=== PATIENT | male | born 1980 | race Caucasian/White ===

== ENCOUNTER 2017-01-30 21:25 | Emergency (ER) | payer SELFPAY ==
[~2017-01-30] VITALS: Ht 177.8 cm; Wt 60.4 kg
[~2017-01-30 21:25] MED LIST: NOVORP2 SQ
[2017-01-30 22:00] VITALS: BP 142/93; PULSE 122; TEMP 98.3; O2SAT 99
[2017-01-31] MEDS ORDERED: SODIUM CHLOR 0.9% 1000 ML INJ 1,000 ML IV ONE (00:18)
[2017-01-31] MEDS ORDERED: SODIUM CHLORIDE 0.9% FLUSH 10 ML FLUSH IVF PRN (00:30)
--- NOTE | 2017-01-31 00:36 | PD ---
HPI Chief Complaint: Diabetic Time Seen by Provider: 00:18 Travel History International Travel<30 days: No Contact w/Intl Traveler<30days: No Traveled to known affect area: No History of Present Illness HPI The patient is a 36-year-old male, insulin-dependent diabetic who complains of frequency, urgency and high blood sugars at home. At home her sugars were over 400. He does not have insurance and does not have a primary care physician. He denies any fever. He cannot tell me where he might have an infection. He has an insulin pump and gave himself 10 units of regular insulin 9:30 PM tonight. He does have nausea and vomiting and without any cause. He denies any abdominal pain. The nausea and vomiting started a day and a half ago. He does feel dehydrated. He states that his insulin pump is working correctly. He denies any cough, chest pain or shortness of breath. He does smoke about a pack a day. PFSH Past Medical History ADD: Yes Anxiety: Yes Depression: Yes Heart Rhythm Problems: No Cancer: No Cardiovascular Problems: No High Cholesterol: No Chest Pain: No Congestive Heart Failure: No Diabetes: Yes (insulin pump) Patient Takes Glucophage: No Diminished Hearing: No Endocrine: Yes Glaucoma: No Genitourinary: No Hepatitis: No Hiatal Hernia: Yes Hypertension: No Medical other: Yes (hx of muscle spasms unkown cause febrile seizures as a child) Musculoskeletal: Yes (chronic knee problems) Neurologic: No Psychiatric: No Reproductive: No Respiratory: No Immunizations Current: Yes Seizures: Yes (febrile seizures as a baby) Thyroid Disease: No Influenza Vaccination: No Past Surgical History Abdominal Surgery: No Cardiac Surgery: No Ear Surgery: No Endocrine Surgery: No Eye Surgery: No Genitourinary Surgery: No Gynecologic Surgery: No Neurologic Surgery: No Oral Surgery: No Pacemaker: No Thoracic Surgery: No Other Surgery: Yes (HERNIA X 2, HYDROCELE X2.) Social History Alcohol Use: Yes (socially) Tobacco Use: Yes (1 ppd) Substance Use: No Allergies-Medications (Allergen,Severity, Reaction): Coded Allergies: Sulfa (Verified Allergy, Severe, Hives and seizures, 01/31/17) Reported Meds & Prescriptions Reported Meds & Active Scripts Active Review of Systems Except as stated in HPI: all other systems reviewed are Neg Physical Exam Narrative GENERAL: The patient is alert, oriented 3, smells slightly of acetone in no apparent distress. He does appear at least moderately dehydrated. The respiratory rate is 22 and the pulse is 122 but the rest the vital signs are normal. SKIN: Focused skin assessment warm/dry. HEAD: Atraumatic. Normocephalic. EYES: Pupils equal and round. No scleral icterus. No injection or drainage. ENT: No nasal bleeding or discharge. Mucous membranes pink and moist. NECK: Trachea midline. No JVD. CARDIOVASCULAR: Regular rate and rhythm. No murmur appreciated. RESPIRATORY: No accessory muscle use. Except for a few widely scattered wheezes and rhonchi the lungs are clear.. Breath sounds equal bilaterally. GASTROINTESTINAL: Abdomen soft, non-tender, nondistended. Hepatic and splenic margins not palpable. No guarding or rebound is present. MUSCULOSKELETAL: No obvious deformities. No clubbing. No cyanosis. No edema. NEUROLOGICAL: Awake and alert. No obvious cranial nerve deficits. Motor grossly within normal limits. Normal speech. PSYCHIATRIC: Appropriate mood and affect; insight and judgment normal. Data Data Last Documented VS Vital Signs Date Time Temp Pulse Resp B/P Pulse Ox O2 Delivery O2 Flow Rate FiO2 01/31/17 01:49 89 141/82 95 01/31/17 01:14 22 Room Air 01/30/17 22:00 98.3 Orders Complete Blood Count With Diff (01/31/17 00:18) Comprehensive Metabolic Panel (01/31/17 00:18) Beta Hydroxybutyrate (Acetone) (01/31/17 00:18) Urinalysis - C+S If Indicated (01/31/17 00:18) Blood Glucose (01/31/17 00:18) Blood Glucose (01/31/17 00:48) Ecg Monitoring (01/31/17 00:18) Iv Access Insert/Monitor (01/31/17 00:18) Oximetry (01/31/17 00:18) NPO (01/31/17 00:18) Sodium Chloride 0.9% Flush (Ns Flush) (01/31/17 00:30) Sodium Chlor 0.9% 1000 Ml Inj (Ns 1000 M (01/31/17 00:18) Insulin Human Regular Inj (Novolin R Inj (01/31/17 01:45) Labs Laboratory Tests Test 01/31/17 01/31/17 01/31/17 00:35 00:43 01:07 White Blood Count 11.9 TH/MM3 Red Blood Count 5.83 MIL/MM3 Hemoglobin 16.5 GM/DL Hematocrit 51.8 % Mean Corpuscular Volume 88.8 FL Mean Corpuscular Hemoglobin 28.4 PG Mean Corpuscular Hemoglobin 31.9 % Concent Red Cell Distribution Width 13.1 % Platelet Count 213 TH/MM3 Mean Platelet Volume 9.4 FL Neutrophils (%) (Auto) 80.6 % Lymphocytes (%) (Auto) 12.9 % Monocytes (%) (Auto) 4.7 % Eosinophils (%) (Auto) 0.6 % Basophils (%) (Auto) 1.2 % Neutrophils # (Auto) 9.6 TH/MM3 Lymphocytes # (Auto) 1.5 TH/MM3 Monocytes # (Auto) 0.6 TH/MM3 Eosinophils # (Auto) 0.1 TH/MM3 Basophils # (Auto) 0.1 TH/MM3 CBC Comment DIFF FINAL Differential Comment Urine Color YELLOW Urine Turbidity CLEAR Urine pH 5.5 Urine Specific Reeves 1.027 Urine Protein TRACE mg/dL Urine Glucose (UA) 500 mg/dL Urine Ketones 80 OR GREATER mg/dL Urine Occult Blood NEG Urine Nitrite NEG Urine Bilirubin NEG Urine Leukocyte Esterase NEG Urine WBC 0-2 /hpf Urine Squamous Epithelial 0-5 /hpf Cells Urine Mucus OCC /lpf Microscopic Urinalysis Comment CULT NOT INDICATED Sodium Level 135 MEQ/L Potassium Level 4.7 MEQ/L Chloride Level 100 MEQ/L Carbon Dioxide Level 13.8 MEQ/L Anion Gap 21 MEQ/L Blood Urea Nitrogen 18 MG/DL Creatinine 1.10 MG/DL Estimat Glomerular Filtration 77 ML/MIN Rate Random Glucose 308 MG/DL Calcium Level 9.0 MG/DL Total Bilirubin 0.8 MG/DL Aspartate Amino Transf 12 U/L (AST/SGOT) Alanine Aminotransferase 19 U/L (ALT/SGPT) Alkaline Phosphatase 82 U/L Total Protein 8.3 GM/DL Albumin 4.4 GM/DL B-Hydroxybutyrate 8.48 MMOL/L [facility] Medical Decision Making Medical Screen Exam Complete: Yes Emergency Medical Condition: Yes Medical Record Reviewed: Yes Interpretation(s) It is now 0130 and the Accu-Chek is 266. The patient will be given 4 more units of Regular Insulin and discharged. The CBC is 11,900 with a hemoglobin of 16.5 and hematocrit of 52. There are 81% neutrophils. The urine shows specific gravity 1.027 with 500 glucose and 80 or greater ketones and is otherwise normal and culture is not indicated. The complete metabolic profile shows a sodium of 135, bicarbonate of 13.8 with an anion gap of 21 and glucose of 308 and total protein of 8.3 but is otherwise normal. The beta hydroxybutyrate is 8.48. Differential Diagnosis Diabetic ketoacidosis, diabetes mellitus poor control, pharyngitis, ear infection, pneumonia, bronchitis, intestinal infection, electrolyte disorder, dehydration Narrative Course The patient does have a mild starvation ketosis, likely because of dehydration. His high urine specific gravity, ketones in his urine and hemoconcentration of his hemoglobin and hematocrit in the CBC all suggest dehydration. It is now 0138 and the patient feels fine and wants to go home. Diagnosis Primary Impression: Poor control type I diabetes mellitus Additional Impressions: Moderate dehydration Ketosis Additional Instructions: As we discussed, increase your liquid intake. Take the Phenergan for nausea every 6 hours to prevent getting nauseated. Follow-up with a primary care physician. He will need to see the case checker, she is back on the . Med/Other Pt SpecificInfo: Prescription(s) given Scripts Promethazine (Phenergan)25 Mg Tab25 Mg PO Q6H PRN (Nausea/Vomiting) #30 TAB Ref 0 Prov:Pankaj Lopez MD 01/31/17 Disposition: DISCHARGE HOME Condition: Stable Pankaj Lopez MD Jan 31, 2017 00:36
[2017-01-31 00:51] VITALS: BP 150/90; PULSE 80; O2SAT 99
[2017-01-31 00:53] LABS: AUTOMATED NEUTROPHIL # 9.6 TH/MM3 (1.8-7.7); BASOPHIL # 0.1 TH/MM3 (0-0.2); BASOPHIL % 1.2 % (0.0-2.0); EOSINOPHIL # 0.1 TH/MM3 (0-0.4); EOSINOPHIL % 0.6 % (0.0-4.0); HEMATOCRIT 51.8 % (39.0-51.0); HEMO FLAGS DIFF FINAL; LYMPH % 12.9 % (9.0-44.0); LYMPHOCYTE # 1.5 TH/MM3 (1.0-4.8); MEAN CELL VOLUME 88.8 FL (80.0-100.0); MEAN CORPUSCULAR HEMOGLOBIN 28.4 PG (27.0-34.0); MEAN CORPUSCULAR HGB CONC 31.9 % (32.0-36.0); MONO % 4.7 % (0.0-8.0); NEUT % 80.6 % (16.0-70.0); PLATELET COUNT 213 TH/MM3 (150-450); RED BLOOD COUNT 5.83 MIL/MM3 (4.50-5.90); RED CELL DISTRIBUTION WIDTH 13.1 % (11.6-17.2); WHITE BLOOD COUNT 11.9 TH/MM3 (4.0-11.0)
[2017-01-31 01:09] LABS: BLOOD, URINE NEG (NEG); GLUCOSE,URINE 500 mg/dL (NEG); NITRITE,URINE NEG (NEG); PH, URINE 5.5 (5.0-8.5)
[2017-01-31 01:14] VITALS: RESP 22; O2SAT 99
[2017-01-31 01:21] LABS: KETONE, URINE 80 OR GREATER mg/dL (NEG)
[2017-01-31 01:25] LABS: URINE COLOR YELLOW (YELLW/STRAW)
[2017-01-31 01:26] LABS: COMMENT (UR) CULT NOT INDICATED; CULTURE IF INDICATED CULT NOT INDICATED; MUCUS URINE OCC /lpf (OCC); SQUAMOUS EPITHELIAL CELL URINE 0-5 /hpf (0-5); WBC, URINE 0-2 /hpf (0-5)
[2017-01-31] MEDS ORDERED: INSULIN HUMAN REGULAR 1,000 UNITS/10 ML VIAL IV PUSH ONE ×2 (01:30→01:45)
[2017-01-31 01:33] LABS: CHLORIDE 100 MEQ/L (98-107); POTASSIUM 4.7 MEQ/L (3.5-5.1); SODIUM (NA) 135 MEQ/L (136-145)
[2017-01-31 01:36] LABS: ANION GAP 21 MEQ/L (5-15); BICARBONATE 13.8 MEQ/L (21.0-32.0)
[2017-01-31 01:37] LABS: BLOOD UREA NITROGEN 18 MG/DL (7-18)
[2017-01-31 01:40] LABS: ALT (GPT) 19 U/L (12-78); AST (GOT) 12 U/L (15-37); GLOMERULAR FILTRATION RATE 77 ML/MIN (>89)
[2017-01-31 01:41] LABS: TOTAL BILIRUBIN ADULT 0.8 MG/DL (0.2-1.0)
[2017-01-31 01:42] LABS: ALKALINE PHOSPHATASE 82 U/L (45-117)
[2017-01-31 01:49] VITALS: BP 141/82; PULSE 89; O2SAT 95
[2017-01-31 02:01] LABS: BETA-HYDROXYBUTYRATE 8.48 MMOL/L (0.00-0.39)
[2017-01-31] MEDS ORDERED: PROM25TA5 PO (02:14)
== END 2017-01-31 02:55 | disposition home or self-care (01) ==
LOC: PHED 21:25
DX: E11.65 Type 2 diabetes mellitus with hyperglycemia (principal); E86.0 Dehydration; E88.89 Other specified metabolic disorders; F17.210 Nicotine dependence, cigarettes, uncomplicated; Z79.4 Long term (current) use of insulin; Z96.41 Presence of insulin pump (external) (internal)
CPT/HCPCS: 80053; 81001; 82010; 85025; 96361; 96374; 99284; J1815; J7030

== ENCOUNTER 2017-05-01 21:57 | Inpatient (IN) | payer SELFPAY ==
[~2017-05-01] VITALS: Ht 175.3 cm; Wt 66.5 kg
[~2017-05-01 21:57] MED LIST changes: -NOVORP2 SQ; +PROM25TA5 PO
[2017-05-01 22:05] VITALS: BP 136/76; PULSE 133; RESP 24; TEMP 97.5; O2SAT 100
[2017-05-01] MEDS ORDERED: SODIUM CHLOR 0.9% 1000 ML INJ 1,000 ML IV ONE ×2 (22:16→22:46)
[2017-05-01] MEDS ORDERED: TRAM50TA PO (22:18)
[2017-05-01] MEDS ORDERED: NOVORP2 SQ (22:18)
[2017-05-01 22:19] VITALS: O2SAT 100
[2017-05-01 22:22] VITALS: BP 154/70; PULSE 93; RESP 34; TEMP 97.5; O2SAT 100
[2017-05-01] MEDS ORDERED: SODIUM CHLORIDE 0.9% FLUSH 10 ML FLUSH IVF PRN (22:30)
[2017-05-01 22:32] LABS: BLOOD GAS VENOUS BASE EXCESS -23.2 mmol/L (-2-2); BLOOD GAS VENOUS HCO3 5 mmol/L (22-26); BLOOD GAS VENOUS O2 CONTENT 15.1 Vol % (9.0-17.0); BLOOD GAS VENOUS O2 HGB SAT 67 % (70-76); BLOOD GAS VENOUS PCO2 17 mmHg (44-48); BLOOD GAS VENOUS PO2 56 mmHg (35-40); TEMP CORR TO 98.6
[2017-05-01 22:33] LABS: CRITICAL VALUE YES; DRAW SITE PERIPHERAL LINE; FIO2 21 %; OXYGEN DEVICE ROOM AIR; STAT YES
[2017-05-01 22:34] LABS: AUTOMATED NEUTROPHIL # 15.8 TH/MM3 (1.8-7.7); BASOPHIL % 0.2 % (0.0-2.0); EOSINOPHIL # 0.2 TH/MM3 (0-0.4); HEMATOCRIT 50.5 % (39.0-51.0); LYMPHOCYTE # 0.5 TH/MM3 (1.0-4.8); MEAN CELL VOLUME 95.6 FL (80.0-100.0); MEAN CORPUSCULAR HGB CONC 31.4 % (32.0-36.0); MONO % 6.2 % (0.0-8.0); NEUT % 89.6 % (16.0-70.0); PLATELET COUNT 174 TH/MM3 (150-450); RED BLOOD COUNT 5.29 MIL/MM3 (4.50-5.90); RED CELL DISTRIBUTION WIDTH 14.3 % (11.6-17.2); WHITE BLOOD COUNT 17.6 TH/MM3 (4.0-11.0)
[2017-05-01 22:35] LABS: HEMO FLAGS DIFF FINAL
[2017-05-01] MEDS: DEXT 5%-NACL 0.9% 1000 ML INJ 1,000 ML IV SCH (22:38)
[2017-05-01 22:44] LABS: CHLORIDE 80 MEQ/L (98-107); POTASSIUM 5.6 MEQ/L (3.5-5.1); SODIUM (NA) 125 MEQ/L (136-145)
[2017-05-01] MEDS ORDERED: SODIUM BICARBONATE 8.4% SOLN 50 MEQ/50 ML VIAL IV PRN ×2 (22:45)
[2017-05-01] MEDS ORDERED: POTASSIUM CHLOR 20 MEQ PREMIX 100 ML IV PRN ×4 (22:45)
[2017-05-01] MEDS ORDERED: INSULIN HUMAN REGULAR 1,000 UNITS/10 ML VIAL IV PUSH ONE (22:45)
[2017-05-01] MEDS ORDERED: INSULIN REGULAR (IV INFUSION) 100 UNITS in SODIUM CHLORIDE 0.9% INJ 99 ML IV SCH (22:45)
[2017-05-01] MEDS ORDERED: SODIUM PHOSPHATE INJ 15 MMOL in SODIUM CHLORIDE 0.9% INJ 100 ML IV PRN (22:45)
[2017-05-01] MEDS ORDERED: POTASSIUM CHLOR 40 MEQ PREMIX 100 ML IV PRN ×2 (22:45)
--- NOTE | 2017-05-01 22:45 | PD ---
HPI Chief Complaint: Diabetic Time Seen by Provider: 22:16 Travel History International Travel<30 days: No Contact w/Intl Traveler<30days: No Traveled to known affect area: No History of Present Illness HPI Is a 36 old man who presents to the emergency department complaining of feeling sick with nausea vomiting abdominal pain. His a history of diabetes. He's been taking regular insulin but no long-acting insulin because of insurance problems. He also does not strips to test his sugar. He states he started feeling bad today. His family member states she's really been filled out for the past week or so. Today started getting worsening nausea vomiting abdominal pain. He also some right flank pain. Is a history of recurrent DKA in the past as well. History Past Medical History Narrative Medical Diabetes Chronic knee pain Tetanus Vaccination: < 5 Years Influenza Vaccination: No Social History Narrative Social History Patient denies any illicit drug use. Alcohol Use: Yes (socially) Tobacco Use: Yes (1 ppd) Allergies-Medications (Allergen,Severity, Reaction): Coded Allergies: Sulfa (Verified Allergy, Severe, Hives and seizures, 05/01/17) Reported Meds & Prescriptions Reported Meds & Active Scripts Active Reported Tramadol (Tramadol HCl) 50 Mg Tab 50 Mg PO Q6H PRN Novolin R Inj (Insulin Human Regular) 1,000 Unit/10 Ml Vial 0 SQ DIRECTED Sliding Scale As Directed. Review of Systems Except as stated in HPI: all other systems reviewed are Neg Physical Exam Narrative GENERAL: Well-appearing 36 year-old man, tachypnea, Kussmaul breathing, looks uncomfortable. SKIN: Focused skin assessment warm/dry. HEAD: Atraumatic. Normocephalic. EYES: Pupils equal and round. No scleral icterus. No injection or drainage. ENT: No nasal bleeding or discharge. Mucous membranes are dry. NECK: Trachea midline. No JVD. CARDIOVASCULAR: Regular rate and rhythm. No murmur appreciated. RESPIRATORY: No accessory muscle use. Clear to auscultation. Breath sounds equal bilaterally. GASTROINTESTINAL: Abdomen is flat and soft. There is no tenderness or grimace with deep palpation. MUSCULOSKELETAL: No obvious deformities. No edema. NEUROLOGICAL: Awake and alert. No obvious cranial nerve deficits. Motor grossly within normal limits. Normal speech. Data Data Last Documented VS Vital Signs Date Time Temp Pulse Resp B/P Pulse Ox O2 Delivery O2 Flow Rate FiO2 05/01/17 23:18 97.9 127 30 136/71 100 Room Air Orders Complete Blood Count With Diff (05/01/17 22:16) Comprehensive Metabolic Panel (05/01/17 22:16) Magnesium (Mg) (05/01/17 22:16) Phosphorus (Po4) (05/01/17 22:16) Beta Hydroxybutyrate (Acetone) (05/01/17 22:16) Lactic Acid (05/01/17 22:16) Urinalysis - C+S If Indicated (05/01/17 22:16) Blood Gas Venous (Vbg) (05/01/17 22:16) Blood Glucose (05/01/17 22:16) Blood Glucose (05/01/17 23:16) Blood Glucose (05/01/17 22:16) Ecg Monitoring (05/01/17 22:16) Iv Access Insert/Monitor (05/01/17 22:16) Oximetry (05/01/17 22:16) NPO (05/01/17 22:16) Sodium Chlor 0.9% 1000 Ml Inj (Ns 1000 M (05/01/17 22:16) Sodium Chlor 0.9% 1000 Ml Inj (Ns 1000 M (05/01/17 22:46) Sodium Chloride 0.9% Flush (Ns Flush) (05/01/17 22:30) Lipase (05/01/17 22:16) Clinical Outcomes Manager / Telemetry [id number] (05/01/17 22:38) ^ Insert Iv (05/01/17 22:38) Diet Npo (05/02/17 Breakfast) Sodium Chlor 0.9% 1000 Ml Inj (Ns 1000 M (05/01/17 22:38) Sodium Chlor 0.9% 1000 Ml Inj (Ns 1000 M (05/01/17 22:38) Dext 5%-Nacl 0.9% 1000 Ml Inj (D5w-Ns 10 (05/01/17 22:38) Insulin Human Regular Inj (Novolin R Inj (05/01/17 22:45) Insulin Regular (Iv Infusion) (Novolin R (05/01/17 22:45) Potassium Chlor 40 Meq Premix (Kcl 40 Me (05/01/17 22:45) Potassium Chlor 40 Meq Premix (Kcl 40 Me (05/01/17 22:45) Potassium Chlor 20 Meq Premix (Kcl 20 Me (05/01/17 22:45) Potassium Chlor 20 Meq Premix (Kcl 20 Me (05/01/17 22:45) Potassium Chlor 20 Meq Premix (Kcl 20 Me (05/01/17 22:45) Potassium Chlor 20 Meq Premix (Kcl 20 Me (05/01/17 22:45) Potassium Chlor 20 Meq Premix (Kcl 20 Me (05/01/17 22:45) Potassium Chlor 20 Meq Premix (Kcl 20 Me (05/01/17 22:45) Sodium Bicarbonate 8.4% Inj (Sodium Bica (05/01/17 22:45) Sodium Bicarbonate 8.4% Inj (Sodium Bica (05/01/17 22:45) Sodium Phosphate Inj (Sodium Phosphate I (05/01/17 22:45) Hemoglobin (Hgb) A1c (05/01/17 22:38) Basic Metabolic Panel (Bmp) (05/02/17 03:38) Basic Metabolic Panel (Bmp) (05/02/17 09:38) Basic Metabolic Panel (Bmp) (05/02/17 15:38) Basic Metabolic Panel (Bmp) (05/02/17 21:38) Magnesium (Mg) (05/02/17 03:38) Magnesium (Mg) (05/02/17 09:38) Magnesium (Mg) (05/02/17 15:38) Magnesium (Mg) (05/02/17 21:38) Phosphorus (Po4) (05/02/17 03:38) Phosphorus (Po4) (05/02/17 09:38) Phosphorus (Po4) (05/02/17 15:38) Phosphorus (Po4) (05/02/17 21:38) Beta Hydroxybutyrate (Acetone) (05/02/17 09:38) Beta Hydroxybutyrate (Acetone) (05/02/17 21:38) Admit Order (Ed Use Only) (05/01/17 ) Labs Laboratory Tests Test 05/01/17 05/01/17 05/01/17 22:16 22:22 22:28 White Blood Count 17.6 TH/MM3 Red Blood Count 5.29 MIL/MM3 Hemoglobin 15.9 GM/DL Hematocrit 50.5 % Mean Corpuscular Volume 95.6 FL Mean Corpuscular Hemoglobin 30.0 PG Mean Corpuscular Hemoglobin 31.4 % Concent Red Cell Distribution Width 14.3 % Platelet Count 174 TH/MM3 Mean Platelet Volume 8.6 FL Neutrophils (%) (Auto) 89.6 % Lymphocytes (%) (Auto) 3.0 % Monocytes (%) (Auto) 6.2 % Eosinophils (%) (Auto) 1.0 % Basophils (%) (Auto) 0.2 % Neutrophils # (Auto) 15.8 TH/MM3 Lymphocytes # (Auto) 0.5 TH/MM3 Monocytes # (Auto) 1.1 TH/MM3 Eosinophils # (Auto) 0.2 TH/MM3 Basophils # (Auto) 0.0 TH/MM3 CBC Comment DIFF FINAL Differential Comment Sodium Level 125 MEQ/L Potassium Level 5.6 MEQ/L Chloride Level 80 MEQ/L Carbon Dioxide Level 6.2 MEQ/L Anion Gap 39 MEQ/L Blood Urea Nitrogen 26 MG/DL Creatinine 1.60 MG/DL Estimat Glomerular Filtration 50 ML/MIN Rate Random Glucose 597 MG/DL Calcium Level 8.7 MG/DL Phosphorus Level 7.4 MG/DL Magnesium Level 2.3 MG/DL Total Bilirubin 1.7 MG/DL Aspartate Amino Transf 114 U/L (AST/SGOT) Alanine Aminotransferase 94 U/L (ALT/SGPT) Alkaline Phosphatase 146 U/L Total Protein 9.2 GM/DL Albumin 5.0 GM/DL Lipase 219 U/L B-Hydroxybutyrate 14.56 MMOL/L Blood Gas Puncture Site PERIPHERAL LINE Blood Gas Patient Temperature 98.6 Venous Blood pH 7.10 Venous Blood Partial Pressure 17 mmHg CO2 Venous Blood Partial Pressure 56 mmHg O2 Venous Blood HCO3 5 mmol/L Venous Blood Oxygen Saturation 67 % Venous Blood Oxygen Content 15.1 Vol % Venous Blood Base Excess -23.2 mmol/L Oxygen Delivery Device ROOM AIR Blood Gas Inspired Oxygen 21 % Lactic Acid Level 6.5 mmol/L [facility] Medical Decision Making Medical Screen Exam Complete: Yes Emergency Medical Condition: Yes Interpretation(s) LABS: CBC remarkable for mild leukocytosis. CMP remarkable for acidosis with elevated anion gap, some acute kidney injury, glucose 597, mildly elevated total bili is see ALT and alkaline phosphatase Lipase normal Lactate 6.5 Beta hydroxy butyrate 14.56 VB.1/17/56/5, base excess -23.2 Differential Diagnosis DKA, occult infection, occult injury, acidosis, sepsis, other Narrative Course Medical decision making Is a 36 old man who presents to the emergency department and apparent DKA. Sounds like he's taking insulin on a schedule, but no long-acting insulin, is not checking his blood sugar, and probably has been getting gradually worse for the past week. Today became acutely worse. He appears to be in DKA. He has some right flank pain which is not typical for him with DKA. He does however have a benign abdominal exam at this time. We'll give IV fluids, check labs, aggressive hydration. Will start IV insulin this is BC his potassium level. He 'll be admitted to the ICU. Critical Care Narrative Aggregate critical care time was 30 minutes. Time to perform other separately billable procedures was not included in the critical care time. My time did not include minutes spent treating any other patients simultaneously or on activities that did not directly contribute to the patient's treatment. The services I provided to this patient were to treat and/or prevent clinically significant deterioration that could result in: , disability, shock, neurologic injury, other. I provided critical care services requiring my management, as noted below: Chart data review, documentation time, medication orders and management, vital sign assessments/reviewing monitor data, ordering and reviewing lab tests, ordering and interpreting/reviewing x-rays and diagnostic studies, care of the patient and discussion of the patient with the admitting physicians. Diagnosis Primary Impression: DKA (diabetic ketoacidoses) Owen Melendez MD May 01, 2017 22:45
[2017-05-01 22:48] LABS: ANION GAP 39 MEQ/L (5-15); BICARBONATE 6.2 MEQ/L (21.0-32.0); BLOOD UREA NITROGEN 26 MG/DL (7-18); MAGNESIUM 2.3 MG/DL (1.5-2.5)
[2017-05-01 22:50] LABS: ALT (GPT) 94 U/L (12-78); AST (GOT) 114 U/L (15-37); GLOMERULAR FILTRATION RATE 50 ML/MIN (>89)
[2017-05-01 22:52] LABS: TOTAL BILIRUBIN ADULT 1.7 MG/DL (0.2-1.0)
[2017-05-01] MEDS: SODIUM CHLOR 0.9% 1000 ML INJ 1,000 ML IV SCH ×3 (22:53→23:56)
[2017-05-01 23:10] LABS: ALKALINE PHOSPHATASE 146 U/L (45-117)
[2017-05-01 23:17] LABS: BETA-HYDROXYBUTYRATE 14.56 MMOL/L (0.00-0.39)
[2017-05-01 23:18] VITALS: BP 136/71; PULSE 127; RESP 30; TEMP 97.9; O2SAT 100
[2017-05-01] MEDS ORDERED: MAGNESIUM HYDROXIDE SUSP 30 ML CUP PO PRN (23:30)
[2017-05-01] MEDS ORDERED: LACTULOSE SYRUP 20 GM/30 ML CUP PO PRN (23:30)
[2017-05-01] MEDS ORDERED: CHLORHEXIDINE GLUCONATE 2 % 1 PACK (2 CLOTHS) TOP PRN (23:30)
[2017-05-01] MEDS ORDERED: SODIUM CHLORIDE 0.9% FLUSH 10 ML FLUSH IV FLUSH PRN (23:30)
[2017-05-01] MEDS ORDERED: SENNOSIDES 8.6 MG TAB PO PRN (23:30)
[2017-05-01] MEDS ORDERED: MISCELLANEOUS NURSING INFORMATION XX SCH (23:30)
[2017-05-01] MEDS ORDERED: BISACODYL 10 MG SUPP RECTAL PRN (23:30)
[2017-05-01] MEDS ORDERED: RESP: ALBUTEROL 2.5 MG/3 ML NEB (PRN) INH (23:30)
[2017-05-01] MEDS ORDERED: ACETAMINOPHEN 325 MG TAB PO PRN (23:30)
[2017-05-01] MEDS ORDERED: ONDANSETRON HCL 4 MG/2 ML VIAL IV PRN (23:30)
[2017-05-01] MEDS ORDERED: MORPHINE SULFATE 4 MG/ML INJ IV PRN (23:30)
--- NOTE | 2017-05-01 23:56 | RADRPT ---
EXAM DATE/TIME: 05/01/2017 23:27 [facility] COMPARISON: No previous studies available for comparison. INDICATIONS : Shortness of breath. MEDICAL HISTORY : Diabetes. SURGICAL HISTORY : None. ENCOUNTER: Initial ACUITY: 1 day PAIN SCORE: 4/10 LOCATION: Bilateral chest FINDINGS: A single view of the chest demonstrates the lungs to be symmetrically aerated without evidence of mas s, infiltrate or effusion. The cardiomediastinal contours are unremarkable. Osseous structures are intact. CONCLUSION: Normal examination for a patient of this age. Ramiro Mcpherson MD on May 01, 2017 at 23:54 Board Certified Radiologist. This report was verified electronically.
[2017-05-02] VITALS (25 sets, daily range): BP systolic 110–145; BP diastolic 57–80; PULSE 88–135; RESP 0–34; TEMP 97.1–99.2; O2SAT 99–100
[2017-05-02] MEDS ORDERED: PIPERACIL-TAZO 3.375 GM PREMIX 50 ML IV SCH
[2017-05-02] MEDS: ENOXAPARIN SODIUM 40 MG/0.4 ML SYRINGE SQ SCH (00:37)
--- NOTE | 2017-05-02 00:41 | RADRPT ---
EXAM DATE/TIME: 05/02/2017 00:05 [facility] COMPARISON: No previous studies available for comparison. INDICATIONS : Abdominal pain. MEDICAL HISTORY : Seizures. Hernia, hiatal. Diabetes. Depression. Anxiety. SURGICAL HISTORY : Left sesmoid bone removal. Right knee surgery. Hydrocele surgery. Hernia repair surgery. ENCOUNTER: Initial ACUITY: 1 day PAIN SCORE: 7/10 LOCATION: Bilateral upper quadrant MEASUREMENTS: LIVER: 16.2 cm length COMMON DUCT: 3 mm RIGHT KIDNEY: 11.9 x 5.9 x 5.8 cm LEFT KIDNEY: 12.8 x 6.5 x 5.6 cm SPLEEN: 10.6 cm length AORTA: 2.0cm maximal FINDINGS: LIVER: There is an increased echogenicity suggestive of some fatty infiltration. The portal system is patent . No evidence of ascites. COMMON DUCT: No intraluminal mass or stone visualized. GALLBLADDER: Contains no stones, demonstrates no wall thickening or pericholecystic fluid. PANCREAS: The visualized portions are within normal limits. RIGHT KIDNEY: No hydronephrosis, stone or mass. LEFT KIDNEY: No hydronephrosis, stone or mass. SPLEEN: No focal lesion. AORTA: Non aneurysmal. IVC: Within normal limits. CONCLUSION: 1. No evidence of gallstones or biliary tract obstruction. 2. Mild fatty infiltration of the liver. Ramiro Mcpherson MD on May 02, 2017 at 0:39 Board Certified Radiologist. This report was verified electronically.
[2017-05-02 00:58] LABS: BLOOD, URINE SMALL (NEG); GLUCOSE,URINE NEG (NEG); NITRITE,URINE NEG (NEG); PH, URINE 5.5 (5.0-8.5)
[2017-05-02 01:09] LABS: KETONE, URINE 80 OR GREATER mg/dL (NEG); URINE COLOR YELLOW (YELLW/STRAW)
[2017-05-02 01:10] LABS: MUCUS URINE OCC /lpf (OCC)
[2017-05-02 01:11] LABS: RBC, URINE 0-3 /hpf (0-3); SQUAMOUS EPITHELIAL CELL URINE 0-5 /hpf (0-5)
[2017-05-02 01:12] LABS: COMMENT (UR) CULT NOT INDICATED; CULTURE IF INDICATED CULT NOT INDICATED
[2017-05-02] MEDS: CHLORHEXIDINE GLUCONATE 2 % 1 PACK (2 CLOTHS) TOP SCH (01:46)
[2017-05-02] MEDS: ACETAMINOPHEN/HYDROcodone 325 MG/5 MG TAB PO PRN ×2 (01:59→20:23)
[2017-05-02] MEDS: SODIUM CHLOR 0.9% 1000 ML INJ 1,000 ML IV SCH ×3 (02:38→10:38)
[2017-05-02] MEDS: DEXT 5%-NACL 0.9% 1000 ML INJ 1,000 ML IV SCH ×5 (04:43→22:34)
[2017-05-02 05:12] LABS: AUTOMATED NEUTROPHIL # 12.6 TH/MM3 (1.8-7.7); BASOPHIL % 0.3 % (0.0-2.0); EOSINOPHIL % 0.1 % (0.0-4.0); LYMPH % 3.1 % (9.0-44.0); LYMPHOCYTE # 0.4 TH/MM3 (1.0-4.8); MEAN CELL VOLUME 91.4 FL (80.0-100.0); MEAN CORPUSCULAR HEMOGLOBIN 30.2 PG (27.0-34.0); MEAN CORPUSCULAR HGB CONC 33.1 % (32.0-36.0); MONO % 4.8 % (0.0-8.0); NEUT % 91.7 % (16.0-70.0); PLATELET COUNT 150 TH/MM3 (150-450); RED BLOOD COUNT 4.16 MIL/MM3 (4.50-5.90); RED CELL DISTRIBUTION WIDTH 13.5 % (11.6-17.2); WHITE BLOOD COUNT 13.7 TH/MM3 (4.0-11.0)
[2017-05-02 05:25] LABS: HEMO FLAGS DIFF FINAL
--- NOTE | 2017-05-02 05:53 | HHI.HP ---
[facility] Service Critical Care Medicine Primary Care Physician No Primary Care Physician Admission Diagnosis severe DKA Diagnosis: (1) DKA (diabetic ketoacidoses) Diagnosis: Principal (2) Poor control type I diabetes mellitus Diagnosis: Principal (3) Moderate dehydration Diagnosis: Principal (4) Hyponatremia Diagnosis: Principal (5) Hyperkalemia Diagnosis: Principal (6) Elevated transaminase level Diagnosis: Principal (7) Ketosis Diagnosis: Principal (8) Lactic acidosis Diagnosis: Principal (9) Acute kidney injury Diagnosis: Principal (10) Leukocytosis Diagnosis: Principal (11) Normocytic anemia Diagnosis: Principal (12) ETOHism Diagnosis: Principal (13) SIRS (systemic inflammatory response syndrome) Diagnosis: Principal Chief Complaint: Nausea and vomiting. :My insulin pump is broken I had not check my blood sugars". Travel History International Travel<30 Days: No Contact w/Intl Traveler <30 Da: No Traveled to Known Affected Are: No Sepsis Criteria SIRS Criteria (2 or more): WBC > 75957, < 4000 or > 10% bands History of Present Illness 36-year-old male. Date of admission 05/01/2017. Past medical history includes IDDM 15 years currently on insulin pump. Patient has a [place] insulin pump (currently not available as patient removed 20 minutes prior to arrival to [facility] ED) that was "malfunctioning". He recently was on Novulog R insulin however is lost insurance and switched on his own to Novulin N insulin recently. He presents to [place] ED with quantitative history of increasing nausea/vomiting and epigastric abdominal pain. He is attempting to drink propel fitness water without success. Denies any recent side contacts. Denies chest pain, denies shortness of breath. Last episode of DKA was in 2016. Initial laboratory revealed a leukocytosis of 13,000, sodium 125, potassium 5.6 , acute kidney injury with a creatinine 1.6, blood sugar 592, beta hydroxybutyrate 14.56 and lactic acidosis 6.5. Transaminase are elevated slightly and phosphorus elevated 7.3. Recent abdominal ultrasound which revealed essentially normal gallbladder with hepatic steatosis. Patient received crystalloid bolus the ED and 6 units are insulin 1 is currently on insulin drip at 8 units an hour. He has been switched to D5 normal saline at 200 cc an hour. On my examination, patient denies any abdominal pain. No nausea vomiting. Appears nonseptic and is in no acute distress. Review of Systems Constitutional: COMPLAINS OF: Weight loss, Dizziness, DENIES: Fever, Weight gain, Chills Endocrine: DENIES: Polydipsia, Polyuria Eyes: DENIES: Blurred vision, Double Vision Ears, nose, mouth, throat: DENIES: Throat pain, Epistaxis Respiratory: DENIES: Apneas Cardiovascular: DENIES: Chest pain Gastrointestinal: COMPLAINS OF: Nausea, Vomiting, DENIES: Abdominal pain Genitourinary: DENIES: Hematuria, Nocturia Musculoskeletal: DENIES: Joint pain Integumentary: DENIES: Pruritus, Rash Hematologic/lymphatic: DENIES: Bruising Immunologic/allergic: DENIES: Eczema Neurologic: DENIES: Abnormal gait Psychiatric: DENIES: Anxiety, Confusion Past Family Social History Allergies: Coded Allergies: Sulfa (Verified Allergy, Severe, Hives and seizures, 05/01/17) Past Medical History IDDM EtOH use Tobaccoism Depression Chronic bilateral knee pain Past Surgical History Right hydrocelectomy Left foot sesamoid bone surgery Right total knee arthroplasty Bilateral inguinal hernia repair Reported Medications Ultram 50 mg every 6 hours when necessary Insulin pump currently broken with Novulin R insulin Active Ordered Medications Reviewed in EMR Family History Patient is adopted. He does not know his parents history Social History +1/2 pack per day tobacco 15 years. Drinks 2 vodkas plus daily. Quit 2 days ago. Physical Exam Vital Signs Vital Signs Date Time Temp Pulse Resp B/P Pulse Ox O2 Delivery O2 Flow Rate FiO2 05/02/17 04:00 118 05/02/17 03:00 98.5 122 29 131/74 05/02/17 02:00 128 0 140/65 05/02/17 02:00 128 0 140/65 05/02/17 02:00 128 05/02/17 02:00 125 05/02/17 01:31 98.2 130 23 142/65 100 05/02/17 01:08 142/65 05/02/17 00:32 97.5 135 34 144/66 100 Room Air 05/01/17 23:18 97.9 127 30 136/71 100 Room Air 05/01/17 22:22 97.5 93 34 154/70 100 Room Air 05/01/17 22:19 100 Room Air 05/01/17 22:05 97.5 133 24 136/76 100 Physical Exam GENERAL: 36-year-old male, resting in bed in no acute distress SKIN: Warm and dry. Multiple tattoos upper extremities HEAD: Atraumatic. Normocephalic. EYES: Pupils equal and round about 3 mm bilaterally and reactive. No scleral icterus. No injection or drainage. ENT: No nasal bleeding or discharge. Mucous membranes pink and moderately moist. Oropharynx without erythema NECK: Trachea midline. No JVD. CARDIOVASCULAR: Tachycardia, RR. S1, S2. No S4. Without murmur RESPIRATORY: Clear to auscultation. Breath sounds equal bilaterally. GASTROINTESTINAL: Abdomen soft, non-tender, nondistended. Hyperactive bowel sounds are appreciated. MUSCULOSKELETAL: Extremities without significant peripheral edema. No obvious deformities. NEUROLOGICAL: Awake and alert. No obvious cranial nerve deficits. Motor grossly within normal limits. Five out of 5 muscle strength in the arms and legs. Normal speech. Laboratory Laboratory Tests Test 05/01/17 05/01/17 05/01/17 05/02/17 22:16 22:22 22:28 00:44 White Blood Count 17.6 Red Blood Count 5.29 Hemoglobin 15.9 Hematocrit 50.5 Mean Corpuscular Volume 95.6 Mean Corpuscular Hemoglobin 30.0 Mean Corpuscular Hemoglobin 31.4 Concent Red Cell Distribution Width 14.3 Platelet Count 174 Mean Platelet Volume 8.6 Neutrophils (%) (Auto) 89.6 Lymphocytes (%) (Auto) 3.0 Monocytes (%) (Auto) 6.2 Eosinophils (%) (Auto) 1.0 Basophils (%) (Auto) 0.2 Neutrophils # (Auto) 15.8 Lymphocytes # (Auto) 0.5 Monocytes # (Auto) 1.1 Eosinophils # (Auto) 0.2 Basophils # (Auto) 0.0 CBC Comment DIFF FINAL Differential Comment Sodium Level 125 Potassium Level 5.6 Chloride Level 80 Carbon Dioxide Level 6.2 Anion Gap 39 Blood Urea Nitrogen 26 Creatinine 1.60 Estimat Glomerular Filtration 50 Rate Random Glucose 597 Calcium Level 8.7 Phosphorus Level 7.4 Magnesium Level 2.3 Total Bilirubin 1.7 Aspartate Amino Transf 114 (AST/SGOT) Alanine Aminotransferase 94 (ALT/SGPT) Alkaline Phosphatase 146 Total Protein 9.2 Albumin 5.0 Lipase 219 B-Hydroxybutyrate 14.56 Blood Gas Puncture Site PERIPHERAL LINE Blood Gas Patient Temperature 98.6 Venous Blood pH 7.10 Venous Blood Partial Pressure 17 CO2 Venous Blood Partial Pressure 56 O2 Venous Blood HCO3 5 Venous Blood Oxygen Saturation 67 Venous Blood Oxygen Content 15.1 Venous Blood Base Excess -23.2 Oxygen Delivery Device ROOM AIR Blood Gas Inspired Oxygen 21 Lactic Acid Level 6.5 Urine Color YELLOW Urine Turbidity CLEAR Urine pH 5.5 Urine Specific [place] 1.020 Urine Protein TRACE Urine Glucose (UA) NEG Urine Ketones 80 OR GREATER Urine Occult Blood SMALL Urine Nitrite NEG Urine Bilirubin NEG Urine Leukocyte Esterase NEG Urine RBC 0-3 Urine Squamous Epithelial 0-5 Cells Urine Hyaline Casts 6-9 Urine Mucus OCC Microscopic Urinalysis Comment CULT NOT INDICATED Test 05/02/17 04:57 White Blood Count 13.7 Red Blood Count 4.16 Hemoglobin 12.6 Hematocrit 38.0 Mean Corpuscular Volume 91.4 Mean Corpuscular Hemoglobin 30.2 Mean Corpuscular Hemoglobin 33.1 Concent Red Cell Distribution Width 13.5 Platelet Count 150 Mean Platelet Volume 7.9 Neutrophils (%) (Auto) 91.7 Lymphocytes (%) (Auto) 3.1 Monocytes (%) (Auto) 4.8 Eosinophils (%) (Auto) 0.1 Basophils (%) (Auto) 0.3 Neutrophils # (Auto) 12.6 Lymphocytes # (Auto) 0.4 Monocytes # (Auto) 0.7 Eosinophils # (Auto) 0.0 Basophils # (Auto) 0.0 CBC Comment DIFF FINAL Differential Comment Date/Time Procedure Status Source Growth 05/01/17 23:30 Aerobic Blood Culture Received Blood Peripheral Pending 05/01/17 23:30 Anaerobic Blood Culture Received Blood Peripheral Pending Result Diagram: 05/02/17 0457 05/01/17 2216 Imaging Last Impressions Chest X-Ray 05/01/17 0000 Signed Impressions: Service Date/Time: Monday, May 01, 2017 23:27 - CONCLUSION: Normal examination for a patient of this age. Ramiro Mcpherson MD Abdomen Ultrasound 05/01/17 0000 Signed Impressions: Service Date/Time: Tuesday, May 02, 2017 00:05 - CONCLUSION: 1. No evidence of gallstones or biliary tract obstruction. 2. Mild fatty infiltration of the liver. Ramiro Mcpherson MD Assessment and Plan Problem List: (1) DKA (diabetic ketoacidoses) ICD Code: E13.10 Status: Acute (2) Hyperkalemia ICD Code: E87.5 Status: Acute (3) Lactic acidosis ICD Code: E87.2 Status: Acute (4) Hyponatremia ICD Code: E87.1 Status: Acute (5) Ketosis ICD Code: E88.89 Status: Acute (6) Leukocytosis ICD Code: D72.829 Status: Acute (7) Normocytic anemia ICD Code: D64.9 Status: Acute (8) ETOHism ICD Code: F10.20 Status: Acute (9) Moderate dehydration ICD Code: E86.0 Status: Acute (10) Poor control type I diabetes mellitus ICD Code: E10.65 Status: Acute (11) SIRS (systemic inflammatory response syndrome) ICD Code: R65.10 Status: Acute (12) Acute kidney injury ICD Code: N17.9 Status: Acute (13) Elevated transaminase level ICD Code: R74.0 Status: Acute (14) Tobacco smoker, less than 10 cigarettes per day ICD Code: F17.210 Status: Acute Assessment and Plan Neuro/Psych: Depression disorder NOS Acute toxic metabolic encephalopathy secondary to DKA resolved EtOH use Chronic bilateral knee pain management Acetaminophen 650 mg every 6 hours for fever greater than 100F Acetaminophen/codeine 5/325 one tablet every 4 hours when necessary pain 1-5. Morphine sulfate 2 mg IV every 2 hours when necessary pain 6-10 Holding tramadol 50 mill grams by mouth every 6 hours when necessary pain CV: Sinus tachycardia Lactic acidosis Likely secondary to intravascular dehydration secondary to DKA. Currently on D5 normal saline at 200 cc an hour. EKG revealed sinus tachycardia. Normal CO, QRS and QT intervals. Serial lactates until clear. Currently 6.5 Resp: Tobaccoism Patient is currently in room air Chest x-ray revealed no acute cardiopulmonary findings Nicotine patch 21 mg daily provided. Tobacco education cessation booklet provided GI: Elevated transaminases Nausea/vomiting secondary to DKA - resolved Abdominal ultrasound revealed normal gallbladder. Hepatic steatosis. Follow-up CMP in a.m. Lipase within normal limits. : Leblanc catheter not indicated. Voiding adequately Endo: DKA IDDM Patient will bring in his [place] insulin pump today. Will transition back today as clinically indicated on previous studies to make sure the insulin correlates Patient is currently on insulin drip at 8 units an hour. Switched to D5 normal saline at 200 cc an hour. Last anion gap 20. Beta hydroxybutyrate every 12 hours Serial BMP, magnesium phosphorus every 6 hours. Hemoglobin A1c pending. Renal: Acute kidney injury secondary to dehydration/prerenal resolved Crowding currently 1.1. Serial BMPs. Monitor urine output Accurate I's and O's Heme: Leukocytosis Normocytic anemia Monitor CBC daily. Follow trends. No indication for transfusion of blood proximal at this time. No active bleeding ID: Monitor for infection Discontinued antibiotics. No obvious source of infection. Clinically patient nonseptic appearing. Blood Cultures 2 ordered 05/01 MSK: Out of bed as tolerated FEN: Hyponatremia now-normal Hyperkalemia now normal Hyper now hypophosphatemia Replace electrolytes per DKA left leg protocol. 30 mmol sodium phosphate, 2 g mag sulfate 1 now. Recheck in 6 hours Access - Utilize peripheral IV. Central line if indicated Prophylaxis - GI - Protonix - DVT - SCD/Lovenox subcutaneous Level II admission Code Status Full code Discussed Condition With Patient. BED BUG EXTERMINATOR. Care plan discussed all questions answered. Problem Qualifiers (1) DKA (diabetic ketoacidoses): Qualified Code: E10.10 - Diabetic ketoacidosis without coma associated with type 1 diabetes mellitus (2) Leukocytosis: Qualified Code: D72.829 - Leukocytosis, unspecified type Preston Baez MD May 02, 2017 05:53
[2017-05-02 06:05] LABS: BICARBONATE 10.6 MEQ/L (21.0-32.0); MAGNESIUM 1.7 MG/DL (1.5-2.5); POTASSIUM 4.8 MEQ/L (3.5-5.1)
[2017-05-02 06:07] LABS: CALCIUM-PROTEIN CORRECTED 6.9 MG/DL (8.5-10.1)
[2017-05-02] MEDS ORDERED: CALCIUM GLUCONATE INJ 2 GM in SODIUM CHLORIDE 0.9% INJ 100 ML IV ONE (07:30)
[2017-05-02] MEDS ORDERED: SODIUM PHOSPHATE INJ 30 MMOL in SODIUM CHLOR 0.9% 250 ML INJ 250 ML IV ONE (08:30)
[2017-05-02] MEDS: MAGNESIUM SULFATE 1 GM PREMIX 100 ML IV SCH ×2 (08:36→09:44)
--- NOTE | 2017-05-02 08:52 | EKG ---
Date Performed: 05/01/2017 Time Performed: 23:50:26 PTAGE: 36 years EKG: SINUS TACHYCARDIA NONSPECIFIC T-WAVE ABNORMALITY ABNORMAL RHYTHM ECG PREVIOUS TRACING : 04/13/2016 09.22 DOCTOR: Owen Andino Interpretating Date/Time 05/02/2017 08:51:00
[2017-05-02] MEDS: DOCUSATE SODIUM 50 MG/SENNA 8.6 MG TAB PO SCH ×2 (09:00→20:18)
[2017-05-02] MEDS: REMOVE OLD PATCH T-DERMAL SCH (09:00)
[2017-05-02] MEDS: FOLIC ACID 1 MG TAB PO SCH (09:00)
[2017-05-02] MEDS: MULTIVITAMIN TAB PO SCH (09:00)
[2017-05-02] MEDS: THIAMINE INJ 100 MG in SODIUM CHLORIDE 0.9% INJ 100 ML IV SCH (09:43)
[2017-05-02] MEDS: PANTOPRAZOLE SODIUM 40 MG VIAL IV SCH (09:52)
[2017-05-02] MEDS: NICOTINE 14 MG/24 HR PATCH T-DERMAL SCH (09:52)
[2017-05-02] MEDS: SODIUM CHLORIDE 0.9% FLUSH 10 ML FLUSH IV FLUSH SCH ×2 (09:52→20:23)
[2017-05-02 09:54] LABS: BICARBONATE 16.9 MEQ/L (21.0-32.0)
[2017-05-02 10:28] LABS: ANION GAP 13 MEQ/L (5-15); BETA-HYDROXYBUTYRATE 2.92 MMOL/L (0.00-0.39); BLOOD UREA NITROGEN 18 MG/DL (7-18); CHLORIDE 109 MEQ/L (98-107); GLOMERULAR FILTRATION RATE 86 ML/MIN (>89); POTASSIUM 4.3 MEQ/L (3.5-5.1); SODIUM (NA) 139 MEQ/L (136-145)
[2017-05-02 10:41] LABS: CALCIUM-PROTEIN CORRECTED 7.6 MG/DL (8.5-10.1)
[2017-05-02 15:48] LABS: POTASSIUM 3.8 MEQ/L (3.5-5.1)
[2017-05-02 15:57] LABS: BICARBONATE 14.7 MEQ/L (21.0-32.0); MAGNESIUM 2.1 MG/DL (1.5-2.5)
[2017-05-02 16:15] LABS: HEMOGLOBIN A1a 1.4 %; HEMOGLOBIN A1b 2.1 %; HEMOGLOBIN LA1C 2.3 %; HEMOGLOBIN P3 4.8 %
[2017-05-02] MEDS: POTASSIUM CHLOR 20 MEQ PREMIX 100 ML IV PRN ×3 (16:17→22:33)
[2017-05-02 16:33] LABS: CALCIUM-PROTEIN CORRECTED 7.8 MG/DL (8.5-10.1)
[2017-05-02] MEDS ORDERED: CALCIUM GLUCONATE INJ 1 GM in SODIUM CHLORIDE 0.9% INJ 100 ML IV ONE (18:00)
[2017-05-02 19:43] LABS: HDL CHOLESTEROL 70.1 MG/DL (40.0-60.0)
[2017-05-02 21:33] LABS: POTASSIUM 3.8 MEQ/L (3.5-5.1)
[2017-05-02 21:46] LABS: BICARBONATE 18.6 MEQ/L (21.0-32.0); MAGNESIUM 2.1 MG/DL (1.5-2.5)
[2017-05-03] VITALS (14 sets, daily range): BP systolic 134–211; BP diastolic 70–112; PULSE 76–92; RESP 14–22; TEMP 95.3–99; O2SAT 98–100
[2017-05-03] MEDS: POTASSIUM CHLOR 20 MEQ PREMIX 100 ML IV PRN (00:48)
[2017-05-03] MEDS: CHLORHEXIDINE GLUCONATE 2 % 1 PACK (2 CLOTHS) TOP SCH (04:00)
[2017-05-03 05:28] LABS: POTASSIUM 3.7 MEQ/L (3.5-5.1)
[2017-05-03 05:36] LABS: MAGNESIUM 1.9 MG/DL (1.5-2.5)
[2017-05-03 05:37] LABS: BICARBONATE 23.2 MEQ/L (21.0-32.0)
[2017-05-03 05:44] LABS: CALCIUM-PROTEIN CORRECTED 8.3 MG/DL (8.5-10.1); TOTAL BILIRUBIN ADULT 0.7 MG/DL (0.2-1.0)
[2017-05-03] MEDS ORDERED: DC previous DKA orders (HMC 1917) ONE (07:15)
[2017-05-03] MEDS ORDERED: DC Insulin drip 2 hrs post basal insulin dose ONE (07:15)
[2017-05-03] MEDS ORDERED: GLUCAGON 1 MG/ML VIAL OTHER PRN (07:15)
[2017-05-03] MEDS ORDERED: DEXTROSE 50% IN WATER 50 ML VIAL(D50) IV PRN (07:15)
[2017-05-03] MEDS: DEXT 5%-NACL 0.9% 1000 ML INJ 1,000 ML IV SCH (07:16)
--- NOTE | 2017-05-03 07:17 | PD.TRANSFR ---
Transfer Summary Admission Date May 01, 2017 at 23:20 Admitting Diagnosis severe DKA Diagnoses: (1) DKA (diabetic ketoacidoses) Diagnosis: Principal (2) Poor control type I diabetes mellitus Diagnosis: Principal (3) Moderate dehydration Diagnosis: Principal (4) Hyponatremia Diagnosis: Principal (5) Hyperkalemia Diagnosis: Principal (6) Elevated transaminase level Diagnosis: Principal (7) Ketosis Diagnosis: Principal (8) Lactic acidosis Diagnosis: Principal (9) Acute kidney injury Diagnosis: Principal (10) Leukocytosis Diagnosis: Principal (11) SIRS (systemic inflammatory response syndrome) Diagnosis: Principal (12) Normocytic anemia Diagnosis: Secondary (13) ETOHism Diagnosis: Secondary Transfer Summary/Subjective 36-year-old male. Date of admission 05/01/2017. Past medical history includes IDDM 15 years currently on insulin pump. Patient has a [employer] insulin pump (currently not available as patient removed 20 minutes prior to arrival to [facility] ED) that was "malfunctioning". He recently was on Novulog R insulin however is lost insurance and switched on his own to Novulin N insulin recently. He presents to [place] ED with quantitative history of increasing nausea/vomiting and epigastric abdominal pain. He is attempting to drink propel fitness water without success. Denies any recent side contacts. Denies chest pain, denies shortness of breath. Last episode of DKA was in 2016. Initial laboratory revealed a leukocytosis of 13,000, sodium 125, potassium 5.6 , acute kidney injury with a creatinine 1.6, blood sugar 592, beta hydroxybutyrate 14.56 and lactic acidosis 6.5. Transaminase are elevated slightly and phosphorus elevated 7.3. Recent abdominal ultrasound which revealed essentially normal gallbladder with hepatic steatosis. Patient received crystalloid bolus the ED and 6 units are insulin 1 is currently on insulin drip at 8 units an hour. He has been switched to D5 normal saline at 200 cc an hour. On my examination, patient denies any abdominal pain. No nausea vomiting. Appears nonseptic and is in no acute distress. SUBJ 05/03 Blood sugar 136, AG closed. Patient is able to eat food. Transition to subcutaneous insulin orders written Objective Vital Signs Date Time Temp Pulse Resp B/P Pulse Ox O2 Delivery O2 Flow Rate FiO2 05/03/17 06:00 76 19 200/71 05/03/17 05:04 99 05/03/17 04:00 99.0 05/02/17 00:32 Room Air Intake and Output 05/02/17 05/02/17 05/03/17 08:00 16:00 00:00 Intake Total 1379 ml 2161 ml 1845 ml Output Total 1875 ml 1200 ml Balance -496 ml 2161 ml 645 ml Result Diagram: 05/02/17 0457 05/03/17 0500 Imaging Last Impressions Chest X-Ray 05/01/17 0000 Signed Impressions: Service Date/Time: Monday, May 01, 2017 23:27 - CONCLUSION: Normal examination for a patient of this age. Ramiro Mcpherson MD Abdomen Ultrasound 05/01/17 0000 Signed Impressions: Service Date/Time: Tuesday, May 02, 2017 00:05 - CONCLUSION: 1. No evidence of gallstones or biliary tract obstruction. 2. Mild fatty infiltration of the liver. Ramiro Mcpherson MD Objective Remarks GENERAL: 36-year-old male, resting in bed in no acute distress SKIN: Warm and dry. Multiple tattoos upper extremities HEAD: Atraumatic. Normocephalic. EYES: Pupils equal and round about 3 mm bilaterally and reactive. No scleral icterus. No injection or drainage. ENT: No nasal bleeding or discharge. Mucous membranes pink and moderately moist. Oropharynx without erythema NECK: Trachea midline. No JVD. CARDIOVASCULAR: Tachycardia, RR. S1, S2. No S4. Without murmur RESPIRATORY: Clear to auscultation. Breath sounds equal bilaterally. GASTROINTESTINAL: Abdomen soft, non-tender, nondistended. Hyperactive bowel sounds are appreciated. MUSCULOSKELETAL: Extremities without significant peripheral edema. No obvious deformities. NEUROLOGICAL: Awake and alert. No obvious cranial nerve deficits. Motor grossly within normal limits. Five out of 5 muscle strength in the arms and legs. Normal speech. A/P Problem List: (1) DKA (diabetic ketoacidoses) ICD Code: E13.10 Status: Acute (2) Hyperkalemia ICD Code: E87.5 Status: Acute (3) Lactic acidosis ICD Code: E87.2 Status: Acute (4) Hyponatremia ICD Code: E87.1 Status: Acute (5) Ketosis ICD Code: E88.89 Status: Acute (6) Leukocytosis ICD Code: D72.829 Status: Acute (7) Normocytic anemia ICD Code: D64.9 Status: Acute (8) ETOHism ICD Code: F10.20 Status: Acute (9) Moderate dehydration ICD Code: E86.0 Status: Acute (10) Poor control type I diabetes mellitus ICD Code: E10.65 Status: Acute (11) SIRS (systemic inflammatory response syndrome) ICD Code: R65.10 Status: Acute (12) Acute kidney injury ICD Code: N17.9 Status: Acute (13) Elevated transaminase level ICD Code: R74.0 Status: Acute (14) Tobacco smoker, less than 10 cigarettes per day ICD Code: F17.210 Status: Acute Assessment and Plan Neuro/Psych: Depression disorder NOS Acute toxic metabolic encephalopathy secondary to DKA -resolved EtOH use Chronic bilateral knee pain management Acetaminophen 650 mg every 6 hours for fever greater than 100F Acetaminophen/codeine 5/325 one tablet every 4 hours when necessary pain 1-5. Morphine sulfate 2 mg IV every 2 hours when necessary pain 6-10 Holding tramadol 50 mill grams by mouth every 6 hours when necessary pain Supplement thiamine for 5 days CV: Sinus tachycardia Lactic acidosis Likely secondary to intravascular dehydration secondary to DKA. Currently on D5 normal saline per protocol EKG revealed sinus tachycardia. Normal NE, QRS and QT intervals. Serial lactates until clear. Currently 1.5 from 6.5 Resp: Tobaccoism Patient is currently on room air Chest x-ray revealed no acute cardiopulmonary findings Nicotine patch 21 mg daily provided. Tobacco education cessation booklet provided GI: Elevated transaminases Nausea/vomiting secondary to DKA - resolved Abdominal ultrasound revealed normal gallbladder. Hepatic steatosis. Follow-up CMP in a.m. Lipase within normal limits. Start 1999 ADA diet : Leblanc catheter not indicated. Endo: DKA IDDM Transition orders written. Levemir 15 q12, with 5U Novolog pre meal with SSI Beta hydroxybutyrate near normal Serial BMP, magnesium phosphorus every 6 hours. Hemoglobin A1c 9 Renal: Acute kidney injury secondary to dehydration/prerenal resolved Crowding currently 1.1. Serial BMPs. Monitor urine output Accurate I's and O's Heme: Leukocytosis Normocytic anemia Monitor CBC daily. Follow trends. No indication for transfusion of blood proximal at this time. No active bleeding ID: Monitor for infection Discontinued antibiotics. No obvious source of infection. Clinically patient nonseptic appearing. Blood Cultures 2 ordered 05/01 MSK: Out of bed as tolerated FEN: Hyponatremia now-normal Hyperkalemia now normal Hyper now hypophosphatemia Replace electrolytes per DKA protocol. Access - Utilize peripheral IV. Central line if indicated Prophylaxis - GI - Protonix - DVT - SCD/Lovenox subcutaneous Level II Consult [facility] to assume care in am Problem Qualifiers (1) DKA (diabetic ketoacidoses): Qualified Code: E10.10 - Diabetic ketoacidosis without coma associated with type 1 diabetes mellitus (2) Leukocytosis: Qualified Code: D72.829 - Leukocytosis, unspecified type Jj Galicia MD May 03, 2017 07:16 Jj Galicia MD May 03, 2017 07:16
[2017-05-03 07:40] LABS: BETA-HYDROXYBUTYRATE 2.84 MMOL/L (0.00-0.39)
[2017-05-03] MEDS ORDERED: INSULIN DETEMIR 100 UNITS/ML VIAL SQ SCH (08:00)
[2017-05-03] MEDS: DOCUSATE SODIUM 50 MG/SENNA 8.6 MG TAB PO SCH ×2 (08:22→21:00)
[2017-05-03] MEDS: MULTIVITAMIN TAB PO SCH (08:22)
[2017-05-03] MEDS: PANTOPRAZOLE SODIUM 40 MG VIAL IV SCH (08:22)
[2017-05-03] MEDS: THIAMINE HCL 100 MG TAB PO SCH (08:22)
[2017-05-03] MEDS: FOLIC ACID 1 MG TAB PO SCH (08:22)
[2017-05-03] MEDS: THIAMINE INJ 100 MG in SODIUM CHLORIDE 0.9% INJ 100 ML IV SCH (08:25)
[2017-05-03] MEDS: SODIUM CHLORIDE 0.9% FLUSH 10 ML FLUSH IV FLUSH SCH ×2 (08:31→22:42)
[2017-05-03] MEDS: NICOTINE 14 MG/24 HR PATCH T-DERMAL SCH (08:33)
[2017-05-03] MEDS: REMOVE OLD PATCH T-DERMAL SCH (08:33)
[2017-05-03 11:27] LABS: BANDS 8 % (0-6); EOSINOPHILS 2 % (0-4); PLATELET ESTIMATE SMEAR LOW (NORMAL); PLATELET MORPHOLOGY NORMAL (NORMAL); POLYS (SEG NEUTROPHILS) 75 % (16-70); SCAN/DIFF FINAL DIFF MANUAL; WBC DIFF SAMPLE 100
[2017-05-03 11:32] LABS: HEMATOCRIT 39.5 % (39.0-51.0); MEAN CELL VOLUME 91.7 FL (80.0-100.0); MEAN CORPUSCULAR HEMOGLOBIN 30.9 PG (27.0-34.0); MEAN CORPUSCULAR HGB CONC 33.7 % (32.0-36.0); NEUTROPHIL # MANUAL DIFF 7.6 TH/MM3 (1.8-7.7); RED BLOOD COUNT 4.31 MIL/MM3 (4.50-5.90); WHITE BLOOD COUNT 9.1 TH/MM3 (4.0-11.0)
[2017-05-03 11:33] LABS: HEMO FLAGS AUTO DIFF; LYMPH % 12.2 % (9.0-44.0); MONO % 5.7 % (0.0-8.0); NEUT % 81.4 % (16.0-70.0); PLATELET COUNT 62 TH/MM3 (150-450); RED CELL DISTRIBUTION WIDTH 13.7 % (11.6-17.2)
[2017-05-03 11:34] LABS: BASOPHIL % 0.2 % (0.0-2.0); EOSINOPHIL % 0.5 % (0.0-4.0)
[2017-05-03] MEDS: INSULIN ASPART 1,000 UNITS/10 ML VIAL SQ SCH ×3 (12:48→21:00)
[2017-05-03] MEDS: INSULIN ASPART SUPPLEMENTAL SCALE SQ SCH ×3 (12:49→21:00)
[2017-05-03] MEDS: ACETAMINOPHEN/HYDROcodone 325 MG/5 MG TAB PO PRN ×2 (18:56→22:43)
[2017-05-03] MEDS: ENOXAPARIN SODIUM 40 MG/0.4 ML SYRINGE SQ SCH ×2 (22:44)
[2017-05-04] VITALS: BP 157/99; PULSE 84; RESP 18; TEMP 97.4; O2SAT 100
[2017-05-04 04:00] VITALS: BP 138/97; PULSE 67; RESP 18; TEMP 96.2; O2SAT 100
[2017-05-04] MEDS: CHLORHEXIDINE GLUCONATE 2 % 1 PACK (2 CLOTHS) TOP SCH (04:00)
[2017-05-04] MEDS: INSULIN ASPART 1,000 UNITS/10 ML VIAL SQ SCH ×2 (06:53→11:00)
[2017-05-04] MEDS: INSULIN ASPART SUPPLEMENTAL SCALE SQ SCH ×2 (06:53→11:50)
[2017-05-04] MEDS: ACETAMINOPHEN/HYDROcodone 325 MG/5 MG TAB PO PRN ×2 (06:54→11:42)
[2017-05-04 08:00] VITALS: BP 155/100; PULSE 78; PULSE 80; RESP 18; TEMP 97.5; O2SAT 96
[2017-05-04] MEDS: THIAMINE HCL 100 MG TAB PO SCH (08:22)
[2017-05-04] MEDS: PANTOPRAZOLE SODIUM 40 MG VIAL IV SCH (08:22)
[2017-05-04] MEDS: MULTIVITAMIN TAB PO SCH (08:22)
[2017-05-04] MEDS: DOCUSATE SODIUM 50 MG/SENNA 8.6 MG TAB PO SCH (08:22)
[2017-05-04] MEDS: FOLIC ACID 1 MG TAB PO SCH (08:22)
[2017-05-04] MEDS: SODIUM CHLORIDE 0.9% FLUSH 10 ML FLUSH IV FLUSH SCH (08:23)
[2017-05-04] MEDS: NICOTINE 14 MG/24 HR PATCH T-DERMAL SCH (08:25)
[2017-05-04] MEDS ORDERED: INSULIN DETEMIR 100 UNITS/ML VIAL SQ SCH (09:00)
[2017-05-04] MEDS: REMOVE OLD PATCH T-DERMAL SCH (09:00)
[2017-05-04 09:57] LABS: BICARBONATE 29.6 MEQ/L (21.0-32.0); POTASSIUM 3.4 MEQ/L (3.5-5.1)
[2017-05-04] MEDS ORDERED: POTASSIUM CHLORIDE 10 MEQ CONTROLLED RELEASE TAB PO ONE (10:30)
[2017-05-04] MEDS ORDERED: INSU1MIS (10:33)
[2017-05-04] MEDS ORDERED: LEVEMIR SQ (10:33)
[2017-05-04] MEDS ORDERED: ALCO1PAD (10:33)
[2017-05-04] MEDS ORDERED: BLOOD GLUCOSE T1 TES (10:33)
[2017-05-04] MEDS ORDERED: LANCETS1 MI1 (10:33)
[2017-05-04] MEDS ORDERED: NOVORP2 SQ (10:33)
[2017-05-04] MEDS ORDERED: BLOOD GLUCOSE M1 KIT (10:33)
[2017-05-04] MEDS ORDERED: POTASSIUM PHOSPHATE/SODIUM PHOSPHATE 250 MG TAB PO ONE (11:15)
[2017-05-04] MEDS ORDERED: SODIUM PHOSPHATE INJ 15 MMOL in SODIUM CHLORIDE 0.9% INJ 150 ML IV ONE (12:00)
--- NOTE | 2017-05-04 15:22 | HHI.DS ---
Discharge Summary Admission Date May 01, 2017 at 23:20 Discharge Date: May 04, 2017 Admitting Diagnosis severe DKA (1) DKA (diabetic ketoacidoses) ICD Code: E13.10 Diagnosis: Principal (2) Poor control type I diabetes mellitus ICD Code: E10.65 Diagnosis: Principal (3) Moderate dehydration ICD Code: E86.0 Diagnosis: Principal (4) Hyponatremia ICD Code: E87.1 Diagnosis: Principal (5) Hyperkalemia ICD Code: E87.5 Diagnosis: Principal (6) Elevated transaminase level ICD Code: R74.0 Diagnosis: Principal (7) Ketosis ICD Code: E88.89 Diagnosis: Principal (8) Lactic acidosis ICD Code: E87.2 Diagnosis: Principal (9) Acute kidney injury ICD Code: N17.9 Diagnosis: Principal (10) Leukocytosis ICD Code: D72.829 Diagnosis: Principal (11) SIRS (systemic inflammatory response syndrome) ICD Code: R65.10 Diagnosis: Principal (12) Normocytic anemia ICD Code: D64.9 Diagnosis: Secondary (13) ETOHism ICD Code: F10.20 Diagnosis: Secondary Procedures No invasive procedures. Brief History - From Admission 36-year-old male. Date of admission 05/01/2017. Past medical history includes IDDM 15 years currently on insulin pump. Patient has a [employer] insulin pump (currently not available as patient removed 20 minutes prior to arrival to [facility] ED) that was "malfunctioning". He recently was on Novulog R insulin however is lost insurance and switched on his own to Novulin N insulin recently. He presents to [place] ED with quantitative history of increasing nausea/vomiting and epigastric abdominal pain. He is attempting to drink propel fitness water without success. Denies any recent side contacts. Denies chest pain, denies shortness of breath. Last episode of DKA was in 2016. Initial laboratory revealed a leukocytosis of 13,000, sodium 125, potassium 5.6 , acute kidney injury with a creatinine 1.6, blood sugar 592, beta hydroxybutyrate 14.56 and lactic acidosis 6.5. Transaminase are elevated slightly and phosphorus elevated 7.3. Recent abdominal ultrasound which revealed essentially normal gallbladder with hepatic steatosis. Patient received crystalloid bolus the ED and 6 units are insulin 1 is currently on insulin drip at 8 units an hour. He has been switched to D5 normal saline at 200 cc an hour. On my examination, patient denies any abdominal pain. No nausea vomiting. Appears nonseptic and is in no acute distress. CBC/BMP: 05/03/17 0915 05/04/17 0900 Significant Findings Laboratory Tests Test 05/01/17 05/01/17 05/01/17 05/02/17 22:16 22:22 22:28 00:44 White Blood Count 17.6 TH/MM3 (4.0-11.0) Mean Corpuscular Hemoglobin 31.4 % Concent (32.0-36.0) Neutrophils (%) (Auto) 89.6 % (16.0-70.0) Lymphocytes (%) (Auto) 3.0 % (9.0-44.0) Neutrophils # (Auto) 15.8 TH/MM3 (1.8-7.7) Lymphocytes # (Auto) 0.5 TH/MM3 (1.0-4.8) Monocytes # (Auto) 1.1 TH/MM3 (0-0.9) Sodium Level 125 MEQ/L (136-145) Potassium Level 5.6 MEQ/L (3.5-5.1) Chloride Level 80 MEQ/L (98-107) Carbon Dioxide Level 6.2 MEQ/L (21.0-32.0) Anion Gap 39 MEQ/L (5-15) Blood Urea Nitrogen 26 MG/DL (7-18) Creatinine 1.60 MG/DL (0.60-1.30) Estimat Glomerular Filtration 50 ML/MIN (>89) Rate Random Glucose 597 MG/DL (74-106) Phosphorus Level 7.4 MG/DL (2.5-4.9) Total Bilirubin 1.7 MG/DL (0.2-1.0) Aspartate Amino Transf 114 U/L (15-37) (AST/SGOT) Alanine Aminotransferase 94 U/L (12-78) (ALT/SGPT) Alkaline Phosphatase 146 U/L (45-117) Total Protein 9.2 GM/DL (6.4-8.2) B-Hydroxybutyrate 14.56 MMOL/L (0.00-0.39) Venous Blood pH 7.10 (7.360-7.400) Venous Blood Partial Pressure 17 mmHg (44-48) CO2 Venous Blood Partial Pressure 56 mmHg (35-40) O2 Venous Blood HCO3 5 mmol/L (22-26) Venous Blood Oxygen Saturation 67 % (70-76) Venous Blood Base Excess -23.2 mmol/L (-2-2) Lactic Acid Level 6.5 mmol/L (0.4-2.0) Urine Ketones 80 OR GREATER mg/dL (NEG) Urine Occult Blood SMALL (NEG) Urine Hyaline Casts 6-9 /lpf (RARE) Test 05/02/17 05/02/17 05/02/17 05/02/17 04:57 09:30 15:30 21:13 White Blood Count 13.7 TH/MM3 (4.0-11.0) Red Blood Count 4.16 MIL/MM3 (4.50-5.90) Hemoglobin 12.6 GM/DL (13.0-17.0) Hematocrit 38.0 % (39.0-51.0) Neutrophils (%) (Auto) 91.7 % (16.0-70.0) Lymphocytes (%) (Auto) 3.1 % (9.0-44.0) Neutrophils # (Auto) 12.6 TH/MM3 (1.8-7.7) Lymphocytes # (Auto) 0.4 TH/MM3 (1.0-4.8) Carbon Dioxide Level 10.6 MEQ/L 16.9 MEQ/L 14.7 MEQ/L 18.6 MEQ/L (21.0-32.0) (21.0-32.0) (21.0-32.0) (21.0-32.0) Anion Gap 20 MEQ/L (5-15) 16 MEQ/L (5-15) Blood Urea Nitrogen 20 MG/DL (7-18) Estimat Glomerular Filtration 77 ML/MIN (>89) 86 ML/MIN (>89) Rate Random Glucose 222 MG/DL 137 MG/DL 193 MG/DL 173 MG/DL (74-106) (74-106) (74-106) (74-106) Calcium Level 6.7 MG/DL 7.2 MG/DL 7.3 MG/DL 7.3 MG/DL (8.5-10.1) (8.5-10.1) (8.5-10.1) (8.5-10.1) Protein Corrected Calcium 6.9 MG/DL 7.6 MG/DL 7.8 MG/DL 8.0 MG/DL (8.5-10.1) (8.5-10.1) (8.5-10.1) (8.5-10.1) Phosphorus Level 0.8 MG/DL 1.0 MG/DL 2.0 MG/DL 0.7 MG/DL (2.5-4.9) (2.5-4.9) (2.5-4.9) (2.5-4.9) Aspartate Amino Transf 80 U/L (15-37) (AST/SGOT) Chloride Level 109 MEQ/L 110 MEQ/L (98-107) (98-107) Hemoglobin A1c 9.0 % (4.3-6.0) B-Hydroxybutyrate 2.92 MMOL/L 2.84 MMOL/L (0.00-0.39) (0.00-0.39) Total Protein 6.2 GM/DL 5.8 GM/DL (6.4-8.2) (6.4-8.2) HDL Cholesterol 70.1 MG/DL (40.0-60.0) Test 05/03/17 05/03/17 05/04/17 05:00 09:15 09:00 Chloride Level 110 MEQ/L 96 MEQ/L (98-107) (98-107) Random Glucose 136 MG/DL 185 MG/DL (74-106) (74-106) Calcium Level 7.4 MG/DL 8.3 MG/DL (8.5-10.1) (8.5-10.1) Protein Corrected Calcium 8.3 MG/DL (8.5-10.1) Phosphorus Level 0.6 MG/DL 1.4 MG/DL (2.5-4.9) (2.5-4.9) Aspartate Amino Transf 80 U/L (15-37) (AST/SGOT) Total Protein 5.5 GM/DL (6.4-8.2) Albumin 2.8 GM/DL (3.4-5.0) B-Hydroxybutyrate 1.78 MMOL/L (0.00-0.39) Red Blood Count 4.31 MIL/MM3 (4.50-5.90) Platelet Count 62 TH/MM3 (150-450) Neutrophils (%) (Auto) 81.4 % (16.0-70.0) Neutrophils % (Manual) 75 % (16-70) Band Neutrophils % 8 % (0-6) Platelet Estimate LOW (NORMAL) Sodium Level 133 MEQ/L (136-145) Potassium Level 3.4 MEQ/L (3.5-5.1) Creatinine 0.58 MG/DL (0.60-1.30) PE at Discharge GENERAL: Sitting up in bed. NAD. Alert and oriented 3. SKIN: Warm and dry. HEAD: Normocephalic. EYES: No scleral icterus. No injection or drainage. NECK: Supple, trachea midline. No JVD. CARDIOVASCULAR: Regular rate and rhythm without murmurs, gallops, or rubs. RESPIRATORY: Breath sounds equal bilaterally. No accessory muscle use. GASTROINTESTINAL: Abdomen soft, non-tender, nondistended. MUSCULOSKELETAL: No cyanosis, or edema. BACK: Nontender without obvious deformity. No CVA tenderness. Transfer Summary 36-year-old male. Date of admission 05/01/2017. Past medical history includes IDDM 15 years currently on insulin pump. Patient has a [employer] insulin pump (currently not available as patient removed 20 minutes prior to arrival to [facility] ED) that was "malfunctioning". He recently was on Novulog R insulin however is lost insurance and switched on his own to Novulin N insulin recently. He presents to [place] ED with quantitative history of increasing nausea/vomiting and epigastric abdominal pain. He is attempting to drink propel fitness water without success. Denies any recent side contacts. Denies chest pain, denies shortness of breath. Last episode of DKA was in 2016. Initial laboratory revealed a leukocytosis of 13,000, sodium 125, potassium 5.6 , acute kidney injury with a creatinine 1.6, blood sugar 592, beta hydroxybutyrate 14.56 and lactic acidosis 6.5. Transaminase are elevated slightly and phosphorus elevated 7.3. Recent abdominal ultrasound which revealed essentially normal gallbladder with hepatic steatosis. Patient received crystalloid bolus the ED and 6 units are insulin 1 is currently on insulin drip at 8 units an hour. He has been switched to D5 normal saline at 200 cc an hour. On my examination, patient denies any abdominal pain. No nausea vomiting. Appears nonseptic and is in no acute distress. SUBJ 05/03 Blood sugar 136, AG closed. Patient is able to eat food. Transition to subcutaneous insulin orders written Pt update on day of discharge Patient says he is feeling well. Patient had nausea and vomiting prior to admission, which precipitated DKA. This has resolved. Patient says that he uses insulin pump with regular insulin at rate of 0.9 units per hour, with bolus as per insulin sliding scale. Since he has received Levemir 15 units today., He will inject sliding scale today, and then tomorrow morning start with subcutaneous insulin pump prior to breakfast. She denies any fevers, chills, chest pain, shortness of breath. Says he feels well. Would like to go home. Hospital Course For problem-based summary from most recent progress note, please see below. Depression disorder NOS Acute toxic metabolic encephalopathy secondary to DKA -resolved EtOH use Chronic bilateral knee pain management Acetaminophen 650 mg every 6 hours for fever greater than 100F Acetaminophen/codeine 5/325 one tablet every 4 hours when necessary pain 1-5. Morphine sulfate 2 mg IV every 2 hours when necessary pain 6-10 Holding tramadol 50 mill grams by mouth every 6 hours when necessary pain Supplemented thiamine CV: Sinus tachycardia Lactic acidosis Likely secondary to intravascular dehydration secondary to DKA. Currently on D5 normal saline per protocol EKG revealed sinus tachycardia. Normal HI, QRS and QT intervals. Serial lactates until clear. Currently 1.5 from 6.5 Resp: Tobaccoism Patient is currently on room air Chest x-ray revealed no acute cardiopulmonary findings Nicotine patch 21 mg daily provided. Tobacco education cessation booklet provided GI: Elevated transaminases Nausea/vomiting secondary to DKA - resolved Abdominal ultrasound revealed normal gallbladder. Hepatic steatosis. Follow-up CMP in a.m. Lipase within normal limits. Start 1999 ADA diet : Leblanc catheter not indicated. Endo: DKA IDDM Transition orders written. Levemir 15 q12, with 5U Novolog pre meal with SSI Beta hydroxybutyrate near normal Serial BMP, magnesium phosphorus every 6 hours. Hemoglobin A1c 9 Renal: Acute kidney injury secondary to dehydration/prerenal resolved Crowding currently 1.1. Serial BMPs. Monitor urine output Accurate I's and O's Heme: Leukocytosis Normocytic anemia Monitor CBC daily. Follow trends. No indication for transfusion of blood proximal at this time. No active bleeding ID: Monitor for infection Discontinued antibiotics. No obvious source of infection. Clinically patient nonseptic appearing. Blood Cultures 2 ordered 05/01 MSK: Out of bed as tolerated FEN: Hyponatremia now-normal Hyperkalemia now normal Hyper now hypophosphatemia Replace electrolytes per DKA protocol. Access - Utilize peripheral IV. Central line if indicated Prophylaxis - GI - Protonix - DVT - SCD/Lovenox subcutaneous Pt Condition on Discharge: Good Discharge Disposition: Discharge Home Discharge Time: <= 30 minutes Discharge Instructions DIET: Follow Instructions for: Diabetic Diet Activities you can perform: Regular-No Restrictions New Medications: Alcohol Swabs (Alcohol Prep Pads) 70 % Pad 1 PAD .ROUTE DIRECTED Aseptic process #1 Ref 0 BOX Blood Glucose Monitoring W/Device (Blood Glucose Monitoring W/Device) 1 Kit Kit 1 KIT .ROUTE DIRECTED Blood Sugar Management #1 Ref 0 KIT Blood Glucose Test Strips (Blood Glucose Test Strips) Strips Strip 1 EA .ROUTE DIRECTED Blood Sugar Management #1 Ref 0 BOX Insulin Syringe/Needle U-100 (Insulin Syringe/U-100/1Ml 28G X 1/2" 1 ml) 1 Mis Mis 1 EA .ROUTE DIRECTED Blood Sugar Management #1 BOX Lancets (Lancets) 1 Mis Mis 1 BOX .ROUTE DIRECTED Blood Sugar Management #1 Ref 0 BOX Continued Medications: Insulin Human Regular Inj (Novolin R Inj) 1,000 Unit/10 Ml Vial 0 SQ DIRECTED Sliding Scale As Directed. Blood Sugar Management #10 Ref 0 ML (This prescription has been renewed) Discontinued Medications: Tramadol (Tramadol) 50 Mg Tab 50 MG PO Q6H PRN PAIN Ref 0 TAB Fede Ann MD May 04, 2017 15:22
[2017-05-05] MEDS ORDERED: PANTOPRAZOLE SOD 40 MG DELAYED RELEASE TAB PO SCH (09:00)
== END 2017-05-04 11:57 | disposition home or self-care (01) | DRG 637 ==
LOC: PHED 21:57 → PHEDA 23:20 → PHICU 05-02 01:05 → PH3A 05-03 11:45
PROVIDERS: ADMIT Internal Medicine; ATTEND Internal Medicine
DX: E10.10 Type 1 diabetes mellitus with ketoacidosis without coma (principal); G93.41 Metabolic encephalopathy; N17.9 Acute kidney failure, unspecified; R65.10 Systemic inflammatory response syndrome (SIRS) of non-infectious origin without acute organ dysfunction; E87.5 Hyperkalemia; E83.39 Other disorders of phosphorus metabolism; E86.0 Dehydration; E87.1 Hypo-osmolality and hyponatremia; F17.210 Nicotine dependence, cigarettes, uncomplicated; G89.29 Other chronic pain; D64.9 Anemia, unspecified; F10.20 Alcohol dependence, uncomplicated; Z96.41 Presence of insulin pump (external) (internal); F32.9 Major depressive disorder, single episode, unspecified; M25.562 Pain in left knee; M25.561 Pain in right knee; Z96.651 Presence of right artificial knee joint; R00.0 Tachycardia, unspecified; Z79.4 Long term (current) use of insulin
CPT/HCPCS: 71010; 76700; 80048; 80053; 80061; 80069; 80074; 81001; 82010; 82150; 82550; 82805; 82948; 83036; 83605; 83690; 83735; 84100; 84155; 85007; 85025; 85027; 87040; 87641; 93005; 96374; C9113; J0610; J1650; J1815; J1817; J2543; J3411; J3475; J3480; J7030; J7042; J7050

== ENCOUNTER 2017-07-10 11:26 | Emergency (ER) | payer SELFPAY ==
[~2017-07-10] VITALS: Ht 175.3 cm; Wt 66.6 kg
[~2017-07-10 11:26] MED LIST changes: +ALCO1PAD; +BLOOD GLUCOSE M1 KIT; +BLOOD GLUCOSE T1 TES; +INSU1MIS; +LANCETS1 MI1; +NOVORP2 SQ; -PROM25TA5 PO
[2017-07-10 11:29] VITALS: BP 150/69; PULSE 131; RESP 18; TEMP 98.2; O2SAT 95
[2017-07-10] MEDS ORDERED: NOVOLOGP2 SQ (11:47)
[2017-07-10] MEDS ORDERED: IBUPROFEN 600 MG TAB PO ONE (12:00)
--- NOTE | 2017-07-10 12:09 | PD ---
HPI Chief Complaint: Injury Time Seen by Provider: 11:48 Travel History International Travel<30 days: No Contact w/Intl Traveler<30days: No Traveled to known affect area: No History of Present Illness HPI 36-year-old male presents to the emergency room for evaluation of 2 separate complaints. Patient reports left fourth finger pain that started 3 days ago and right foot pain that started yesterday. Patient injured his left fourth finger 3 days ago while playing with his children. He was wrestling and bent his finger backwards. Since then he has had pain and swelling localized to the proximal phalanx. He has not taken anything for symptoms. Denies paresthesias. Reports pain with range of motion. Patient also reports injury to his right foot. He was "leapfrogging" over handle bars barefoot and landed on a large bolt. He has not been able to completely bear weight since then because of the pain. States the swelling and bruising worsened today. He has not taken anything for his foot pain. Patient has history of diabetes but has a functioning insulin pump in place. PFSH Past Medical History ADD: Yes Anxiety: Yes Depression: Yes Heart Rhythm Problems: No Cancer: No Cardiovascular Problems: No High Cholesterol: No Chest Pain: No Congestive Heart Failure: No Diabetes: Yes (insulin pump) Patient Takes Glucophage: No Diminished Hearing: No Endocrine: Yes Gastrointestinal Disorders: Yes (HERNIAS) Glaucoma: No Genitourinary: No Hepatitis: No Hiatal Hernia: Yes Hypertension: Yes (TREATED IN THE PAST) Implanted Vascular Access Dvce: No Medical other: Yes (hx of muscle spasms unkown cause febrile seizures as a child) Musculoskeletal: Yes (LEFT KNEE) Neurologic: No Psychiatric: No Reproductive: No Respiratory: No Immunizations Current: Yes Seizures: Yes (febrile seizures as a baby) Thyroid Disease: No ?: Not Past Surgical History Abdominal Surgery: Yes (HERNIA X2) Cardiac Surgery: No Ear Surgery: No Endocrine Surgery: No Eye Surgery: No Genitourinary Surgery: No Gynecologic Surgery: No Neurologic Surgery: No Oral Surgery: No Pacemaker: No Thoracic Surgery: No Other Surgery: Yes (HERNIA X 2, HYDROCELE X2.) Social History Alcohol Use: Yes (socially) Tobacco Use: Yes (1 ppd) Substance Use: No Allergies-Medications (Allergen,Severity, Reaction): Coded Allergies: Sulfa (Sulfonamide Antibiotics) (Unverified Allergy, Severe, Hives and seizures, 07/10/17) Reported Meds & Prescriptions Reported Meds & Active Scripts Active Tylenol (Acetaminophen) 325 Mg Tab 650 Mg PO Q6H PRN 5 Days Insulin Syringe/U-100/1Ml 28G X 1/2" 1 ml (Insulin Syringe/Needle U-100) 1 Mis Mis 1 Ea .ROUTE DIRECTED Lancets 1 Mis Mis 1 Box .ROUTE DIRECTED Blood Glucose Test Strips Strips Strip 1 Ea .ROUTE DIRECTED Blood Glucose Monitoring W/Device (Device) 1 Kit Kit 1 Kit .ROUTE DIRECTED Reported Novolog Inj (Insulin Aspart) 1,000 Unit/10 Ml Vial 0 SQ DIRECTED Sliding Scale as directed. Novolog Inj (Insulin Aspart) 1,000 Unit/10 Ml Vial 0 SQ DIRECTED Sliding Scale as directed. Review of Systems Except as stated in HPI: all other systems reviewed are Neg Physical Exam Narrative GENERAL: Well-nourished, well-developed male in no acute distress. Afebrile. Ambulatory with a limp. SKIN: Focused skin assessment warm/dry. 3 x 4 cm area of ecchymosis on the right plantar foot in the arch. No open wounds on the plantar foot. HEAD: Normocephalic. EYES: No scleral icterus. No injection or drainage. NECK: Supple, trachea midline. No JVD or lymphadenopathy. CARDIOVASCULAR: Tachycardic. Regular rhythm without murmurs, gallops, or rubs. RESPIRATORY: Breath sounds equal bilaterally. No accessory muscle use. MUSCULOSKELETAL: No cyanosis. Mild edema of the right plantar foot. Extreme tenderness to palpation around the ecchymosis. Full range of motion of the foot but with pain. 2+ dorsalis pedis pulse. There is mild edema of the left fourth proximal phalanx of the finger. Patient has full range of motion of the PIP and DIP. Mild limited range of motion of the MCP. Less than 2 second capillary refill distally. Data Data Last Documented VS Vital Signs Date Time Temp Pulse Resp B/P (MAP) Pulse Ox O2 Delivery O2 Flow Rate FiO2 07/10/17 11:29 98.2 131 18 150/69 (96) 95 Orders Orders Finger ([id number]) (07/10/17 ) Foot, Complete ([id number]) (07/10/17 ) Ibuprofen (Motrin) (07/10/17 12:00) Electrocardiogram (07/10/17 ) [facility] Medical Decision Making Medical Screen Exam Complete: Yes Emergency Medical Condition: Yes Medical Record Reviewed: Yes Differential Diagnosis Sprain, fracture, strain, spasm, contusion Narrative Course 36-year-old male presents to the emergency room for evaluation of 2 separate complaints. First complaint is left fourth finger pain that started 3 days ago after hyperextension injury. Second complaint is right plantar foot pain that started yesterday after jumping and landing on a bolt while barefoot. Physical exam reveals a large area of ecchymosis to the right plantar foot in the arch. Mild edema of the right plantar foot. Extreme tenderness to palpation around the ecchymosis. Full range of motion of the foot but with pain. 2+ dorsalis pedis pulse. There is mild edema of the left fourth proximal phalanx of the finger. Patient has full range of motion of the PIP and DIP. Mild limited range of motion of the MCP. Less than 2 second capillary refill distally. Patient is mildly tachycardic. On monitor, his HR came down to 107 beats per minute. An EKG was ordered but patient left prior to it being recorded stating "I am here to get my foot and finger fixed. This is ridiculous. I know what my heart rate is." He states he smoked cigarettes while on his way to the emergency room and has the smell of alcohol on his breath. X-rays of the finger and foot are negative for acute bony abnormality. Patient on the importance of keeping the feet protected because of his history of diabetes. He left AGAINST MEDICAL ADVICE. Diagnosis Primary Impression: Left against medical advice Referrals: Primary Care Physician Scripts Acetaminophen (Tylenol) 325 Mg Tab 650 MG PO Q6H Y for PAIN SCALE 1 TO 10 for 5 Days, #40 TAB 0 Refills Prov: José Suh MD 07/10/17 Disposition: 07 AGAINST MEDICAL ADVICE Condition: Stable Radha Carver Jul 10, 2017 12:09
--- NOTE | 2017-07-10 12:41 | RADRPT ---
EXAM DATE/TIME: 07/10/2017 12:21 [facility] COMPARISON: No previous studies available for comparison. INDICATIONS : Left ring finger pain and swelling for 3 days. No known injury. MEDICAL HISTORY : None. SURGICAL HISTORY : None. ENCOUNTER: Initial ACUITY: 3 days PAIN SCORE: 7/10 LOCATION: Left 4th digit. FINDINGS: Examination of the fourth digit of the left hand demonstrates no evidence of fracture or dislocation. No radiopaque foreign bodies are seen. The soft tissues are intact. CONCLUSION: Unremarkable examination of the left fourth finger. Negro Barillas MD on July 10, 2017 at 12:40 Board Certified Radiologist. This report was verified electronically.
--- NOTE | 2017-07-10 12:41 | RADRPT ---
EXAM DATE/TIME: 07/10/2017 12:26 [facility] COMPARISON: No previous studies available for comparison. INDICATIONS : Right foot pain swelling for 2 days. No known injury. MEDICAL HISTORY : None. SURGICAL HISTORY : None. ENCOUNTER: Initial ACUITY: 2 days PAIN SCORE: 7/10 LOCATION: Left medial foot. FINDINGS: Three view examination of the right foot demonstrates no soft tissue swelling, dislocation, or fractu re. The tarsal bones appear intact. The interphalangeal and metatarsophalangeal joints are intact. The calcaneus is intact. Bony mineralization is normal. CONCLUSION: Unremarkable examination of the right foot. Negro Barillas MD on July 10, 2017 at 12:40 Board Certified Radiologist. This report was verified electronically.
[2017-07-10] MEDS ORDERED: TYLE325T PO (12:47)
== END 2017-07-10 13:56 | disposition left against medical advice (07) ==
LOC: PHEFT 11:26
DX: M79.645 Pain in left finger(s) (principal); R60.0 Localized edema; S90.31XA Contusion of right foot, initial encounter; R00.0 Tachycardia, unspecified; E11.9 Type 2 diabetes mellitus without complications; I10 Essential (primary) hypertension; F17.200 Nicotine dependence, unspecified, uncomplicated; W22.09XA Striking against other stationary object, initial encounter; X58.XXXA Exposure to other specified factors, initial encounter; Z53.29 Procedure and treatment not carried out because of patient's decision for other reasons; Z79.4 Long term (current) use of insulin; Z86.59 Personal history of other mental and behavioral disorders; Z87.19 Personal history of other diseases of the digestive system; Z87.39 Personal history of other diseases of the musculoskeletal system and connective tissue
CPT/HCPCS: 73140; 73630; 99284

== ENCOUNTER 2017-07-11 08:52 | Emergency (ER) | payer SELFPAY ==
[~2017-07-11] VITALS: Ht 175.3 cm; Wt 67.8 kg
[~2017-07-11 08:52] MED LIST changes: -ALCO1PAD; +NOVOLOGP2 SQ; -NOVORP2 SQ; +TYLE325T PO
[2017-07-11 08:59] VITALS: BP 155/86; PULSE 120; RESP 15; TEMP 99.6; O2SAT 98
--- NOTE | 2017-07-11 10:35 | PD ---
HPI Chief Complaint: Injury Time Seen by Provider: 10:29 Travel History International Travel<30 days: No Contact w/Intl Traveler<30days: No Traveled to known affect area: No History of Present Illness HPI Patient is a 36-year-old male who returns to the ER for xray results. Patient reports that he injured his left ring finger 2 weeks ago, reports that he injured his right foot 2 days ago, patient reports that he thinks he injured his hand as well as foot when he was "rough housing" with his children. Reports only history of DM1. Patient reports that he had to leave AGAINST MEDICAL ADVICE yesterday to care for his children, he is back for his x-ray results. PFSH Past Medical History ADD: Yes Anxiety: Yes Depression: Yes Heart Rhythm Problems: No Cancer: No Cardiovascular Problems: No High Cholesterol: No Chest Pain: No Congestive Heart Failure: No Diabetes: Yes (insulin pump) Diminished Hearing: No Endocrine: Yes Gastrointestinal Disorders: Yes (HERNIAS) Glaucoma: No Genitourinary: No Hepatitis: No Hiatal Hernia: Yes Hypertension: Yes (TREATED IN THE PAST) Implanted Vascular Access Dvce: No Musculoskeletal: Yes (LEFT KNEE) Neurologic: No Psychiatric: No Reproductive: No Respiratory: No Immunizations Current: Yes Seizures: Yes (febrile seizures as a baby) Thyroid Disease: No Past Surgical History Abdominal Surgery: Yes (HERNIA X2) Cardiac Surgery: No Ear Surgery: No Endocrine Surgery: No Eye Surgery: No Genitourinary Surgery: No Gynecologic Surgery: No Neurologic Surgery: No Oral Surgery: No Pacemaker: No Thoracic Surgery: No Other Surgery: Yes (HERNIA X 2, HYDROCELE X2.) Social History Alcohol Use: Yes (socially) Tobacco Use: Yes (1 ppd) Substance Use: No Allergies-Medications (Allergen,Severity, Reaction): Coded Allergies: Sulfa (Sulfonamide Antibiotics) (Unverified Allergy, Severe, Hives and seizures, 07/11/17) Reported Meds & Prescriptions Reported Meds & Active Scripts Active Tylenol (Acetaminophen) 325 Mg Tab 650 Mg PO Q6H PRN 5 Days Insulin Syringe/U-100/1Ml 28G X 1/2" 1 ml (Insulin Syringe/Needle U-100) 1 Mis Mis 1 Ea .ROUTE DIRECTED Lancets 1 Mis Mis 1 Box .ROUTE DIRECTED Blood Glucose Test Strips Strips Strip 1 Ea .ROUTE DIRECTED Blood Glucose Monitoring W/Device (Device) 1 Kit Kit 1 Kit .ROUTE DIRECTED Reported Novolog Inj (Insulin Aspart) 1,000 Unit/10 Ml Vial 0 SQ DIRECTED Sliding Scale as directed. Novolog Inj (Insulin Aspart) 1,000 Unit/10 Ml Vial 0 SQ DIRECTED Sliding Scale as directed. Review of Systems General / Constitutional: No: Fever Eyes: No: Visual changes HENT: No: Headaches Cardiovascular: No: Chest Pain or Discomfort Respiratory: No: Shortness of Breath Gastrointestinal: No: Abdominal Pain Genitourinary: No: Dysuria Musculoskeletal: Positive: Pain (right foot and left ring finger pain) Skin: No Rash Neurologic: No: Weakness Psychiatric: No: Depression Endocrine: No: Polydipsia Hematologic/Lymphatic: No: Easy Bruising Physical Exam Narrative GENERAL: No acute distress, nontoxic SKIN: Focused skin assessment warm/dry. HEAD: Atraumatic. Normocephalic. NECK: Trachea midline. No JVD. CARDIOVASCULAR: Tachycardic. No murmur appreciated. RESPIRATORY: No accessory muscle use. Clear to auscultation. Breath sounds equal bilaterally. GASTROINTESTINAL: Abdomen soft, non-tender, nondistended. Hepatic and splenic margins not palpable. MUSCULOSKELETAL: No obvious deformities. No clubbing. No cyanosis. No edema. Patient with bruising to right lateral foot, pulses intact, neurovascular intact , patient with normal range of motion to all digits of fingers and toes with no obvious deformities NEUROLOGICAL: Awake and alert. No obvious cranial nerve deficits. Motor grossly within normal limits. Normal speech. PSYCHIATRIC: Appropriate mood and affect; insight and judgment normal. Data Data Last Documented VS Vital Signs Date Time Temp Pulse Resp B/P (MAP) Pulse Ox O2 Delivery O2 Flow Rate FiO2 07/11/17 10:39 116 18 98 Room Air 07/11/17 08:59 99.6 155/86 (109) [facility] Medical Decision Making Medical Screen Exam Complete: Yes Emergency Medical Condition: Yes Medical Record Reviewed: Yes Interpretation(s) Vital Signs Date Time Temp Pulse Resp B/P (MAP) Pulse Ox O2 Delivery O2 Flow Rate FiO2 07/11/17 08:59 99.6 120 15 155/86 (109) 98 Differential Diagnosis Differential includes left digit number for fracture versus sprain, right foot fracture versus strain Narrative Course X-rays of his left digit #4 as well as right foot negative for fractures. Patient is tachycardic with a heart rate in the 120s, discussed need for workup for his tachycardia. Patient refuses workup including EKG, patient reports that he would like to leave against rn medical surgical. Patient understands that he may return to the emergency many times for further workup of symptoms. AMA: The risks of leaving against medical advice without further evaluation treatment were discussed with the patient. These risks include cardiac dysfunction, cardiac dysrhythmia, possible heart attack, possible stroke or . The patient indicated understanding of these risks and appeared to have the capacity to make this decision. Patient instructed to follow up with his primary care doctor as soon as possible Diagnosis Primary Impression: Sprain of foot, right Qualified Codes: S93.601A - Unspecified sprain of right foot, initial encounter Additional Impressions: Finger injury Qualified Codes: S69.92XA - Unspecified injury of left wrist, hand and finger( s), initial encounter Tachycardia Left against medical advice Patient Instructions: General Instructions Additional Instructions: Return to ER as needed Please follow up with your primary care doctor Rest, ice, elevate area of swelling and pain Disposition: 07 AGAINST MEDICAL ADVICE Condition: Serious Dorene Kelley DO Jul 11, 2017 10:35
[2017-07-11 10:39] VITALS: PULSE 116; RESP 18; O2SAT 98
== END 2017-07-11 10:48 | disposition left against medical advice (07) ==
LOC: PHED 08:52
DX: S93.601A Unspecified sprain of right foot, initial encounter (principal); X58.XXXA Exposure to other specified factors, initial encounter; Y93.83 Activity, rough housing and horseplay; E10.9 Type 1 diabetes mellitus without complications; I10 Essential (primary) hypertension; Z79.4 Long term (current) use of insulin
CPT/HCPCS: 99281

== ENCOUNTER 2017-09-08 08:38 | Emergency (ER) | payer SELFPAY ==
[~2017-09-08] VITALS: Ht 175.3 cm; Wt 65.4 kg
[2017-09-08 08:41] VITALS: BP 181/82; PULSE 123; RESP 16; TEMP 98.6; O2SAT 100
[2017-09-08] MEDS ORDERED: AMOX875T PO (08:49)
[2017-09-08] MEDS ORDERED: NORC5TAB PO (08:49)
[2017-09-08 08:52] VITALS: BP 174/94; PULSE 121
--- NOTE | 2017-09-08 08:56 | PD ---
HPI . Ear pain Chief Complaint: ENT Complaint Time Seen by Provider: 08:47 Travel History International Travel<30 days: No Contact w/Intl Traveler<30days: No Traveled to known affect area: No History of Present Illness HPI This patient presents with chief complaint of ear pain. It is his right ear and it started about 3 days ago. It became acutely worse during the night. Tylenol has not relieved his pain. He has noticed that his pain is exacerbated by bending over. He has a sore throat associated with the pain along with some nasal congestion. He states that he is not prone to ear infections and that is probably been 20 years since his last ear infection. This patient is a diabetic who uses an insulin pump. PFSH Past Medical History ADD: Yes Anxiety: Yes Depression: Yes Heart Rhythm Problems: No Cancer: No Cardiovascular Problems: Yes (hx of htn not taking meds) High Cholesterol: No Chest Pain: No Congestive Heart Failure: No Diabetes: Yes (type 1) Diminished Hearing: No Endocrine: Yes Gastrointestinal Disorders: Yes (HERNIAS) Glaucoma: No Genitourinary: No Hepatitis: No Hiatal Hernia: Yes Hypertension: Yes (TREATED IN THE PAST) Implanted Vascular Access Dvce: No Musculoskeletal: Yes (LEFT KNEE) Neurologic: No Psychiatric: No Reproductive: No Respiratory: No Immunizations Current: Yes Seizures: Yes (febrile seizures as a baby) Thyroid Disease: No Past Surgical History Abdominal Surgery: Yes (HERNIA X2) Cardiac Surgery: No Ear Surgery: No Endocrine Surgery: No Eye Surgery: No Genitourinary Surgery: No Gynecologic Surgery: No Neurologic Surgery: No Oral Surgery: No Pacemaker: No Thoracic Surgery: No Other Surgery: Yes (HERNIA X 2, HYDROCELE X2.) Social History Alcohol Use: Yes (socially) Tobacco Use: Yes (1 ppd) Substance Use: No Allergies-Medications (Allergen,Severity, Reaction): Coded Allergies: Sulfa (Sulfonamide Antibiotics) (Unverified Allergy, Severe, Hives and seizures, 09/08/17) Reported Meds & Prescriptions Reported Meds & Active Scripts Active [place] (Hydrocodone-Acetaminophen) 5 Mg-325 Mg Tab 1 Tab PO Q4H PRN Amoxicillin 875 Mg Tab 875 Mg PO BID 7 Days Tylenol (Acetaminophen) 325 Mg Tab 650 Mg PO Q6H PRN 5 Days Insulin Syringe/U-100/1Ml 28G X 1/2" 1 ml (Insulin Syringe/Needle U-100) 1 Mis Mis 1 Ea .ROUTE DIRECTED Lancets 1 Mis Mis 1 Box .ROUTE DIRECTED Blood Glucose Test Strips Strips Strip 1 Ea .ROUTE DIRECTED Blood Glucose Monitoring W/Device (Device) 1 Kit Kit 1 Kit .ROUTE DIRECTED Reported Novolog Inj (Insulin Aspart) 1,000 Unit/10 Ml Vial 0 SQ DIRECTED Sliding Scale as directed. Novolog Inj (Insulin Aspart) 1,000 Unit/10 Ml Vial 0 SQ DIRECTED Sliding Scale as directed. Review of Systems Except as stated in HPI: all other systems reviewed are Neg General / Constitutional: No: Fever, Chills Eyes: No: Drainage, Redness HENT: Positive: Sore Throat, Congestion, Earache Physical Exam Narrative GENERAL: Awake and alert and in no acute distress. SKIN: Warm and dry. Good color and turgor. HEAD: Normocephalic/atraumatic. EYES: Pupils are equal. Extraocular movements are intact. No conjunctival injection or drainage. ENT: Right TM is red. No perforation. Left TM is clear. Oropharynx has no erythema, exudate, tonsillar enlargement. NECK: Normal range of motion. No cervical lymphadenopathy. CARDIOVASCULAR: Tachycardia. RESPIRATORY: Nonlabored respirations. MUSCULOSKELETAL: Atraumatic. NEUROLOGICAL: Nonfocal. PSYCHIATRIC: Appropriate mood and affect. Data Data Last Documented VS Vital Signs Date Time Temp Pulse Resp B/P (MAP) Pulse Ox O2 Delivery O2 Flow Rate FiO2 09/08/17 08:41 98.6 123 16 181/82 (115) 100 Orders Orders Ed Discharge Order (09/08/17 08:50) MDM Medical Decision Making Medical Screen Exam Complete: Yes Emergency Medical Condition: Yes Differential Diagnosis Differential diagnosis of ear pain includes eustachian tube dysfunction, otitis externa, otitis media, TMJ syndrome Narrative Course This patient presents complaining of nasal congestion, sore throat and right ear pain. His exam is compatible with otitis media. The patient is hypertensive and tachycardic. This is probably pain related. He is afebrile. He will be discharged with prescriptions for amoxicillin and [place]. I have suggested the use of sweet oil. Diagnosis Primary Impression: Right otitis media Qualified Codes: H66.001 - Acute suppurative otitis media without spontaneous rupture of ear drum, right ear Patient Instructions: General Instructions, Ear Infection (ED) Departure Forms: Tests/Procedures Additional Instructions: I recommend using warm "sweet oil" in your ear to soothe it. You can get it at the drug store. Scripts Hydrocodone-Acetaminophen ([place]) 5 Mg-325 Mg Tab 1 TAB PO Q4H Y for PAIN, #12 TAB 0 Refills Prov: Miriam Geller MD 09/08/17 Amoxicillin (Amoxicillin) 875 Mg Tab 875 MG PO BID for Infection for 7 Days, #14 TAB 0 Refills Prov: Miriam Geller MD 09/08/17 Disposition: 01 DISCHARGE HOME Condition: Stable Miriam Geller MD Sep 08, 2017 08:56
== END 2017-09-08 08:57 | disposition home or self-care (01) ==
LOC: PHEFT 08:38
DX: H66.91 Otitis media, unspecified, right ear (principal)
CPT/HCPCS: 99284

== ENCOUNTER 2017-09-14 11:11 | Emergency (ER) | payer SELFPAY ==
[~2017-09-14] VITALS: Ht 175.3 cm; Wt 66.8 kg
[~2017-09-14 11:11] MED LIST changes: +AMOX875T PO; +NORC5TAB PO
[2017-09-14 11:56] VITALS: BP 144/76; PULSE 99; RESP 16; TEMP 98.4; O2SAT 99
[2017-09-14] MEDS ORDERED: AZIT250T3 PO (12:55)
--- NOTE | 2017-09-14 12:55 | PD ---
HPI Chief Complaint: ENT Complaint Time Seen by Provider: 12:56 Travel History International Travel<30 days: No Contact w/Intl Traveler<30days: No Traveled to known affect area: No History of Present Illness HPI 37-year-old male with right ear pain 2 weeks. Patient was seen previously been on amoxicillin. He reports compliance with medication but the symptoms fail to improve. He denies fever or chills, headache, ear discharge, neck pain. Patient is type I diabetic. He reports no change in his blood sugars. Symptom severity is moderate. No alleviating factors. PFSH Past Medical History ADD: Yes Anxiety: Yes Depression: Yes Heart Rhythm Problems: No Cancer: No Cardiovascular Problems: Yes (hx of htn not taking meds) High Cholesterol: No Chest Pain: No Congestive Heart Failure: No Developmental Delay: No (INSULIN PUMP) Diabetes: Yes (type 1) Patient Takes Glucophage: No (INSULIN PUMP) Diminished Hearing: No Endocrine: Yes Gastrointestinal Disorders: Yes (HERNIAS) Glaucoma: No Genitourinary: No Hepatitis: No Hiatal Hernia: Yes Hypertension: Yes (TREATED IN THE PAST) Implanted Vascular Access Dvce: No Medical other: Yes (hx of muscle spasms unkown cause febrile seizures as a child) Musculoskeletal: Yes (LEFT KNEE) Neurologic: No Psychiatric: No Reproductive: No Respiratory: No Immunizations Current: Yes Seizures: Yes (febrile seizures as a baby) Thyroid Disease: No Tetanus Vaccination: < 5 Years Influenza Vaccination: Yes Past Surgical History Abdominal Surgery: Yes (HERNIA X2) Cardiac Surgery: No Ear Surgery: No Endocrine Surgery: No Eye Surgery: No Genitourinary Surgery: No Gynecologic Surgery: No Neurologic Surgery: No Oral Surgery: No Pacemaker: No Thoracic Surgery: No Other Surgery: Yes (HERNIA X 2, HYDROCELE X2.) Social History Alcohol Use: Yes (socially) Tobacco Use: Yes (1 ppd) Substance Use: No Allergies-Medications (Allergen,Severity, Reaction): Coded Allergies: Sulfa (Sulfonamide Antibiotics) (Unverified Allergy, Severe, Hives and seizures, 09/14/17) Reported Meds & Prescriptions Reported Meds & Active Scripts Active Azithromycin 250 Mg Tab 250 Mg PO DIRECTED Take 2 tabs (500 mg) on day 1 then 1 tab daily x 4 days. Insulin Syringe/U-100/1Ml 28G X 1/2" 1 ml (Insulin Syringe/Needle U-100) 1 Mis Mis 1 Ea .ROUTE DIRECTED Lancets 1 Mis Mis 1 Box .ROUTE DIRECTED Blood Glucose Test Strips Strips Strip 1 Ea .ROUTE DIRECTED Blood Glucose Monitoring W/Device (Device) 1 Kit Kit 1 Kit .ROUTE DIRECTED Reported Novolog Inj (Insulin Aspart) 1,000 Unit/10 Ml Vial 0 SQ DIRECTED Sliding Scale as directed. Novolog Inj (Insulin Aspart) 1,000 Unit/10 Ml Vial 0 SQ DIRECTED Sliding Scale as directed. Review of Systems Except as stated in HPI: all other systems reviewed are Neg General / Constitutional: No: Fever HENT: Positive: Earache Physical Exam Narrative GENERAL: Alert well-appearing male in no distress SKIN: Warm and dry. HEAD: Normocephalic. EYES: No scleral icterus. No injection or drainage. EARS: Right TM erythema, bulging, loss of landmarks. No perforation. No mastoid tenderness. Canal swelling or drainage. NECK: Supple, trachea midline. No meningismus CARDIOVASCULAR: Regular rate and rhythm without murmurs, gallops, or rubs. RESPIRATORY: Breath sounds equal bilaterally. No accessory muscle use. GASTROINTESTINAL: Abdomen soft, non-tender, nondistended. Data Data Last Documented VS Vital Signs Date Time Temp Pulse Resp B/P (MAP) Pulse Ox O2 Delivery O2 Flow Rate FiO2 09/14/17 11:56 98.4 99 16 144/76 (98) 99 Orders Orders Ketorolac Inj (Toradol Inj) (09/14/17 13:00) Ed Discharge Order (09/14/17 13:13) [facility] Medical Decision Making Medical Screen Exam Complete: Yes Emergency Medical Condition: Yes Differential Diagnosis Otitis media, otitis externa, URI Narrative Course 37-year-old male with right ear pain that fail to improve after a round of amoxicillin. On exam is heme erythema, bulging, loss of landmarks. No TM perforation. No mastoid tenderness. Patient be treated with azithromycin. Diagnosis Primary Impression: Otitis media Qualified Codes: H66.91 - Otitis media, unspecified, right ear Referrals: Primary Care Physician Additional Instructions: Take the antibiotics as prescribed. Follow-up with her primary doctor. Return if he developed new or worsening symptoms Scripts Azithromycin (Azithromycin) 250 Mg Tab 250 MG PO DIRECTED for Infection, #6 TAB 0 Refills Take 2 tabs (500 mg) on day 1 then 1 tab daily x 4 days. Prov: Leedy,Chary N NURSE DISCHARGE 09/14/17 Disposition: 01 DISCHARGE HOME Condition: Stable Chary Hoffman Sep 14, 2017 12:55
[2017-09-14] MEDS ORDERED: KETOROLAC TROMETHAMINE 60 MG/2 ML (IM) VIAL IM ONE (13:00)
== END 2017-09-14 13:30 | disposition home or self-care (01) ==
LOC: PHEFT 11:11
DX: H66.91 Otitis media, unspecified, right ear (principal); E10.9 Type 1 diabetes mellitus without complications; I10 Essential (primary) hypertension; F17.200 Nicotine dependence, unspecified, uncomplicated; Z79.4 Long term (current) use of insulin; Z86.59 Personal history of other mental and behavioral disorders; Z86.79 Personal history of other diseases of the circulatory system; Z87.19 Personal history of other diseases of the digestive system; Z87.39 Personal history of other diseases of the musculoskeletal system and connective tissue
CPT/HCPCS: 96372; 99284; J1885

== ENCOUNTER 2017-09-18 10:44 | Emergency (ER) | payer SELFPAY ==
[~2017-09-18] VITALS: Ht 175.3 cm; Wt 68.6 kg
[~2017-09-18 10:44] MED LIST changes: -AMOX875T PO; +AZIT250T3 PO; -NORC5TAB PO; -TYLE325T PO
[2017-09-18 10:54] VITALS: BP 136/81; PULSE 98; RESP 16; TEMP 98.2; O2SAT 99
[2017-09-18] MEDS ORDERED: AUGM875T3 PO (11:30)
[2017-09-18] MEDS ORDERED: IBUP1TAB7 PO (11:31)
--- NOTE | 2017-09-18 11:31 | PD ---
HPI Chief Complaint: ENT Complaint Time Seen by Provider: 11:50 Travel History International Travel<30 days: No Contact w/Intl Traveler<30days: No Traveled to known affect area: No History of Present Illness HPI 37-year-old male here with continued right ear pain for the last 2-3 weeks. He is been seen twice prior put on amoxicillin and then azithromycin. He reports the pain persists. He denies fever or chills. He denies change in his blood sugars. The pain is constant, throbbing. Symptoms severity mild. PFSH Past Medical History ADD: Yes Anxiety: Yes Depression: Yes Heart Rhythm Problems: No Cancer: No Cardiovascular Problems: Yes (hx of htn not taking meds) High Cholesterol: No Chest Pain: No Congestive Heart Failure: No Developmental Delay: No (INSULIN PUMP) Diabetes: Yes (type 1) Patient Takes Glucophage: No Diminished Hearing: No Endocrine: Yes Gastrointestinal Disorders: Yes (HERNIAS) Glaucoma: No Genitourinary: No Hepatitis: No Hiatal Hernia: Yes Hypertension: Yes (TREATED IN THE PAST) Implanted Vascular Access Dvce: No Medical other: Yes (hx of muscle spasms ) Musculoskeletal: Yes (LEFT KNEE) Neurologic: No Psychiatric: No Reproductive: No Respiratory: No Immunizations Current: Yes Seizures: Yes (febrile seizures as a baby) Thyroid Disease: No Tetanus Vaccination: < 5 Years Influenza Vaccination: No Past Surgical History Abdominal Surgery: Yes (HERNIA X2) Cardiac Surgery: No Ear Surgery: No Endocrine Surgery: No Eye Surgery: No Genitourinary Surgery: No Gynecologic Surgery: No Neurologic Surgery: No Oral Surgery: No Pacemaker: No Thoracic Surgery: No Other Surgery: Yes (HERNIA X 2, HYDROCELE X2.) Social History Alcohol Use: Yes (occassionally) Tobacco Use: Yes (1 ppd) Substance Use: No Allergies-Medications (Allergen,Severity, Reaction): Coded Allergies: Sulfa (Sulfonamide Antibiotics) (Unverified Allergy, Severe, Hives and seizures, 09/14/17) Reported Meds & Prescriptions Reported Meds & Active Scripts Active Ibuprofen 800 Mg Tab 800 Mg PO Q6HR PRN Augmentin (Amoxicillin-Clavulanate) 875-125 Mg Tab 1 Tab PO BID Insulin Syringe/U-100/1Ml 28G X 1/2" 1 ml (Insulin Syringe/Needle U-100) 1 Mis Mis 1 Ea .ROUTE DIRECTED Lancets 1 Mis Mis 1 Box .ROUTE DIRECTED Blood Glucose Test Strips Strips Strip 1 Ea .ROUTE DIRECTED Blood Glucose Monitoring W/Device (Device) 1 Kit Kit 1 Kit .ROUTE DIRECTED Reported Novolog Inj (Insulin Aspart) 1,000 Unit/10 Ml Vial 0 SQ DIRECTED Sliding Scale as directed. Novolog Inj (Insulin Aspart) 1,000 Unit/10 Ml Vial 0 SQ DIRECTED Sliding Scale as directed. Review of Systems Except as stated in HPI: all other systems reviewed are Neg General / Constitutional: No: Fever HENT: Positive: Earache Physical Exam Narrative GENERAL: Alert male nontoxic appearing. SKIN: Warm and dry. HEAD: Normocephalic. EYES: No injection or drainage. EAR: Right TM erythema, bulging, loss of landmarks. No canal swelling or drainage. No mastoid tenderness. NECK: Supple, trachea midline. No JVD or lymphadenopathy. CARDIOVASCULAR: Regular rate and rhythm without murmurs, gallops, or rubs. RESPIRATORY: Breath sounds equal bilaterally. No accessory muscle use. Data Data Last Documented VS Vital Signs Date Time Temp Pulse Resp B/P (MAP) Pulse Ox O2 Delivery O2 Flow Rate FiO2 09/18/17 10:54 98.2 98 16 136/81 (99) 99 Orders Orders Dexamethasone Inj (Decadron Inj) (09/18/17 11:45) [facility] Medical Decision Making Medical Screen Exam Complete: Yes Emergency Medical Condition: Yes Differential Diagnosis Otitis media, otitis externa, serous otitis Narrative Course 37-year-old male here with continued right ear pain for the last 2-3 weeks. He is been seen twice prior put on amoxicillin and then azithromycin. He reports the pain persists. He denies fever or chills. He denies change in his blood sugars. He is nontoxic appearing. On exam he has right TM erythema, bulging, loss of landmarks. No perforation. No canal swelling no mastoid tenderness. His vital signs are stable. He will be treated with Augmentin. sustainability project manager spoke with patient regarding treatment clinics in the area. Diagnosis Primary Impression: Otitis media Qualified Codes: H66.90 - Otitis media, unspecified, unspecified ear Referrals: Primary Care Physician Scripts Ibuprofen (Ibuprofen) 800 Mg Tab 800 MG PO Q6HR Y for PAIN, #40 TAB 0 Refills Prov: Chary Hoffman TESTER OPERATOR 09/18/17 Amoxicillin-Clavulanate (Augmentin) 875-125 Mg Tab 1 TAB PO BID for Infection, #20 TAB 0 Refills Prov: Chary Hoffman 09/18/17 Disposition: 01 DISCHARGE HOME Condition: Stable Chary Hoffman Sep 18, 2017 11:31
[2017-09-18] MEDS ORDERED: DEXAMETHASONE SOD PHOS 4 MG/ML VIAL IM ONE (11:45)
== END 2017-09-18 11:38 | disposition home or self-care (01) ==
LOC: PHEFT 10:44
DX: H66.91 Otitis media, unspecified, right ear (principal); F17.200 Nicotine dependence, unspecified, uncomplicated; E10.8 Type 1 diabetes mellitus with unspecified complications; Z79.4 Long term (current) use of insulin
CPT/HCPCS: 99283

== ENCOUNTER 2017-10-23 08:41 | Inpatient (IN) | payer SELFPAY ==
[2017-10-23] VITALS (18 sets, daily range): BP systolic 114–161; BP diastolic 74–101; PULSE 96–152; RESP 20–42; TEMP 97.5–98.1; O2SAT 94–100
[~2017-10-23] VITALS: Ht 175.3 cm; Wt 63.1 kg
[~2017-10-23 08:41] MED LIST changes: +AUGM875T3 PO; -AZIT250T3 PO; +IBUP1TAB7 PO
[2017-10-23] MEDS ORDERED: SODIUM CHLOR 0.9% 1000 ML INJ 1,000 ML IV ONE ×2 (08:53→10:00)
[2017-10-23] MEDS ORDERED: insulin pump (08:54)
[2017-10-23] MEDS ORDERED: SODIUM CHLORIDE 0.9% FLUSH 10 ML FLUSH IVF PRN (09:00)
[2017-10-23] MEDS ORDERED: ONDANSETRON HCL 4 MG/2 ML VIAL IV PUSH ONE (09:00)
[2017-10-23 09:10] LABS: AUTOMATED NEUTROPHIL # 9.8 TH/MM3 (1.8-7.7); BASOPHIL # 0.3 TH/MM3 (0-0.2); BASOPHIL % 2.6 % (0.0-2.0); EOSINOPHIL # 0.1 TH/MM3 (0-0.4); HEMATOCRIT 52.1 % (39.0-51.0); HEMOGLOBIN 17.4 GM/DL (13.0-17.0); LYMPH % 8.6 % (9.0-44.0); MEAN CELL VOLUME 92.4 FL (80.0-100.0); MEAN CORPUSCULAR HEMOGLOBIN 30.9 PG (27.0-34.0); MEAN CORPUSCULAR HGB CONC 33.4 % (32.0-36.0); MEAN PLATELET VOLUME 8.2 FL (7.0-11.0); MONO % 6.1 % (0.0-8.0); MONOCYTE # 0.7 TH/MM3 (0-0.9); NEUT % 81.7 % (16.0-70.0); PLATELET COUNT 206 TH/MM3 (150-450); RED BLOOD COUNT 5.64 MIL/MM3 (4.50-5.90); RED CELL DISTRIBUTION WIDTH 14.4 % (11.6-17.2); WHITE BLOOD COUNT 11.9 TH/MM3 (4.0-11.0)
--- NOTE | 2017-10-23 09:28 | PD ---
HPI Chief Complaint: Diabetic Time Seen by Provider: 09:19 Travel History International Travel<30 days: No Contact w/Intl Traveler<30days: No Traveled to known affect area: No History of Present Illness HPI 37yo M presented to the ED with a hx of vomiting x1day with two episodes. Pt states that he has not eaten anything for the last four days due to nausea, and started having trouble keeping down fluids this morning. Pt has a significant PMH of type 1 diabetes with an insulin pump, alcohol and tobacco use. Pt denies any diarrhea, fevers, myalgias, or sick contacts. Pt admits to abdominal pain only when vomiting and nausea. According to patient's dad, he has been drinking a lot of alcohol as well. Patient himself states he has not had any alcohol in 8 days. Modifying Factors: None Associated Signs & Symptoms: Abdominal pain, nausea, vomiting Risk Factors: Diabetic, alcohol use PFSH Past Medical History ADD: Yes Anxiety: Yes Depression: Yes Heart Rhythm Problems: No Cancer: No Cardiovascular Problems: Yes (hx of htn not taking meds) High Cholesterol: No Chest Pain: No Congestive Heart Failure: No Diabetes: Yes Patient Takes Glucophage: No Diminished Hearing: No Endocrine: Yes Gastrointestinal Disorders: Yes (HERNIAS) Glaucoma: No Genitourinary: No Hepatitis: No Hiatal Hernia: Yes Hypertension: Yes (TREATED IN THE PAST) Implanted Vascular Access Dvce: No Medical other: Yes (hx of muscle spasms unkown cause febrile seizures as a child) Musculoskeletal: Yes (LEFT KNEE) Neurologic: No Psychiatric: No Reproductive: No Respiratory: No Immunizations Current: Yes Seizures: Yes (febrile seizures as a baby) Thyroid Disease: No Past Surgical History Abdominal Surgery: Yes (HERNIA X2) Cardiac Surgery: No Ear Surgery: No Endocrine Surgery: No Eye Surgery: No Genitourinary Surgery: No Gynecologic Surgery: No Neurologic Surgery: No Oral Surgery: No Pacemaker: No Thoracic Surgery: No Other Surgery: Yes (HERNIA X 2, HYDROCELE X2.) Social History Alcohol Use: Yes (occassionally) Tobacco Use: Yes (1 ppd) Substance Use: No Allergies-Medications (Allergen,Severity, Reaction): Coded Allergies: Sulfa (Sulfonamide Antibiotics) (Unverified Allergy, Severe, Hives and seizures, 10/23/17) Reported Meds & Prescriptions Reported Meds & Active Scripts Active Reported [insulin pump] Review of Systems Except as stated in HPI: all other systems reviewed are Neg Gastrointestinal: Positive: Nausea, Vomiting Physical Exam Narrative GENERAL: 37 yo WD male patient currently and moderate distress, alert and oriented x3. SKIN: Warm and dry. Decreased skin turgor. HEAD: Atraumatic. Normocephalic. EYES: Pupils equal and round. No scleral icterus. No injection or drainage. ENT: No nasal bleeding or discharge. NECK: Trachea midline. No JVD. Supple. CARDIOVASCULAR: Tachycardic with regular rate. S1 and S2 with no murmurs or gallops. RESPIRATORY: No accessory muscle use. Clear to auscultation. Breath sounds equal bilaterally. GASTROINTESTINAL: Abdomen soft and nondistended. Mildly tender in the epigastric area without guarding or rebound. Hepatic and splenic margins not palpable. MUSCULOSKELETAL: Extremities without clubbing, cyanosis, or edema. No obvious deformities. NEUROLOGICAL: Awake and alert. No obvious cranial nerve deficits. Motor grossly within normal limits. Five out of 5 muscle strength in the arms and legs. Normal speech. PSYCHIATRIC: Appropriate mood and affect; poor insight and judgement. Data Data Last Documented VS Vital Signs Date Time Temp Pulse Resp B/P (MAP) Pulse Ox O2 Delivery O2 Flow Rate FiO2 10/23/17 10:39 113 20 161/101 (121) 98 10/23/17 08:43 97.5 Orders Orders Complete Blood Count With Diff (10/23/17 08:53) Comprehensive Metabolic Panel (10/23/17 08:53) Magnesium (Mg) (10/23/17 08:53) Phosphorus (Po4) (10/23/17 08:53) Beta Hydroxybutyrate (Acetone) (10/23/17 08:53) Urinalysis - C+S If Indicated (10/23/17 08:53) Arterial Blood Gas (Abg) (10/23/17 08:53) Ecg Monitoring (10/23/17 08:53) Iv Access Insert/Monitor (10/23/17 08:53) Oximetry (10/23/17 08:53) NPO (10/23/17 08:53) Sodium Chloride 0.9% Flush (Ns Flush) (10/23/17 09:00) Sodium Chlor 0.9% 1000 Ml Inj (Ns 1000 M (10/23/17 08:53) Lipase (10/23/17 08:53) Ondansetron Inj (Zofran Inj) (10/23/17 09:00) Sodium Chlor 0.9% 1000 Ml Inj (Ns 1000 M (10/23/17 10:00) Alcohol (Ethanol) (10/23/17 10:41) Admit To Inpatient (10/23/17 ) Mechanical Maintenance Engineer / Telemetry MIGUEL.Q8H (10/23/17 10:42) ^ Insert Iv (10/23/17 10:42) ^ Teach Patient (10/23/17 10:42) Diet Npo (10/23/17 Lunch) Bedside Glucose MIGUEL.Q1H (10/23/17 10:42) Sodium Chlor 0.9% 1000 Ml Inj (Ns 1000 M (10/23/17 10:42) Dext 5%-Nacl 0.9% 1000 Ml Inj (D5w-Ns 10 (10/23/17 10:42) Insulin Regular (Iv Infusion) (Novolin R (10/23/17 11:00) Potassium Chlor 40 Meq Premix (Kcl 40 Me (10/23/17 10:45) Potassium Chlor 40 Meq Premix (Kcl 40 Me (10/23/17 10:45) Potassium Chlor 20 Meq Premix (Kcl 20 Me (10/23/17 10:45) Potassium Chlor 20 Meq Premix (Kcl 20 Me (10/23/17 10:45) Potassium Chlor 20 Meq Premix (Kcl 20 Me (10/23/17 10:45) Potassium Chlor 20 Meq Premix (Kcl 20 Me (10/23/17 10:45) Potassium Chlor 20 Meq Premix (Kcl 20 Me (10/23/17 10:45) Potassium Chlor 20 Meq Premix (Kcl 20 Me (10/23/17 10:45) Sodium Bicarbonate 8.4% Inj (Sodium Bica (10/23/17 10:45) Sodium Bicarbonate 8.4% Inj (Sodium Bica (10/23/17 10:45) Sodium Phosphate Inj (Sodium Phosphate I (10/23/17 10:45) Basic Metabolic Panel (Bmp) (10/23/17 15:42) Basic Metabolic Panel (Bmp) (10/23/17 21:42) Basic Metabolic Panel (Bmp) (10/24/17 03:42) Basic Metabolic Panel (Bmp) (10/24/17 09:42) Magnesium (Mg) (10/23/17 15:42) Magnesium (Mg) (10/23/17 21:42) Magnesium (Mg) (10/24/17 03:42) Magnesium (Mg) (10/24/17 09:42) Phosphorus (Po4) (10/23/17 15:42) Phosphorus (Po4) (10/23/17 21:42) Phosphorus (Po4) (10/24/17 03:42) Phosphorus (Po4) (10/24/17 09:42) Beta Hydroxybutyrate (Acetone) (10/23/17 21:42) Beta Hydroxybutyrate (Acetone) (10/24/17 09:42) ^ Initiate Protocol (10/23/17 10:42) Instruction (10/23/17 10:42) [facility] Nursing Information (10/23/17 10:45) Chlorhexidine 2% Cloth (Chlorhexidine 2% (10/24/17 04:00) Chlorhexidine 2% Cloth (Chlorhexidine 2% (10/23/17 10:45) Mrsa Pcr Surveillance (10/23/17 10:42) Inpatient Certification (10/23/17 ) Admit Order (Ed Use Only) (10/23/17 10:43) Labs Laboratory Tests Test 10/23/17 08:57 10/23/17 09:00 10/23/17 09:30 Blood Gas Puncture Site RT BRACHIAL Blood Gas Patient Temperature 98.6 Blood Gas HCO3 8 mmol/L Blood Gas Base Excess -17.3 mmol/L Blood Gas Oxygen Saturation 95 % Arterial Blood pH 7.31 Arterial Blood Partial Pressure CO2 17 mmHG Arterial Blood Partial Pressure O2 121 mmHG Arterial Blood Oxygen Content 23.7 Vol % Arterial Blood Carboxyhemoglobin 2.1 % Arterial Blood Methemoglobin 1.2 % Blood Gas Hemoglobin 17.6 G/DL Oxygen Delivery Device NONE Blood Gas Inspired Oxygen 21 % White Blood Count 11.9 TH/MM3 Red Blood Count 5.64 MIL/MM3 Hemoglobin 17.4 GM/DL Hematocrit 52.1 % Mean Corpuscular Volume 92.4 FL Mean Corpuscular Hemoglobin 30.9 PG Mean Corpuscular Hemoglobin Concent 33.4 % Red Cell Distribution Width 14.4 % Platelet Count 206 TH/MM3 Mean Platelet Volume 8.2 FL Neutrophils (%) (Auto) 81.7 % Lymphocytes (%) (Auto) 8.6 % Monocytes (%) (Auto) 6.1 % Eosinophils (%) (Auto) 1.0 % Basophils (%) (Auto) 2.6 % Neutrophils # (Auto) 9.8 TH/MM3 Lymphocytes # (Auto) 1.0 TH/MM3 Monocytes # (Auto) 0.7 TH/MM3 Eosinophils # (Auto) 0.1 TH/MM3 Basophils # (Auto) 0.3 TH/MM3 CBC Comment DIFF FINAL Differential Comment Blood Urea Nitrogen 37 MG/DL Creatinine 1.40 MG/DL Random Glucose 151 MG/DL Total Protein 9.0 GM/DL Albumin 4.6 GM/DL Calcium Level 8.9 MG/DL Phosphorus Level 3.2 MG/DL Magnesium Level 2.4 MG/DL Alkaline Phosphatase 127 U/L Aspartate Amino Transf (AST/SGOT) 45 U/L Alanine Aminotransferase (ALT/SGPT) 58 U/L Total Bilirubin 1.1 MG/DL Sodium Level 132 MEQ/L Potassium Level 3.8 MEQ/L Chloride Level 93 MEQ/L Carbon Dioxide Level 12.4 MEQ/L Anion Gap 27 MEQ/L Estimat Glomerular Filtration Rate 58 ML/MIN Lipase 169 U/L B-Hydroxybutyrate 12.39 MMOL/L MDM Medical Decision Making Medical Screen Exam Complete: Yes Emergency Medical Condition: Yes Medical Record Reviewed: Yes Interpretation(s) Laboratory Tests Test 10/23/17 08:57 10/23/17 09:00 10/23/17 09:30 Blood Gas HCO3 8 mmol/L (22-26) Blood Gas Base Excess -17.3 mmol/L (-2-2) Arterial Blood pH 7.31 (7.380-7.420) Arterial Blood Partial Pressure CO2 17 mmHG (38-42) Arterial Blood Partial Pressure O2 121 mmHG (61-120) Arterial Blood Oxygen Content 23.7 Vol % (12.0-20.0) Blood Gas Hemoglobin 17.6 G/DL (12.0-16.0) White Blood Count 11.9 TH/MM3 (4.0-11.0) Hemoglobin 17.4 GM/DL (13.0-17.0) Hematocrit 52.1 % (39.0-51.0) Neutrophils (%) (Auto) 81.7 % (16.0-70.0) Lymphocytes (%) (Auto) 8.6 % (9.0-44.0) Basophils (%) (Auto) 2.6 % (0.0-2.0) Neutrophils # (Auto) 9.8 TH/MM3 (1.8-7.7) Basophils # (Auto) 0.3 TH/MM3 (0-0.2) Blood Urea Nitrogen 37 MG/DL (7-18) Creatinine 1.40 MG/DL (0.60-1.30) Random Glucose 151 MG/DL (74-106) Total Protein 9.0 GM/DL (6.4-8.2) Alkaline Phosphatase 127 U/L (45-117) Aspartate Amino Transf (AST/SGOT) 45 U/L (15-37) Total Bilirubin 1.1 MG/DL (0.2-1.0) Sodium Level 132 MEQ/L (136-145) Chloride Level 93 MEQ/L (98-107) Carbon Dioxide Level 12.4 MEQ/L (21.0-32.0) Anion Gap 27 MEQ/L (5-15) Estimat Glomerular Filtration Rate 58 ML/MIN (>89) B-Hydroxybutyrate 12.39 MMOL/L (0.00-0.39) Differential Diagnosis DKA versus dehydration versus gastritis versus metabolic issues versus pancreatitis versus gastroenteritis Narrative Course Lab work shows significant ketosis with high anion gap, there is concern for AKA or DKA and IV fluids have been initiated in the ER. Zofran was given for nausea and vomiting. Lab work did not indicate any signs of pancreatitis, normal lipase. My plan at this point would be to admit the patient for further treatment of the ketosis. Case was discussed with Dr. Jacome for admission. Planning to admit for DKA, ICU per protocol. Aggregate critical care time was 25 minutes. Time to perform other separately billable procedures was not included in the critical care time. My time did not include minutes spent treating any other patients simultaneously or on activities that did not directly contribute to the patient's treatment. The services I provided to this patient were to treat and/or prevent clinically significant deterioration that could result in: Worsening ketosis, metabolic acidosis, dysrhythmias, I provided critical care services requiring my management, as noted below: Chart data review, documentation time, medication orders and management, vital sign assessments/reviewing monitor data, ordering and reviewing lab tests, ordering and interpreting/reviewing x-rays and diagnostic studies, care of the patient and discussion of the patient with the admitting physicians. Diagnosis Primary Impression: DKA (diabetic ketoacidoses) Additional Impressions: Ketosis Moderate dehydration Admitting Information Admitting Physician Requests: it Thomas Honeycutt MD Oct 23, 2017 09:28
[2017-10-23 09:47] LABS: ALBUMIN 4.6 GM/DL (3.4-5.0); CALCIUM 8.9 MG/DL (8.5-10.1)
[2017-10-23 09:48] LABS: BICARBONATE 12.4 MEQ/L (21.0-32.0); GLUCOSE,RANDOM 151 MG/DL (74-106); LIPASE 169 U/L (73-393); MAGNESIUM 2.4 MG/DL (1.5-2.5)
[2017-10-23 09:51] LABS: ALT (GPT) 58 U/L (12-78); AST (GOT) 45 U/L (15-37); GLOMERULAR FILTRATION RATE 58 ML/MIN (>89)
[2017-10-23 09:52] LABS: PHOSPHORUS 3.2 MG/DL (2.5-4.9)
[2017-10-23 09:54] LABS: ALKALINE PHOSPHATASE 127 U/L (45-117); CHLORIDE 93 MEQ/L (98-107); SODIUM (NA) 132 MEQ/L (136-145)
[2017-10-23 10:02] LABS: BLOOD UREA NITROGEN 37 MG/DL (7-18)
[2017-10-23 10:08] LABS: TOTAL BILIRUBIN ADULT 1.1 MG/DL (0.2-1.0)
[2017-10-23] MEDS ORDERED: SODIUM CHLOR 0.9% 1000 ML INJ 1,000 ML IV SCH (10:42)
[2017-10-23] MEDS ORDERED: SODIUM PHOSPHATE INJ 15 MMOL in SODIUM CHLORIDE 0.9% INJ 100 ML IV PRN (10:45)
[2017-10-23] MEDS ORDERED: MISCELLANEOUS NURSING INFORMATION XX SCH (10:45)
[2017-10-23] MEDS ORDERED: POTASSIUM CHLOR 20 MEQ PREMIX 100 ML IV PRN ×6 (10:45)
[2017-10-23] MEDS ORDERED: CHLORHEXIDINE GLUCONATE 2 % 1 PACK (2 CLOTHS) TOP PRN (10:45)
[2017-10-23] MEDS ORDERED: SODIUM BICARBONATE 8.4% SOLN 50 MEQ/50 ML VIAL IV PUSH PRN ×2 (10:45)
[2017-10-23] MEDS ORDERED: POTASSIUM CHLOR 40 MEQ PREMIX 100 ML IV PRN ×2 (10:45)
[2017-10-23] MEDS ORDERED: INSULIN REGULAR (IV INFUSION) 100 UNITS in SODIUM CHLORIDE 0.9% INJ 99 ML IV PRN (11:00)
[2017-10-23 11:22] LABS: BLOOD, URINE MOD (NEG); GLUCOSE,URINE NEG (NEG); KETONE, URINE 80 OR GREATER mg/dL (NEG); NITRITE,URINE NEG (NEG); URINE LEUKOCYTE ESTERASE NEG (NEG)
[2017-10-23 11:28] LABS: BILIRUBIN, URINE NEG (NEG)
[2017-10-23 11:29] LABS: HYALINE CAST, URINE 15-19 /lpf (RARE); URINE COLOR YELLOW (YELLW/STRAW)
[2017-10-23 11:30] LABS: SQUAMOUS EPITHELIAL CELL URINE 0-5 /hpf (0-5); WBC, URINE 0-2 /hpf (0-5)
--- NOTE | 2017-10-23 11:35 | HHI.HP ---
[facility] No Primary Care Physician Admission Diagnosis DKA Diagnoses: Chief Complaint: Persistent vomiting Travel History International Travel<30 Days: No Contact w/Intl Traveler <30 Da: No Traveled to Known Affected Are: No History of Present Illness 37-year-old white male being admitted for ketoacidosis. Patient was in his usual state of health until about a 1 week ago when he began experiencing some nausea vomiting. Initially his vomiting was clear and he tried to supplement himself with oral aggressive rehydration fluid intake. However he then began throwing up his fluids and his emesis eventually turned into dark brown and black substance. At that point he decided to come to the emergency department. He reports having abdominal pain only days into the onset of his symptoms along with a sore throat; not prior to his vomiting onset. She states at one point during one of his vomiting episodes he had asked him dislodged his insulin pump and therefore start supplementing himself with insulin syringes. He states that his sugars run anywhere from the 150s to the 190s in the morning but adamantly denies that it runs any higher into the 200s. Patient states this had happened to him sometime in the past but was treated in the emergency department and sent home. He says he has had endoscopies before 10 years ago by the discretion of his endocrinologists for epigastric pain which resulted in negative findings. Patient denies any marijuana use. In the emergency department he was given IV fluids and noticed to have an increased anion gap. Review of Systems Except as stated in HPI: all other systems reviewed are Neg Past Family Social History Past Medical History Type 1 diabetes Past Surgical History Bilateral groin hernia repairs Allergies: Coded Allergies: Sulfa (Sulfonamide Antibiotics) (Unverified Allergy, Severe, Hives and seizures, 10/23/17) Family History Endorses family history of diabetes Social History Is adopted. States he smokes 1 pack of cigarettes a day. Adamantly denies any and all illicit drug use. Says he drinks about 3 beers at a time about 6 days out of the month. Says he last drank about a week ago. Physical Exam Vital Signs Vital Signs Date Time Temp Pulse Resp B/P (MAP) Pulse Ox O2 Delivery O2 Flow Rate FiO2 10/23/17 10:39 113 20 161/101 (121) 98 10/23/17 09:45 121 20 153/92 (112) 94 10/23/17 09:03 97 10/23/17 08:43 97.5 152 20 114/84 (94) 100 Physical Exam VS: afebrile GENERAL: Young white male, well-nourished, no acute distress SKIN: Warm and dry. EYES: No scleral icterus. No injection or drainage. ENT: No nasal bleeding or discharge. Mucous membranes pink and moist. CARDIOVASCULAR: Regular rate and rhythm. no murmurs RESPIRATORY: No accessory muscle use. Clear to auscultation. Breath sounds equal bilaterally. GASTROINTESTINAL: Abdomen soft, trace diffuse tenderness to palpation, nondistended Extremities: No clubbing, cyanosis, or edema. No obvious deformities. MUSCULOSKELETAL: grossly intact ROM with 5/5 strength in upper and lower extremities proximally; adequate muscle bulk and tone for age and habitus NEUROLOGICAL: Awake and alert. No obvious cranial nerve deficits. No facial droop nor slurred speech noted. PSYCHIATRIC: Appropriate mood and affect; insight and judgment normal. Laboratory Laboratory Tests Test 10/23/17 08:57 10/23/17 09:00 10/23/17 09:30 10/23/17 11:10 Blood Gas Puncture Site RT BRACHIAL Blood Gas Patient Temperature 98.6 Blood Gas HCO3 8 Blood Gas Base Excess -17.3 Blood Gas Oxygen Saturation 95 Arterial Blood pH 7.31 Arterial Blood Partial Pressure CO2 17 Arterial Blood Partial Pressure O2 121 Arterial Blood Oxygen Content 23.7 Arterial Blood Carboxyhemoglobin 2.1 Arterial Blood Methemoglobin 1.2 Blood Gas Hemoglobin 17.6 Oxygen Delivery Device NONE Blood Gas Inspired Oxygen 21 White Blood Count 11.9 Red Blood Count 5.64 Hemoglobin 17.4 Hematocrit 52.1 Mean Corpuscular Volume 92.4 Mean Corpuscular Hemoglobin 30.9 Mean Corpuscular Hemoglobin Concent 33.4 Red Cell Distribution Width 14.4 Platelet Count 206 Mean Platelet Volume 8.2 Neutrophils (%) (Auto) 81.7 Lymphocytes (%) (Auto) 8.6 Monocytes (%) (Auto) 6.1 Eosinophils (%) (Auto) 1.0 Basophils (%) (Auto) 2.6 Neutrophils # (Auto) 9.8 Lymphocytes # (Auto) 1.0 Monocytes # (Auto) 0.7 Eosinophils # (Auto) 0.1 Basophils # (Auto) 0.3 CBC Comment DIFF FINAL Differential Comment Blood Urea Nitrogen 37 Creatinine 1.40 Random Glucose 151 Total Protein 9.0 Albumin 4.6 Calcium Level 8.9 Phosphorus Level 3.2 Magnesium Level 2.4 Alkaline Phosphatase 127 Aspartate Amino Transf (AST/SGOT) 45 Alanine Aminotransferase (ALT/SGPT) 58 Total Bilirubin 1.1 Sodium Level 132 Potassium Level 3.8 Chloride Level 93 Carbon Dioxide Level 12.4 Anion Gap 27 Estimat Glomerular Filtration Rate 58 Lipase 169 Ethyl Alcohol Level LESS THAN 3 B-Hydroxybutyrate 12.39 Urine Collection Type CLEAN CATCH Urine Color YELLOW Urine Turbidity CLEAR Urine pH 6.0 Urine Specific [place]alls 1.020 Urine Protein 100 Urine Glucose (UA) NEG Urine Ketones 80 OR GREATER Urine Occult Blood MOD Urine Nitrite NEG Urine Bilirubin NEG Urine Leukocyte Esterase NEG Urine RBC 10-14 Urine WBC 0-2 Urine Squamous Epithelial Cells 0-5 Urine Hyaline Casts 15-19 Microscopic Urinalysis Comment CULT NOT INDICATED Urine Collection Time 11:10 Result Diagram: 10/23/17 0900 10/23/17 0930 Caprini VTE Risk Assessment Caprini VTE Risk Assessment: No/Low Risk (score <= 1) Caprini Risk Assessment Model Point Value = 1 Point Value = 2 Point Value = 3 Point Value = 5 Age 41-60 Minor surgery BMI > 25 kg/m2 Swollen legs Varicose veins or History of unexplained or recurrent spontaneous Oral contraceptives or hormone replacement Sepsis (< 1 month) Serious lung disease, including pneumonia (< 1 month) Abnormal pulmonary function Acute myocardial infarction Congestive heart failure (< 1 month) History of inflammatory bowel disease Medical patient at bed rest Age 61-74 Arthroscopic surgery Major open surgery (> 45 min) Laparoscopic surgery (> 45 min) Malignancy Confined to bed (> 72 hours) Immobilizing plaster cast Central venous access Age >= 75 History of VTE Family history of VTE Factor V Leiden Prothrombin [id number] Lupus anticoagulant Anticardiolipin antibodies Elevated serum homocysteine Heparin-induced thrombocytopenia Other congenital or acquired thrombophilia Stroke (< 1 month) Elective arthroplasty Hip, pelvis, or leg fracture Acute spinal cord injury (< 1 month) Prophylaxis Regimen Total Risk Factor Score Risk Level Prophylaxis Regimen 0-1 Low Early ambulation 2 Moderate Order ONE of the following: *Sequential Compression Device (SCD) *Heparin 5000 units SQ BID 3-4 Higher Order ONE of the following medications: *Heparin 5000 units SQ TID *Enoxaparin/Lovenox 40 mg SQ daily (WT < 150 kg, CrCl > 30 mL/min) *Enoxaparin/Lovenox 30 mg SQ daily (WT < 150 kg, CrCl > 10-29 mL/min) *Enoxaparin/Lovenox 30 mg SQ BID (WT < 150 kg, CrCl > 30 mL/min) AND/OR *Sequential Compression Device (SCD) 5 or more Highest Order ONE of the following medications: *Heparin 5000 units SQ TID (Preferred with Epidurals) *Enoxaparin/Lovenox 40 mg SQ daily (WT < 150 kg, CrCl > 30 mL/min) *Enoxaparin/Lovenox 30 mg SQ daily (WT < 150 kg, CrCl > 10-29 mL/min) *Enoxaparin/Lovenox 30 mg SQ BID (WT < 150 kg, CrCl > 30 mL/min) AND *Sequential Compression Device (SCD) Assessment and Plan Assessment and Plan 37 year white male being admitted for ketoacidosis -Increased anion gap possibly from alcoholic ketoacidosis versus a DKA vs persistent fluid losses -fluids w/ sub q insulin, anticipate closing anion gap N/V - Unclear etiology at this time suspect an upper GI bleed with coffee ground emesis - We'll consult gastroenterology; obtain a drug screen to rule out any marijuana induced cyclical vomiting syndrome - Obtaining gallbladder ultrasound given minimally elevated LFTs - IVFs - diet as tolerated - phenergan and zofran prn vomiting - a1c to how elevated sugars have been to help evaluate for gastroparesis BJ - IVFs DM - LDSS w/ acucchecks early ambulation. Physician Certification 2 Midnight Certification Type: Admission for Inpatient Services Order for Inpatient Services The services are ordered in accordance with Medicare regulations or non- Medicare payer requirements, as applicable. In the case of services not specified as inpatient-only, they are appropriately provided as inpatient services in accordance with the 2-midnight benchmark. Estimated LOS (days): 2 2 days is the estimated time the patient will need to remain in the hospital, assuming treatment plan goals are met and no additional complications. Post-Hospital Plan: Home Chad Jacome MD Oct 23, 2017 11:35
[2017-10-23] MEDS: DEXT 5%-NACL 0.9% 1000 ML INJ 1,000 ML IV SCH ×2 (11:43→15:42)
[2017-10-23] MEDS ORDERED: GLUCAGON 1 MG/ML VIAL OTHER PRN (11:45)
[2017-10-23] MEDS ORDERED: DEXTROSE 50% IN WATER 50 ML VIAL(D50) IV PUSH PRN (11:45)
[2017-10-23] MEDS ORDERED: PROMETHAZINE INJ 25 MG/ML VIAL IM PRN (12:00)
[2017-10-23] MEDS ORDERED: ONDANSETRON HCL 4 MG/2 ML VIAL IV PUSH PRN (12:00)
[2017-10-23] MEDS: INSULIN ASPART SUPPLEMENTAL SCALE SQ SCH ×3 (13:33→20:24)
--- NOTE | 2017-10-23 14:30 | RADRPT ---
EXAM DATE/TIME: 10/23/2017 14:00 [facility] COMPARISON: No previous studies available for comparison. INDICATIONS : Nausea/vomiting. MEDICAL HISTORY : Hernia, hiatal. Seizures. HTN. Diabetes. ADD. Depression. Anxiety. SURGICAL HISTORY : Hydrocele surgeries. Left foot sesmoid bone removal. Right knee surgery. ENCOUNTER: Subsequent ACUITY: 1 day PAIN SCORE: 0/10 LOCATION: Right upper quadrant MEASUREMENTS: LIVER: 16.7 cm length COMMON DUCT: 3 mm RIGHT KIDNEY: 13.1 x 5.3 x 5.7 cm FINDINGS: LIVER: Upper limits of normal in size. There is increased echogenicity with no focal mass or ductal dilatati on. COMMON DUCT: No intraluminal mass or stone visualized. GALLBLADDER: Contains no stones, demonstrates no wall thickening or pericholecystic fluid. There is a small amoun t of debris or sludge. PANCREAS: The visualized portions are within normal limits. RIGHT KIDNEY: No evidence of hydronephrosis, stone, or mass. CONCLUSION: Small amount of debris or sludge with no evidence of cholelithiasis. Hepatic steatosis. Peter Hunter MD on October 23, 2017 at 14:24 Board Certified Radiologist. This report was verified electronically.
[2017-10-23 16:21] LABS: HEMOGLOBIN A1C 8.4 % (4.3-6.0)
[2017-10-23 18:31] LABS: BICARBONATE 10.8 MEQ/L (21.0-32.0); CREATININE 0.75 MG/DL (0.60-1.30); MAGNESIUM 1.7 MG/DL (1.5-2.5); PHOSPHORUS 0.9 MG/DL (2.5-4.9)
[2017-10-23 18:35] LABS: CALCIUM 6.3 MG/DL (8.5-10.1)
[2017-10-23] MEDS ORDERED: POTASSIUM CHLORIDE 10 MEQ CONTROLLED RELEASE TAB PO ONE (19:00)
[2017-10-23 19:12] LABS: TOTAL PROTEIN 5.6 GM/DL (6.4-8.2)
[2017-10-23] MEDS ORDERED: CALCIUM GLUCONATE 10% 1 GM/10 ML VIAL IV PUSH ONE (21:00)
[2017-10-23] MEDS ORDERED: POTASSIUM PHOSPHATE MONOBASIC 500 MG TAB PO ONE (21:00)
[2017-10-23] MEDS: SODIUM CHLOR 0.9% 1000 ML INJ 1,000 ML IV SCH (21:16)
[2017-10-23] MEDS ORDERED: POTASSIUM PHOSPHATE INJ 30 MMOL in SODIUM CHLOR 0.9% 250 ML INJ 250 ML IV ONE (22:00)
[2017-10-23] MEDS: POTASSIUM CHLOR 20 MEQ PREMIX 100 ML IV SCH (22:37)
[2017-10-24] VITALS (13 sets, daily range): BP systolic 140–163; BP diastolic 74–99; PULSE 90–110; RESP 9–35; TEMP 98.1–98.9; O2SAT 99–100
[2017-10-24] MEDS: POTASSIUM CHLOR 20 MEQ PREMIX 100 ML IV SCH (00:35)
[2017-10-24 02:01] LABS: BICARBONATE 14.4 MEQ/L (21.0-32.0); CALCIUM 8.1 MG/DL (8.5-10.1); CREATININE 0.74 MG/DL (0.60-1.30); PHOSPHORUS 1.9 MG/DL (2.5-4.9)
[2017-10-24] MEDS ORDERED: INSULIN ASPART 1,000 UNITS/10 ML VIAL SQ ONE (04:00)
[2017-10-24] MEDS ORDERED: CHLORHEXIDINE GLUCONATE 2 % 1 PACK (2 CLOTHS) TOP SCH (04:00)
[2017-10-24] MEDS: SODIUM CHLOR 0.9% 1000 ML INJ 1,000 ML IV SCH (05:52)
[2017-10-24 06:23] LABS: CALCIUM 8.2 MG/DL (8.5-10.1); MAGNESIUM 2.2 MG/DL (1.5-2.5)
[2017-10-24 06:26] LABS: CREATININE 0.8 MG/DL (0.60-1.30)
[2017-10-24 06:34] LABS: PHOSPHORUS 0.7 MG/DL (2.5-4.9)
--- NOTE | 2017-10-24 08:10 | PD.PROCEDR ---
GI Procedure PROCEDURE PERFORMED Upper endoscopy with biopsy INDICATION FOR PROCEDURE Nausea vomiting GI bleed PROCEDURE: The procedure, risks and benefits were discussed with Mr. Marquez and informed consent was obtained. Anesthesia sedated him with Diprivan. He was placed in the left lateral decubitus position. EGD: The Pentax videoscope was introduced through the oropharynx and advanced to the second portion of the duodenum under direct visualization. Retroflexion was performed in the stomach. Biopsy from the antrum to rule out H. pylori, biopsy from the distal esophagus for esophagitis FINDINGS: Severe grade D esophagitis in the lower half of the esophagus biopsy was done Superficial ulcerations in the duodenal bulb biopsy was done Stomach was normal ESTIMATED BLOOD LOSS: None SPECIMENS REMOVED: Antrum Distal esophagus COMPLICATIONS: None IMPRESSION: Severe grade D esophagitis Superficial ulcerations in the duodenal polyp PLAN: Protonix 40 mg daily Follow-up Biopsy Better control of diabetes Start feeding If tolerates food patient can be discharged home from GI perspective Matthieu Vitale MD Oct 24, 2017 08:10
[2017-10-24] MEDS ORDERED: PANTOPRAZOLE SOD 40 MG DELAYED RELEASE TAB PO ONE (08:15)
--- NOTE | 2017-10-24 08:52 | MB ---
cc: STEPHON MENESES M.D. DATE OF CONSULTATION 10/24/2017 DATE OF 1980 REASON FOR REFERRAL Nausea, vomiting, hematemesis. Thank you for the consultation. This is a 37-year-old male who is known to have diabetes which is not well-controlled. The patient stated that he did not see a physician for the last three years because of the lack of health insurance. The patient came complaining of nausea and vomiting for at least one week and he tried to hydrate himself, but then things got worse where he started having coffee-ground emesis and came because of that. Also, he had abdominal pain in the last 48 hours. The patient was admitted with DKA and because of the hematemesis and the coffee-ground emesis, I was asked to see him. The patient currently is laying in bed comfortably with no complaint. He said he does not have abdominal pain at this time and he has no more vomiting. SOCIAL HISTORY He smoked one pack of cigarettes a day. He denied drugs including marijuana. He drinks three beers a few times a month. FAMILY HISTORY Diabetes ALLERGIES SULFA PAST SURGICAL HISTORY Bilaterally growing hernia repair. PAST MEDICAL HISTORY Significant for diabetes not very well controlled. REVIEW OF SYSTEMS All 12-points negative except HPI. PHYSICAL EXAMINATION Alert and oriented in no acute distress. VITAL SIGNS: Stable. HEENT: Pupils are round and reactive to light. NECK: Supple. CHEST: Clear to auscultation and precaution. CARDIAC: Regular rate and rhythm. No murmur or gallop. ABDOMEN: Soft, nondistended, positive bowel sounds. EXTREMITIES: No edema, clubbing or cyanosis. NEUROLOGIC: Intact. PSYCHOLOGIC: appropriate. LABORATORY DATA White count yesterday 11.9, hemoglobin 17.4, platelet 206, mild elevation of liver function test, AST 45, ALT 58, total bilirubin 1.1, alk phos 127, BUN 13, creatinine 0.8, sodium 137, potassium 3.9. Ultrasound of the gallbladder shows some sludge and hepatic steatosis. ASSESSMENT/PLAN A 37-year-old gentleman with diabetes not very well controlled who came with nausea and vomiting most likely related to DKA, uncontrolled diabetes. The patient may have gastroparesis with his uncontrolled diabetes. We will plan on doing upper endoscopy because of the hematemesis and he might need a gastric emptying study as an outpatient. The patient needs to have better control of his diabetes. Further plan depends on the finding. MD ALESSIO Vines/FRANK /7:54 AM /8:33 AM
[2017-10-24] MEDS ORDERED: PANTOPRAZOLE SOD 40 MG DELAYED RELEASE TAB PO SCH (09:00)
[2017-10-24] MEDS: INSULIN ASPART SUPPLEMENTAL SCALE SQ SCH ×2 (09:02→11:48)
[2017-10-24 11:29] LABS: CHLORIDE 104 MEQ/L (98-107); SODIUM (NA) 136 MEQ/L (136-145)
[2017-10-24 11:32] LABS: CALCIUM 8.3 MG/DL (8.5-10.1)
[2017-10-24 11:40] LABS: ALBUMIN 3.7 GM/DL (3.4-5.0); ALKALINE PHOSPHATASE 100 U/L (45-117); ALT (GPT) 76 U/L (12-78); AST (GOT) 86 U/L (15-37); BLOOD UREA NITROGEN 11 MG/DL (7-18); CREATININE 0.79 MG/DL (0.60-1.30); GLOMERULAR FILTRATION RATE 112 ML/MIN (>89); GLUCOSE,RANDOM 242 MG/DL (74-106); PHOSPHORUS 1.4 MG/DL (2.5-4.9); TOTAL BILIRUBIN ADULT 1.3 MG/DL (0.2-1.0); TOTAL PROTEIN 7.5 GM/DL (6.4-8.2)
[2017-10-24] MEDS ORDERED: PROT40TA PO (11:43)
--- NOTE | 2017-10-24 11:44 | HHI.DCPOC ---
Discharge Care Plan Diagnosis: (1) Duodenal ulceration (2) Esophagitis, [place] grade D Goals to Promote Your Health * To prevent worsening of your condition and complications * To maintain your health at the optimal level Directions to Meet Your Goals Take your medications as prescribed Follow your dietary instruction Follow activity as directed Keep your appointments as scheduled Take your immunizations and boosters as scheduled If your symptoms worsen call your PCP, if no PCP go to Urgent Care Center or Emergency Room Smoking is Dangerous to Your Health. Avoid second hand smoke Call the 24-hour hour crisis hotline for domestic abuse at Chad Jacome MD Oct 24, 2017 11:44
[2017-10-24] MEDS ORDERED: PROM12.54 PO (11:45)
--- NOTE | 2017-10-24 11:48 | HHI.PR ---
Subjective Remarks In nursing denies any deterioration since last night. Patient tolerated EGD very valve, discussed case with GI who saw severe esophagitis. Nursing affirms the patient tolerated by mouth intake well afterwards. Patient himself says he feels much better. Objective Vital Signs Date Time Temp Pulse Resp B/P (MAP) Pulse Ox O2 Delivery O2 Flow Rate FiO2 10/24/17 11:00 90 23 163/98 (119) 10/24/17 10:25 90 27 157/99 (118) 10/24/17 10:00 101 10/24/17 09:06 98.4 110 9 159/79 (105) 100 10/24/17 08:30 95 14 144/95 (111) 100 10/24/17 08:17 97.8 90 14 132/86 (101) 100 10/24/17 08:00 106 10/24/17 07:12 98.9 94 18 146/85 (105) 100 10/24/17 06:00 94 10/24/17 06:00 94 18 146/85 (105) 100 10/24/17 05:00 92 20 140/86 (104) 100 10/24/17 04:00 98.9 92 21 152/87 (108) 100 10/24/17 04:00 92 10/24/17 03:00 96 18 148/85 (106) 99 10/24/17 02:00 100 10/24/17 02:00 100 19 148/83 (104) 99 10/24/17 01:00 98 35 140/74 (96) 99 10/24/17 00:00 98.1 98 34 154/81 (105) 99 10/24/17 00:00 98 10/23/17 22:42 96 42 140/76 (97) 100 10/23/17 22:00 106 10/23/17 21:42 118 24 130/74 (92) 100 10/23/17 20:42 102 24 136/90 (105) 100 10/23/17 20:00 107 10/23/17 19:42 98.1 108 21 142/84 (103) 100 10/23/17 18:42 108 21 146/74 (98) 100 10/23/17 18:00 108 10/23/17 17:23 102 23 140/84 (102) 100 10/23/17 17:00 98.0 112 21 100 10/23/17 16:00 106 10/23/17 14:00 110 10/23/17 12:00 120 10/23/17 11:58 10/23/17 11:47 110 20 157/87 (110) 98 I/O 10/23/17 10/23/17 10/23/17 10/24/17 10/24/17 10/24/17 07:00 15:00 23:00 07:00 15:00 23:00 Intake Total 1512 ml 1602 ml 540 ml Output Total 1200 ml 2201 ml Balance 312 ml -599 ml 540 ml Intake Oral 120 ml 240 ml IV Total 1512 ml 1482 ml Other 300 ml Output Urine Total 1200 ml 2200 ml Stool Total 1 ml # Voids 0 Result Diagram: 10/23/17 0900 10/24/17 1110 Objective Remarks Patient sitting up in bed. No acute distress Abdomen soft, nondistended, nontender A/P Assessment and Plan Patient's nausea vomiting has resolved. EGD shows grade D esophagitis with superficial ulcerations and duodenum. Biopsy hasn't taken by gastroneurology. Patient is tolerated breakfast post procedure very well with no further vomiting or abdominal pain. Patient has been counseled on the importance of tight glucose control and to fine-tune his insulin regimen with his primary care provider outpatient. We informed him that his A1c is 8.4% and this is higher than it should be and that he needs to get this under better control under his PCP. Patient was advised to refrain from all nonsteroidal anti- inflammatory drugs and that he may take Tylenol if needed for pain. Patient has met maximum benefit from hospitalization and is clinically stable for discharge. Chad Jacome MD Oct 24, 2017 11:48
[2017-10-24] MEDS ORDERED: PROPOFOL 200 MG/20 ML AMP IV ONE (12:00)
[2017-10-24] MEDS ORDERED: LIDOCAINE HCL 1% PF 5 ML SYRINGE OTHER ONE (12:00)
== END 2017-10-24 12:29 | disposition home or self-care (01) | DRG 638 ==
LOC: PHED 08:41 → PHEDA 10:43 → PHICU 11:55
PROVIDERS: ADMIT Hospitalist; ATTEND Hospitalist
PROC: 0DB38ZX Excision of Lower Esophagus, Via Natural or Artificial Opening Endoscopic, Diagnostic (ICD-10-PCS; 2017-10-24)
PROC: 0DB98ZX Excision of Duodenum, Via Natural or Artificial Opening Endoscopic, Diagnostic (ICD-10-PCS; principal; 2017-10-24 07:56)
DX: E10.10 Type 1 diabetes mellitus with ketoacidosis without coma (principal); K92.0 Hematemesis; N17.9 Acute kidney failure, unspecified; E86.0 Dehydration; F17.210 Nicotine dependence, cigarettes, uncomplicated; Z79.4 Long term (current) use of insulin; Z83.3 Family history of diabetes mellitus; K76.0 Fatty (change of) liver, not elsewhere classified; K20.9 Esophagitis, unspecified; K26.9 Duodenal ulcer, unspecified as acute or chronic, without hemorrhage or perforation
CPT/HCPCS: 36600; 76705; 80048; 80053; 80307; 81001; 82010; 82805; 82948; 83036; 83690; 83735; 84100; 84155; 85025; 87641; 88305; 88312; 96361; 96374; J0610; J1815; J2405; J3480; J7030; J7042; J7050

== ENCOUNTER 2018-08-03 20:44 | Inpatient (IN) ==
[2018-08-03] MEDS ORDERED: Ketorolac Inj 30 MG/ML (IVP) Vial IV.PUSH ONE (20:50)
--- NOTE | 2018-08-03 21:15 | ED ---
HPI General Chief complaint: Diabetic Stated complaint: Diabetic Time Seen by Provider: 08/03/18 20:46 Source: patient and old records reviewed Mode of arrival: EMS Limitations: altered mental status History of Present Illness HPI narrative: 37-year-old male brought in by [facility]. Per [facility] personnel patient' s family states that he had complained about right flank pain throughout the day. They deny any illicit drug use. Patient has history of diabetes with multiple episodes of DKA. [facility] personnel found the patient moderately unresponsive. Answered some questions appropriately however would moan and ignore other questions. Increased respiratory rate. Family currently not available for evaluation. Onset (ago): hour(s) Location: back Radiation: non-radiation Severity: severe and similar to prior episodes Severity scale (1-10): >10 Quality: aching Pain Consistency: constant Relieving factors: none Exacerbating factors: none Associated symptoms: Reports denies other symptoms Treatments prior to arrival: Reports none Related Data Home Medications Medication Instructions Recorded Confirmed Novolin R Regular U-100 Insuln 07/09/18 Allergies Allergy/AdvReac Type Severity Reaction Status Date / Time Sulfa (Sulfonamide Allergy Severe Hives and Verified 08/03/18 20:50 Antibiotics) seizures Review of Systems ROS: all other systems reviewed are negative [facility] Medical History Medical History Hx of diabetes mellitus (Acute) Social History Social History Substance History: No History of Abuse Second Hand Smoke Exposure: Yes Smoking Status: Unknown if ever smoked Tobacco Type: Cigarettes How Often Do You Have a Drink Containing Alcohol: Unable to Obtain Recent Travel in [facility] within the Last 8 Weeks: No Recent Out of Country Travel within the Last 8 Weeks: No Exam Narrative Exam Narrative: Difficult to examine, answers a few questions appropriately but then is unresponsive he does continue to repeat the word pain, responds to sternal rub CARDIOVASCULAR: Regular rate and rhythm without murmurs, gallops, or rubs. Tachycardic RESPIRATORY: Breath sounds equal bilaterally. Rapid respirations GASTROINTESTINAL: Abdomen soft, normal bowel sounds, non-tender, nondistended. MUSCULOSKELETAL: No cyanosis, or edema. BACK: Nontender without obvious deformity. No CVA tenderness. Course Initial Documented Vital Signs Pulse Rate 131 H 08/03/18 20:50 Respiratory Rate 42 H 08/03/18 20:50 Blood Pressure 140/83 08/03/18 20:50 Pulse Oximetry 95 08/03/18 20:50 Last Documented Vital Signs Temperature 97.3 F L 08/03/18 21:21 Pulse Rate 130 H 08/03/18 21:45 Respiratory Rate 36 H 08/03/18 21:45 Blood Pressure 158/70 H 08/03/18 21:45 Pulse Oximetry 100 08/03/18 21:45 Medical Decision Making MDM Narrative Medical decision making narrative: Initial labs reveal some significant findings. Anion gap of 30 potassium is 7.2 white count of 29.6 random blood glucose 939 chronic kidney disease with a BUN and creatinine 25 and 1.6 temperature 95.7 lactic acid of 5.9. Fluids were continued. Patient was started on insulin drip with insulin bolus. Potassium bicarbonate and phosphorus parameters were initiated warming blanket in place. IV antibiotics given. Spoke with Dr. Mason who was in agreement will admit to the unit for further care Medical Screen Exam Complete: Yes Emergency Medical Condition: Yes Differential Diagnosis Differential Diagnosis: Diabetic ketoacidosis, drug abuse, back pain, sepsis Medical Records Medical records reviewed: Yes I reviewed the patient's medical records. Lab Data Lab results reviewed: Yes I reviewed the patient's lab results. Result diagrams: 08/03/18 20:45 08/03/18 20:45 Lab Results 08/03/18 08/03/18 08/03/18 Range/Units 20:45 20:45 21:07 CBC w Diff Slide review pending WBC 29.6 H (4.0-11.0) th/mm3 RBC 5.17 (4.50-5.90) mil/mm3 Hgb 16.2 (13.0-17.0) gm/dL Hct 53.0 H (39.0-51.0) % MCV 102.6 H (80.0-100.0) fL MCH 31.4 (27.0-34.0) pg MCHC 30.6 L (32.0-36.0) % RDW 13.8 (11.6-17.2) % Plt Count 381 D (150-450) th/mm3 MPV 9.3 (7.0-11.0) fL Neut % (Auto) 84.2 H (16.0-70.0) % Lymph % (Auto) 8.4 L (9.0-44.0) % [place] % (Auto) 5.4 (0.0-8.0) % Eos % (Auto) 0.6 (0.0-4.0) % Baso % (Auto) 1.4 (0.0-2.0) % Neut # (Auto) 24.9 H (1.8-7.7) th/mm3 Lymph # (Auto) 2.5 (1.0-4.8) th/mm3 [place] # (Auto) 1.6 H (0.0-0.9) th/mm3 Eos # (Auto) 0.2 (0.0-0.4) th/mm3 Baso # (Auto) 0.4 H (0.0-0.2) th/mm3 WBC Differential Manual diff final Seg Neuts % (Manual) 79 H (16-70) % Band Neuts % (Manual) 15 H (0-6) % Lymphocytes % (Manual) 5 L (9-44) % Monocytes % (Manual) 1 (0-8) % Abs Neuts (Manual) 27.8 H (1.8-7.7) th/mm3 Differential Comment . Platelet Estimate Normal (Normal) Platelet Morphology Normal (Normal) Puncture Site Patient Temperature O2 Saturation (90-100) % ABG pH (7.380-7.420) ABG pCO2 (38-42) mmHg ABG pO2 (61-120) mmHg ABG HCO3 (22-26) mmol/L ABG O2 Content (12.0-20.0) Vol % ABG Base Excess (-2-2) mmol/L ABG Methemoglobin (0-2) % Hemoglobin (12.0-16.0) G/DL Carboxyhemoglobin (0-4) % O2 Delivery Device Liter Flow L/M Critical Value Sodium 132 L (136-145) meq/L Potassium 7.3 H* (3.5-5.1) meq/L Chloride 97 L (98-107) meq/L Carbon Dioxide 4.7 L (21.0-32.0) meq/L Anion Gap 30 H (5-15) meq/L BUN 25 H (7-18) mg/dL Creatinine 1.60 H (0.60-1.30) mg/dL Estimated GFR 49 L (>89) mL/min Random Glucose 939 H* (74-106) mg/dL Lactic Acid 5.9 H* (0.4-2.0) mmol/L Calcium 9.2 (8.5-10.1) mg/dL Total Bilirubin 0.4 (0.2-1.0) mg/dL AST 21 (15-37) U/L ALT 32 (12-78) U/L Alkaline Phosphatase 263 H (45-117) U/L Total Protein 8.8 H (6.4-8.2) g/dL Albumin 4.5 (3.4-5.0) g/dL Urine Color (Yellw/Straw) Urine Clarity (Clear) Urine pH (5.0-8.5) Ur Specific [place] (1.002-1.035) Urine Protein (Neg-Trace) mg/dL Urine Glucose (UA) (Negative) mg/dL Urine Ketones (Negative) mg/dL Urine Occult Blood (Negative) Urine Nitrate (Negative) Urine Bilirubin (Negative) Urine Urobilinogen (Less than 2) mg/dL Ur Leukocyte Esterase (Negative) Urine RBC (0-3) /hpf Urine WBC (0-5) /hpf Ur Squamous Epith Cells (0-5) /hpf Amorphous Sediment (None) /hpf Micro UA Comment Ur Microscopic Review Urine Opiates Screen (Neg) Ur Barbiturates Screen (Neg) Ur Amphetamines Screen (Neg) U Benzodiazepines Scrn (Neg) Urine Cocaine Screen (Neg) U Cannabinoids Screen (Neg) Serum Alcohol Less than 3 (0-5) mg/dL 08/03/18 08/03/18 08/03/18 Range/Units 21:15 21:15 21:16 CBC w Diff WBC (4.0-11.0) th/mm3 RBC (4.50-5.90) mil/mm3 Hgb (13.0-17.0) gm/dL Hct (39.0-51.0) % MCV (80.0-100.0) fL MCH (27.0-34.0) pg MCHC (32.0-36.0) % RDW (11.6-17.2) % Plt Count (150-450) th/mm3 MPV (7.0-11.0) fL Neut % (Auto) (16.0-70.0) % Lymph % (Auto) (9.0-44.0) % [place] % (Auto) (0.0-8.0) % Eos % (Auto) (0.0-4.0) % Baso % (Auto) (0.0-2.0) % Neut # (Auto) (1.8-7.7) th/mm3 Lymph # (Auto) (1.0-4.8) th/mm3 [place] # (Auto) (0.0-0.9) th/mm3 Eos # (Auto) (0.0-0.4) th/mm3 Baso # (Auto) (0.0-0.2) th/mm3 WBC Differential Seg Neuts % (Manual) (16-70) % Band Neuts % (Manual) (0-6) % Lymphocytes % (Manual) (9-44) % Monocytes % (Manual) (0-8) % Abs Neuts (Manual) (1.8-7.7) th/mm3 Differential Comment Platelet Estimate (Normal) Platelet Morphology (Normal) Puncture Site Right brachial Patient Temperature 98.6 O2 Saturation 95 (90-100) % ABG pH 6.95 L* (7.380-7.420) ABG pCO2 9 L* (38-42) mmHg ABG pO2 166 H (61-120) mmHg ABG HCO3 2 L* (22-26) mmol/L ABG O2 Content 20.2 H (12.0-20.0) Vol % ABG Base Excess -28.4 L (-2-2) mmol/L ABG Methemoglobin 2.0 (0-2) % Hemoglobin 15.0 (12.0-16.0) G/DL Carboxyhemoglobin 1.0 (0-4) % O2 Delivery Device Nasal cannula Liter Flow 3.00 L/M Critical Value Yes Sodium (136-145) meq/L Potassium (3.5-5.1) meq/L Chloride (98-107) meq/L Carbon Dioxide (21.0-32.0) meq/L Anion Gap (5-15) meq/L BUN (7-18) mg/dL Creatinine (0.60-1.30) mg/dL Estimated GFR (>89) mL/min Random Glucose (74-106) mg/dL Lactic Acid (0.4-2.0) mmol/L Calcium (8.5-10.1) mg/dL Total Bilirubin (0.2-1.0) mg/dL AST (15-37) U/L ALT (12-78) U/L Alkaline Phosphatase (45-117) U/L Total Protein (6.4-8.2) g/dL Albumin (3.4-5.0) g/dL Urine Color Yellow (Yellw/Straw) Urine Clarity Slightly cloudy (Clear) Urine pH 5.0 (5.0-8.5) Ur Specific [place] 1.025 (1.002-1.035) Urine Protein Trace (Neg-Trace) mg/dL Urine Glucose (UA) 1000 or greater H (Negative) mg/dL Urine Ketones 80 or greater H (Negative) mg/dL Urine Occult Blood Moderate H (Negative) Urine Nitrate Negative (Negative) Urine Bilirubin Negative (Negative) Urine Urobilinogen 0.2 (Less than 2) mg/dL Ur Leukocyte Esterase Negative (Negative) Urine RBC 15-50 H (0-3) /hpf Urine WBC 0-5 (0-5) /hpf Ur Squamous Epith Cells 0-5 (0-5) /hpf Amorphous Sediment Moderate H (None) /hpf Micro UA Comment Culture not ind Ur Microscopic Review Microscopic reviewed Urine Opiates Screen Neg (Neg) Ur Barbiturates Screen Neg (Neg) Ur Amphetamines Screen Neg (Neg) U Benzodiazepines Scrn Neg (Neg) Urine Cocaine Screen Neg (Neg) U Cannabinoids Screen Neg (Neg) Serum Alcohol (0-5) mg/dL Discharge Plan Discharge Disposition Patient Disposition: 30 Still Patient Discharge Condition Condition: Serious Discharge Details Diagnosis: DKA (diabetic ketoacidoses) Physicians Team ED Provider: Álvaro Núñez Primary Care Provider: Primary Care Cayla Jay Attending Provider: Jon Mason Status ED Status: Admitted Patient
[2018-08-03 21:16] LABS: Baso # (Auto) 0.4 th/mm3 (0.0-0.2); Baso % (Auto) 1.4 % (0.0-2.0); Eos # (Auto) 0.2 th/mm3 (0.0-0.4); Eos % (Auto) 0.6 % (0.0-4.0); Hemoglobin 16.2 gm/dL (13.0-17.0); Lymph # (Auto) 2.5 th/mm3 (1.0-4.8); Lymph % (Auto) 8.4 % (9.0-44.0); Mean Corpuscular Hemoglobin 31.4 pg (27.0-34.0); Mean Corpuscular Volume 102.6 fL (80.0-100.0); Mean Platelet Volume 9.3 fL (7.0-11.0); Mono # (Auto) 1.6 th/mm3 (0.0-0.9); Mono % (Auto) 5.4 % (0.0-8.0); Neut # (Auto) 24.9 th/mm3 (1.8-7.7); Neut % (Auto) 84.2 % (16.0-70.0); Platelet Count 381 th/mm3 (150-450); Red Blood Count 5.17 mil/mm3 (4.50-5.90); Red Cell Distribution Width 13.8 % (11.6-17.2); White Blood Count 29.6 th/mm3 (4.0-11.0)
[2018-08-03 21:24] LABS: Bilirubin,Urine Negative (Negative); Clarity,Urine Slightly Cloudy (Clear); Color,Urine Yellow (Yellw/Straw); Leukocyte Esterase,Urine Negative (Negative); Nitrite,Urine Negative (Negative); Specific Gravity,Urine 1.025 (1.002-1.035); Urobilinogen,Urine 0.2 mg/dL (Less than 2)
[2018-08-03 21:26] LABS: Mean Corpuscular HGB Conc 30.6 % (32.0-36.0)
[2018-08-03 21:29] LABS: Alanine Aminotransferase 32 U/L (12-78); Albumin 4.5 g/dL (3.4-5.0); Anion Gap 30 meq/L (5-15); Aspartate Aminotransferase 21 U/L (15-37); Blood Urea Nitrogen 25 mg/dL (7-18); Calcium 9.2 mg/dL (8.5-10.1); Carbon Dioxide 4.7 meq/L (21.0-32.0); Chloride 97 meq/L (98-107); Sodium 132 meq/L (136-145); Total Protein 8.8 g/dL (6.4-8.2)
[2018-08-03 21:31] LABS: ABG Base Excess -28.4 mmol/L (-2-2); ABG PCO2 9 mmHg (38-42); ABG PO2 166 mmHg (61-120)
[2018-08-03 21:32] LABS: Glomerular Filtration Rate 49 mL/min (>89)
[2018-08-03 21:35] LABS: Glucose,Random 939 mg/dL (74-106); Potassium 7.3 meq/L (3.5-5.1)
[2018-08-03 21:38] LABS: Alkaline Phosphatase 263 U/L (45-117)
[2018-08-03 21:40] LABS: Squamous Epithelial Cell,Urine 0-5 /hpf (0-5); WBC,Urine 0-5 /hpf (0-5)
[2018-08-03 21:41] LABS: Amorphous Sediment,Urine Moderate /hpf
[2018-08-03 21:42] LABS: Amphetamine Screen,Urine Neg (Neg); Barbiturate Screen,Urine Neg (Neg)
[2018-08-03 21:43] LABS: Lymphocytes 5 % (9-44); Monocytes 1 % (0-8)
[2018-08-03 21:44] LABS: Platelet Estimate Normal (Normal); Platelet Morphology Normal (Normal)
[2018-08-03] MEDS ORDERED: Potassium Chlor 20 mEq Premix 20 MEQ/100 ML PIGGYBACK IV.SIG PRN ×4 (21:45)
[2018-08-03] MEDS ORDERED: Sodium Phosphate Inj 15 MMOL in Sodium Chlor 0.9% Inj 100 ML IV.SIG PRN (21:45)
[2018-08-03] MEDS ORDERED: Potassium Chlor 40 mEq Premix 40 MEQ/100 ML PIGGYBACK IV.SIG PRN ×2 (21:45)
[2018-08-03 21:46] LABS: Cannabinoid Screen,Urine Neg (Neg)
[2018-08-03 21:47] LABS: Cocaine Screen,Urine Neg (Neg)
[2018-08-03 21:54] LABS: Opiate Screen,Urine Neg (Neg)
[2018-08-03] MEDS: Sod Chloride 0.9% Inj 1,000 ML IV.SIG SCH ×2 (22:04→23:01)
[2018-08-03] MEDS: Sod Chloride 0.9% Inj 1,000 ML IV.CONT SCH (22:12)
[2018-08-03] MEDS ORDERED: Sod Chloride 0.9% Inj 1,000 ML IV.SIG SCH (22:15)
[2018-08-03] MEDS ORDERED: Azithromycin Inj 500 MG in Sodium Chlor 0.9% Inj 250 ML IV.SIG ONE (22:17)
[2018-08-03] MEDS: Insulin Regular (For Infusion) 100 UNIT in Sodium Chlor 0.9% Inj 99 ML IV.CONT PRN (22:17)
[2018-08-03] MEDS ORDERED: Acetaminophen 325 MG Tablet PO PRN (22:49)
[2018-08-03] MEDS ORDERED: Morphine Inj 4 MG/ML Vial IV.PUSH PRN (22:50)
[2018-08-04] MEDS: Sod Chloride 0.9% Inj 1,000 ML IV.SIG SCH ×3 (00:24→02:32)
[2018-08-04] MEDS: Dextrose 5%/NaCl 0.9% Inj 1,000 ML IV.CONT SCH ×2 (00:43→03:01)
[2018-08-04 00:51] LABS: Anion Gap 26 meq/L (5-15); Blood Urea Nitrogen 22 mg/dL (7-18); Calcium 7.7 mg/dL (8.5-10.1); Carbon Dioxide 6.4 meq/L (21.0-32.0); Chloride 112 meq/L (98-107); Glomerular Filtration Rate 53 mL/min (>89); Phosphorus 5.7 mg/dL (2.5-4.9); Potassium 5.3 meq/L (3.5-5.1); Sodium 144 meq/L (136-145)
[2018-08-04 01:01] LABS: Glucose,Random 586 mg/dL (74-106)
[2018-08-04 01:22] LABS: Beta Hydroxybutyric Acid 9.05 mmol/L (0.00-0.39)
[2018-08-04] MEDS: Morphine Inj 4 MG/ML Vial IV.PUSH PRN ×3 (02:05→22:47)
[2018-08-04] MEDS: Sod Chloride 0.9% Inj 1,000 ML IV.CONT SCH (02:41)
[2018-08-04] MEDS: Chlorhexidine Gluconate 2% 1 Pack (2 Cloths) TOPICAL SCH (03:46)
[2018-08-04] MEDS ORDERED: Chlorhexidine Gluconate 2% 1 Pack (2 Cloths) TOPICAL PRN (04:00)
[2018-08-04 05:36] LABS: Calcium 7.1 mg/dL (8.5-10.1); Carbon Dioxide 13.7 meq/L (21.0-32.0)
[2018-08-04 05:55] LABS: Total Protein 6.4 g/dL (6.4-8.2)
--- NOTE | 2018-08-04 06:36 | P.HPCC ---
History of Present Illness Service: Critical care medicine Medicine Primary Care Physician: No Primary Care Physician Chief Complaint: Altered mental status/DKA History of Present Illness: This is a 37-year-old male. Admission 08/05/2018. Past medical includes diabetes mellitus type 2. Today, patient was brought in by [facility] with chief complaint of right flank pain throughout the day. They deny any illicit drug use. Patient has history of diabetes with multiple episodes of DKA. [facility] personnel found the patient moderately unresponsive. Blood work revealed a leukocytosis of 29,000. Macrocytosis. Lactic acid of 5.7. He was thought to be in diabetic ketoacidosis he was bolused with 12 units of insulin and is currently in insulin drip at 6.8 units an hour. Multiple laboratories are currently pending as well. He received azithromycin and ceftriaxone in the ED. Patient has significant urinary retention a Leblanc catheter was placed. Currently ordering urgent CT abdomen/pelvis with right flank pain he had on admission and hematuria noted. Start of piperacillin/tazobactam. IV fluids adjusted D5 one half normal saline. Let lites all currently ordered at the present along with a repeat lactate. Inpatient Certification: I certify that the inpatient services were ordered in accordance with Medicare regulations governing the order. This includes certification that hospital inpatient services are reasonable and necessary and in the case of services not specified as inpatient-only under 42 CFR 419.22(n), that they are appropriately provided as inpatient services in accordance to with the 2-midnight benchmark under 43 CFR 412.3(e) Estimated Total Length of Stay (Days): 3 Plans for Post Hospital Care: Home Review of Systems unobtainable due to mental status PMFSH - History History Provided By: Patient, Family Member, Medical Record, Manager Property / EMT - Medical History Medical History: Medical History (Last Updated 08/04/18 @ 07:04 by Preston Baez MD) Insulin dependent diabetes mellitus - Surgical History Surgical History: Surgical History (Last Updated 08/04/18 @ 07:04 by Preston Baez MD) History of bilateral inguinal hernia repair - Family History Family History: Family History (Last Updated 08/04/18 @ 07:04 by Preston Baez MD) Other Family history of diabetes mellitus - Tobacco History Second Hand Smoke Exposure: Yes Smoking Status: Cognitive impairment Tobacco Type: Cigarettes - Alcohol History How Often Do You Have a Drink Containing Alcohol: Unable to Obtain - Substance Use History Substance History: No History of Abuse - Travel History Recent Travel in the [place] Within the Last 8 Weeks: No Recent Travel Out of the Country Within the Last 8 Weeks: No - Immunization History Tetanus Immunization: Unable to Assess Medications and Allergies Active Medications: Active Medications Acetaminophen (Tylenol) 650 mg PO Q4H PRN PRN Reason: Fever or pain 1-4 Chlorhexidine Gluconate (Chlorhexidine 2% Cloth) 3 pack TOPICAL DAILY@0400 [facility] Stop: 08/09/18 03:59 Last Admin: 08/04/18 03:46 Dose: 3 pack Chlorhexidine Gluconate (Chlorhexidine 2% Cloth) 3 pack TOPICAL DAILY@0400 PRN PRN Reason: Extra cloth needed Stop: 08/09/18 03:59 Dextrose/Sodium Chloride (D5w/Normal Saline Inj) 1,000 mls @ 200 mls/hr IV.CONT .Q5H [facility] Last Infusion: 08/04/18 06:27 Dose: 200 mls/hr Potassium Chloride (Kcl 20 Meq Premix Inj) 20 meq in 100 mls @ 100 mls/hr IV.SIG Q1H PRN PRN Reason: for K+ 4.5 to 5 Potassium Chloride (Kcl 20 Meq Premix Inj) 20 meq in 100 mls @ 50 mls/hr IV.SIG Q2H PRN PRN Reason: for K+ 4.5 to 5 Potassium Chloride (Kcl 20 Meq Premix Inj) 20 meq in 100 mls @ 100 mls/hr IV.SIG Q1H PRN PRN Reason: for K+ 3.5 to 4.4 Potassium Chloride (Kcl 20 Meq Premix Inj) 20 meq in 100 mls @ 50 mls/hr IV.SIG Q2H PRN PRN Reason: for K+ 3.5 to 4.4 Potassium Chloride (Kcl 20 Meq Premix Inj) 20 meq in 100 mls @ 50 mls/hr IV.SIG Q2H PRN PRN Reason: for Initial K+ ONLY < 3.5 Potassium Chloride (Kcl 40 Meq Premix Inj) 40 meq in 100 mls @ 100 mls/hr IV.SIG Q1H PRN PRN Reason: for Initial K+ ONLY < 3.5 Potassium Chloride (Kcl 20 Meq Premix Inj) 20 meq in 100 mls @ 50 mls/hr IV.SIG Q2H PRN PRN Reason: for Subsequent K+ < 3.5 Potassium Chloride (Kcl 40 Meq Premix Inj) 40 meq in 100 mls @ 50 mls/hr IV.SIG Q2H PRN PRN Reason: for Subsequent K+ < 3.5 Sodium Phosphate 15 mmol/ (Sodium Chloride) 105 mls @ 25 mls/hr IV.SIG UNSCH PRN PRN Reason: for Phosphate Level < 1.0 Insulin Human Regular 100 unit (/ Sodium Chloride) 100 mls @ 6.35 mls/hr IV.CONT TITRATE PRN; Protocol PRN Reason: See protocol Last Titration: 08/04/18 06:27 Dose: 6.8 units/hr, 6.8 mls/hr Morphine Sulfate (Morphine Inj) 2 mg IV.PUSH Q2H PRN PRN Reason: pain 5-10 Last Admin: 08/04/18 02:05 Dose: 2 mg Sodium Bicarbonate (Sodium Bicarbonate 8.4% Inj) 100 meq IV.PUSH UNSCH PRN PRN Reason: for pH less than 6.9 Last Admin: 08/03/18 23:00 Dose: 100 meq Sodium Bicarbonate (Sodium Bicarbonate 8.4% Inj) 50 meq IV.PUSH UNSCH PRN PRN Reason: for pH 6.9 to 7.0 Allergies Allergy/AdvReac Type Severity Reaction Status Date / Time Sulfa (Sulfonamide Allergy Severe Hives and Verified 08/03/18 20:50 Antibiotics) seizures Home Medications Medication Instructions Recorded Confirmed Type Novolin R Regular U-100 Insuln 07/09/18 History Results - Labs CBC & Chem 7: 08/03/18 20:45 08/04/18 05:15 Labs: Short CBC 08/03/18 Range/Units 20:45 WBC 29.6 H (4.0-11.0) th/mm3 Hgb 16.2 (13.0-17.0) gm/dL Hct 53.0 H (39.0-51.0) % Plt Count 381 D (150-450) th/mm3 BMP 08/03/18 08/03/18 08/04/18 20:45 23:59 05:15 Sodium 132 L 144 D 153 H Potassium 7.3 H* 5.3 H D 4.0 D Chloride 97 L 112 H D 125 H D Carbon Dioxide 4.7 L 6.4 L 13.7 L BUN 25 H 22 H 18 Creatinine 1.60 H 1.50 H 1.20 Calcium 9.2 7.7 L D 7.1 L* Cardiac Enzymes 08/03/18 08/04/18 Range/Units 23:59 05:15 Troponin I Less than 0.02 L 0.03 (0.02-0.05) ng/mL Liver Function 08/03/18 Range/Units 20:45 Total Bilirubin 0.4 (0.2-1.0) mg/dL AST 21 (15-37) U/L ALT 32 (12-78) U/L Alkaline Phosphatase 263 H (45-117) U/L Albumin 4.5 (3.4-5.0) g/dL Urine 08/03/18 Range/Units 21:15 Urine Color Yellow (Yellw/Straw) Urine Clarity Slightly cloudy (Clear) Urine pH 5.0 (5.0-8.5) Ur Specific Arbuckle 1.025 (1.002-1.035) Urine Protein Trace (Neg-Trace) mg/dL Urine Glucose (UA) 1000 or greater H (Negative) mg/dL Exam Vital signs: Vital Signs 08/03/18 20:50 08/03/18 20:54 08/03/18 21:15 Temperature 95.7 F L 97.6 F Pulse Rate 131 H Respiratory Rate 42 H Blood Pressure 140/83 Pulse Oximetry 95 08/03/18 21:21 08/03/18 21:45 08/03/18 23:43 Temperature 97.3 F L 97.1 F L Pulse Rate 127 H 130 H 127 H Respiratory Rate 26 H 36 H 36 H Blood Pressure 144/63 H 158/70 H 161/72 H Pulse Oximetry 100 100 99 08/04/18 00:00 08/04/18 00:05 08/04/18 01:00 Temperature 97.6 F Pulse Rate 140 H 130 H 126 H Respiratory Rate 30 H 25 H Blood Pressure 151/91 H 158/75 H 151/79 H Pulse Oximetry 100 08/04/18 01:12 08/04/18 02:00 08/04/18 02:17 Temperature Pulse Rate 127 H 138 H Respiratory Rate 26 H Blood Pressure 162/73 H 147/73 H Pulse Oximetry 100 08/04/18 03:00 08/04/18 04:00 08/04/18 05:00 Temperature Pulse Rate 138 H 120 H 114 H Respiratory Rate 26 H 21 9 L Blood Pressure 141/60 H 149/74 H 153/81 H Pulse Oximetry 98 98 97 08/04/18 06:00 Temperature 98.5 F Pulse Rate 112 H Respiratory Rate 19 Blood Pressure 156/77 H Pulse Oximetry 97 Intake & Output 08/03/18 08/03/18 08/04/18 06:59 18:59 06:59 Intake Total 8181.1 / 8181.1 Output Total 1700 / 1700 Balance 6481.1 / 6481.1 Weight 64.5 kg Intake: IV 8181.1 / 8181.1 D5W/Normal Saline Inj 1,000 ML 671 / 671 @ 200 mls/hr IV.CONT .Q5H [facility] Rx#:[id number] NovoLIN R (IV Infusion) 100 60.1 / 60.1 UNIT In NS Inj 99 ML @ 6.35 UNITS/HR 6.35 mls/hr IV.CONT TITRATE PRN Rx#:[id number] NS Inj 1,000 ML @ 250 mls/hr IV 1100 / 1100 .CONT .Q4H [facility] Rx#:[id number] Azithromycin Inj 500 MG In NS 250 / 250 Inj 250 ML @ 250 mls/hr IV.SIG ONCE ONE Rx#:[id number] NS Inj 1,000 ML @ 999 mls/hr IV 6000 / 6000 .SIG .Q1H1M [facility] Rx#:[id number] Rocephin Inj 500 MG In NS Inj 100 / 100 100 ML @ 200 mls/hr IV.SIG ONCE ONE Rx#:[id number] Output: Urine 1700 / 1700 Other: Weight On Admission 62.5 kg - Constitutional no acute distress - Routine HEENT Exam Head: Present: normocephalic, atraumatic Eye: Present: EOMI, PERRL, normal accommodation ENT: Present: mucous membranes moist - Routine Neck Exam Present: supple, full ROM. Absent: JVD, carotid bruit - Routine Chest/Breast/Axilla Exam Chest wall: Absent: tenderness Breast: Absent: tenderness Axillae: Absent: lymphadenopathy - Routine Respiratory Exam Present: CTA bilaterally. Absent: accessory muscle use, crackles - Routine Cardiovascular Exam Present: RRR, S1, S2. Absent: murmur - Routine Abdominal Exam Present: soft, normoactive bowel sounds. Absent: tenderness - Routine Extremities Exam Absent: cyanosis, clubbing, edema - Routine Skin Exam Present: intact - Routine Neurological Exam Present: CN II-XII intact. Absent: alert, oriented X3, sensory deficit, motor deficit Septic Shock Reassessment Septic shock perfusion: reassessment completed Caprini VTE Risk Assessment Caprini VTE Risk Assessment: No/Low Risk (score <= 1) Caprini Risk Assessment Model: Point Value = 1 Point Value = 2 Point Value = 3 Point Value = 5 Age 41-60 Minor surgery BMI > 25 kg/m2 Swollen legs Varicose veins or History of unexplained or recurrent spontaneous Oral contraceptives or hormone replacement Sepsis (< 1 month) Serious lung disease, including pneumonia (< 1 month) Abnormal pulmonary function Acute myocardial infarction Congestive heart failure (< 1 month) History of inflammatory bowel disease Medical patient at bed rest Age 61-74 Arthroscopic surgery Major open surgery (> 45 min) Laparoscopic surgery (> 45 min) Malignancy Confined to bed (> 72 hours) Immobilizing plaster cast Central venous access Age >= 75 History of VTE Family history of VTE Factor V Leiden Prothrombin [id number] Lupus anticoagulant Anticardiolipin antibodies Elevated serum homocysteine Heparin-induced thrombocytopenia Other congenital or acquired thrombophilia Stroke (< 1 month) Elective arthroplasty Hip, pelvis, or leg fracture Acute spinal cord injury (< 1 month) Prophylaxis Regimen: Total Risk Factor Score Risk Level Prophylaxis Regimen 0-1 Low Early ambulation 2 Moderate Order ONE of the following: *Sequential Compression Device (SCD) *Heparin 5000 units SQ BID 3-4 Higher Order ONE of the following medications: *Heparin 5000 units SQ TID *Enoxaparin/Lovenox 40 mg SQ daily (WT < 150 kg, CrCl > 30 mL/min) *Enoxaparin/Lovenox 30 mg SQ daily (WT < 150 kg, CrCl > 10-29 mL/min) *Enoxaparin/Lovenox 30 mg SQ BID (WT < 150 kg, CrCl > 30 mL/min) AND/OR *Sequential Compression Device (SCD) 5 or more Highest Order ONE of the following medications: *Heparin 5000 units SQ TID (Preferred with Epidurals) *Enoxaparin/Lovenox 40 mg SQ daily (WT < 150 kg, CrCl > 30 mL/min) *Enoxaparin/Lovenox 30 mg SQ daily (WT < 150 kg, CrCl > 10-29 mL/min) *Enoxaparin/Lovenox 30 mg SQ BID (WT < 150 kg, CrCl > 30 mL/min) AND *Sequential Compression Device (SCD) Assessment and Plan - Assessment and Plan Plan: Neuro/Psych: Acetaminophen 650 p.o. every 6 hours as needed fever Hydrocodone/acetaminophen 5/325 1 tablet every 4 hours as needed pain 1 through 5 morphine sulfate 2 mg IV every 2 hours as needed pain 6 through 10 CV: Lactic acidosis Patient is currently D5 one half normal saline at 200 cc an hour. Currently not requiring vasopressors and/or antihypertensives Troponin 0 0.02 EKG pending Lactic acid 5.9 yesterday. Recheck today until cleared Resp: Ongoing tobaccoism Nasal cannula to maintain saturations greater than equal to 92% Incentive spirometry while awake Albuterol/ipratropium aerosols every 4 hours with albuterol aerosols every 2 hours as needed dyspnea Follow-up on chest x-ray Tobacco cessation self evaluation booklet provided GI: Continue n.p.o. status. Advance diet once gap is cleared Pantoprazole for GI prophylaxis Docusate sodium/senna 1 tablet twice daily for bowel regimen : Urinary retention Leblanc catheter has been placed. Urgent CT abdomen/pelvis has been ordered. Start tamsulosin 0.4 mg p.o. daily. UA did reveal hematuria. No signs of infection. Endo: IDDM DKA Currently on insulin drip at 6.8 units/h. IV fluids have been switched to D5 one half normal saline at 200 cc an hour. We will transition DKA protocol to subcu insulin when appropriate Hemoglobin A1c ordered BMP every 6 hours/mag every 6 hours and phosphorus every 12 hours per our protocol Beta hydroxybutyrate ordered this a.m. Renal: Acute kidney injury Creatinine has been normalizing. Monitor urine output Accurate I's and O's Heme: Leukocytosis Macrocytosis Monitor CBC daily. Follow trends. No indication for transfusion of blood products at this time. ID: Restarted on piperacillin/tazobactam day 1. Received azithromycin and ceftriaxone daily. Blood cultures x2 ordered. Results pending per UA negative MSK: PT evaluate and treat FEN: Replace electrolytes as clinically indicated per DKA protocol. Access -Utilize peripheral IV. Central line if indicated Prophylaxis -GI -pantoprazole -DVT-SCD/enoxaparin Level 3 admission
[2018-08-04] MEDS ORDERED: Diatrizoate Meglum/Diatrizoate Sod Liq 9 ML UDC PO ONE (06:41)
[2018-08-04] MEDS: Dextrose 5%/NaCl 0.45% Inj 1,000 ML IV.CONT SCH ×3 (07:45→18:05)
[2018-08-04 07:56] LABS: Albumin 3.3 g/dL (3.4-5.0); Total Protein 6.4 g/dL (6.4-8.2)
[2018-08-04] MEDS: Potassium Chlor 20 mEq Premix 20 MEQ/100 ML PIGGYBACK IV.SIG PRN ×4 (08:00→23:45)
[2018-08-04] MEDS: Enoxaparin Inj 40 MG/0.4 ML Syringe SQ SCH (08:01)
[2018-08-04 09:06] LABS: Baso # (Auto) 0.1 th/mm3 (0.0-0.2); Baso % (Auto) 0.6 % (0.0-2.0); Eos % (Auto) 0.1 % (0.0-4.0); Hematocrit 45.3 % (39.0-51.0); Hemoglobin 14.9 gm/dL (13.0-17.0); Lymph # (Auto) 1.3 th/mm3 (1.0-4.8); Lymph % (Auto) 6.4 % (9.0-44.0); Mean Corpuscular Hemoglobin 31.3 pg (27.0-34.0); Mean Corpuscular Volume 94.8 fL (80.0-100.0); Mean Platelet Volume 8.3 fL (7.0-11.0); Mono # (Auto) 1.2 th/mm3 (0.0-0.9); Mono % (Auto) 5.6 % (0.0-8.0); Neut # (Auto) 18.1 th/mm3 (1.8-7.7); Neut % (Auto) 87.3 % (16.0-70.0); Platelet Count 250 th/mm3 (150-450); Red Blood Count 4.78 mil/mm3 (4.50-5.90); Red Cell Distribution Width 12.9 % (11.6-17.2); White Blood Count 20.7 th/mm3 (4.0-11.0)
[2018-08-04] MEDS: Piperacil/Tazo 4.5 GM Premix 4.5 GM/100 ML BAG IV.SIG SCH ×3 (09:11→21:07)
[2018-08-04 11:05] LABS: Potassium 3.8 meq/L (3.5-5.1)
[2018-08-04 11:09] LABS: Calcium 7.6 mg/dL (8.5-10.1)
[2018-08-04 11:10] LABS: Carbon Dioxide 16.7 meq/L (21.0-32.0); Magnesium 2.2 mg/dL (1.5-2.5)
[2018-08-04] MEDS: Insulin Regular (For Infusion) 100 UNIT in Sodium Chlor 0.9% Inj 99 ML IV.CONT PRN (11:20)
[2018-08-04 11:22] LABS: Phosphorus 1.1 mg/dL (2.5-4.9)
[2018-08-04] MEDS ORDERED: Potassium Phosphate Inj 30 MMOL in Sodium Chlor 0.9% Inj 250 ML IV.SIG ONE (13:00)
--- NOTE | 2018-08-04 13:03 | CT ---
EXAM DATE: 08/04/2018 9:56 AM EDT AGE/SEX: 37 years / Male INDICATIONS: Right flank pain with urinary retention. CLINICAL DATA: This is the patient's initial encounter. Patient reports that signs and symptoms have been present for 2 days and indicates a pain score of Nonresponsive. MEDICAL/SURGICAL HISTORY: Diabetes. Inguinal hernia repair. RADIATION DOSE: 8.62 CTDI (mGy) COMPARISON: [facility], US ABDOMEN - GALLBLADDER, 10/23/2017. . TECHNIQUE: Multiple contiguous axial images were obtained through the abdomen. Images were obtained using multiple row detector helical technique. Using automated exposure control and adjustment of the mA and/or kV according to patient size, radiation dose was kept as low as reasonably achievable to o btain optimal diagnostic quality images. DICOM format image data is available electronically for rev iew and comparison. FINDINGS: LOWER LUNGS: Patchy bilateral consolidation at the lung bases. LIVER: Liver is diffusely enlarged. No significant intrahepatic ductal dilatation. Gallbladder is mi ldly distended but otherwise unremarkable by CT. SPLEEN: Homogeneous density without enlargement. PANCREAS: Grossly unremarkable. KIDNEYS: Kidneys are symmetrical in size without evidence for radiopaque renal calculi or hydronephr osis. No significant contour deforming renal abnormality. ADRENAL GLANDS: Unremarkable. AORTA: Ana-aneurysmal. BOWEL/MESENTERY: Evaluation of the bowel is somewhat limited by artifact from patient's arms. Append ix is not directly visualized. Bowel loops are grossly unremarkable without evidence for obstruction. There is no free fluid or significant drainable fluid collection. ABDOMINAL WALL: Intact. BLADDER: Decompressed secondary to Leblanc catheter. REPRODUCTIVE: Grossly unremarkable. BONY STRUCTURES: Unremarkable. CONCLUSION: 1. No radiopaque renal calculi or evidence for obstructive uropathy. 2. Patchy bilateral consolidation at the lung bases which may reflect atelectasis. Differential cons iderations include aspiration in the appropriate clinical setting. 3. Limited evaluation of the bowel due to beam artifact from patient's hands and overlying metallic hardware. Appendix is not directly visualized. Bowel is otherwise grossly unremarkable without eviden ce for obstruction. Electronically signed by: Emil Tran MD 08/04/2018 1:01 PM EDT
[2018-08-04 14:23] LABS: Hemoglobin A1c 8.1 % (4.3-6.0)
[2018-08-04 18:49] LABS: Chloride 119 meq/L (98-107); Potassium 3.2 meq/L (3.5-5.1); Sodium 149 meq/L (136-145)
[2018-08-04 19:00] LABS: Anion Gap 15 meq/L (5-15); Beta Hydroxybutyric Acid 0.25 mmol/L (0.00-0.39); Blood Urea Nitrogen 8 mg/dL (7-18); Calcium 7.3 mg/dL (8.5-10.1); Carbon Dioxide 15.3 meq/L (21.0-32.0); Glomerular Filtration Rate Greater Than 89 mL/min (>89); Glucose,Random 198 mg/dL (74-106); Magnesium 1.7 mg/dL (1.5-2.5)
[2018-08-04 19:15] LABS: Total Protein 5.8 g/dL (6.4-8.2)
--- NOTE | 2018-08-04 21:54 | ECG ---
Date Performed: 08/04/2018 Time Performed: 10:27:52 PTAGE: 37 years EKG: SINUS TACHYCARDIA NONSPECIFIC T-WAVE ABNORMALITY ABNORMAL RHYTHM ECG PREVIOUS TRACING : 05/01/2017 23.50 Since the previous tracing, no significant change noted DOCTOR: Albina Acosta Interpretating Date/Time 08/04/2018 21:53:53
--- NOTE | 2018-08-04 23:06 | CT ---
EXAM DATE: 08/04/2018 10:06 PM EDT AGE/SEX: 37 years / Male INDICATIONS: Dissection. CLINICAL DATA: This is the patient's initial encounter. Patient reports that signs and symptoms have been present for 1 day and indicates a pain score of 6/10. MEDICAL/SURGICAL HISTORY: . Insulin dependent diabetes mellitus. . Bilateral inguinal hernia repai r. RADIATION DOSE: 14.75 CTDI (mGy) COMPARISON: No prior exams available for comparison. TECHNIQUE: Volumetric scanning was performed using a multi-row detector CT scanner during bolus infu lei of 75 ml Omnipaque 350 (iohexol) nonionic water-soluble contrast as a single exam dose. The da ta was post processed with a variety of visualization algorithms including full volume maximum intens ity projection, multi-planar sliding thin slab reformation, curved planar reformation, and surface re ndering techniques. Using automated exposure control and adjustment of the mA and/or kV according to patient size, radiation dose was kept as low as reasonably achievable to obtain optimal diagnostic q uality images. DICOM format image data is available electronically for review and comparison. FINDINGS: There is patchy airspace disease predominantly in the lingula and to a lesser extent in the lower lob es may represent a mild bronchopneumonia. There is no thoracic or abdominal aortic aneurysm or dissection. The celiac, superior mesenteric and inferior mesenteric arteries are patent. Both renal arteries are patent. Liver is enlarged to 24 cm i n length. No acute findings in the spleen, adrenals, kidneys or pancreas. No calcified gallstones. There is a mild ileus. There is some mural thickening of the left colon and sigmoid colon most charac teristic of a mild colitis. Small amount free fluid present. Leblanc catheter present in the bladder. CONCLUSION: 1. Negative for thoracic or aortic aneurysm or dissection. 2. Mural thickening of the left colon and sigmoid colon most characteristic of a mild colitis with m ild free fluid. 3. Leblanc catheter in bladder. Dependent atelectasis in the lungs. Electronically signed by: George Bowden MD 08/04/2018 11:05 PM EDT
[2018-08-05] MEDS: Dextrose 5%/NaCl 0.45% Inj 1,000 ML IV.CONT SCH ×2 (00:21→03:51)
[2018-08-05 01:04] LABS: Baso # (Auto) 0.6 th/mm3 (0.0-0.2); Baso % (Auto) 4.8 % (0.0-2.0); Eos % (Auto) 0.2 % (0.0-4.0); Hematocrit 36.5 % (39.0-51.0); Hemoglobin 12.6 gm/dL (13.0-17.0); Lymph # (Auto) 2.1 th/mm3 (1.0-4.8); Lymph % (Auto) 16.7 % (9.0-44.0); Mean Corpuscular HGB Conc 34.6 % (32.0-36.0); Mean Corpuscular Hemoglobin 31.8 pg (27.0-34.0); Mean Platelet Volume 8.2 fL (7.0-11.0); Mono # (Auto) 0.6 th/mm3 (0.0-0.9); Mono % (Auto) 4.8 % (0.0-8.0); Neut # (Auto) 9.2 th/mm3 (1.8-7.7); Neut % (Auto) 73.5 % (16.0-70.0); Platelet Count 188 th/mm3 (150-450); Red Blood Count 3.97 mil/mm3 (4.50-5.90); Red Cell Distribution Width 13.5 % (11.6-17.2); White Blood Count 12.5 th/mm3 (4.0-11.0)
[2018-08-05 01:07] LABS: Chloride 116 meq/L (98-107); Potassium 3.3 meq/L (3.5-5.1); Sodium 146 meq/L (136-145)
[2018-08-05 01:09] LABS: Calcium 7.5 mg/dL (8.5-10.1)
[2018-08-05 01:10] LABS: Anion Gap 11 meq/L (5-15); Blood Urea Nitrogen 6 mg/dL (7-18); Carbon Dioxide 19.2 meq/L (21.0-32.0); Glucose,Random 139 mg/dL (74-106); Magnesium 1.8 mg/dL (1.5-2.5)
[2018-08-05 01:13] LABS: Glomerular Filtration Rate Greater Than 89 mL/min (>89); Phosphorus 1.7 mg/dL (2.5-4.9)
[2018-08-05] MEDS: Potassium Chlor 20 mEq Premix 20 MEQ/100 ML PIGGYBACK IV.SIG PRN (01:50)
[2018-08-05] MEDS: Piperacil/Tazo 4.5 GM Premix 4.5 GM/100 ML BAG IV.SIG SCH ×4 (02:00→20:16)
[2018-08-05] MEDS ORDERED: Dextrose 50% in Water 50 ML Vial IV.PUSH PRN (02:00)
[2018-08-05] MEDS ORDERED: Insulin Detemir Inj 1,000 UNIT/10 ML Vial SQ SCH (02:00)
[2018-08-05] MEDS ORDERED: DC Insulin drip 2 hrs post basal insulin dose OTHER ONE (02:00)
[2018-08-05] MEDS ORDERED: DC previous DKA orders (HMC 1917) OTHER ONE (02:00)
[2018-08-05] MEDS ORDERED: Insulin Regular (For Infusion) 100 UNIT in Sodium Chlor 0.9% Inj 99 ML IV.CONT PRN (02:03)
[2018-08-05] MEDS ORDERED: Sodium Phosphate Inj 30 MMOL in Sodium Chlor 0.9% Inj 250 ML IV.SIG PRN (03:34)
[2018-08-05] MEDS ORDERED: Magnesium Oxide 400 MG Tablet PO PRN (03:34)
[2018-08-05] MEDS ORDERED: Potassium Chlor 40 mEq Premix 40 MEQ/100 ML PIGGYBACK IV.SIG PRN ×2 (03:34)
[2018-08-05] MEDS ORDERED: Potassium Chloride 25 MEQ Effervescent Tablet PO PRN (03:34)
[2018-08-05] MEDS ORDERED: Potassium Phosphate 500 MG Soluble Tablet PO PRN ×2 (03:34)
[2018-08-05] MEDS ORDERED: Potassium Phosphate Inj 30 MMOL in Sodium Chlor 0.9% Inj 250 ML IV.SIG PRN (03:34)
[2018-08-05] MEDS ORDERED: Magnesium Sulfate Inj 2 GM in Sodium Chlor 0.9% Inj 96 ML IV.SIG PRN (03:34)
[2018-08-05] MEDS ORDERED: Magnesium Sulfate Inj 4 GM in Sodium Chlor 0.9% Inj 92 ML IV.SIG PRN (03:34)
[2018-08-05] MEDS ORDERED: Potassium Chlor 20 mEq Premix 20 MEQ/100 ML PIGGYBACK IV.SIG PRN ×2 (03:34)
[2018-08-05] MEDS: Chlorhexidine Gluconate 2% 1 Pack (2 Cloths) TOPICAL SCH (03:51)
[2018-08-05] MEDS: Enoxaparin Inj 40 MG/0.4 ML Syringe SQ SCH (07:11)
[2018-08-05 07:27] LABS: Chloride 113 meq/L (98-107); Potassium 3.8 meq/L (3.5-5.1); Sodium 143 meq/L (136-145)
[2018-08-05 07:30] LABS: Anion Gap 9 meq/L (5-15); Blood Urea Nitrogen 4 mg/dL (7-18); Calcium 7.5 mg/dL (8.5-10.1); Carbon Dioxide 20.9 meq/L (21.0-32.0); Glucose,Random 155 mg/dL (74-106); Magnesium 1.5 mg/dL (1.5-2.5)
[2018-08-05 07:33] LABS: Glomerular Filtration Rate Greater Than 89 mL/min (>89)
[2018-08-05 07:34] LABS: Phosphorus 2.7 mg/dL (2.5-4.9)
--- NOTE | 2018-08-05 07:49 | P.PNCC ---
Subjective Subjective Remarks/Hospital Course: This is a 37-year-old male. Admission 08/05/2018. Past medical includes diabetes mellitus type 2. Today, patient was brought in by [facility] with chief complaint of right flank pain throughout the day. They deny any illicit drug use. Patient has history of diabetes with multiple episodes of DKA. [facility] personnel found the patient moderately unresponsive. Blood work revealed a leukocytosis of 29,000. Macrocytosis. Lactic acid of 5.7. He was thought to be in diabetic ketoacidosis he was bolused with 12 units of insulin and is currently in insulin drip at 6.8 units an hour. Multiple laboratories are currently pending as well. He received azithromycin and ceftriaxone in the ED. Patient has significant urinary retention a Leblanc catheter was placed. Currently ordering urgent CT abdomen/pelvis with right flank pain he had on admission and hematuria noted. Start of piperacillin/tazobactam. IV fluids adjusted D5 one half normal saline. Let lites all currently ordered at the present along with a repeat lactate. SUBJECTIVE: 08/05: Transition to insulin detemir overnight. Lactic acid currently at 3. Unclear source with negative CT abdomen/pelvis. Whitel blood cell count slowly trending downward. Objective Vital Signs / I&O: Vital Signs 08/04/18 08:00 08/04/18 09:00 08/04/18 10:00 Temperature 98.7 F 98.7 F 98.7 F Pulse Rate 106 H 114 H 106 H Respiratory Rate 18 19 21 Blood Pressure 150/79 H 146/70 H 149/82 H Pulse Oximetry 98 98 99 08/04/18 11:00 08/04/18 11:20 08/04/18 12:00 Temperature Pulse Rate 98 H 103 H 110 H Respiratory Rate 19 18 20 Blood Pressure 149/76 H 155/81 H Pulse Oximetry 100 99 08/04/18 13:01 08/04/18 14:01 08/04/18 15:01 Temperature Pulse Rate 106 H 98 H 84 Respiratory Rate 21 23 21 Blood Pressure 153/79 H 152/75 H 142/65 H Pulse Oximetry 99 100 100 08/04/18 15:19 08/04/18 16:01 08/04/18 17:00 Temperature Pulse Rate 79 106 H 102 H Respiratory Rate 18 23 17 Blood Pressure 150/65 H Pulse Oximetry 97 100 08/04/18 17:01 08/04/18 18:00 08/04/18 18:01 Temperature Pulse Rate 98 H 86 86 Respiratory Rate 17 18 18 Blood Pressure 136/61 121/62 Pulse Oximetry 100 100 100 08/04/18 19:41 08/04/18 20:00 08/04/18 20:01 Temperature Pulse Rate 95 H 106 H 114 H Respiratory Rate 20 23 Blood Pressure 147/70 H Pulse Oximetry 100 94 L 100 08/04/18 21:00 08/04/18 22:00 08/04/18 22:24 Temperature Pulse Rate 104 H 94 H 98 H Respiratory Rate 16 13 16 Blood Pressure 161/82 H 157/73 H 146/67 H Pulse Oximetry 100 99 99 08/04/18 22:43 08/04/18 23:00 08/04/18 23:12 Temperature Pulse Rate 86 104 H Respiratory Rate 16 18 Blood Pressure 172/79 H 155/82 H Pulse Oximetry 100 99 08/05/18 00:00 08/05/18 00:15 08/05/18 01:00 Temperature 98.1 F Pulse Rate 84 87 106 H Respiratory Rate 19 16 19 Blood Pressure 136/84 148/69 H Pulse Oximetry 100 95 08/05/18 02:00 08/05/18 03:00 08/05/18 03:41 Temperature Pulse Rate 100 H 82 96 H Respiratory Rate 15 18 16 Blood Pressure 155/75 H 155/87 H Pulse Oximetry 98 99 08/05/18 04:00 08/05/18 05:00 08/05/18 06:00 Temperature 98.9 F Pulse Rate 104 H 92 H 100 H Respiratory Rate 22 14 17 Blood Pressure 158/85 H 153/83 H 151/92 H Pulse Oximetry 100 100 100 Intake & Output 08/04/18 08/05/18 08/05/18 18:59 06:59 18:59 Intake Total 3410.9 / 3410.9 4097.2 / 4097.2 Output Total 1900 / 1900 1705 / 1705 Balance 1510.9 / 1510.9 2392.2 / 2392.2 Weight 69.9 kg Intake: IV 2944.9 / 2944.9 3897.2 / 3897.2 D5W/1/2 NS Inj 1,000 ML @ 200 1999 / 1999 1262 / 1262 mls/hr IV.CONT .Q5H A[facility] Rx#: [id number] D5W/Normal Saline Inj 1,000 ML 266 / 266 @ 200 mls/hr IV.CONT .Q5H [place] Rx#:[id number] NovoLIN R (IV Infusion) 100 39.9 / 39.9 35.2 / 35.2 UNIT In NS Inj 99 ML @ 6.35 UNITS/HR 6.35 mls/hr IV.CONT TITRATE PRN Rx#:[id number] LR 1000 mL Inj 2,000 ML @ As 2000 / 2000 Directed IV.SIG .Q0M ONE Rx#: [id number] Zosyn 4.5 GM Premix 4.5 gm In 200 / 200 200 / 200 100 ml @ 200 mls/hr IV.SIG Q6H A[facility]FO Rx#:[id number] KCl 20 mEq Premix Inj 20 meq In 179 / 179 400 / 400 100 ml @ 50 mls/hr IV.SIG Q2H PRN Rx#:[id number] Potassium Phosphate Inj 30 MMOL 260 / 260 In NS Inj 250 ML @ 43.333 mls/ hr IV.SIG ONCE ONE Rx#: [id number] Oral 0 / 0 0 / 0 Other 466 / 466 200 / 200 Output: Urine 600 / 600 300 / 300 Urine Amount (Catheter) 1300 / 1300 1405 / 1405 Indwelling Urethral Catheter 1300 / 1300 1405 / 1405 Other: Other Intake Source Saline Solution Saline Solution Result Diagrams: 08/05/18 00:50 08/05/18 07:15 Other Results: Microbiology 08/03/18 23:45 Blood - Peripheral Aerobic Blood Culture - Preliminary No growth in 1 day 08/03/18 23:45 Blood - Peripheral Anaerobic Blood Culture - Preliminary No growth in 1 day 08/03/18 23:50 Blood - Peripheral Aerobic Blood Culture - Preliminary No growth in 1 day 08/03/18 23:50 Blood - Peripheral Anaerobic Blood Culture - Preliminary No growth in 1 day Imaging: Abdomen/Pelvis CT 08/04/18 00:00 CONCLUSION: 1. No radiopaque renal calculi or evidence for obstructive uropathy. 2. Patchy bilateral consolidation at the lung bases which may reflect atelectasis. Differential considerations include aspiration in the appropriate clinical setting. 3. Limited evaluation of the bowel due to beam artifact from patient's hands and overlying metallic hardware. Appendix is not directly visualized. Bowel is otherwise grossly unremarkable without evidence for obstruction. Thoracic Aorta CT 08/04/18 20:45 CONCLUSION: 1. Negative for thoracic or aortic aneurysm or dissection. 2. Mural thickening of the left colon and sigmoid colon most characteristic of a mild colitis with mild free fluid. 3. Leblanc catheter in bladder. Dependent atelectasis in the lungs. Objective Remarks: GENERAL: 37-year-old male currently resting in bed in no acute distress SKIN: Warm and dry. HEAD: Atraumatic. Normocephalic. EYES: Pupils equal and round. No scleral icterus. No injection or drainage. ENT: No nasal bleeding or discharge. Mucous membranes pink and moist. NECK: Trachea midline. No JVD. CARDIOVASCULAR: Regular rate and rhythm. RESPIRATORY: No accessory muscle use. Clear to auscultation. Breath sounds equal bilaterally. GASTROINTESTINAL: Abdomen soft, non-tender, nondistended. MUSCULOSKELETAL: Extremities without clubbing, cyanosis, or edema. No obvious deformities. NEUROLOGICAL: Awake and alert. No obvious cranial nerve deficits. Motor grossly within normal limits. Five out of 5 muscle strength in the arms and legs. Normal speech. Assessment and Plan - Assessment and Plan Plan: Neuro/Psych: Acetaminophen 650 p.o. every 6 hours as needed fever Hydrocodone/acetaminophen 5/325 1 tablet every 4 hours as needed pain 1 through 5 morphine sulfate 2 mg IV every 2 hours as needed pain 6 through 10 CV: Lactic acidosis IV fluids been discontinued Currently not requiring vasopressors and/or antihypertensives Troponin 0.02 Lactic acid 5.9 yesterday. Downward trending towards 3. Recheck in a.m. Resp: Ongoing tobaccoism Nasal cannula to maintain saturations greater than equal to 92% Incentive spirometry while awake Albuterol/ipratropium aerosols every 4 hours with albuterol aerosols every 2 hours as needed dyspnea Tobacco cessation self evaluation booklet provided GI: Mild colitis ADA diet Pantoprazole for GI prophylaxis Docusate sodium/senna 1 tablet twice daily for bowel regimen CT abdomen/pelvis revealed no acute findings. Specifically no renal calculi. Thoracic aorta CT overnight revealed no dissection. Possible mild left sided/ sigmoid colitis. : Urinary retention Leblanc catheter has been placed. Urgent CT abdomen/pelvis has been ordered. Start tamsulosin 0.4 mg p.o. daily. UA did reveal hematuria. No signs of infection. Remove Leblanc catheter today with straight catheterization as needed Endo: IDDM DKA Currently on insulin detemir 15 units daily with aspart sliding scale insulin Renal: Acute kidney injury -resolved Creatinine has been normalizing. Monitor urine output Accurate I's and O's Heme: Leukocytosis Normocytic anemia Monitor CBC daily. Follow trends. No indication for transfusion of blood products at this time. ID: Restarted on piperacillin/tazobactam day 2. Received azithromycin and ceftriaxone received in ED Blood cultures x2 ordered 08/04 with results pending. UA negative MSK: PT evaluate and treat FEN: Replace electrolytes as clinically indicated per ICU electrolyte protocol Access -Utilize peripheral IV. Central line if indicated Prophylaxis -GI -pantoprazole -DVT-SCD/enoxaparin Level 2 follow-up. Stable from critical care medicine standpoint. Assign care to hospitalist in a.m. 08/06. Code Status: Full code Discussed Condition With: Patient. Care plan discussed and all questions answered.
[2018-08-05] MEDS: Insulin NovoLOG Aspart Correctional Sugar Inj SQ SCH ×4 (08:29→20:20)
[2018-08-05 08:55] LABS: Beta Hydroxybutyric Acid 0.19 mmol/L (0.00-0.39)
[2018-08-05] MEDS ORDERED: Magnesium Sulfate Inj 4 GM in Dextrose 5% in Water Inj 100 ML IV.SIG ONE ×2 (10:00)
[2018-08-05 10:45] LABS: Cholesterol 153 mg/dL (120-200); Triglycerides 185 mg/dL (42-150)
[2018-08-05 10:46] LABS: Chol/HDL Ratio 5.18 Ratio; HDL Cholesterol 29.5 mg/dL (40.0-60.0); LDL Cholesterol,Calculated 87 mg/dL (0-99)
--- NOTE | 2018-08-05 13:49 | P.DIET ---
Nutritional Evaluation Type of nutrition evaluation: initial Nutrition consult regarding: Diet Evaluation Nutrition screening: Weight Loss > 10 lbs Subjective Subjective Comments: Pt reported a good appetitie and currently tolerating his meals well. Pt consumed 100% of his breakfast today (08/05). Per chart, pt stated he had unintentional wt loss prior to admission. Objective - Diagnosis DKA - Objective Body Mass Index: 20.9 % IBW: 89 (IBW= 154lb) Body Weight Used for Calculations: Actual (based on 62.5kg) Energy Needs - Lower Range (kCal/kg): 25 Energy Needs - Upper Range (kCal/kg): 30 Lower Limit kCal/kg (kCals): 1,563 Upper Limit kCal/kg (kCals): 1,875 Lower Limit Protein Factor (Grams per Kg): 0.8 Upper Limit Protein Factor (Grams per Kg): 1.0 Lower Protein Needs (Protein): 50 Upper Protein Needs (Protein): 63 Fluid Factor (ml/kg): 1 Estimated Fluid Needs (ml): 1,875 Dietitian Reviewed in Medical Record: Current diet, Curent medications, Intake & Output, Labs, Medical history Oral Diet Intake Amount: Excellent 90%+ Speech Therapy Recommendations: No Objective Comments: PMH: insulin dependent DM, DKA, s/p bilateral inguinal hernia repair Meds: lovenox, glucagon, novolog, levemir, morphine, zofran Labs: POC Glucose: 141, A1c 8.1% Assessment Assessment: Pt at nutritional risk r/t reported unplanned wt loss. Pt currently tolerating diet and consumed 100% of breakfast (08/05). Labs reviewed. Dietitian following. Recommendations: 1. Continue 1800 kcal ADA diet 2. Will assess pts nutritional needs for PO supplement as needed 3. Dietitian following Dietitian to Monitor: Lab values, Glucose level, Intake & Output, Diet tolerance , Weight change, PO Intake, Medical course
--- NOTE | 2018-08-05 16:41 | ECG ---
Date Performed: 08/04/2018 Time Performed: 21:10:34 PTAGE: 37 years EKG: SINUS TACHYCARDIA NONSPECIFIC T-WAVE ABNORMALITY Since the previous tracing, no significant change noted ABNORMAL RHYTHM ECG PREVIOUS TRACING : 08/04/2018 10.27 DOCTOR: Kamala Terry Interpretating Date/Time 08/05/2018 16:38:16
[2018-08-06 01:42] LABS: Baso # (Auto) 0.4 th/mm3 (0.0-0.2); Baso % (Auto) 3.9 % (0.0-2.0); Eos # (Auto) 0.1 th/mm3 (0.0-0.4); Hematocrit 38.2 % (39.0-51.0); Lymph # (Auto) 1.8 th/mm3 (1.0-4.8); Lymph % (Auto) 18.1 % (9.0-44.0); Mean Corpuscular HGB Conc 34.1 % (32.0-36.0); Mean Corpuscular Hemoglobin 31.6 pg (27.0-34.0); Mean Corpuscular Volume 92.6 fL (80.0-100.0); Mean Platelet Volume 7.8 fL (7.0-11.0); Mono # (Auto) 0.5 th/mm3 (0.0-0.9); Mono % (Auto) 5.2 % (0.0-8.0); Neut # (Auto) 7.2 th/mm3 (1.8-7.7); Neut % (Auto) 71.8 % (16.0-70.0); Platelet Count 190 th/mm3 (150-450); Red Blood Count 4.12 mil/mm3 (4.50-5.90); Red Cell Distribution Width 12.9 % (11.6-17.2); White Blood Count 10.1 th/mm3 (4.0-11.0)
[2018-08-06 02:07] LABS: Alanine Aminotransferase 19 U/L (12-78); Albumin 3.1 g/dL (3.4-5.0); Alkaline Phosphatase 171 U/L (45-117); Anion Gap 8 meq/L (5-15); Aspartate Aminotransferase 14 U/L (15-37); Blood Urea Nitrogen 5 mg/dL (7-18); Calcium 8.1 mg/dL (8.5-10.1); Chloride 105 meq/L (98-107); Glomerular Filtration Rate Greater Than 89 mL/min (>89); Glucose,Random 241 mg/dL (74-106); Magnesium 2.1 mg/dL (1.5-2.5); Phosphorus 2.7 mg/dL (2.5-4.9); Potassium 3.7 meq/L (3.5-5.1); Sodium 139 meq/L (136-145); Total Protein 6.5 g/dL (6.4-8.2)
[2018-08-06] MEDS: Piperacil/Tazo 4.5 GM Premix 4.5 GM/100 ML BAG IV.SIG SCH ×2 (03:49→08:30)
[2018-08-06] MEDS: Chlorhexidine Gluconate 2% 1 Pack (2 Cloths) TOPICAL SCH (06:00)
[2018-08-06 06:35] VITALS: O2SAT 97
[2018-08-06] MEDS: Enoxaparin Inj 40 MG/0.4 ML Syringe SQ SCH (06:39)
[2018-08-06] MEDS: Insulin NovoLOG Aspart Correctional Sugar Inj SQ SCH ×2 (08:30→12:06)
[2018-08-06] MEDS ORDERED: Insulin Detemir Inj 1,000 UNIT/10 ML Vial SQ SCH (09:00)
[2018-08-06 12:28] VITALS: BP 140/86; PULSE 94; RESP 23; TEMP 98.9
--- NOTE | 2018-08-06 15:32 | P.DS ---
Date of admission: 08/03/18 22:40 Primary care physician: No Primary Care Physician Attending physician on discharge: Ashley Ramos Anticipated date of discharge: 08/06/18 Brief History from admission: This is a 37-year-old male. Admission 08/05/2018. Past medical includes diabetes mellitus type 2. Today, patient was brought in by [facility] with chief complaint of right flank pain throughout the day. They deny any illicit drug use. Patient has history of diabetes with multiple episodes of DKA. [facility] personnel found the patient moderately unresponsive. Blood work revealed a leukocytosis of 29,000. Macrocytosis. Lactic acid of 5.7. He was thought to be in diabetic ketoacidosis he was bolused with 12 units of insulin and is currently in insulin drip at 6.8 units an hour. Multiple laboratories are currently pending as well. He received azithromycin and ceftriaxone in the ED. Patient has significant urinary retention a Leblanc catheter was placed. Currently ordering urgent CT abdomen/pelvis with right flank pain he had on admission and hematuria noted. Start of piperacillin/tazobactam. IV fluids adjusted D5 one half normal saline. Let lites all currently ordered at the present along with a repeat lactate. DS: Diagnosis - Discharge Diagnosis (1) DKA (diabetic ketoacidoses) Status: Acute DS: Medications - Discharge Medications Prescriptions: insulin NPH isoph U-100 human [Novolin N NPH U-100 Insulin] 15 unit SUBCUT BID # 1 bottle insulin regular human [Novolin R Regular U-100 Insuln] 1 unit SUBCUT ACHS #1 bottle DS: Summary Hospital Course: 37-year-old male with known history of diabetes who was brought to the hospital because of being found by [facility] with mildly unresponsiveness. Patient does have a long history of diabetes with recurrent admissions to the hospital. Patient has episodes of noncompliance due to financial reasons. Patient is only been using regular insulin on outpatient setting without any significant improvement or control of his diabetes. The patient presented to the emergency department he was found to have significant diabetic ketoacidosis. Patient was admitted to critical care in the ICU. Patient was on insulin drip and has been successfully weaned off of the insulin drip at this time. Patient is being managed with Levemir and sliding scale insulin with good control of his diabetes. Patient is tolerating diet without any nausea or vomiting. Clinically the patient is stable at this time. We will plan discharge accordingly. - Time Spent with Patient Total time spent providing and/or coordinating discharge services: Greater than 30 minutes - Quality: VTE Deep Vein Thrombosis/Pulmonary Embolism Present on Admission: No Exam Vital signs: Vital Signs 08/05/18 16:00 08/05/18 16:03 08/05/18 16:19 Temperature Pulse Rate 96 H 108 H 102 H Respiratory Rate 24 20 14 Blood Pressure 185/105 H 177/91 H Pulse Oximetry 08/05/18 17:00 08/05/18 17:03 08/05/18 17:49 Temperature 98.5 F Pulse Rate 100 H 98 H 102 H Respiratory Rate 24 20 24 Blood Pressure 177/91 H 176/93 H Pulse Oximetry 100 08/05/18 17:50 08/05/18 18:00 08/05/18 18:03 Temperature Pulse Rate 98 H 96 H 98 H Respiratory Rate 25 H 19 23 Blood Pressure 166/101 H 166/95 H Pulse Oximetry 08/05/18 19:03 08/05/18 19:45 08/05/18 20:00 Temperature Pulse Rate 98 H 86 Respiratory Rate 24 Blood Pressure 166/94 H Pulse Oximetry 97 99 97 08/05/18 21:00 08/05/18 21:03 08/05/18 22:03 Temperature 97.9 F Pulse Rate 92 H 82 92 H Respiratory Rate 23 23 13 Blood Pressure 165/94 H 159/97 H 167/99 H Pulse Oximetry 97 97 96 08/05/18 23:11 08/06/18 00:20 08/06/18 01:03 Temperature 98.1 F Pulse Rate 82 90 84 Respiratory Rate 18 23 19 Blood Pressure 162/93 H 161/95 H 154/89 H Pulse Oximetry 97 97 96 08/06/18 02:03 08/06/18 03:03 08/06/18 04:03 Temperature 98.5 F Pulse Rate 80 78 86 Respiratory Rate 22 19 21 Blood Pressure 148/87 H 151/83 H 158/85 H Pulse Oximetry 97 97 96 08/06/18 05:03 08/06/18 06:00 08/06/18 07:03 Temperature 98.7 F Pulse Rate 90 88 86 Respiratory Rate 24 23 14 Blood Pressure 150/87 H 141/78 H 150/73 H Pulse Oximetry 97 97 08/06/18 08:00 08/06/18 08:03 08/06/18 08:17 Temperature Pulse Rate 87 86 Respiratory Rate 15 Blood Pressure 145/67 H Pulse Oximetry 97 08/06/18 09:00 08/06/18 10:03 08/06/18 11:03 Temperature 98.9 F Pulse Rate 88 88 94 H Respiratory Rate 21 21 23 Blood Pressure 162/92 H 153/88 H 140/86 Pulse Oximetry Intake & Output 08/05/18 08/06/18 08/06/18 18:59 06:59 18:59 Intake Total 1388 / 1388 200 / 200 100 / 100 Output Total 1750 / 1750 900 / 900 350 / 350 Balance -362 / -362 -700 / -700 -250 / -250 Weight 67.7 kg Intake: IV 308 / 308 200 / 200 100 / 100 Magnesium Sulfate Inj 4 GM In 108 / 108 D5W Inj 100 ML @ 25 mls/hr IV. SIG ONCE ONE Rx#:[id number] Zosyn 4.5 GM Premix 4.5 gm In 200 / 200 200 / 200 100 / 100 100 ml @ 200 mls/hr IV.SIG Q6H [facility] Rx#:[id number] Oral 1080 / 1080 Output: Urine 1600 / 1600 900 / 900 350 / 350 Urine Amount (Catheter) 150 / 150 Indwelling Urethral Catheter 150 / 150 Other: Date of Last Bowel Movement 08/05/18 08/05/18 Narrative: GENERAL: Well-developed, well-nourished, in no acute distress. alert and orientated HEENT: Head is normocephalic without any lesions or masses noted. Facial features are symmetric. Eyes: Extraocular muscles are intact. Conjunctivae were clear. NECK: Supple without any masses. Trachea midline no deviation. No JVD, CARDIAC: Regular rhythm, regular rate. S1/S2 are heard. No murmurs gallops or rubs. LUNGS: Clear to auscultation bilaterally. No wheeze, rhonchi or rales. No use of accessory muscles on inspiration or expiration. ABDOMEN: Soft, nontender. Nondistended. Bowel sounds heard in all 4 quadrants. No organomegaly or masses. Negative rebound, negative guarding EXTREMITIES: No edema, pulses are equal bilaterally. No cyanosis or clubbing NEUROLOGY: Mood and affect appear appropriate. Cranial nerves II through XII grossly intact. Moving all extremities, speech is clear Results Procedures completed during hospitalization: none Labs on day of discharge: Labs from last 24 hours 08/06/18 08/06/18 08/06/18 11:47 08:20 04:00 CBC w Diff WBC RBC Hgb Hct MCV MCH MCHC RDW Plt Count MPV Neut % (Auto) Lymph % (Auto) [place] % (Auto) Eos % (Auto) Baso % (Auto) Neut # (Auto) Lymph # (Auto) [place] # (Auto) Eos # (Auto) Baso # (Auto) WBC Differential Differential Comment Sodium Potassium Chloride Carbon Dioxide Anion Gap BUN Creatinine Estimated GFR POC Glucose 231 H 367 H 298 H Random Glucose Lactic Acid Calcium Phosphorus Magnesium Total Bilirubin AST ALT Alkaline Phosphatase Total Protein Albumin 08/06/18 08/06/18 08/06/18 01:30 01:30 01:30 CBC w Diff Auto diff final WBC 10.1 RBC 4.12 L Hgb 13.0 Hct 38.2 L MCV 92.6 MCH 31.6 MCHC 34.1 RDW 12.9 Plt Count 190 MPV 7.8 Neut % (Auto) 71.8 H Lymph % (Auto) 18.1 [place] % (Auto) 5.2 Eos % (Auto) 1.0 Baso % (Auto) 3.9 H Neut # (Auto) 7.2 Lymph # (Auto) 1.8 [place] # (Auto) 0.5 Eos # (Auto) 0.1 Baso # (Auto) 0.4 H WBC Differential . Differential Comment . Sodium 139 Potassium 3.7 Chloride 105 D Carbon Dioxide 26.0 Anion Gap 8 BUN 5 L Creatinine 0.64 Estimated GFR Greater than 89 POC Glucose Random Glucose 241 H Lactic Acid 1.4 Calcium 8.1 L Phosphorus 2.7 Magnesium 2.1 D Total Bilirubin 0.7 AST 14 L ALT 19 Alkaline Phosphatase 171 H Total Protein 6.5 D Albumin 3.1 L 08/05/18 08/05/18 20:16 17:04 CBC w Diff WBC RBC Hgb Hct MCV MCH MCHC RDW Plt Count MPV Neut % (Auto) Lymph % (Auto) [place] % (Auto) Eos % (Auto) Baso % (Auto) Neut # (Auto) Lymph # (Auto) [place] # (Auto) Eos # (Auto) Baso # (Auto) WBC Differential Differential Comment Sodium Potassium Chloride Carbon Dioxide Anion Gap BUN Creatinine Estimated GFR POC Glucose 239 H 215 H Random Glucose Lactic Acid Calcium Phosphorus Magnesium Total Bilirubin AST ALT Alkaline Phosphatase Total Protein Albumin Preliminary micro results at discharge 08/03/18 23:45 Aerobic Blood Culture - Preliminary Blood - Peripheral No growth in 3 days Anaerobic Blood Culture - Preliminary No growth in 3 days 08/03/18 23:50 Aerobic Blood Culture - Preliminary Blood - Peripheral No growth in 3 days Anaerobic Blood Culture - Preliminary No growth in 3 days - Impressions ITS Impressions Abdomen/Pelvis CT 08/04/18 00:00 CONCLUSION: 1. No radiopaque renal calculi or evidence for obstructive uropathy. 2. Patchy bilateral consolidation at the lung bases which may reflect atelectasis. Differential considerations include aspiration in the appropriate clinical setting. 3. Limited evaluation of the bowel due to beam artifact from patient's hands and overlying metallic hardware. Appendix is not directly visualized. Bowel is otherwise grossly unremarkable without evidence for obstruction. Thoracic Aorta CT 08/04/18 20:45 CONCLUSION: 1. Negative for thoracic or aortic aneurysm or dissection. 2. Mural thickening of the left colon and sigmoid colon most characteristic of a mild colitis with mild free fluid. 3. Leblanc catheter in bladder. Dependent atelectasis in the lungs. Discharge Plan - Discharge Disposition Patient Disposition: Discharge Home - Discharge Condition Condition: Stable - Discharge Order Discharge Orders: Discharge Order (Routine); Ordered 08/06/18 Ordered By: José Lopez - Discharge Details Anticipated Discharge Date: 08/06/18 Discharge Comment: Okay to discharge home if blood glucose below 300 - Physicians Team Primary Care Provider: Primary Care Pierre,No Attending Provider: Ashley Ramos
== END 2018-08-06 12:40 | disposition home or self-care (01) ==
LOC: PHED 20:44 → PHEDA 22:40 → PHICU 08-04 00:05
PROVIDERS: ADMIT Internal Medicine; ATTEND Internal Medicine

== ENCOUNTER 2018-10-18 09:31 | Inpatient (IN) ==
[2018-10-18 10:08] LABS: ABG Base Excess -27.9 mmol/L (-2-2); ABG PCO2 10 mmHg (38-42); ABG PO2 108 mmHg (61-120)
[2018-10-18] MEDS ORDERED: Dextrose 50% in Water 50 ML Vial IV.PUSH PRN (10:12)
[2018-10-18] MEDS ORDERED: Insulin Human-R 100 UNIT/100ML 100 UNIT/100 ML BAG IV.CONT ONE (10:12)
[2018-10-18] MEDS ORDERED: Sodium Bicarbonate 8.4% Inj 50 MEQ/50 ML Syringe IV.PUSH ONE (10:12)
[2018-10-18] MEDS: Sod Chloride 0.9% Inj 1,000 ML IV.SIG SCH ×2 (10:13→10:43)
[2018-10-18 10:15] LABS: Baso # (Auto) 0.4 th/mm3 (0.0-0.2); Baso % (Auto) 1.8 % (0.0-2.0); Lymph # (Auto) 0.9 th/mm3 (1.0-4.8); Lymph % (Auto) 4.1 % (9.0-44.0); Mean Corpuscular HGB Conc 31.5 % (32.0-36.0); Mean Corpuscular Hemoglobin 28.9 pg (27.0-34.0); Mean Corpuscular Volume 91.5 fL (80.0-100.0); Mean Platelet Volume 8.2 fL (7.0-11.0); Mono # (Auto) 0.3 th/mm3 (0.0-0.9); Mono % (Auto) 1.2 % (0.0-8.0); Neut # (Auto) 20.6 th/mm3 (1.8-7.7); Neut % (Auto) 92.9 % (16.0-70.0); Platelet Count 222 th/mm3 (150-450); Red Blood Count 5.91 mil/mm3 (4.50-5.90); Red Cell Distribution Width 12.5 % (11.6-17.2); White Blood Count 22.2 th/mm3 (4.0-11.0)
--- NOTE | 2018-10-18 10:21 | XR ---
EXAM DATE: 10/18/2018 10:12 AM EST AGE/SEX: 38 years / Male INDICATIONS: Short of breath. CLINICAL DATA: This is the patient's initial encounter. Patient reports that signs and symptoms have been present for 2 days and indicates a pain score of Nonresponsive. MEDICAL/SURGICAL HISTORY: Diabetes. Inguinal hernia repair. COMPARISON: [facility], CHEST 1V SINGLE AP, 07/09/2018. . FINDINGS: There are areas of fluffy airspace process in bilateral lower lobes partially extending to the hilum not present previously. Heart and mediastinum are unremarkable for technique. CONCLUSION: Bilateral airspace process is highly suspicious for pneumonia. The appearance is however nonspecific. Electronically signed by: Feliciano Regan MD Board Certified Radiologist 10/18/2018 10:19 AM EST
[2018-10-18 10:28] LABS: Albumin 4.3 g/dL (3.4-5.0); Anion Gap 26 meq/L (5-15); Blood Urea Nitrogen 43 mg/dL (7-18); Calcium 8.6 mg/dL (8.5-10.1); Carbon Dioxide 4.1 meq/L (21.0-32.0); Chloride 94 meq/L (98-107); Lipase 821 U/L (73-393); Magnesium 2.3 mg/dL (1.5-2.5); Potassium 5.3 meq/L (3.5-5.1)
[2018-10-18 10:32] LABS: Glucose,Random 469 mg/dL (74-106); Sodium 124 meq/L (136-145)
[2018-10-18 10:35] LABS: Alanine Aminotransferase 24 U/L (12-78); Alkaline Phosphatase 151 U/L (45-117); Aspartate Aminotransferase 41 U/L (15-37); Creatine Kinase 101 U/L (39-308); Glomerular Filtration Rate 40 mL/min (>89); Total Protein 9.1 g/dL (6.4-8.2)
[2018-10-18] MEDS ORDERED: Sodium Bicarbonate 8.4% Inj 100 MEQ in Dextrose 5% in Water Inj 900 ML IV.CONT SCH ×2 (10:45)
[2018-10-18 10:53] LABS: Creatine Kinase MB 4.6 ng/mL (0.5-3.6)
[2018-10-18 11:15] LABS: Cocaine Screen,Urine Neg (Neg)
[2018-10-18 11:21] LABS: Clarity,Urine Clear (Clear); Color,Urine Yellow (Yellw/Straw); Leukocyte Esterase,Urine Negative (Negative); Nitrite,Urine Negative (Negative); PH,Urine 5.5 (5.0-8.5); Specific Gravity,Urine Greater/Equal 1.030 (1.002-1.035); Urobilinogen,Urine 0.2 mg/dL (Less than 2)
[2018-10-18 11:23] LABS: Amphetamine Screen,Urine Neg (Neg)
[2018-10-18 11:24] LABS: Barbiturate Screen,Urine Neg (Neg)
[2018-10-18 11:26] LABS: Cannabinoid Screen,Urine Neg (Neg)
[2018-10-18 11:32] LABS: Bilirubin,Urine Negative (Negative); Ictotest,Urine Negative (Negative); Opiate Screen,Urine Neg (Neg)
--- NOTE | 2018-10-18 11:41 | ED ---
HPI General Chief complaint: Diabetic Stated complaint: diabetic Time Seen by Provider: 10/18/18 09:39 History of Present Illness HPI narrative: 38 male with a history of diabetes here for evaluation of generalized weakness and excessive breathing. He had DKA multiple times in the past, he says he has been using his insulin but has taken lower dose than usual because he is worried that he is going to run out. He has been feeling weak for the last 3 days, thirsty, has been drinking lots of water but has low urine output, he has no fever chills or night sweats no cough or runny nose or any other complaints. Related Data Previous Rx's Medication Instructions Recorded insulin NPH isoph U-100 human 15 unit SUBCUT BID #1 bottle 08/06/18 [Novolin N NPH U-100 Insulin] insulin regular human [Novolin R 1 unit SUBCUT ACHS #1 bottle 08/06/18 Regular U-100 Insuln] Allergies Allergy/AdvReac Type Severity Reaction Status Date / Time Sulfa (Sulfonamide Allergy Severe Hives and Verified 10/18/18 09:45 Antibiotics) seizures Review of Systems ROS: all other systems reviewed are negative [facility] Social History Social History Substance History: No History of Abuse Second Hand Smoke Exposure: Yes Smoking Status: Current every day smoker Tobacco Type: Cigarettes How Often Do You Have a Drink Containing Alcohol: 2 to 4 times a month Recent Travel in [facility] within the Last 8 Weeks: No Recent Out of Country Travel within the Last 8 Weeks: No Immunization History Tetanus Immunization: >5 Years Exam Narrative Exam Narrative: GENERAL: Alert oriented x3 no acute distress. SKIN: Focused skin assessment warm/dry. HEAD: Atraumatic. Normocephalic. EYES: Pupils equal and round. No scleral icterus. No injection or drainage. ENT: No nasal bleeding or discharge. Mucous membranes pink and moist. NECK: Trachea midline. No JVD. CARDIOVASCULAR: Regular rate and rhythm. No murmur appreciated. RESPIRATORY: No accessory muscle use. Clear to auscultation. Breath sounds equal bilaterally. GASTROINTESTINAL: Abdomen soft, non-tender, nondistended. Hepatic and splenic margins not palpable. MUSCULOSKELETAL: No obvious deformities. No clubbing. No cyanosis. No edema. NEUROLOGICAL: Awake and alert. No obvious cranial nerve deficits. Motor grossly within normal limits. Normal speech. PSYCHIATRIC: Appropriate mood and affect; insight and judgment normal. Course Initial Documented Vital Signs Pulse Rate 110 H 10/18/18 09:42 Respiratory Rate 24 10/18/18 09:42 Blood Pressure 167/81 H 10/18/18 09:42 Pulse Oximetry 95 10/18/18 09:42 Last Documented Vital Signs Temperature 98.8 F 10/19/18 04:00 Pulse Rate 108 H 10/19/18 06:00 Respiratory Rate 20 10/19/18 04:00 Blood Pressure 152/77 H 10/19/18 04:00 Pulse Oximetry 93 L 10/19/18 04:00 Medical Decision Making MDM Narrative Medical decision making narrative: 38 male here for generalized weakness, clearly he is in DKA, he received 6units regular insulin IV bolus followed by insulin drip, he was a started on 3 L IV normal saline after initiating 2 large bore IVs, pseudohyponatremia, leukocytosis, elevated lipase, x-ray shows some groundglass appearance, patient will be covered with Zosyn, patient will be admitted to ICU. Medical Screen Exam Complete: Yes Emergency Medical Condition: Yes Lab Data Result diagrams: 10/19/18 01:00 10/19/18 01:00 Lab Results 10/18/18 10/18/18 10/18/18 Range/Units 09:40 09:58 09:58 CBC w Diff Auto diff final WBC 22.2 H (4.0-11.0) th/mm3 RBC 5.91 H (4.50-5.90) mil/mm3 Hgb 17.0 (13.0-17.0) gm/dL Hct 54.0 H (39.0-51.0) % MCV 91.5 (80.0-100.0) fL MCH 28.9 (27.0-34.0) pg MCHC 31.5 L (32.0-36.0) % RDW 12.5 (11.6-17.2) % Plt Count 222 (150-450) th/mm3 MPV 8.2 (7.0-11.0) fL Neut % (Auto) 92.9 H (16.0-70.0) % Lymph % (Auto) 4.1 L (9.0-44.0) % [place] % (Auto) 1.2 (0.0-8.0) % Eos % (Auto) 0.0 (0.0-4.0) % Baso % (Auto) 1.8 (0.0-2.0) % Neut # (Auto) 20.6 H (1.8-7.7) th/mm3 Lymph # (Auto) 0.9 L (1.0-4.8) th/mm3 [place] # (Auto) 0.3 (0.0-0.9) th/mm3 Eos # (Auto) 0.0 (0.0-0.4) th/mm3 Baso # (Auto) 0.4 H (0.0-0.2) th/mm3 WBC Differential . Seg Neuts % (Manual) (16-70) % Band Neuts % (Manual) (0-6) % Lymphocytes % (Manual) (9-44) % Monocytes % (Manual) (0-8) % Metamyelocytes % (Man) (0-1) % Abs Neuts (Manual) (1.8-7.7) th/mm3 Differential Comment . Platelet Estimate (Normal) Platelet Morphology (Normal) RBC Morphology (Normal) Puncture Site Patient Temperature O2 Saturation (90-100) % ABG pH (7.380-7.420) ABG pCO2 (38-42) mmHg ABG pO2 (61-120) mmHg ABG HCO3 (22-26) mmol/L ABG O2 Content (12.0-20.0) Vol % ABG Base Excess (-2-2) mmol/L ABG Methemoglobin (0-2) % Yovanny Test Hemoglobin (12.0-16.0) G/DL Carboxyhemoglobin (0-4) % O2 Delivery Device Inspired O2 % Critical Value Sodium 124 L* (136-145) meq/L Potassium 5.3 H (3.5-5.1) meq/L Chloride 94 L (98-107) meq/L Carbon Dioxide 4.1 L (21.0-32.0) meq/L Anion Gap 26 H (5-15) meq/L BUN 43 H (7-18) mg/dL Creatinine 1.90 H (0.60-1.30) mg/dL Estimated GFR 40 L (>89) mL/min POC Glucose 481 H* (68-110) mg/dl Random Glucose 469 H* (74-106) mg/dL Hemoglobin A1c (4.3-6.0) % Lactic Acid (0.4-2.0) mmol/L Calcium 8.6 (8.5-10.1) mg/dL Calcium Adj for Albumin (8.5-10.1) mg/dL Phosphorus (2.5-4.9) mg/dL Magnesium 2.3 (1.5-2.5) mg/dL Total Bilirubin 0.6 (0.2-1.0) mg/dL AST 41 H (15-37) U/L ALT 24 (12-78) U/L Alkaline Phosphatase 151 H (45-117) U/L Ammonia (11-32) mcmol/L Total Creatine Kinase 101 (39-308) U/L CK-MB (CK-2) 4.6 H (0.5-3.6) ng/mL Troponin I Less than 0.02 L (0.02-0.05) ng/mL Total Protein 9.1 H (6.4-8.2) g/dL Albumin 4.3 (3.4-5.0) g/dL Amylase (25-115) U/L Lipase 821 H (73-393) U/L Beta-Hydroxybutyric Acd (0.00-0.39) mmol/L Urine Color (Yellw/Straw) Urine Clarity (Clear) Urine pH (5.0-8.5) Ur Specific [place] (1.002-1.035) Urine Protein (Neg-Trace) mg/dL Urine Glucose (UA) (Negative) mg/dL Urine Ketones (Negative) mg/dL Urine Occult Blood (Negative) Urine Nitrate (Negative) Urine Bilirubin (Negative) Urine Ictotest (Negative) Urine Urobilinogen (Less than 2) mg/dL Ur Leukocyte Esterase (Negative) Micro UA Comment Ur Microscopic Review Urine Culture Comments Nasal Screen MRSA (PCR) (Negative) Urine Opiates Screen (Neg) Ur Barbiturates Screen (Neg) Ur Amphetamines Screen (Neg) U Benzodiazepines Scrn (Neg) Urine Cocaine Screen (Neg) U Cannabinoids Screen (Neg) Serum Alcohol Less than 3 (0-5) mg/dL HIV 1&2 Ab/P24 Ag 4thGn (Nonreactive) 10/18/18 10/18/18 10/18/18 Range/Units 10:00 10:54 10:54 CBC w Diff WBC (4.0-11.0) th/mm3 RBC (4.50-5.90) mil/mm3 Hgb (13.0-17.0) gm/dL Hct (39.0-51.0) % MCV (80.0-100.0) fL MCH (27.0-34.0) pg MCHC (32.0-36.0) % RDW (11.6-17.2) % Plt Count (150-450) th/mm3 MPV (7.0-11.0) fL Neut % (Auto) (16.0-70.0) % Lymph % (Auto) (9.0-44.0) % [place] % (Auto) (0.0-8.0) % Eos % (Auto) (0.0-4.0) % Baso % (Auto) (0.0-2.0) % Neut # (Auto) (1.8-7.7) th/mm3 Lymph # (Auto) (1.0-4.8) th/mm3 [place] # (Auto) (0.0-0.9) th/mm3 Eos # (Auto) (0.0-0.4) th/mm3 Baso # (Auto) (0.0-0.2) th/mm3 WBC Differential Seg Neuts % (Manual) (16-70) % Band Neuts % (Manual) (0-6) % Lymphocytes % (Manual) (9-44) % Monocytes % (Manual) (0-8) % Metamyelocytes % (Man) (0-1) % Abs Neuts (Manual) (1.8-7.7) th/mm3 Differential Comment Platelet Estimate (Normal) Platelet Morphology (Normal) RBC Morphology (Normal) Puncture Site Left brachial Patient Temperature 98.6 O2 Saturation 93 (90-100) % ABG pH 6.95 L* (7.380-7.420) ABG pCO2 10 L* (38-42) mmHg ABG pO2 108 (61-120) mmHg ABG HCO3 2 L* (22-26) mmol/L ABG O2 Content 22.4 H (12.0-20.0) Vol % ABG Base Excess -27.9 L (-2-2) mmol/L ABG Methemoglobin 1.8 (0-2) % Yovanny Test Present Hemoglobin 17.0 H (12.0-16.0) G/DL Carboxyhemoglobin 1.5 (0-4) % O2 Delivery Device Room air Inspired O2 21 % Critical Value Yes Sodium (136-145) meq/L Potassium (3.5-5.1) meq/L Chloride (98-107) meq/L Carbon Dioxide (21.0-32.0) meq/L Anion Gap (5-15) meq/L BUN (7-18) mg/dL Creatinine (0.60-1.30) mg/dL Estimated GFR (>89) mL/min POC Glucose (68-110) mg/dl Random Glucose (74-106) mg/dL Hemoglobin A1c (4.3-6.0) % Lactic Acid (0.4-2.0) mmol/L Calcium (8.5-10.1) mg/dL Calcium Adj for Albumin (8.5-10.1) mg/dL Phosphorus (2.5-4.9) mg/dL Magnesium (1.5-2.5) mg/dL Total Bilirubin (0.2-1.0) mg/dL AST (15-37) U/L ALT (12-78) U/L Alkaline Phosphatase (45-117) U/L Ammonia (11-32) mcmol/L Total Creatine Kinase (39-308) U/L CK-MB (CK-2) (0.5-3.6) ng/mL Troponin I (0.02-0.05) ng/mL Total Protein (6.4-8.2) g/dL Albumin (3.4-5.0) g/dL Amylase (25-115) U/L Lipase (73-393) U/L Beta-Hydroxybutyric Acd (0.00-0.39) mmol/L Urine Color Yellow (Yellw/Straw) Urine Clarity Clear (Clear) Urine pH 5.5 (5.0-8.5) Ur Specific [place] Greater/equal 1.030 (1.002-1.035) Urine Protein 100 H (Neg-Trace) mg/dL Urine Glucose (UA) 1000 or greater H (Negative) mg/dL Urine Ketones 80 or greater H (Negative) mg/dL Urine Occult Blood Moderate H (Negative) Urine Nitrate Negative (Negative) Urine Bilirubin Negative (Negative) Urine Ictotest Negative (Negative) Urine Urobilinogen 0.2 (Less than 2) mg/dL Ur Leukocyte Esterase Negative (Negative) Micro UA Comment Culture not ind Ur Microscopic Review Microscopic reviewed Urine Culture Comments Culture not ind Nasal Screen MRSA (PCR) (Negative) Urine Opiates Screen Neg (Neg) Ur Barbiturates Screen Neg (Neg) Ur Amphetamines Screen Neg (Neg) U Benzodiazepines Scrn Neg (Neg) Urine Cocaine Screen Neg (Neg) U Cannabinoids Screen Neg (Neg) Serum Alcohol (0-5) mg/dL HIV 1&2 Ab/P24 Ag 4thGn (Nonreactive) 10/18/18 10/18/18 10/18/18 Range/Units 11:06 11:59 12:00 CBC w Diff WBC (4.0-11.0) th/mm3 RBC (4.50-5.90) mil/mm3 Hgb (13.0-17.0) gm/dL Hct (39.0-51.0) % MCV (80.0-100.0) fL MCH (27.0-34.0) pg MCHC (32.0-36.0) % RDW (11.6-17.2) % Plt Count (150-450) th/mm3 MPV (7.0-11.0) fL Neut % (Auto) (16.0-70.0) % Lymph % (Auto) (9.0-44.0) % [place] % (Auto) (0.0-8.0) % Eos % (Auto) (0.0-4.0) % Baso % (Auto) (0.0-2.0) % Neut # (Auto) (1.8-7.7) th/mm3 Lymph # (Auto) (1.0-4.8) th/mm3 [place] # (Auto) (0.0-0.9) th/mm3 Eos # (Auto) (0.0-0.4) th/mm3 Baso # (Auto) (0.0-0.2) th/mm3 WBC Differential Seg Neuts % (Manual) (16-70) % Band Neuts % (Manual) (0-6) % Lymphocytes % (Manual) (9-44) % Monocytes % (Manual) (0-8) % Metamyelocytes % (Man) (0-1) % Abs Neuts (Manual) (1.8-7.7) th/mm3 Differential Comment Platelet Estimate (Normal) Platelet Morphology (Normal) RBC Morphology (Normal) Puncture Site Patient Temperature O2 Saturation (90-100) % ABG pH (7.380-7.420) ABG pCO2 (38-42) mmHg ABG pO2 (61-120) mmHg ABG HCO3 (22-26) mmol/L ABG O2 Content (12.0-20.0) Vol % ABG Base Excess (-2-2) mmol/L ABG Methemoglobin (0-2) % Yovanny Test Hemoglobin (12.0-16.0) G/DL Carboxyhemoglobin (0-4) % O2 Delivery Device Inspired O2 % Critical Value Sodium (136-145) meq/L Potassium (3.5-5.1) meq/L Chloride (98-107) meq/L Carbon Dioxide (21.0-32.0) meq/L Anion Gap (5-15) meq/L BUN (7-18) mg/dL Creatinine (0.60-1.30) mg/dL Estimated GFR (>89) mL/min POC Glucose 439 H 342 H (68-110) mg/dl Random Glucose (74-106) mg/dL Hemoglobin A1c (4.3-6.0) % Lactic Acid (0.4-2.0) mmol/L Calcium (8.5-10.1) mg/dL Calcium Adj for Albumin (8.5-10.1) mg/dL Phosphorus (2.5-4.9) mg/dL Magnesium (1.5-2.5) mg/dL Total Bilirubin (0.2-1.0) mg/dL AST (15-37) U/L ALT (12-78) U/L Alkaline Phosphatase (45-117) U/L Ammonia (11-32) mcmol/L Total Creatine Kinase (39-308) U/L CK-MB (CK-2) (0.5-3.6) ng/mL Troponin I (0.02-0.05) ng/mL Total Protein (6.4-8.2) g/dL Albumin (3.4-5.0) g/dL Amylase (25-115) U/L Lipase (73-393) U/L Beta-Hydroxybutyric Acd (0.00-0.39) mmol/L Urine Color (Yellw/Straw) Urine Clarity (Clear) Urine pH (5.0-8.5) Ur Specific [place] (1.002-1.035) Urine Protein (Neg-Trace) mg/dL Urine Glucose (UA) (Negative) mg/dL Urine Ketones (Negative) mg/dL Urine Occult Blood (Negative) Urine Nitrate (Negative) Urine Bilirubin (Negative) Urine Ictotest (Negative) Urine Urobilinogen (Less than 2) mg/dL Ur Leukocyte Esterase (Negative) Micro UA Comment Ur Microscopic Review Urine Culture Comments Nasal Screen MRSA (PCR) (Negative) Urine Opiates Screen (Neg) Ur Barbiturates Screen (Neg) Ur Amphetamines Screen (Neg) U Benzodiazepines Scrn (Neg) Urine Cocaine Screen (Neg) U Cannabinoids Screen (Neg) Serum Alcohol (0-5) mg/dL HIV 1&2 Ab/P24 Ag 4thGn Nonreactive (Nonreactive) 10/18/18 10/18/18 10/18/18 Range/Units 13:03 13:18 14:00 CBC w Diff WBC (4.0-11.0) th/mm3 RBC (4.50-5.90) mil/mm3 Hgb (13.0-17.0) gm/dL Hct (39.0-51.0) % MCV (80.0-100.0) fL MCH (27.0-34.0) pg MCHC (32.0-36.0) % RDW (11.6-17.2) % Plt Count (150-450) th/mm3 MPV (7.0-11.0) fL Neut % (Auto) (16.0-70.0) % Lymph % (Auto) (9.0-44.0) % [place] % (Auto) (0.0-8.0) % Eos % (Auto) (0.0-4.0) % Baso % (Auto) (0.0-2.0) % Neut # (Auto) (1.8-7.7) th/mm3 Lymph # (Auto) (1.0-4.8) th/mm3 [place] # (Auto) (0.0-0.9) th/mm3 Eos # (Auto) (0.0-0.4) th/mm3 Baso # (Auto) (0.0-0.2) th/mm3 WBC Differential Seg Neuts % (Manual) (16-70) % Band Neuts % (Manual) (0-6) % Lymphocytes % (Manual) (9-44) % Monocytes % (Manual) (0-8) % Metamyelocytes % (Man) (0-1) % Abs Neuts (Manual) (1.8-7.7) th/mm3 Differential Comment Platelet Estimate (Normal) Platelet Morphology (Normal) RBC Morphology (Normal) Puncture Site Patient Temperature O2 Saturation (90-100) % ABG pH (7.380-7.420) ABG pCO2 (38-42) mmHg ABG pO2 (61-120) mmHg ABG HCO3 (22-26) mmol/L ABG O2 Content (12.0-20.0) Vol % ABG Base Excess (-2-2) mmol/L ABG Methemoglobin (0-2) % Yovanny Test Hemoglobin (12.0-16.0) G/DL Carboxyhemoglobin (0-4) % O2 Delivery Device Inspired O2 % Critical Value Sodium (136-145) meq/L Potassium (3.5-5.1) meq/L Chloride (98-107) meq/L Carbon Dioxide (21.0-32.0) meq/L Anion Gap (5-15) meq/L BUN (7-18) mg/dL Creatinine (0.60-1.30) mg/dL Estimated GFR (>89) mL/min POC Glucose 269 H (68-110) mg/dl Random Glucose (74-106) mg/dL Hemoglobin A1c 9.5 H (4.3-6.0) % Lactic Acid (0.4-2.0) mmol/L Calcium (8.5-10.1) mg/dL Calcium Adj for Albumin (8.5-10.1) mg/dL Phosphorus (2.5-4.9) mg/dL Magnesium (1.5-2.5) mg/dL Total Bilirubin (0.2-1.0) mg/dL AST (15-37) U/L ALT (12-78) U/L Alkaline Phosphatase (45-117) U/L Ammonia (11-32) mcmol/L Total Creatine Kinase (39-308) U/L CK-MB (CK-2) (0.5-3.6) ng/mL Troponin I (0.02-0.05) ng/mL Total Protein (6.4-8.2) g/dL Albumin (3.4-5.0) g/dL Amylase (25-115) U/L Lipase (73-393) U/L Beta-Hydroxybutyric Acd (0.00-0.39) mmol/L Urine Color (Yellw/Straw) Urine Clarity (Clear) Urine pH (5.0-8.5) Ur Specific [place] (1.002-1.035) Urine Protein (Neg-Trace) mg/dL Urine Glucose (UA) (Negative) mg/dL Urine Ketones (Negative) mg/dL Urine Occult Blood (Negative) Urine Nitrate (Negative) Urine Bilirubin (Negative) Urine Ictotest (Negative) Urine Urobilinogen (Less than 2) mg/dL Ur Leukocyte Esterase (Negative) Micro UA Comment Ur Microscopic Review Urine Culture Comments Nasal Screen MRSA (PCR) Not detected (Negative) Urine Opiates Screen (Neg) Ur Barbiturates Screen (Neg) Ur Amphetamines Screen (Neg) U Benzodiazepines Scrn (Neg) Urine Cocaine Screen (Neg) U Cannabinoids Screen (Neg) Serum Alcohol (0-5) mg/dL HIV 1&2 Ab/P24 Ag 4thGn (Nonreactive) 10/18/18 10/18/18 10/18/18 Range/Units 14:04 15:05 16:02 CBC w Diff WBC (4.0-11.0) th/mm3 RBC (4.50-5.90) mil/mm3 Hgb (13.0-17.0) gm/dL Hct (39.0-51.0) % MCV (80.0-100.0) fL MCH (27.0-34.0) pg MCHC (32.0-36.0) % RDW (11.6-17.2) % Plt Count (150-450) th/mm3 MPV (7.0-11.0) fL Neut % (Auto) (16.0-70.0) % Lymph % (Auto) (9.0-44.0) % [place] % (Auto) (0.0-8.0) % Eos % (Auto) (0.0-4.0) % Baso % (Auto) (0.0-2.0) % Neut # (Auto) (1.8-7.7) th/mm3 Lymph # (Auto) (1.0-4.8) th/mm3 [place] # (Auto) (0.0-0.9) th/mm3 Eos # (Auto) (0.0-0.4) th/mm3 Baso # (Auto) (0.0-0.2) th/mm3 WBC Differential Seg Neuts % (Manual) (16-70) % Band Neuts % (Manual) (0-6) % Lymphocytes % (Manual) (9-44) % Monocytes % (Manual) (0-8) % Metamyelocytes % (Man) (0-1) % Abs Neuts (Manual) (1.8-7.7) th/mm3 Differential Comment Platelet Estimate (Normal) Platelet Morphology (Normal) RBC Morphology (Normal) Puncture Site Patient Temperature O2 Saturation (90-100) % ABG pH (7.380-7.420) ABG pCO2 (38-42) mmHg ABG pO2 (61-120) mmHg ABG HCO3 (22-26) mmol/L ABG O2 Content (12.0-20.0) Vol % ABG Base Excess (-2-2) mmol/L ABG Methemoglobin (0-2) % Yovanny Test Hemoglobin (12.0-16.0) G/DL Carboxyhemoglobin (0-4) % O2 Delivery Device Inspired O2 % Critical Value Sodium (136-145) meq/L Potassium (3.5-5.1) meq/L Chloride (98-107) meq/L Carbon Dioxide (21.0-32.0) meq/L Anion Gap (5-15) meq/L BUN (7-18) mg/dL Creatinine (0.60-1.30) mg/dL Estimated GFR (>89) mL/min POC Glucose 230 H 202 H 175 H (68-110) mg/dl Random Glucose (74-106) mg/dL Hemoglobin A1c (4.3-6.0) % Lactic Acid (0.4-2.0) mmol/L Calcium (8.5-10.1) mg/dL Calcium Adj for Albumin (8.5-10.1) mg/dL Phosphorus (2.5-4.9) mg/dL Magnesium (1.5-2.5) mg/dL Total Bilirubin (0.2-1.0) mg/dL AST (15-37) U/L ALT (12-78) U/L Alkaline Phosphatase (45-117) U/L Ammonia (11-32) mcmol/L Total Creatine Kinase (39-308) U/L CK-MB (CK-2) (0.5-3.6) ng/mL Troponin I (0.02-0.05) ng/mL Total Protein (6.4-8.2) g/dL Albumin (3.4-5.0) g/dL Amylase (25-115) U/L Lipase (73-393) U/L Beta-Hydroxybutyric Acd (0.00-0.39) mmol/L Urine Color (Yellw/Straw) Urine Clarity (Clear) Urine pH (5.0-8.5) Ur Specific [place] (1.002-1.035) Urine Protein (Neg-Trace) mg/dL Urine Glucose (UA) (Negative) mg/dL Urine Ketones (Negative) mg/dL Urine Occult Blood (Negative) Urine Nitrate (Negative) Urine Bilirubin (Negative) Urine Ictotest (Negative) Urine Urobilinogen (Less than 2) mg/dL Ur Leukocyte Esterase (Negative) Micro UA Comment Ur Microscopic Review Urine Culture Comments Nasal Screen MRSA (PCR) (Negative) Urine Opiates Screen (Neg) Ur Barbiturates Screen (Neg) Ur Amphetamines Screen (Neg) U Benzodiazepines Scrn (Neg) Urine Cocaine Screen (Neg) U Cannabinoids Screen (Neg) Serum Alcohol (0-5) mg/dL HIV 1&2 Ab/P24 Ag 4thGn (Nonreactive) 10/18/18 10/18/18 10/18/18 Range/Units 16:55 17:40 18:08 CBC w Diff WBC (4.0-11.0) th/mm3 RBC (4.50-5.90) mil/mm3 Hgb (13.0-17.0) gm/dL Hct (39.0-51.0) % MCV (80.0-100.0) fL MCH (27.0-34.0) pg MCHC (32.0-36.0) % RDW (11.6-17.2) % Plt Count (150-450) th/mm3 MPV (7.0-11.0) fL Neut % (Auto) (16.0-70.0) % Lymph % (Auto) (9.0-44.0) % [place] % (Auto) (0.0-8.0) % Eos % (Auto) (0.0-4.0) % Baso % (Auto) (0.0-2.0) % Neut # (Auto) (1.8-7.7) th/mm3 Lymph # (Auto) (1.0-4.8) th/mm3 [place] # (Auto) (0.0-0.9) th/mm3 Eos # (Auto) (0.0-0.4) th/mm3 Baso # (Auto) (0.0-0.2) th/mm3 WBC Differential Seg Neuts % (Manual) (16-70) % Band Neuts % (Manual) (0-6) % Lymphocytes % (Manual) (9-44) % Monocytes % (Manual) (0-8) % Metamyelocytes % (Man) (0-1) % Abs Neuts (Manual) (1.8-7.7) th/mm3 Differential Comment Platelet Estimate (Normal) Platelet Morphology (Normal) RBC Morphology (Normal) Puncture Site Patient Temperature O2 Saturation (90-100) % ABG pH (7.380-7.420) ABG pCO2 (38-42) mmHg ABG pO2 (61-120) mmHg ABG HCO3 (22-26) mmol/L ABG O2 Content (12.0-20.0) Vol % ABG Base Excess (-2-2) mmol/L ABG Methemoglobin (0-2) % Yovanny Test Hemoglobin (12.0-16.0) G/DL Carboxyhemoglobin (0-4) % O2 Delivery Device Inspired O2 % Critical Value Sodium 135 L D (136-145) meq/L Potassium 3.6 D (3.5-5.1) meq/L Chloride 111 H D (98-107) meq/L Carbon Dioxide 9.0 L (21.0-32.0) meq/L Anion Gap 15 (5-15) meq/L BUN 38 H (7-18) mg/dL Creatinine 1.60 H (0.60-1.30) mg/dL Estimated GFR 49 L (>89) mL/min POC Glucose 210 H 216 H (68-110) mg/dl Random Glucose 211 H D (74-106) mg/dL Hemoglobin A1c (4.3-6.0) % Lactic Acid (0.4-2.0) mmol/L Calcium 7.6 L D (8.5-10.1) mg/dL Calcium Adj for Albumin (8.5-10.1) mg/dL Phosphorus 0.6 L (2.5-4.9) mg/dL Magnesium 1.8 (1.5-2.5) mg/dL Total Bilirubin (0.2-1.0) mg/dL AST (15-37) U/L ALT (12-78) U/L Alkaline Phosphatase (45-117) U/L Ammonia (11-32) mcmol/L Total Creatine Kinase (39-308) U/L CK-MB (CK-2) (0.5-3.6) ng/mL Troponin I (0.02-0.05) ng/mL Total Protein (6.4-8.2) g/dL Albumin (3.4-5.0) g/dL Amylase (25-115) U/L Lipase (73-393) U/L Beta-Hydroxybutyric Acd (0.00-0.39) mmol/L Urine Color (Yellw/Straw) Urine Clarity (Clear) Urine pH (5.0-8.5) Ur Specific [place] (1.002-1.035) Urine Protein (Neg-Trace) mg/dL Urine Glucose (UA) (Negative) mg/dL Urine Ketones (Negative) mg/dL Urine Occult Blood (Negative) Urine Nitrate (Negative) Urine Bilirubin (Negative) Urine Ictotest (Negative) Urine Urobilinogen (Less than 2) mg/dL Ur Leukocyte Esterase (Negative) Micro UA Comment Ur Microscopic Review Urine Culture Comments Nasal Screen MRSA (PCR) (Negative) Urine Opiates Screen (Neg) Ur Barbiturates Screen (Neg) Ur Amphetamines Screen (Neg) U Benzodiazepines Scrn (Neg) Urine Cocaine Screen (Neg) U Cannabinoids Screen (Neg) Serum Alcohol (0-5) mg/dL HIV 1&2 Ab/P24 Ag 4thGn (Nonreactive) 10/18/18 10/18/18 10/18/18 Range/Units 19:10 19:30 20:28 CBC w Diff WBC (4.0-11.0) th/mm3 RBC (4.50-5.90) mil/mm3 Hgb (13.0-17.0) gm/dL Hct (39.0-51.0) % MCV (80.0-100.0) fL MCH (27.0-34.0) pg MCHC (32.0-36.0) % RDW (11.6-17.2) % Plt Count (150-450) th/mm3 MPV (7.0-11.0) fL Neut % (Auto) (16.0-70.0) % Lymph % (Auto) (9.0-44.0) % [place] % (Auto) (0.0-8.0) % Eos % (Auto) (0.0-4.0) % Baso % (Auto) (0.0-2.0) % Neut # (Auto) (1.8-7.7) th/mm3 Lymph # (Auto) (1.0-4.8) th/mm3 [place] # (Auto) (0.0-0.9) th/mm3 Eos # (Auto) (0.0-0.4) th/mm3 Baso # (Auto) (0.0-0.2) th/mm3 WBC Differential Seg Neuts % (Manual) (16-70) % Band Neuts % (Manual) (0-6) % Lymphocytes % (Manual) (9-44) % Monocytes % (Manual) (0-8) % Metamyelocytes % (Man) (0-1) % Abs Neuts (Manual) (1.8-7.7) th/mm3 Differential Comment Platelet Estimate (Normal) Platelet Morphology (Normal) RBC Morphology (Normal) Puncture Site Patient Temperature O2 Saturation (90-100) % ABG pH (7.380-7.420) ABG pCO2 (38-42) mmHg ABG pO2 (61-120) mmHg ABG HCO3 (22-26) mmol/L ABG O2 Content (12.0-20.0) Vol % ABG Base Excess (-2-2) mmol/L ABG Methemoglobin (0-2) % Yovanny Test Hemoglobin (12.0-16.0) G/DL Carboxyhemoglobin (0-4) % O2 Delivery Device Inspired O2 % Critical Value Sodium (136-145) meq/L Potassium (3.5-5.1) meq/L Chloride (98-107) meq/L Carbon Dioxide (21.0-32.0) meq/L Anion Gap (5-15) meq/L BUN (7-18) mg/dL Creatinine (0.60-1.30) mg/dL Estimated GFR (>89) mL/min POC Glucose 188 H 217 H 199 H (68-110) mg/dl Random Glucose (74-106) mg/dL Hemoglobin A1c (4.3-6.0) % Lactic Acid (0.4-2.0) mmol/L Calcium (8.5-10.1) mg/dL Calcium Adj for Albumin (8.5-10.1) mg/dL Phosphorus (2.5-4.9) mg/dL Magnesium (1.5-2.5) mg/dL Total Bilirubin (0.2-1.0) mg/dL AST (15-37) U/L ALT (12-78) U/L Alkaline Phosphatase (45-117) U/L Ammonia (11-32) mcmol/L Total Creatine Kinase (39-308) U/L CK-MB (CK-2) (0.5-3.6) ng/mL Troponin I (0.02-0.05) ng/mL Total Protein (6.4-8.2) g/dL Albumin (3.4-5.0) g/dL Amylase (25-115) U/L Lipase (73-393) U/L Beta-Hydroxybutyric Acd (0.00-0.39) mmol/L Urine Color (Yellw/Straw) Urine Clarity (Clear) Urine pH (5.0-8.5) Ur Specific [place] (1.002-1.035) Urine Protein (Neg-Trace) mg/dL Urine Glucose (UA) (Negative) mg/dL Urine Ketones (Negative) mg/dL Urine Occult Blood (Negative) Urine Nitrate (Negative) Urine Bilirubin (Negative) Urine Ictotest (Negative) Urine Urobilinogen (Less than 2) mg/dL Ur Leukocyte Esterase (Negative) Micro UA Comment Ur Microscopic Review Urine Culture Comments Nasal Screen MRSA (PCR) (Negative) Urine Opiates Screen (Neg) Ur Barbiturates Screen (Neg) Ur Amphetamines Screen (Neg) U Benzodiazepines Scrn (Neg) Urine Cocaine Screen (Neg) U Cannabinoids Screen (Neg) Serum Alcohol (0-5) mg/dL HIV 1&2 Ab/P24 Ag 4thGn (Nonreactive) 10/18/18 10/18/18 10/18/18 Range/Units 21:17 22:19 23:17 CBC w Diff WBC (4.0-11.0) th/mm3 RBC (4.50-5.90) mil/mm3 Hgb (13.0-17.0) gm/dL Hct (39.0-51.0) % MCV (80.0-100.0) fL MCH (27.0-34.0) pg MCHC (32.0-36.0) % RDW (11.6-17.2) % Plt Count (150-450) th/mm3 MPV (7.0-11.0) fL Neut % (Auto) (16.0-70.0) % Lymph % (Auto) (9.0-44.0) % [place] % (Auto) (0.0-8.0) % Eos % (Auto) (0.0-4.0) % Baso % (Auto) (0.0-2.0) % Neut # (Auto) (1.8-7.7) th/mm3 Lymph # (Auto) (1.0-4.8) th/mm3 [place] # (Auto) (0.0-0.9) th/mm3 Eos # (Auto) (0.0-0.4) th/mm3 Baso # (Auto) (0.0-0.2) th/mm3 WBC Differential Seg Neuts % (Manual) (16-70) % Band Neuts % (Manual) (0-6) % Lymphocytes % (Manual) (9-44) % Monocytes % (Manual) (0-8) % Metamyelocytes % (Man) (0-1) % Abs Neuts (Manual) (1.8-7.7) th/mm3 Differential Comment Platelet Estimate (Normal) Platelet Morphology (Normal) RBC Morphology (Normal) Puncture Site Patient Temperature O2 Saturation (90-100) % ABG pH (7.380-7.420) ABG pCO2 (38-42) mmHg ABG pO2 (61-120) mmHg ABG HCO3 (22-26) mmol/L ABG O2 Content (12.0-20.0) Vol % ABG Base Excess (-2-2) mmol/L ABG Methemoglobin (0-2) % Yovanny Test Hemoglobin (12.0-16.0) G/DL Carboxyhemoglobin (0-4) % O2 Delivery Device Inspired O2 % Critical Value Sodium (136-145) meq/L Potassium (3.5-5.1) meq/L Chloride (98-107) meq/L Carbon Dioxide (21.0-32.0) meq/L Anion Gap (5-15) meq/L BUN (7-18) mg/dL Creatinine (0.60-1.30) mg/dL Estimated GFR (>89) mL/min POC Glucose 190 H 188 H 171 H (68-110) mg/dl Random Glucose (74-106) mg/dL Hemoglobin A1c (4.3-6.0) % Lactic Acid (0.4-2.0) mmol/L Calcium (8.5-10.1) mg/dL Calcium Adj for Albumin (8.5-10.1) mg/dL Phosphorus (2.5-4.9) mg/dL Magnesium (1.5-2.5) mg/dL Total Bilirubin (0.2-1.0) mg/dL AST (15-37) U/L ALT (12-78) U/L Alkaline Phosphatase (45-117) U/L Ammonia (11-32) mcmol/L Total Creatine Kinase (39-308) U/L CK-MB (CK-2) (0.5-3.6) ng/mL Troponin I (0.02-0.05) ng/mL Total Protein (6.4-8.2) g/dL Albumin (3.4-5.0) g/dL Amylase (25-115) U/L Lipase (73-393) U/L Beta-Hydroxybutyric Acd (0.00-0.39) mmol/L Urine Color (Yellw/Straw) Urine Clarity (Clear) Urine pH (5.0-8.5) Ur Specific [place] (1.002-1.035) Urine Protein (Neg-Trace) mg/dL Urine Glucose (UA) (Negative) mg/dL Urine Ketones (Negative) mg/dL Urine Occult Blood (Negative) Urine Nitrate (Negative) Urine Bilirubin (Negative) Urine Ictotest (Negative) Urine Urobilinogen (Less than 2) mg/dL Ur Leukocyte Esterase (Negative) Micro UA Comment Ur Microscopic Review Urine Culture Comments Nasal Screen MRSA (PCR) (Negative) Urine Opiates Screen (Neg) Ur Barbiturates Screen (Neg) Ur Amphetamines Screen (Neg) U Benzodiazepines Scrn (Neg) Urine Cocaine Screen (Neg) U Cannabinoids Screen (Neg) Serum Alcohol (0-5) mg/dL HIV 1&2 Ab/P24 Ag 4thGn (Nonreactive) 10/19/18 10/19/18 10/19/18 Range/Units 00:43 01:00 01:00 CBC w Diff Slide review pending WBC 11.2 H (4.0-11.0) th/mm3 RBC 4.99 (4.50-5.90) mil/mm3 Hgb 14.7 D (13.0-17.0) gm/dL Hct 44.3 (39.0-51.0) % MCV 88.8 (80.0-100.0) fL MCH 29.5 (27.0-34.0) pg MCHC 33.3 (32.0-36.0) % RDW 12.9 (11.6-17.2) % Plt Count 125 L D (150-450) th/mm3 MPV 8.9 (7.0-11.0) fL Neut % (Auto) 90.3 H (16.0-70.0) % Lymph % (Auto) 5.5 L (9.0-44.0) % [place] % (Auto) 2.5 (0.0-8.0) % Eos % (Auto) 1.6 (0.0-4.0) % Baso % (Auto) 0.1 (0.0-2.0) % Neut # (Auto) 10.1 H (1.8-7.7) th/mm3 Lymph # (Auto) 0.6 L (1.0-4.8) th/mm3 [place] # (Auto) 0.3 (0.0-0.9) th/mm3 Eos # (Auto) 0.2 (0.0-0.4) th/mm3 Baso # (Auto) 0.0 (0.0-0.2) th/mm3 WBC Differential Manual diff final Seg Neuts % (Manual) 74 H (16-70) % Band Neuts % (Manual) 10 H (0-6) % Lymphocytes % (Manual) 3 L (9-44) % Monocytes % (Manual) 4 (0-8) % Metamyelocytes % (Man) 9 H (0-1) % Abs Neuts (Manual) 10.4 H (1.8-7.7) th/mm3 Differential Comment . Platelet Estimate Low L (Normal) Platelet Morphology Normal (Normal) RBC Morphology Normal (Normal) Puncture Site Patient Temperature O2 Saturation (90-100) % ABG pH (7.380-7.420) ABG pCO2 (38-42) mmHg ABG pO2 (61-120) mmHg ABG HCO3 (22-26) mmol/L ABG O2 Content (12.0-20.0) Vol % ABG Base Excess (-2-2) mmol/L ABG Methemoglobin (0-2) % Yovanny Test Hemoglobin (12.0-16.0) G/DL Carboxyhemoglobin (0-4) % O2 Delivery Device Inspired O2 % Critical Value Sodium 141 (136-145) meq/L Potassium 2.9 L* (3.5-5.1) meq/L Chloride 115 H (98-107) meq/L Carbon Dioxide 14.0 L (21.0-32.0) meq/L Anion Gap 12 (5-15) meq/L BUN 31 H (7-18) mg/dL Creatinine 1.30 (0.60-1.30) mg/dL Estimated GFR 62 L (>89) mL/min POC Glucose 183 H (68-110) mg/dl Random Glucose 182 H (74-106) mg/dL Hemoglobin A1c (4.3-6.0) % Lactic Acid (0.4-2.0) mmol/L Calcium 7.1 L* (8.5-10.1) mg/dL Calcium Adj for Albumin 8.4 L (8.5-10.1) mg/dL Phosphorus 5.1 H D (2.5-4.9) mg/dL Magnesium 1.6 (1.5-2.5) mg/dL Total Bilirubin (0.2-1.0) mg/dL AST (15-37) U/L ALT (12-78) U/L Alkaline Phosphatase (45-117) U/L Ammonia (11-32) mcmol/L Total Creatine Kinase 45 (39-308) U/L CK-MB (CK-2) (0.5-3.6) ng/mL Troponin I (0.02-0.05) ng/mL Total Protein (6.4-8.2) g/dL Albumin 2.4 L D (3.4-5.0) g/dL Amylase 135 H (25-115) U/L Lipase 228 (73-393) U/L Beta-Hydroxybutyric Acd 0.52 H (0.00-0.39) mmol/L Urine Color (Yellw/Straw) Urine Clarity (Clear) Urine pH (5.0-8.5) Ur Specific [place] (1.002-1.035) Urine Protein (Neg-Trace) mg/dL Urine Glucose (UA) (Negative) mg/dL Urine Ketones (Negative) mg/dL Urine Occult Blood (Negative) Urine Nitrate (Negative) Urine Bilirubin (Negative) Urine Ictotest (Negative) Urine Urobilinogen (Less than 2) mg/dL Ur Leukocyte Esterase (Negative) Micro UA Comment Ur Microscopic Review Urine Culture Comments Nasal Screen MRSA (PCR) (Negative) Urine Opiates Screen (Neg) Ur Barbiturates Screen (Neg) Ur Amphetamines Screen (Neg) U Benzodiazepines Scrn (Neg) Urine Cocaine Screen (Neg) U Cannabinoids Screen (Neg) Serum Alcohol (0-5) mg/dL HIV 1&2 Ab/P24 Ag 4thGn (Nonreactive) 10/19/18 10/19/18 10/19/18 Range/Units 01:00 01:00 02:27 CBC w Diff WBC (4.0-11.0) th/mm3 RBC (4.50-5.90) mil/mm3 Hgb (13.0-17.0) gm/dL Hct (39.0-51.0) % MCV (80.0-100.0) fL MCH (27.0-34.0) pg MCHC (32.0-36.0) % RDW (11.6-17.2) % Plt Count (150-450) th/mm3 MPV (7.0-11.0) fL Neut % (Auto) (16.0-70.0) % Lymph % (Auto) (9.0-44.0) % [place] % (Auto) (0.0-8.0) % Eos % (Auto) (0.0-4.0) % Baso % (Auto) (0.0-2.0) % Neut # (Auto) (1.8-7.7) th/mm3 Lymph # (Auto) (1.0-4.8) th/mm3 [place] # (Auto) (0.0-0.9) th/mm3 Eos # (Auto) (0.0-0.4) th/mm3 Baso # (Auto) (0.0-0.2) th/mm3 WBC Differential Seg Neuts % (Manual) (16-70) % Band Neuts % (Manual) (0-6) % Lymphocytes % (Manual) (9-44) % Monocytes % (Manual) (0-8) % Metamyelocytes % (Man) (0-1) % Abs Neuts (Manual) (1.8-7.7) th/mm3 Differential Comment Platelet Estimate (Normal) Platelet Morphology (Normal) RBC Morphology (Normal) Puncture Site Patient Temperature O2 Saturation (90-100) % ABG pH (7.380-7.420) ABG pCO2 (38-42) mmHg ABG pO2 (61-120) mmHg ABG HCO3 (22-26) mmol/L ABG O2 Content (12.0-20.0) Vol % ABG Base Excess (-2-2) mmol/L ABG Methemoglobin (0-2) % Yovanny Test Hemoglobin (12.0-16.0) G/DL Carboxyhemoglobin (0-4) % O2 Delivery Device Inspired O2 % Critical Value Sodium (136-145) meq/L Potassium (3.5-5.1) meq/L Chloride (98-107) meq/L Carbon Dioxide (21.0-32.0) meq/L Anion Gap (5-15) meq/L BUN (7-18) mg/dL Creatinine (0.60-1.30) mg/dL Estimated GFR (>89) mL/min POC Glucose 162 H (68-110) mg/dl Random Glucose (74-106) mg/dL Hemoglobin A1c (4.3-6.0) % Lactic Acid 1.1 (0.4-2.0) mmol/L Calcium (8.5-10.1) mg/dL Calcium Adj for Albumin (8.5-10.1) mg/dL Phosphorus (2.5-4.9) mg/dL Magnesium (1.5-2.5) mg/dL Total Bilirubin (0.2-1.0) mg/dL AST (15-37) U/L ALT (12-78) U/L Alkaline Phosphatase (45-117) U/L Ammonia 48 H (11-32) mcmol/L Total Creatine Kinase (39-308) U/L CK-MB (CK-2) (0.5-3.6) ng/mL Troponin I (0.02-0.05) ng/mL Total Protein (6.4-8.2) g/dL Albumin (3.4-5.0) g/dL Amylase (25-115) U/L Lipase (73-393) U/L Beta-Hydroxybutyric Acd (0.00-0.39) mmol/L Urine Color (Yellw/Straw) Urine Clarity (Clear) Urine pH (5.0-8.5) Ur Specific [place] (1.002-1.035) Urine Protein (Neg-Trace) mg/dL Urine Glucose (UA) (Negative) mg/dL Urine Ketones (Negative) mg/dL Urine Occult Blood (Negative) Urine Nitrate (Negative) Urine Bilirubin (Negative) Urine Ictotest (Negative) Urine Urobilinogen (Less than 2) mg/dL Ur Leukocyte Esterase (Negative) Micro UA Comment Ur Microscopic Review Urine Culture Comments Nasal Screen MRSA (PCR) (Negative) Urine Opiates Screen (Neg) Ur Barbiturates Screen (Neg) Ur Amphetamines Screen (Neg) U Benzodiazepines Scrn (Neg) Urine Cocaine Screen (Neg) U Cannabinoids Screen (Neg) Serum Alcohol (0-5) mg/dL HIV 1&2 Ab/P24 Ag 4thGn (Nonreactive) 10/19/18 10/19/18 10/19/18 Range/Units 03:25 04:16 05:03 CBC w Diff WBC (4.0-11.0) th/mm3 RBC (4.50-5.90) mil/mm3 Hgb (13.0-17.0) gm/dL Hct (39.0-51.0) % MCV (80.0-100.0) fL MCH (27.0-34.0) pg MCHC (32.0-36.0) % RDW (11.6-17.2) % Plt Count (150-450) th/mm3 MPV (7.0-11.0) fL Neut % (Auto) (16.0-70.0) % Lymph % (Auto) (9.0-44.0) % [place] % (Auto) (0.0-8.0) % Eos % (Auto) (0.0-4.0) % Baso % (Auto) (0.0-2.0) % Neut # (Auto) (1.8-7.7) th/mm3 Lymph # (Auto) (1.0-4.8) th/mm3 [place] # (Auto) (0.0-0.9) th/mm3 Eos # (Auto) (0.0-0.4) th/mm3 Baso # (Auto) (0.0-0.2) th/mm3 WBC Differential Seg Neuts % (Manual) (16-70) % Band Neuts % (Manual) (0-6) % Lymphocytes % (Manual) (9-44) % Monocytes % (Manual) (0-8) % Metamyelocytes % (Man) (0-1) % Abs Neuts (Manual) (1.8-7.7) th/mm3 Differential Comment Platelet Estimate (Normal) Platelet Morphology (Normal) RBC Morphology (Normal) Puncture Site Patient Temperature O2 Saturation (90-100) % ABG pH (7.380-7.420) ABG pCO2 (38-42) mmHg ABG pO2 (61-120) mmHg ABG HCO3 (22-26) mmol/L ABG O2 Content (12.0-20.0) Vol % ABG Base Excess (-2-2) mmol/L ABG Methemoglobin (0-2) % Yovanny Test Hemoglobin (12.0-16.0) G/DL Carboxyhemoglobin (0-4) % O2 Delivery Device Inspired O2 % Critical Value Sodium (136-145) meq/L Potassium (3.5-5.1) meq/L Chloride (98-107) meq/L Carbon Dioxide (21.0-32.0) meq/L Anion Gap (5-15) meq/L BUN (7-18) mg/dL Creatinine (0.60-1.30) mg/dL Estimated GFR (>89) mL/min POC Glucose 165 H 135 H 183 H (68-110) mg/dl Random Glucose (74-106) mg/dL Hemoglobin A1c (4.3-6.0) % Lactic Acid (0.4-2.0) mmol/L Calcium (8.5-10.1) mg/dL Calcium Adj for Albumin (8.5-10.1) mg/dL Phosphorus (2.5-4.9) mg/dL Magnesium (1.5-2.5) mg/dL Total Bilirubin (0.2-1.0) mg/dL AST (15-37) U/L ALT (12-78) U/L Alkaline Phosphatase (45-117) U/L Ammonia (11-32) mcmol/L Total Creatine Kinase (39-308) U/L CK-MB (CK-2) (0.5-3.6) ng/mL Troponin I (0.02-0.05) ng/mL Total Protein (6.4-8.2) g/dL Albumin (3.4-5.0) g/dL Amylase (25-115) U/L Lipase (73-393) U/L Beta-Hydroxybutyric Acd (0.00-0.39) mmol/L Urine Color (Yellw/Straw) Urine Clarity (Clear) Urine pH (5.0-8.5) Ur Specific [place] (1.002-1.035) Urine Protein (Neg-Trace) mg/dL Urine Glucose (UA) (Negative) mg/dL Urine Ketones (Negative) mg/dL Urine Occult Blood (Negative) Urine Nitrate (Negative) Urine Bilirubin (Negative) Urine Ictotest (Negative) Urine Urobilinogen (Less than 2) mg/dL Ur Leukocyte Esterase (Negative) Micro UA Comment Ur Microscopic Review Urine Culture Comments Nasal Screen MRSA (PCR) (Negative) Urine Opiates Screen (Neg) Ur Barbiturates Screen (Neg) Ur Amphetamines Screen (Neg) U Benzodiazepines Scrn (Neg) Urine Cocaine Screen (Neg) U Cannabinoids Screen (Neg) Serum Alcohol (0-5) mg/dL HIV 1&2 Ab/P24 Ag 4thGn (Nonreactive) 10/19/18 10/19/18 Range/Units 06:09 06:25 CBC w Diff WBC (4.0-11.0) th/mm3 RBC (4.50-5.90) mil/mm3 Hgb (13.0-17.0) gm/dL Hct (39.0-51.0) % MCV (80.0-100.0) fL MCH (27.0-34.0) pg MCHC (32.0-36.0) % RDW (11.6-17.2) % Plt Count (150-450) th/mm3 MPV (7.0-11.0) fL Neut % (Auto) (16.0-70.0) % Lymph % (Auto) (9.0-44.0) % [place] % (Auto) (0.0-8.0) % Eos % (Auto) (0.0-4.0) % Baso % (Auto) (0.0-2.0) % Neut # (Auto) (1.8-7.7) th/mm3 Lymph # (Auto) (1.0-4.8) th/mm3 [place] # (Auto) (0.0-0.9) th/mm3 Eos # (Auto) (0.0-0.4) th/mm3 Baso # (Auto) (0.0-0.2) th/mm3 WBC Differential Seg Neuts % (Manual) (16-70) % Band Neuts % (Manual) (0-6) % Lymphocytes % (Manual) (9-44) % Monocytes % (Manual) (0-8) % Metamyelocytes % (Man) (0-1) % Abs Neuts (Manual) (1.8-7.7) th/mm3 Differential Comment Platelet Estimate (Normal) Platelet Morphology (Normal) RBC Morphology (Normal) Puncture Site Patient Temperature O2 Saturation (90-100) % ABG pH (7.380-7.420) ABG pCO2 (38-42) mmHg ABG pO2 (61-120) mmHg ABG HCO3 (22-26) mmol/L ABG O2 Content (12.0-20.0) Vol % ABG Base Excess (-2-2) mmol/L ABG Methemoglobin (0-2) % Yovanny Test Hemoglobin (12.0-16.0) G/DL Carboxyhemoglobin (0-4) % O2 Delivery Device Inspired O2 % Critical Value Sodium (136-145) meq/L Potassium (3.5-5.1) meq/L Chloride (98-107) meq/L Carbon Dioxide (21.0-32.0) meq/L Anion Gap (5-15) meq/L BUN (7-18) mg/dL Creatinine (0.60-1.30) mg/dL Estimated GFR (>89) mL/min POC Glucose 194 H 182 H (68-110) mg/dl Random Glucose (74-106) mg/dL Hemoglobin A1c (4.3-6.0) % Lactic Acid (0.4-2.0) mmol/L Calcium (8.5-10.1) mg/dL Calcium Adj for Albumin (8.5-10.1) mg/dL Phosphorus (2.5-4.9) mg/dL Magnesium (1.5-2.5) mg/dL Total Bilirubin (0.2-1.0) mg/dL AST (15-37) U/L ALT (12-78) U/L Alkaline Phosphatase (45-117) U/L Ammonia (11-32) mcmol/L Total Creatine Kinase (39-308) U/L CK-MB (CK-2) (0.5-3.6) ng/mL Troponin I (0.02-0.05) ng/mL Total Protein (6.4-8.2) g/dL Albumin (3.4-5.0) g/dL Amylase (25-115) U/L Lipase (73-393) U/L Beta-Hydroxybutyric Acd (0.00-0.39) mmol/L Urine Color (Yellw/Straw) Urine Clarity (Clear) Urine pH (5.0-8.5) Ur Specific [place] (1.002-1.035) Urine Protein (Neg-Trace) mg/dL Urine Glucose (UA) (Negative) mg/dL Urine Ketones (Negative) mg/dL Urine Occult Blood (Negative) Urine Nitrate (Negative) Urine Bilirubin (Negative) Urine Ictotest (Negative) Urine Urobilinogen (Less than 2) mg/dL Ur Leukocyte Esterase (Negative) Micro UA Comment Ur Microscopic Review Urine Culture Comments Nasal Screen MRSA (PCR) (Negative) Urine Opiates Screen (Neg) Ur Barbiturates Screen (Neg) Ur Amphetamines Screen (Neg) U Benzodiazepines Scrn (Neg) Urine Cocaine Screen (Neg) U Cannabinoids Screen (Neg) Serum Alcohol (0-5) mg/dL HIV 1&2 Ab/P24 Ag 4thGn (Nonreactive) Imaging Data Radiologist's impression: Chest X-Ray 10/18/18 09:42 CONCLUSION: Bilateral airspace process is highly suspicious for pneumonia. The appearance is however nonspecific. Discharge Plan Discharge Disposition Patient Disposition: ED Admit(ED Internal Use Only) Discharge Order Discharge Orders: ED Use Only Admit Order (Routine); Ordered 10/18/18 Ordered By: Cedric Love Physicians Team ED Provider: Cedric Love Primary Care Provider: Primary Care Cayla Jay Attending Provider: Preston Baez Status ED Status: Left Department Discharge Information Discharge Date/Time: 10/18/18 14:07
[2018-10-18] MEDS ORDERED: Piperacil/Tazo 3.375 GM Premix 3.375 GM/50 ML PIGGYBACK IV.SIG ONE (11:51)
[2018-10-18] MEDS ORDERED: Sod Chloride 0.9% Inj 1,000 ML IV.SIG ONE (12:24)
[2018-10-18] MEDS ORDERED: Acetaminophen 325 MG Tablet PO PRN ×2 (12:40→13:28)
[2018-10-18] MEDS ORDERED: Bisacodyl 10 MG Supp RECTAL PRN (12:40)
[2018-10-18] MEDS ORDERED: Potassium Chlor 20 mEq Premix 20 MEQ/100 ML PIGGYBACK IV.SIG PRN ×5 (12:44)
[2018-10-18] MEDS ORDERED: Potassium Chlor 40 mEq Premix 40 MEQ/100 ML PIGGYBACK IV.SIG PRN ×3 (12:44→13:34)
[2018-10-18] MEDS ORDERED: Insulin Regular (For Infusion) 100 UNIT in Sodium Chlor 0.9% Inj 99 ML IV.CONT PRN (12:44)
[2018-10-18] MEDS ORDERED: Sodium Phosphate Inj 15 MMOL in Sodium Chlor 0.9% Inj 100 ML IV.SIG PRN ×2 (12:44→13:29)
--- NOTE | 2018-10-18 12:54 | P.HPCC ---
History of Present Illness Service: Critical care medicine Primary Care Physician: No Primary Care Physician Chief Complaint: Week/high blood sugar History of Present Illness: a history of diabetes here for evaluation of generalized weakness and excessive breathing. He had DKA multiple times in the past, he says he has been using his insulin but has taken lower dose than usual because he is worried that he is going to run out. He has been feeling weak for the last 3 days, thirsty, has been drinking lots of water but has low urine output, he has no fever chills or night sweats no cough or runny nose or any other complaints. Related Data - Diagnosis (1) Hyponatremia (2) Hyperkalemia (3) Acute kidney injury (4) Elevated lipase (5) Leukocytosis (6) Community acquired pneumonia (7) Hx of diabetes mellitus (8) DKA (diabetic ketoacidoses) Inpatient Certification: I certify that the inpatient services were ordered in accordance with Medicare regulations governing the order. This includes certification that hospital inpatient services are reasonable and necessary and in the case of services not specified as inpatient-only under 42 CFR 419.22(n), that they are appropriately provided as inpatient services in accordance to with the 2-midnight benchmark under 43 CFR 412.3(e) Estimated Total Length of Stay (Days): 5 Plans for Post Hospital Care: Home Review of Systems Constitutional: Reports body ache(s), Reports weakness, Reports weight loss, Denies anorexia, Denies chills, Denies weight gain Eyes: Denies blind spots, Denies blurry vision, Denies bulging eyes, Denies dry eyes Ears, Nose, Mouth, and Throat: Reports bad breath, Denies abnormal hearing, Denies bleeding gums, Denies post nasal drip Cardiovascular: Denies chest pain, Denies chest pain at rest, Denies shortness of breath, Denies shortness of breath with activity, Denies shortness of breath when lying down Respiratory: Denies chest congestion, Denies cough, Denies coughing up blood Gastrointestinal: Reports abdominal pain, Reports nausea, Denies belching, Denies black, tarry stools, Denies pain with swallowing, Denies vomiting Genitourinary: Denies urinary hesitancy, Denies urinary incontinence Musculoskeletal: Denies abnormal walking, Denies back pain Skin/Breast: Denies acne, Denies redness, Denies unusual bruising Neurologic: Denies abnormal hearing, Denies abnormal movements, Denies tremor(s) Psychiatric: Reports anxiety, Denies confusion, Denies depression Endocrine: Denies cold intolerance, Denies excessive sweating Hematologic/Lymphatic: Denies easy bleeding, Denies easy bruising Allergic/Immunologic: Denies GI upset with certain foods PMFSH - History History Provided By: Patient, Family Member - Medical History Medical History: Medical History (Last Reviewed 10/18/18 @ 12:33 by Preston Baez MD) Insulin dependent diabetes mellitus - Surgical History Surgical History: Surgical History (Last Reviewed 10/18/18 @ 12:33 by Preston Baez MD) History of bilateral inguinal hernia repair - Family History Family History: Family History (Last Reviewed 10/18/18 @ 12:33 by Preston Baez MD) Other Family history of diabetes mellitus - Tobacco History Second Hand Smoke Exposure: Yes Tobacco Use In Past 30 Days: Yes Smoking Status: Current every day smoker Tobacco Type: Cigarettes - Alcohol History How Often Do You Have a Drink Containing Alcohol: 2 to 4 times a month - Substance Use History Substance History: No History of Abuse - Travel History Recent Travel in the [place] Within the Last 8 Weeks: No Recent Travel Out of the Country Within the Last 8 Weeks: No - Immunization History Tetanus Immunization: >5 Years Medications and Allergies Active Medications: Active Medications Acetaminophen (Tylenol) 650 mg PO Q6H PRN PRN Reason: Fever >101f Hydrocodone Bitart/Acetaminophen (Homer 5/325) 1 tab PO Q4H PRN PRN Reason: PAIN SCALE 1 TO 5 Al Hydroxide/Mg Hydroxide (Milk Of Magnadam Liq) 30 ml PO Q12H PRN PRN Reason: Mild Constipation Albuterol (Albuterol Neb (Tisha)) 2.5 mg NEB Q2HR NEB PRN PRN Reason: SHORTNESS OF BREATH/WHEEZING Bisacodyl (Dulcolax Supp) 10 mg RECTAL DAILY PRN PRN Reason: SEVERE CONSITIPATION Chlorhexidine Gluconate (Chlorhexidine 2% Cloth) 3 pack TOPICAL DAILY@0400 TISHA Stop: 10/24/18 03:59 Chlorhexidine Gluconate (Chlorhexidine 2% Cloth) 3 pack TOPICAL DAILY@0400 PRN PRN Reason: Extra cloth needed Stop: 10/24/18 03:59 Chlorhexidine Gluconate (Chlorhexidine 2% Cloth) 3 pack TOPICAL DAILY@0400 TISHA Stop: 10/24/18 03:59 Chlorhexidine Gluconate (Chlorhexidine 2% Cloth) 3 pack TOPICAL DAILY@0400 PRN PRN Reason: Extra cloth needed Stop: 10/24/18 03:59 Dextrose (D50w Vial) 50 ml IV.PUSH UNSCH PRN PRN Reason: PER HYPOGLYCEMIA PROTOCOL Heparin Sodium (Porcine) (Heparin Inj) 5,000 units SQ Q12H TISHA Sodium Bicarbonate 100 meq/ (Dextrose) 1,000 mls @ 100 mls/hr IV.CONT .Q10H [facility] Last Admin: 10/18/18 11:23 Dose: Not Given Dextrose/Sodium Chloride (D5w/Normal Saline Inj) 1,000 mls @ 200 mls/hr IV.CONT .Q5H [facility] Insulin Human Regular 100 unit (/ Sodium Chloride) 100 mls @ 6 mls/hr IV.CONT TITRATE PRN; Protocol PRN Reason: See protocol Sodium Chloride (Ns Inj) 1,000 mls @ 250 mls/hr IV.CONT .Q4H [facility] Potassium Chloride (Kcl 40 Meq Premix Inj) 40 meq in 100 mls @ 50 mls/hr IV.SIG Q2H PRN PRN Reason: for Subsequent K+ < 3.5 Potassium Chloride (Kcl 20 Meq Premix Inj) 20 meq in 100 mls @ 100 mls/hr IV.SIG Q1H PRN PRN Reason: for K+ 3.5 to 4.4 Potassium Chloride (Kcl 20 Meq Premix Inj) 20 meq in 100 mls @ 100 mls/hr IV.SIG Q1H PRN PRN Reason: for K+ 4.5 to 5 Potassium Chloride (Kcl 20 Meq Premix Inj) 20 meq in 100 mls @ 50 mls/hr IV.SIG Q2H PRN PRN Reason: for Initial K+ ONLY < 3.5 Potassium Chloride (Kcl 20 Meq Premix Inj) 20 meq in 100 mls @ 50 mls/hr IV.SIG Q2H PRN PRN Reason: for Subsequent K+ < 3.5 Potassium Chloride (Kcl 20 Meq Premix Inj) 20 meq in 100 mls @ 50 mls/hr IV.SIG Q2H PRN PRN Reason: for K+ 3.5 to 4.4 Potassium Chloride (Kcl 20 Meq Premix Inj) 20 meq in 100 mls @ 50 mls/hr IV.SIG Q2H PRN PRN Reason: for K+ 4.5 to 5 Sodium Phosphate 15 mmol/ (Sodium Chloride) 105 mls @ 25 mls/hr IV.SIG UNSCH PRN PRN Reason: for Phosphate Level < 1.0 Potassium Chloride (Kcl 40 Meq Premix Inj) 40 meq in 100 mls @ 100 mls/hr IV.SIG Q1H PRN PRN Reason: for Initial K+ ONLY < 3.5 Lactulose (Lactulose Liq) 30 ml PO DAILY PRN PRN Reason: SEVERE CONSITIPATION Morphine Sulfate (Morphine Inj) 2 mg IV.PUSH Q2H PRN PRN Reason: PAIN SCALE 6 TO 10 Ondansetron HCl (Zofran Inj) 4 mg IV.PUSH Q6H PRN PRN Reason: NAUSEA OR VOMITING Pantoprazole Sodium (Protonix Inj) 40 mg IV.PUSH DAILY TISHA Senna/Docusate Sodium (Clover-Colace) 1 tab PO BID TISHA Sennosides (Senokot) 17.2 mg PO Q12H PRN PRN Reason: Moderate Constipation Sodium Bicarbonate (Sodium Bicarbonate 8.4% Inj) 50 meq IV.PUSH UNSCH PRN PRN Reason: for pH 6.9 to 7.0 Sodium Bicarbonate (Sodium Bicarbonate 8.4% Inj) 100 meq IV.PUSH UNSCH PRN PRN Reason: for pH less than 6.9 Sodium Chloride (Ns Flush) 2 ml IV.FLUSH BID TISHA Sodium Chloride (Ns Flush) 2 ml IV.FLUSH PRN PRN PRN Reason: FLUSH AFTER USING IV ACCESS Allergies Allergy/AdvReac Type Severity Reaction Status Date / Time Sulfa (Sulfonamide Allergy Severe Hives and Verified 10/18/18 09:45 Antibiotics) seizures Results - Labs CBC & Chem 7: 10/18/18 09:58 10/18/18 09:58 Labs: Short CBC 10/18/18 Range/Units 09:58 WBC 22.2 H (4.0-11.0) th/mm3 Hgb 17.0 (13.0-17.0) gm/dL Hct 54.0 H (39.0-51.0) % Plt Count 222 (150-450) th/mm3 BMP 10/18/18 09:58 Sodium 124 L* Potassium 5.3 H Chloride 94 L Carbon Dioxide 4.1 L BUN 43 H Creatinine 1.90 H Calcium 8.6 Cardiac Enzymes 10/18/18 Range/Units 09:58 Total Creatine Kinase 101 (39-308) U/L CK-MB (CK-2) 4.6 H (0.5-3.6) ng/mL Troponin I Less than 0.02 L (0.02-0.05) ng/mL Liver Function 10/18/18 Range/Units 09:58 Total Bilirubin 0.6 (0.2-1.0) mg/dL AST 41 H (15-37) U/L ALT 24 (12-78) U/L Alkaline Phosphatase 151 H (45-117) U/L Albumin 4.3 (3.4-5.0) g/dL Urine 10/18/18 Range/Units 10:54 Urine Color Yellow (Yellw/Straw) Urine Clarity Clear (Clear) Urine pH 5.5 (5.0-8.5) Ur Specific Emma Greater/equal 1.030 (1.002-1.035) Urine Protein 100 H (Neg-Trace) mg/dL Urine Glucose (UA) 1000 or greater H (Negative) mg/dL - Imaging Impressions Chest X-Ray 10/18/18 09:42 CONCLUSION: Bilateral airspace process is highly suspicious for pneumonia. The appearance is however nonspecific. Exam Vital signs: Vital Signs 10/18/18 09:42 10/18/18 10:48 10/18/18 11:25 Pulse Rate 110 H 120 H 117 H Respiratory Rate 24 24 22 Blood Pressure 167/81 H 170/69 H 136/62 Pulse Oximetry 95 96 10/18/18 12:27 Pulse Rate 107 H Respiratory Rate 30 H Blood Pressure 160/80 H Pulse Oximetry 98 Intake & Output 10/17/18 10/18/18 10/18/18 18:59 06:59 18:59 Intake Total 1999 Balance 1999 Weight 61.4 kg Intake: IV 1999 NS Inj 1,000 ML @ 2000 mls/hr 1999 IV.SIG Q30M [facility] Rx#:[id number] - Routine HEENT Exam Head: Present: normocephalic, atraumatic Eye: Present: EOMI, PERRL, normal accommodation ENT: Present: mucous membranes dry. Absent: mucous membranes moist - Routine Neck Exam Present: supple, full ROM. Absent: JVD - Routine Chest/Breast/Axilla Exam Chest wall: Absent: tenderness Breast: Absent: tenderness Axillae: Absent: lymphadenopathy - Routine Respiratory Exam Present: respiratory distress. Absent: wheezes, crackles, distant breath sounds - Routine Cardiovascular Exam Present: S1, S2, tachycardia. Absent: murmur - Routine Abdominal Exam Present: soft, normoactive bowel sounds, tenderness. Absent: guarding, rigid - Routine Extremities Exam Absent: cyanosis, clubbing, edema - Routine Skin Exam Present: intact - Routine Neurological Exam Present: alert, oriented X3, CN II-XII intact. Absent: sensory deficit, motor deficit Septic Shock Reassessment Septic shock perfusion: reassessment completed Caprini VTE Risk Assessment Caprini VTE Risk Assessment: No/Low Risk (score <= 1) Caprini Risk Assessment Model: Point Value = 1 Point Value = 2 Point Value = 3 Point Value = 5 Age 41-60 Minor surgery BMI > 25 kg/m2 Swollen legs Varicose veins or History of unexplained or recurrent spontaneous Oral contraceptives or hormone replacement Sepsis (< 1 month) Serious lung disease, including pneumonia (< 1 month) Abnormal pulmonary function Acute myocardial infarction Congestive heart failure (< 1 month) History of inflammatory bowel disease Medical patient at bed rest Age 61-74 Arthroscopic surgery Major open surgery (> 45 min) Laparoscopic surgery (> 45 min) Malignancy Confined to bed (> 72 hours) Immobilizing plaster cast Central venous access Age >= 75 History of VTE Family history of VTE Factor V Leiden Prothrombin [id number] Lupus anticoagulant Anticardiolipin antibodies Elevated serum homocysteine Heparin-induced thrombocytopenia Other congenital or acquired thrombophilia Stroke (< 1 month) Elective arthroplasty Hip, pelvis, or leg fracture Acute spinal cord injury (< 1 month) Prophylaxis Regimen: Total Risk Factor Score Risk Level Prophylaxis Regimen 0-1 Low Early ambulation 2 Moderate Order ONE of the following: *Sequential Compression Device (SCD) *Heparin 5000 units SQ BID 3-4 Higher Order ONE of the following medications: *Heparin 5000 units SQ TID *Enoxaparin/Lovenox 40 mg SQ daily (WT < 150 kg, CrCl > 30 mL/min) *Enoxaparin/Lovenox 30 mg SQ daily (WT < 150 kg, CrCl > 10-29 mL/min) *Enoxaparin/Lovenox 30 mg SQ BID (WT < 150 kg, CrCl > 30 mL/min) AND/OR *Sequential Compression Device (SCD) 5 or more Highest Order ONE of the following medications: *Heparin 5000 units SQ TID (Preferred with Epidurals) *Enoxaparin/Lovenox 40 mg SQ daily (WT < 150 kg, CrCl > 30 mL/min) *Enoxaparin/Lovenox 30 mg SQ daily (WT < 150 kg, CrCl > 10-29 mL/min) *Enoxaparin/Lovenox 30 mg SQ BID (WT < 150 kg, CrCl > 30 mL/min) AND *Sequential Compression Device (SCD) Assessment and Plan - Problem List (1) Hyponatremia Code(s): E87.1 - Hypo-osmolality and hyponatremia Status: Acute (2) Hyperkalemia Code(s): E87.5 - Hyperkalemia Status: Acute (3) Acute kidney injury Code(s): N17.9 - Acute kidney failure, unspecified Status: Acute (4) Elevated lipase Code(s): R74.8 - Abnormal levels of other serum enzymes Status: Acute (5) Leukocytosis Code(s): D72.829 - Elevated white blood cell count, unspecified Status: Acute (6) Community acquired pneumonia Code(s): J18.9 - Pneumonia, unspecified organism Status: Acute (7) Hx of diabetes mellitus Code(s): Z86.39 - Personal history of other endocrine, nutritional and metabolic disease Status: Acute (8) DKA (diabetic ketoacidoses) Code(s): E13.10 - Other specified diabetes mellitus with ketoacidosis without coma Status: Acute - Assessment and Plan Plan: Neuro/Psych: Acetaminophen 650 mg p.o. every 6 hours as needed fever Hydrocodone/acetaminophen 5/325 1 tablet every 4 hours as needed pain 1 through 5 Morphine sulfate 2 mg IV every 2 hours as needed pain 6 or 10 CV: Sinus tachycardia Active crystalloid resuscitation. Secondary to dehydration. Currently not requiring vasopressors and her anti-pretenses Review EKG and troponin Currently hypertensive. We will add as needed labetalol, hydralazine Nitropaste Resp: Acute restaurant insufficiency secondary to underlying metabolic derangement/DKA Nasal cannula to maintain saturations greater than equal to 90% Incentive spirometry while awake As needed albuterol aerosols every 2 hours as needed Follow-up on chest x-ray in a.m. GI: Elevated lipase Pantoprazole for GI prophylaxis Docusate serum/senna 1 tablet twice daily for bowel regimen N.p.o. status Recheck BMP in a.m. : No indication for Leblanc catheter Endo: DKA History of IDDM Received 6 units R insulin the ED. Currently drip at 4 units an hour DKA protocol initiated Received 3 L normal saline wide open Currently on normal saline at 250 cc an hour. Transition to D5 normal saline when blood sugar less than 250 at 200 cc an hour Beta hydroxybutyrate pending. Hemoglobin A1c pending Home medication is NPH 15 units twice daily and sliding scale Novolin R with meals Check BMP, mag and phosphorus every 6 hours with pediatrics p.o. every 12 hours Renal: Acute kidney injury Monitor urine output Accurate I's and O's Avoid nephrotoxic medication BMPs every 6 hours along with magnesium/phosphorus Heme: Leukocytosis Monitor CBC daily. Follow trends. No indication for transfusion of blood products at this time. ID: Community acquired pneumonia Received 1 dose of Pipracil/tazobactam the ED. We will start on ceftriaxone and azithromycin Blood cultures x2, sputum influenza A pending FEN: Hyponatremia Hyperkalemia Replace electrolytes as clinically indicated per DKA protocol Currently on normal saline at 250 cc an hour MSK: PT evaluate and treat Access -Utilize peripheral IV. Central line if indicated Prophylaxis -GI -pantoprazole -DVT -SCD/heparin subcu Level 3 admission Code Status: Full code Discussed Condition With: ED physician. Patient. Care plan discussed and all questions answered. (5) Leukocytosis Qualifiers: Leukocytosis type: unspecified Qualified Code(s): D72.829 - Elevated white blood cell count, unspecified (6) Community acquired pneumonia Qualifiers: Laterality: unspecified laterality Qualified Code(s): J18.9 - Pneumonia, unspecified organism (8) DKA (diabetic ketoacidoses) Qualifiers: Diabetes mellitus type: type 1 Diabetes mellitus complication detail: without coma Qualified Code(s): E10.10 - Type 1 diabetes mellitus with ketoacidosis without coma
[2018-10-18] MEDS: Dextrose 5%/NaCl 0.9% Inj 1,000 ML IV.CONT SCH ×2 (15:44→19:11)
[2018-10-18] MEDS: Sod Chloride 0.9% Inj 1,000 ML IV.CONT SCH ×2 (15:51→20:50)
[2018-10-18] MEDS: Azithromycin Inj 500 MG in Sodium Chlor 0.9% Inj 250 ML IV.SIG SCH (17:01)
[2018-10-18] MEDS: Heparin - SQ 10,000 UNITS/ML Vial SQ SCH (17:02)
[2018-10-18 18:09] LABS: Calcium 7.6 mg/dL (8.5-10.1); Magnesium 1.8 mg/dL (1.5-2.5); Phosphorus 0.6 mg/dL (2.5-4.9); Potassium 3.6 meq/L (3.5-5.1)
[2018-10-18] MEDS: Senna/Docusate Sodium 8.6/50 MG Tablet PO SCH (20:51)
[2018-10-18 21:10] LABS: Hemoglobin A1c 9.5 % (4.3-6.0)
[2018-10-19] MEDS: Dextrose 5%/NaCl 0.9% Inj 1,000 ML IV.CONT SCH ×2 (00:37→17:44)
[2018-10-19] MEDS: Heparin - SQ 10,000 UNITS/ML Vial SQ SCH ×2 (02:29→15:05)
[2018-10-19 02:48] LABS: Beta Hydroxybutyric Acid 0.52 mmol/L (0.00-0.39); Calcium 7.1 mg/dL (8.5-10.1); Magnesium 1.6 mg/dL (1.5-2.5); Phosphorus 5.1 mg/dL (2.5-4.9)
[2018-10-19 02:50] LABS: Potassium 2.9 meq/L (3.5-5.1)
[2018-10-19 03:02] LABS: Baso % (Auto) 0.1 % (0.0-2.0); Eos # (Auto) 0.2 th/mm3 (0.0-0.4); Eos % (Auto) 1.6 % (0.0-4.0); Hematocrit 44.3 % (39.0-51.0); Hemoglobin 14.7 gm/dL (13.0-17.0); Lymph # (Auto) 0.6 th/mm3 (1.0-4.8); Lymph % (Auto) 5.5 % (9.0-44.0); Mean Corpuscular HGB Conc 33.3 % (32.0-36.0); Mean Corpuscular Hemoglobin 29.5 pg (27.0-34.0); Mean Corpuscular Volume 88.8 fL (80.0-100.0); Mean Platelet Volume 8.9 fL (7.0-11.0); Mono # (Auto) 0.3 th/mm3 (0.0-0.9); Mono % (Auto) 2.5 % (0.0-8.0); Neut # (Auto) 10.1 th/mm3 (1.8-7.7); Neut % (Auto) 90.3 % (16.0-70.0); Platelet Count 125 th/mm3 (150-450); Red Blood Count 4.99 mil/mm3 (4.50-5.90); Red Cell Distribution Width 12.9 % (11.6-17.2); White Blood Count 11.2 th/mm3 (4.0-11.0)
[2018-10-19 03:20] LABS: Albumin 2.4 g/dL (3.4-5.0); Calcium-Albumin Corrected 8.4 mg/dL (8.5-10.1)
[2018-10-19 03:44] LABS: Lymphocytes 3 % (9-44); Metamyelocytes 9 % (0-1); Monocytes 4 % (0-8); Platelet Morphology Normal (Normal); RBC Morphology Normal (Normal)
[2018-10-19] MEDS ORDERED: Chlorhexidine Gluconate 2% 1 Pack (2 Cloths) TOPICAL PRN ×2 (04:00)
[2018-10-19] MEDS ORDERED: Chlorhexidine Gluconate 2% 1 Pack (2 Cloths) TOPICAL SCH (04:00)
[2018-10-19] MEDS: Chlorhexidine Gluconate 2% 1 Pack (2 Cloths) TOPICAL SCH (04:20)
[2018-10-19] MEDS: Potassium Chlor 20 mEq Premix 20 MEQ/100 ML PIGGYBACK IV.SIG PRN ×4 (04:29→10:21)
[2018-10-19] MEDS ORDERED: Dextrose 50% in Water 50 ML Vial IV.PUSH PRN (07:20)
[2018-10-19] MEDS ORDERED: DC Insulin drip 2 hrs post basal insulin dose OTHER ONE (07:20)
[2018-10-19] MEDS ORDERED: DC previous DKA orders (HMC 1917) OTHER ONE (07:20)
--- NOTE | 2018-10-19 07:28 | P.PNCC ---
Subjective Subjective Remarks/Hospital Course: This is a 38-year-old male. Date of admission 10/18/2018. Past medical history includes diabetes mellitus. He has had multiple admissions for diabetic ketoacidosis. Presented to [facility] for evaluation of generalized weakness and excessive breathing. He has had abdominal pain/ nausea and vomiting in the past. Patient presented with shortness of breath and generalized malaise. He is noted to have a elevated white blood cell count , progressive since his chest x-ray. Received piperacillin/tazobactam ED. He started on insulin drip and received 6 units R insulin 4 units an hour. Elevated beta hydroxybutyrate SUBJECTIVE: 10/19: Anion gap is closed. Will transition to scheduled insulin detemir and sliding scale insulin at 9 AM with breakfast. Currently replacing potassium. Patient feels better without abdominal pain. Currently 2 L nasal cannula. Objective Vital Signs / I&O: Vital Signs 10/18/18 09:42 10/18/18 10:48 10/18/18 11:25 Temperature Pulse Rate 110 H 120 H 117 H Respiratory Rate 24 24 22 Blood Pressure 167/81 H 170/69 H 136/62 Pulse Oximetry 95 96 10/18/18 12:27 10/18/18 12:53 10/18/18 14:00 Temperature 98.2 F Pulse Rate 107 H 102 H 126 H Respiratory Rate 30 H 26 H 40 H Blood Pressure 160/80 H 160/77 H 153/80 H Pulse Oximetry 98 98 10/18/18 14:16 10/18/18 14:30 10/18/18 15:00 Temperature Pulse Rate 112 H 116 H 110 H Respiratory Rate 38 H 38 H 40 H Blood Pressure 158/90 H 154/84 H Pulse Oximetry 97 97 98 10/18/18 15:30 10/18/18 16:00 10/18/18 16:30 Temperature 98.2 F Pulse Rate 118 H 112 H 122 H Respiratory Rate 42 H 40 H 43 H Blood Pressure 151/85 H 165/83 H 159/82 H Pulse Oximetry 98 98 97 10/18/18 16:34 10/18/18 17:00 10/18/18 18:00 Temperature Pulse Rate 124 H 120 H Respiratory Rate 36 H 41 H Blood Pressure 155/71 H 151/76 H Pulse Oximetry 99 94 L 96 10/18/18 19:53 10/18/18 19:59 10/18/18 20:00 Temperature 99.9 F H Pulse Rate 118 H 116 H Respiratory Rate 27 H 35 H Blood Pressure 129/68 129/68 Pulse Oximetry 94 L 93 L 92 L 10/18/18 20:05 10/18/18 21:00 10/18/18 22:00 Temperature Pulse Rate 114 H 115 H Respiratory Rate 37 H Blood Pressure 148/73 H Pulse Oximetry 93 L 93 L 10/19/18 00:00 10/19/18 02:00 10/19/18 03:54 Temperature 99.2 F Pulse Rate 102 H 98 H 98 H Respiratory Rate 20 Blood Pressure 139/72 Pulse Oximetry 94 L 10/19/18 04:00 10/19/18 06:00 Temperature 98.8 F Pulse Rate 118 H 108 H Respiratory Rate 20 Blood Pressure 152/77 H Pulse Oximetry 93 L Intake & Output 10/18/18 10/19/18 10/19/18 18:59 06:59 18:59 Intake Total 3409.4 / 3409.4 3050 / 3050 Output Total 1350 / 1350 1275 / 1275 Balance 2059.4 / 2059.4 1775 / 1775 Weight 62.4 kg 64.1 kg Intake: IV 3409.4 / 3409.4 3050 / 3050 D5W/Normal Saline Inj 1,000 ML 3000 / 3000 @ 200 mls/hr IV.CONT .Q5H [facility] Rx#:[id number] NovoLIN-R 100 UNITS/NS 100 ML ( 9.4 / 9.4 for ED) 100 unit In 100 ml @ Per Protocol IV.CONT TITRATE ONE Rx#:[id number] Azithromycin Inj 500 MG In NS 250 / 250 Inj 250 ML @ 250 mls/hr IV.SIG Q24H [facility] Rx#:[id number] Zosyn 3.375 GM Premix 3.375 gm 50 / 50 In 50 ml @ 100 mls/hr IV.SIG ONCE ONE Rx#:[id number] KCl 20 mEq Premix Inj 20 meq In 50 / 50 100 ml @ 50 mls/hr IV.SIG Q2H PRN Rx#:[id number] NS Inj 1,000 ML @ Wide Open IV. 3000 / 3000 SIG BOLUS ONE Rx#:[id number] Rocephin Inj 1,000 MG In NS Inj 100 / 100 100 ML @ 200 mls/hr IV.SIG Q12H [facility] Rx#:[id number] Oral 0 / 0 Output: Urine 1350 / 1350 1275 / 1275 Other: # Voids 6 Weight On Admission 61.4 kg Result Diagrams: 10/19/18 01:00 10/19/18 01:00 Imaging: Chest X-Ray 10/18/18 09:42 CONCLUSION: Bilateral airspace process is highly suspicious for pneumonia. The appearance is however nonspecific. Objective Remarks: GENERAL: This is a 38-year-old male, on nasal cannula no acute distress SKIN: Warm and dry. HEAD: Normocephalic. EYES: No scleral icterus. No injection or drainage. NECK: Supple, trachea midline. No JVD or lymphadenopathy. CARDIOVASCULAR: Regular rate and rhythm without murmurs, S3 no S4 without murmur RESPIRATORY: Few fine crackles appreciated bases. No wheezing. GASTROINTESTINAL: Abdomen soft, non-tender, nondistended. MUSCULOSKELETAL: No cyanosis, or edema. NEURO: Cranial nerves II through XII grossly intact strength is equal and symmetric bilateral. Normal sensation Assessment and Plan - Problem List (1) Hyponatremia Code(s): E87.1 - Hypo-osmolality and hyponatremia Status: Acute (2) Hyperkalemia Code(s): E87.5 - Hyperkalemia Status: Acute (3) Acute kidney injury Code(s): N17.9 - Acute kidney failure, unspecified Status: Acute (4) Elevated lipase Code(s): R74.8 - Abnormal levels of other serum enzymes Status: Acute (5) Leukocytosis Code(s): D72.829 - Elevated white blood cell count, unspecified Status: Acute (6) Community acquired pneumonia Code(s): J18.9 - Pneumonia, unspecified organism Status: Acute (7) Hx of diabetes mellitus Code(s): Z86.39 - Personal history of other endocrine, nutritional and metabolic disease Status: Acute (8) DKA (diabetic ketoacidoses) Code(s): E13.10 - Other specified diabetes mellitus with ketoacidosis without coma Status: Acute - Assessment and Plan Plan: Neuro/Psych: Acetaminophen 650 mg p.o. every 6 hours as needed fever Hydrocodone/acetaminophen 5/325 1 tablet every 4 hours as needed pain 1 through 5 Morphine sulfate 2 mg IV every 2 hours as needed pain 6 or 10 CV: Sinus tachycardia currently normal sinus rhythm Active crystalloid resuscitation. Secondary to dehydration. Currently not requiring vasopressors and her anti-pretenses Review EKG and troponin Currently hypertensive. We will add as needed labetalol, hydralazine Nitropaste Resp: Acute restaurant insufficiency secondary to underlying metabolic derangement/DKA Nasal cannula to maintain saturations greater than equal to 90% Incentive spirometry while awake As needed albuterol aerosols every 2 hours as needed Follow-up on chest x-ray in a.m. GI: Elevated lipase Elevated ammonia Pantoprazole for GI prophylaxis Docusate serum/senna 1 tablet twice daily for bowel regimen N.p.o. status Recheck BMP in a.m. : No indication for Leblanc catheter Endo: DKA History of IDDM Received 6 units R insulin the ED. Currently drip at 4 units an hour DKA protocol initiated Received 3 L normal saline wide open Currently on normal saline at 250 cc an hour. Transition to D5 normal saline when blood sugar less than 250 at 200 cc an hour Beta hydroxybutyrate pending. Hemoglobin A1c pending Home medication is NPH 15 units twice daily and sliding scale Novolin R with meals Check BMP, mag and phosphorus every 6 hours with pediatrics p.o. every 12 hours Renal: Acute kidney injury Monitor urine output Accurate I's and O's Avoid nephrotoxic medication BMPs every 6 hours along with magnesium/phosphorus Heme: Leukocytosis Monitor CBC daily. Follow trends. No indication for transfusion of blood products at this time. ID: Community acquired pneumonia Received 1 dose of Pipracil/tazobactam the ED. We will start on ceftriaxone and azithromycin Blood cultures x2, sputum influenza A negative FEN: Hypokalemia Replace electrolytes as clinically indicated per DKA protocol Currently on D5 normal saline at 200 cc and output will discontinue at 9 AM MSK: PT evaluate and treat Access -Utilize peripheral IV. Central line if indicated Prophylaxis -GI -pantoprazole -DVT -SCD/heparin subcu Level 3 admission (5) Leukocytosis Qualifiers: Leukocytosis type: unspecified Qualified Code(s): D72.829 - Elevated white blood cell count, unspecified (6) Community acquired pneumonia Qualifiers: Laterality: unspecified laterality Qualified Code(s): J18.9 - Pneumonia, unspecified organism (8) DKA (diabetic ketoacidoses) Qualifiers: Diabetes mellitus type: type 1 Diabetes mellitus complication detail: without coma Qualified Code(s): E10.10 - Type 1 diabetes mellitus with ketoacidosis without coma
[2018-10-19] MEDS ORDERED: Sodium Phosphate Inj 30 MMOL in Sodium Chlor 0.9% Inj 250 ML IV.SIG PRN (07:30)
[2018-10-19] MEDS ORDERED: Potassium Phosphate 500 MG Soluble Tablet PO PRN ×2 (07:30)
[2018-10-19] MEDS ORDERED: Potassium Phosphate Inj 30 MMOL in Sodium Chlor 0.9% Inj 250 ML IV.SIG PRN (07:30)
[2018-10-19] MEDS ORDERED: Magnesium Sulfate Inj 4 GM in Sodium Chlor 0.9% Inj 92 ML IV.SIG PRN (07:30)
[2018-10-19] MEDS ORDERED: Magnesium Oxide 400 MG Tablet PO PRN (07:30)
[2018-10-19] MEDS ORDERED: Magnesium Sulfate Inj 2 GM in Sodium Chlor 0.9% Inj 96 ML IV.SIG PRN (07:30)
[2018-10-19] MEDS ORDERED: Potassium Chlor 40 mEq Premix 40 MEQ/100 ML PIGGYBACK IV.SIG PRN ×2 (07:30)
[2018-10-19] MEDS ORDERED: Potassium Chloride 25 MEQ Effervescent Tablet PO PRN (07:30)
[2018-10-19] MEDS ORDERED: Magnesium Sulfate Inj 4 GM in Dextrose 5% in Water Inj 100 ML IV.SIG ONE ×2 (07:33)
[2018-10-19] MEDS: Insulin Detemir Inj 1,000 UNIT/10 ML Vial SQ SCH ×2 (08:06→22:33)
[2018-10-19] MEDS: Senna/Docusate Sodium 8.6/50 MG Tablet PO SCH ×2 (08:06→22:34)
[2018-10-19] MEDS: Pantoprazole Inj 40 MG Vial IV.PUSH SCH (08:06)
[2018-10-19] MEDS: Insulin NovoLOG Aspart Correctional Sugar Inj SQ SCH ×4 (08:38→22:34)
[2018-10-19] MEDS: Azithromycin Inj 500 MG in Sodium Chlor 0.9% Inj 250 ML IV.SIG SCH (15:10)
[2018-10-19 18:35] LABS: Calcium 8.4 mg/dL (8.5-10.1); Carbon Dioxide 12.4 meq/L (21.0-32.0)
[2018-10-19 23:19] LABS: ABG Base Excess -16.4 mmol/L (-2-2); ABG PCO2 19 mmHg (38-42); ABG PO2 61 mmHg (61-120)
[2018-10-19] MEDS: Morphine Inj 4 MG/ML Vial IV.PUSH PRN (23:34)
[2018-10-20] MEDS: Potassium Chlor 20 mEq Premix 20 MEQ/100 ML PIGGYBACK IV.SIG PRN ×5 (00:23→17:51)
[2018-10-20 00:46] LABS: Hematocrit 38.6 % (39.0-51.0); Hemoglobin 13.2 gm/dL (13.0-17.0); Mean Corpuscular HGB Conc 34.3 % (32.0-36.0); Mean Corpuscular Hemoglobin 30.2 pg (27.0-34.0); Mean Corpuscular Volume 88.1 fL (80.0-100.0); Mean Platelet Volume 8.9 fL (7.0-11.0); Platelet Count 106 th/mm3 (150-450); Red Blood Count 4.38 mil/mm3 (4.50-5.90); Red Cell Distribution Width 13.1 % (11.6-17.2); White Blood Count 13.5 th/mm3 (4.0-11.0)
[2018-10-20 01:40] LABS: Alanine Aminotransferase 18 U/L (12-78); Albumin 2.5 g/dL (3.4-5.0); Alkaline Phosphatase 107 U/L (45-117); Anion Gap 16 meq/L (5-15); Aspartate Aminotransferase 44 U/L (15-37); Blood Urea Nitrogen 20 mg/dL (7-18); Calcium 8.1 mg/dL (8.5-10.1); Carbon Dioxide 12.5 meq/L (21.0-32.0); Chloride 111 meq/L (98-107); Glomerular Filtration Rate 69 mL/min (>89); Glucose,Random 223 mg/dL (74-106); Magnesium 2.2 mg/dL (1.5-2.5); Phosphorus 0.6 mg/dL (2.5-4.9); Sodium 139 meq/L (136-145); Total Protein 6.3 g/dL (6.4-8.2)
[2018-10-20 01:43] LABS: Potassium 2.5 meq/L (3.5-5.1)
[2018-10-20 02:46] LABS: Metamyelocytes 3 % (0-1); Monocytes 1 % (0-8)
[2018-10-20 02:55] LABS: Lymphocytes 14 % (9-44); RBC Morphology Normal (Normal)
[2018-10-20 02:56] LABS: Platelet Morphology Normal (Normal)
[2018-10-20] MEDS: Heparin - SQ 10,000 UNITS/ML Vial SQ SCH (03:49)
[2018-10-20] MEDS: Chlorhexidine Gluconate 2% 1 Pack (2 Cloths) TOPICAL SCH (04:57)
[2018-10-20] MEDS: Insulin NovoLOG Aspart Correctional Sugar Inj SQ SCH ×4 (04:57→18:19)
--- NOTE | 2018-10-20 08:27 | XR ---
EXAM DATE: 10/20/2018 8:23 AM EST AGE/SEX: 38 years / Male INDICATIONS: Short of breath, respiratory failure CLINICAL DATA: This is the patient's subsequent encounter. Patient reports that signs and symptoms h ave been present for 2 days and indicates a pain score of Nonresponsive. MEDICAL/SURGICAL HISTORY: Non-responsive. Non-responsive. COMPARISON: [facility]PO, CHEST 1V SINGLE AP, 10/18/2018. . FINDINGS: There is haziness to the lungs most likely pulmonary edema not present previously obscuring previously seen airspace process. CONCLUSION: Interval development of diffuse haziness to the lungs obscuring previously seen pulmonary airspace pr ocess. Superimposed interstitial process and/or pulmonary edema should be entertained. Electronically signed by: Feliciano Regan MD Board Certified Radiologist 10/20/2018 8:26 AM EST
[2018-10-20 08:49] LABS: Potassium 3.1 meq/L (3.5-5.1)
[2018-10-20 08:51] LABS: Calcium 8.2 mg/dL (8.5-10.1)
[2018-10-20 08:52] LABS: Baso # (Auto) 0.2 th/mm3 (0.0-0.2); Baso % (Auto) 1.4 % (0.0-2.0); Carbon Dioxide 12.2 meq/L (21.0-32.0); Eos # (Auto) 0.1 th/mm3 (0.0-0.4); Eos % (Auto) 0.6 % (0.0-4.0); Hematocrit 38.5 % (39.0-51.0); Hemoglobin 13.2 gm/dL (13.0-17.0); Lymph # (Auto) 0.8 th/mm3 (1.0-4.8); Lymph % (Auto) 5.1 % (9.0-44.0); Magnesium 2.3 mg/dL (1.5-2.5); Mean Corpuscular HGB Conc 34.3 % (32.0-36.0); Mean Corpuscular Hemoglobin 29.8 pg (27.0-34.0); Mean Corpuscular Volume 86.9 fL (80.0-100.0); Mean Platelet Volume 8.3 fL (7.0-11.0); Mono # (Auto) 0.2 th/mm3 (0.0-0.9); Mono % (Auto) 1.5 % (0.0-8.0); Neut # (Auto) 13.9 th/mm3 (1.8-7.7); Neut % (Auto) 91.4 % (16.0-70.0); Platelet Count 106 th/mm3 (150-450); Red Blood Count 4.43 mil/mm3 (4.50-5.90); Red Cell Distribution Width 12.9 % (11.6-17.2); White Blood Count 15.2 th/mm3 (4.0-11.0)
[2018-10-20 09:17] LABS: ABG Base Excess -14.1 mmol/L (-2-2); ABG PCO2 20 mmHg (38-42); ABG PO2 94 mmHg (61-120)
[2018-10-20] MEDS: Pantoprazole Inj 40 MG Vial IV.PUSH SCH (09:57)
[2018-10-20] MEDS: Senna/Docusate Sodium 8.6/50 MG Tablet PO SCH ×2 (09:58→20:39)
[2018-10-20] MEDS: Insulin Detemir Inj 1,000 UNIT/10 ML Vial SQ SCH ×2 (09:58→20:39)
[2018-10-20] MEDS: Morphine Inj 4 MG/ML Vial IV.PUSH PRN ×2 (10:21→17:39)
[2018-10-20 11:42] LABS: Phosphorus 1.4 mg/dL (2.5-4.9)
[2018-10-20 11:57] LABS: Potassium 2.9 meq/L (3.5-5.1)
[2018-10-20] MEDS ORDERED: Sodium Bicarbonate 8.4% Inj 75 MEQ in Sodium Chloride 0.45 % Inj 925 ML IV.CONT SCH (12:00)
--- NOTE | 2018-10-20 12:04 | P.DIET ---
Nutritional Evaluation Type of nutrition evaluation: initial Nutrition screening: Weight Loss > 10 lbs Screening comments: 1/ Wt loss screen Subjective Subjective Comments: Patient reports a poor appetite and recent unintended weight loss Objective - Diagnosis DKA - Objective % IBW: 89 (IBW: 166lbs) Body Weight Used for Calculations: Actual (66.8kg) Energy Needs - Lower Range (kCal/kg): 28 Energy Needs - Upper Range (kCal/kg): 33 Lower Limit kCal/kg (kCals): 1,870 Upper Limit kCal/kg (kCals): 2,205 Lower Limit Protein Factor (Grams per Kg): 1 Upper Limit Protein Factor (Grams per Kg): 1.2 Lower Protein Needs (Protein): 67 Upper Protein Needs (Protein): 80 Fluid Factor (ml/kg): 33 Estimated Fluid Needs (ml): 2,205 Dietitian Reviewed in Medical Record: Current diet, Curent medications, Intake & Output, Labs, Medical history Diet Order: 0 ADA Objective Comments: PMH: IDDM Labs include: Hgb A1C 9.5, K+ 3.1, Glu 237, Ammonia 35 Meds include: Insulin, Lactulose +1 BM Assessment Assessment: Pt at nutritional risk r/t recent unintentional wt loss. Pt admitted in DKA, reportedly was not taking all his insulin because he was afraid he would run out. Pt's nutritional needs as assessed above. Adequate PO intake has not yet been established. Will monitor and provide supplements as needed. Recommendations: [address] following Dietitian to Monitor: Lab values, Diet tolerance, Weight change, PO Intake
--- NOTE | 2018-10-20 13:50 | CT ---
EXAM DATE: 10/20/2018 1:43 PM EST AGE/SEX: 38 years / Male INDICATIONS: Short of breath. Non-productive cough. CLINICAL DATA: This is the patient's initial encounter. Patient reports that signs and symptoms have been present for 1 week and indicates a pain score of 0/10. MEDICAL/SURGICAL HISTORY: Diabetes. Inguinal hernia repair. RADIATION DOSE: 15.03 CTDI (mGy) COMPARISON: No prior exams available for comparison. TECHNIQUE: Volumetric scanning was performed using a multi-row detector CT scanner during bolus infu lei of 65 ml Omnipaque 350 (iohexol) nonionic water-soluble contrast as a single exam dose. The shant a was post processed with a variety of visualization algorithms including full volume maximum intensi ty projection and sliding thin slab reformation. Using automated exposure control and adjustment of the mA and/or kV according to patient size, radiation dose was kept as low as reasonably achievable t o obtain optimal diagnostic quality images. DICOM format image data is available electronically for review and comparison. FINDINGS: There are hazy groundglass opacities in both lungs in addition to dense airspace consolidat ion multiple sites bilaterally the largest one measures 5.8 cm in size in right midlung. There is no pleural effusion. There are lymph nodes within the mediastinum the largest one measures 2.8 cm in siz e subcarinal area may be reactive, however not thick. Coronary artery calcifications are seen typical ly seen with coronary artery disease and clinical correlation and evaluation is suggested. CONCLUSION: Fairly extensive airspace process bilaterally could be inflammatory, however fairly ext ensive pneumonia should be entertained. The appearance is nonspecific. There are also coronary calcif ications. Electronically signed by: Feliciano Regan MD Board Certified Radiologist 10/20/2018 1:49 PM EST
[2018-10-20] MEDS: Azithromycin Inj 500 MG in Sodium Chlor 0.9% Inj 250 ML IV.SIG SCH (14:01)
[2018-10-20 14:46] LABS: Calcium 8.2 mg/dL (8.5-10.1); Carbon Dioxide 11.7 meq/L (21.0-32.0)
[2018-10-20 14:50] LABS: Potassium 2.9 meq/L (3.5-5.1)
--- NOTE | 2018-10-20 14:59 | ECHRPT ---
Indication: HEART FAILURE CONCLUSIONS Normal left ventricular size. Mild concentric left ventricular hypertrophy. The left ventricular systolic function is normal with an estimated ejection fraction in the range of 55-60%. Small pericardial effusion adjacent to RA w/o evidence of hemodynamic compromise. BP: / HR: Rhythm: Sinus MEASUREMENTS (Male / Female) Normal Values Technical Quality:Fair 2D ECHO LV Diastolic Diameter PLAX 4.5 cm 4.2 - 5.9 / 3.9 - 5.3 cm LV Systolic Diameter PLAX 3.4 cm IVS Diastolic Thickness 1.2 cm 0.6 - 1.0 / 0.6 - 0.9 cm LVPW Diastolic Thickness 1.2 cm 0.6 - 1.0 / 0.6 - 0.9 cm LV Relative Wall Thickness 0.5 RV Internal Dim ED PLAX 2.9 cm LVOT Diameter 2.0 cm Aortic Root Diameter 2.8 cm LA Systolic Diameter LX 2.4 cm 3.0 - 4.0 / 2.7 - 3.8 cm M-MODE AV Cusp Separation MM 2.1 cm DOPPLER AV Peak Velocity 119.0 cm/s AV Peak Gradient 5.7 mmHg AV Mean Gradient 3.0 mmHg AV Velocity Time Integral 14.8 cm LVOT Peak Velocity 89.5 cm/s LVOT Peak Gradient 3.2 mmHg LVOT Velocity Time Integral 11.3 cm AV Area Cont Eq vti 2.4 cm AV Area Cont Eq pk 2.4 cm Mitral E Point Velocity 48.5 cm/s Mitral A Point Velocity 66.6 cm/s Mitral E to A Ratio 0.7 LV E' Lateral Velocity 9.3 cm/s Mitral E to LV E' Lateral Ratio 5.2 LV E' Septal Velocity 6.1 cm/s Mitral E to LV E' Septal Ratio 7.9 PV Peak Velocity 69.2 cm/s PV Peak Gradient 1.9 mmHg FINDINGS LEFT VENTRICLE Normal left ventricular size. Mild concentric left ventricular hypertrophy. The left ventricular systolic function is normal with an estimated ejection fraction in the range of 55-60%. RIGHT VENTRICLE Normal right ventricular size and systolic function. LEFT ATRIUM The left atrial size is normal. RIGHT ATRIUM The right atrial size is normal. ATRIAL SEPTUM No atrial level shunt is demonstrated by color flow Doppler interrogation. AORTA The aortic root and proximal ascending aorta are not well visualized. MITRAL VALVE Structurally normal mitral valve. No mitral valve stenosis or regurgitation. AORTIC VALVE Trileaflet aortic valve. No aortic valve stenosis or regurgitation. TRICUSPID VALVE Structurally normal tricuspid valve. No tricuspid valve stenosis or regurgitation. PULMONARY VALVE The pulmonary valve is not well visualized. VESSELS The inferior vena cava is normal in size. PERICARDIUM Small pericardial effusion adjacent to RA w/o evidence of hemodynamic compromise. Kirk Rich MD (Electronically Signed) Final Date:20 October 2018 14:57
[2018-10-20] MEDS ORDERED: Dextrose 5%/NaCl 0.9% Inj 1,000 ML IV.CONT SCH (15:00)
[2018-10-20] MEDS ORDERED: Potassium Chlor 40 mEq Premix 40 MEQ/100 ML PIGGYBACK IV.SIG PRN ×2 (15:00)
[2018-10-20] MEDS ORDERED: Sodium Phosphate Inj 15 MMOL in Sodium Chlor 0.9% Inj 100 ML IV.SIG PRN (15:00)
[2018-10-20] MEDS ORDERED: Potassium Chlor 20 mEq Premix 20 MEQ/100 ML PIGGYBACK IV.SIG PRN ×6 (15:00)
[2018-10-20] MEDS ORDERED: Insulin Regular (For Infusion) 100 UNIT in Sodium Chlor 0.9% Inj 99 ML IV.CONT PRN (15:00)
[2018-10-20] MEDS ORDERED: MethylPREDNISolone Sod Succinate Inj 125 MG/2 ML Vial IV.PUSH ONE (15:09)
[2018-10-20] MEDS ORDERED: hydrALAZINE HCl Inj 20 MG/ML Vial IV.PUSH PRN (15:20)
--- NOTE | 2018-10-20 15:22 | P.PNCC ---
Progress Note: Quality VTE Deep Vein Thrombosis/Pulmonary Embolism Present on Admission: No
--- NOTE | 2018-10-20 15:23 | P.PNCC ---
Subjective Subjective Remarks/Hospital Course: This is a 38-year-old male. Date of admission 10/18/2018. Past medical history includes diabetes mellitus. He has had multiple admissions for diabetic ketoacidosis. Presented to [facility] for evaluation of generalized weakness and excessive breathing. He has had abdominal pain/ nausea and vomiting in the past. Patient presented with shortness of breath and generalized malaise. He is noted to have a elevated white blood cell count , progressive since his chest x-ray. Received piperacillin/tazobactam ED. He started on insulin drip and received 6 units R insulin 4 units an hour. Elevated beta hydroxybutyrate SUBJECTIVE: 10/19: Anion gap is closed. Will transition to scheduled insulin detemir and sliding scale insulin at 9 AM with breakfast. Currently replacing potassium. Patient feels better without abdominal pain. Currently 2 L nasal cannula. 10/20: Critical care reconsulted by hospitalist service as patient remained on BiPAP. CTA chest showed bilateral infiltrates. I evaluated the patient this morning at which time he was on BiPAP maintaining O2 sats with settings of +12/+ 5 FiO2 was decreased from 80-55% at the time of my evaluation this morning and he was awake and alert and conversant. He did receive Lasix 40 mg IV with which he diuresed 2 L. I have discussed the case with Grayson HURST for hospitalist service earlier today. Critical care reconsulted due to worsening respiratory status. I did order Solu-Medrol 125 mg IV stat followed by 60 mg every 12 hourly in view of history of smoking in view of acute lung injury pattern with question of COPD. Objective Vital Signs / I&O: Vital Signs 10/19/18 15:37 10/19/18 16:00 10/19/18 17:00 Temperature Pulse Rate 102 H 102 H Respiratory Rate 22 22 36 H Blood Pressure Pulse Oximetry 92 L 92 L 10/19/18 18:00 10/19/18 18:53 10/19/18 20:00 Temperature 99.1 F Pulse Rate 102 H 103 H Respiratory Rate 6 L 16 Blood Pressure 165/68 H 165/68 H Pulse Oximetry 94 L 87 L 10/19/18 22:00 10/19/18 22:36 10/20/18 00:00 Temperature Pulse Rate 110 H 101 H Respiratory Rate Blood Pressure Pulse Oximetry 92 L 10/20/18 00:10 10/20/18 02:00 10/20/18 03:45 Temperature Pulse Rate 96 H Respiratory Rate Blood Pressure Pulse Oximetry 99 98 10/20/18 03:56 10/20/18 04:00 10/20/18 06:00 Temperature 99.1 F 99.7 F H Pulse Rate 110 H 98 H 104 H Respiratory Rate 16 34 H Blood Pressure 173/81 H 165/95 H Pulse Oximetry 91 L 98 10/20/18 07:55 10/20/18 08:00 10/20/18 10:10 Temperature 99.8 F H Pulse Rate 100 H 104 H Respiratory Rate 30 H 30 H Blood Pressure 158/87 H 152/83 H Pulse Oximetry 98 98 97 10/20/18 11:30 10/20/18 14:20 Temperature Pulse Rate Respiratory Rate Blood Pressure Pulse Oximetry 95 97 Intake & Output 10/19/18 10/20/18 10/20/18 18:59 06:59 18:59 Intake Total 1718 / 1718 945 / 945 100 / 100 Output Total 1100 / 1100 Balance 1718 / 1718 -155 / -155 100 / 100 Weight 66.8 kg Intake: IV 758 / 758 305 / 305 100 / 100 Azithromycin Inj 500 MG In NS 250 / 250 Inj 250 ML @ 250 mls/hr IV.SIG Q24H ADELFO Rx#:[id number] Magnesium Sulfate Inj 4 GM In 108 / 108 D5W Inj 100 ML @ 25 mls/hr IV. SIG ONCE ONE Rx#:[id number] KCl 20 mEq Premix Inj 20 meq In 300 / 300 200 / 200 100 / 100 100 ml @ 50 mls/hr IV.SIG Q2H PRN Rx#:[id number] Rocephin Inj 1,000 MG In NS Inj 100 / 100 100 ML @ 200 mls/hr IV.SIG Q12H ADELFO Rx#:[id number] Oral 960 / 960 640 / 640 Output: Urine 1100 / 1100 Other: Date of Last Bowel Movement 10/19/18 10/19/18 10/20/18 # Bowel Movements 3 1 Result Diagrams: 10/20/18 08:20 10/20/18 13:50 Imaging: Impressions Chest CTA 10/20/18 00:00 CONCLUSION: Fairly extensive airspace process bilaterally could be inflammatory, however fairly extensive pneumonia should be entertained. The appearance is nonspecific. There are also coronary calcifications. Chest X-Ray 10/20/18 00:00 CONCLUSION: Interval development of diffuse haziness to the lungs obscuring previously seen pulmonary airspace process. Superimposed interstitial process and/or pulmonary edema should be entertained. Objective Remarks: GENERAL: This is a 38-year-old male, BiPAP with full facemask SKIN: Warm and dry. HEAD: Normocephalic. EYES: No scleral icterus. No injection or drainage. NECK: Supple, trachea midline. No JVD or lymphadenopathy. CARDIOVASCULAR: Regular rate and rhythm without murmurs, S3 no S4 without murmur RESPIRATORY: On BiPAP with full facemask, good air entry bilaterally scattered rhonchi and crackles, no wheezing. GASTROINTESTINAL: Abdomen soft, non-tender, nondistended. MUSCULOSKELETAL: No cyanosis, or edema. NEURO: Cranial nerves II through XII grossly intact strength is equal and symmetric bilateral. Normal sensation Assessment and Plan - Problem List (1) Hyponatremia Code(s): E87.1 - Hypo-osmolality and hyponatremia Status: Acute (2) Hyperkalemia Code(s): E87.5 - Hyperkalemia Status: Acute (3) Acute kidney injury Code(s): N17.9 - Acute kidney failure, unspecified Status: Acute (4) Elevated lipase Code(s): R74.8 - Abnormal levels of other serum enzymes Status: Acute (5) Leukocytosis Code(s): D72.829 - Elevated white blood cell count, unspecified Status: Acute (6) Community acquired pneumonia Code(s): J18.9 - Pneumonia, unspecified organism Status: Acute (7) Hx of diabetes mellitus Code(s): Z86.39 - Personal history of other endocrine, nutritional and metabolic disease Status: Acute (8) DKA (diabetic ketoacidoses) Code(s): E13.10 - Other specified diabetes mellitus with ketoacidosis without coma Status: Acute - Assessment and Plan Plan: Neuro/Psych: Acetaminophen 650 mg p.o. every 6 hours as needed fever Hydrocodone/acetaminophen 5/325 1 tablet every 4 hours as needed pain 1 through 5 Morphine sulfate 2 mg IV every 2 hours as needed pain 6 or 10 CV: Sinus tachycardia currently normal sinus rhythm Received fluid resuscitation on admission. Currently hypertensive. Continue as needed labetalol, hydralazine Nitropaste. Check 2D echo Received Lasix 40 mg IV today for mobilizing fluid in view of worsening respiratory status possibly from significant positive fluid balance in addition to pneumonia Resp: Acute respiratory failure requiring BiPAP Acute lung injury Suspected pneumonia Possible fluid overload Smoker with suspected COPD Continue BiPAP +12//5 FiO2 55%. CTA chest reviewed with bilateral infiltrates. Possible acute lung injury secondary to infection in combination with fluid overload Received Lasix to mobilize fluid earlier. KVO IV fluid. Solu-Medrol 125 g IV stat followed by 60 mg IV every 12 hourly As needed albuterol aerosols every 2 hours as needed Follow-up ABGs. Pulmonary consult requested for acute respiratory failure with suspected pneumonia GI: Elevated lipase Elevated ammonia Pantoprazole for GI prophylaxis Docusate serum/senna 1 tablet twice daily for bowel regimen N.p.o. status Recheck BMP in a.m. : No indication for Leblanc catheter Endo: DKA History of IDDM DKA protocol was stopped yesterday however resuming DKA protocol with insulin drip due to metabolic acidosis with increasing anion gap and need for IV steroid use Received 3 L normal saline wide open on 10/19 Received significant IV fluids yesterday. Given Lasix to mobilize fluid 10/20 in view of worsening respiratory status Home medication is NPH 15 units twice daily and sliding scale Novolin R with meals Check BMP, mag and phosphorus every 6 hours with pediatrics p.o. every 12 hours Renal: Acute kidney injury Monitor urine output Accurate I's and O's Avoid nephrotoxic medication BMPs every 6 hours along with magnesium/phosphorus Heme: Leukocytosis Monitor CBC daily. Follow trends. No indication for transfusion of blood products at this time. ID: Community acquired pneumonia Received 1 dose of Pipracil/tazobactam the ED. Continue ceftriaxone and azithromycin Blood cultures x2, sputum influenza A negative FEN: Hypokalemia Replace electrolytes as clinically indicated per DKA protocol Currently on D5 normal saline at 200 cc and output will discontinue at 9 AM MSK: PT evaluate and treat Access -Utilize peripheral IV. Central line if indicated Prophylaxis -GI -pantoprazole -DVT -SCD/heparin subcu Condition critical Time spent on critical care excluding procedures 30 minutes Discussed with SUSANNA Lopez earlier today. Discussed with TEXTILE MACHINERY INSTRUCTOR. (5) Leukocytosis Qualifiers: Leukocytosis type: unspecified Qualified Code(s): D72.829 - Elevated white blood cell count, unspecified (6) Community acquired pneumonia Qualifiers: Laterality: unspecified laterality Qualified Code(s): J18.9 - Pneumonia, unspecified organism (8) DKA (diabetic ketoacidoses) Qualifiers: Diabetes mellitus type: type 1 Diabetes mellitus complication detail: without coma Qualified Code(s): E10.10 - Type 1 diabetes mellitus with ketoacidosis without coma
[2018-10-20] MEDS ORDERED: Vancomycin Consult Pharmacy OTHER PRN (15:30)
[2018-10-20] MEDS ORDERED: Vancomycin Inj 1,000 MG in Sodium Chlor 0.9% Inj 250 ML IV.SIG ONE (15:32)
[2018-10-20] MEDS: Sod Chloride 0.9% Inj 1,000 ML IV.CONT SCH (15:45)
[2018-10-20] MEDS ORDERED: MethylPREDNISolone Sod Succinate Inj 125 MG/2 ML Vial IV.PUSH SCH (16:00)
[2018-10-20] MEDS: Piperacil/Tazo 4.5 GM Premix 4.5 GM/100 ML BAG IV.SIG SCH ×2 (16:26→22:49)
[2018-10-20 16:42] LABS: Creatine Kinase 23 U/L (39-308)
--- NOTE | 2018-10-20 19:23 | MB ---
cc: Alden Solano MD DATE: 10/20/2018 REQUESTING PHYSICIAN: Valdo Tabares MD REASON FOR CONSULTATION: Refer for lung infiltrates. HISTORY OF PRESENT ILLNESS: Mr. Marquez is a 47-year-old male with history of diabetes mellitus. He does not see a physician. He gets his insulin from [facility] and manages himself. He has been admitted multiple times with DKA. This time he came with increase in blood sugar, feeling excessive weakness. No cough or sputum. But the patient was admitted in the intensive care unit with DKA. He was managed and transferred to the [facility] service. He became worse and ICU detonator assembler was consulted. DIAGNOSTIC AND LABORATORY DATA: He had a CT of the chest done, which shows no pulmonary embolism; however, he had bilateral extensive lung infiltrate. His sodium 135, potassium 2.0, chloride 106, CO2 of 11, BUN 16, creatinine 1.30 and blood sugar 296. His WBC count 15.2, hemoglobin 13.1, hematocrit 38.5, MCV 86, platelet count 106. Blood gas showed pH 7.35, pCO2 of 20, pO2 94, that is on BiPAP 55%. PAST MEDICAL HISTORY: Diabetes mellitus. MEDICATIONS: He is currently on: 1. Insulin drip. 2. Solu-Medrol 60 mg every 12 hours. 3. Morphine for pain. 4. Nitroglycerin 0.4 mg p.r.n. chest pain. 5. Zosyn IV. 6. Protonix 40 mg a day. 7. Potassium supplement. 8. Zithromax 500 mg a day. 9. Albuterol/Atrovent nebulizer treatment. 10. Levemir insulin. 11. Vancomycin IV. ALLERGIES: ALLERGIC TO SULFA. SOCIAL HISTORY: Has history of smoking 1 pack a day. Does not drink, does not work. He lives with his parents. FAMILY HISTORY: Single. He has 2 children. REVIEW OF SYSTEMS: Normally, he is up and active. Does not see any physician. Weight is stable. No seizure, stroke or epilepsy. Not hypertensive. PHYSICAL EXAMINATION: GENERAL: A moderately built male, short of breath. He is on BiPAP. FIO2 40%. VITAL SIGNS: Blood pressure is 152/83, heart rate 100, respirations 28, temperature 98. HEENT: Pupils are equal and reactive. EOM normal. NECK: Supple. JVD not raised. CHEST: Few scattered rales. HEART: S1, S2 normal. ABDOMEN: Benign. EXTREMITIES: No edema. IMPRESSION: 1. Hypoxic respiratory failure. 2. Metabolic acidosis. 3. Diabetic ketoacidosis. 4. Bilateral extensive infiltrate, possible inflammatory process, ARDS, atypical pneumonia. 5. Electrolyte imbalance. PLAN: I discussed with the patient that he is on BiPAP 45%. We will continue it and if he gets worse, he will need to be intubated. Continue antibiotic. Check his cultures. IV Solu-Medrol for possible inflamatory infilterates but monitor his blood sugar. I advised him to quit smoking. Further treatment will depend on the course in the hospital. Thank you, Dr. Valdo Tabares, for this consult. MD RAFIQ Ceron/haider/hernán , 04:32 PM , 04:43 PM ROBERTO
[2018-10-20 20:19] LABS: ABG PCO2 29 mmHg (38-42); ABG PO2 72 mmHg (61-120)
[2018-10-20] MEDS ORDERED: SODIUM CHLORIDE 0.45% IV.SIG ONE (21:00)
[2018-10-20] MEDS ORDERED: POTASSIUM PHOSPHATE IV.SIG ONE (21:00)
[2018-10-20 21:26] LABS: Calcium 7.9 mg/dL (8.5-10.1); Carbon Dioxide 20.5 meq/L (21.0-32.0)
[2018-10-20 21:34] LABS: Potassium 2.6 meq/L (3.5-5.1)
[2018-10-20 21:53] LABS: Creatine Kinase 18 U/L (39-308)
[2018-10-21 02:24] LABS: Chloride 112 meq/L (98-107); Sodium 142 meq/L (136-145)
[2018-10-21 02:26] LABS: Calcium 7.6 mg/dL (8.5-10.1)
[2018-10-21 02:35] LABS: Anion Gap 7 meq/L (5-15); Blood Urea Nitrogen 15 mg/dL (7-18); Carbon Dioxide 22.8 meq/L (21.0-32.0); Glomerular Filtration Rate 69 mL/min (>89); Glucose,Random 157 mg/dL (74-106)
[2018-10-21] MEDS: Potassium Chlor 20 mEq Premix 20 MEQ/100 ML PIGGYBACK IV.SIG PRN ×2 (02:56→07:00)
[2018-10-21] MEDS ORDERED: MethylPREDNISolone Sod Succinate Inj 125 MG/2 ML Vial IV.PUSH SCH (03:00)
[2018-10-21 03:21] LABS: Creatine Kinase 17 U/L (39-308)
[2018-10-21] MEDS: Piperacil/Tazo 4.5 GM Premix 4.5 GM/100 ML BAG IV.SIG SCH ×4 (03:48→22:46)
[2018-10-21] MEDS ORDERED: Chlorhexidine Gluconate 2% 1 Pack (2 Cloths) TOPICAL PRN (04:00)
[2018-10-21] MEDS: Vancomycin Inj 1,000 MG in Sodium Chlor 0.9% Inj 250 ML IV.SIG SCH ×2 (04:23→18:22)
[2018-10-21] MEDS: Chlorhexidine Gluconate 2% 1 Pack (2 Cloths) TOPICAL SCH ×2 (04:40)
[2018-10-21 04:52] LABS: Hematocrit 32.2 % (39.0-51.0); Hemoglobin 10.9 gm/dL (13.0-17.0); Mean Corpuscular HGB Conc 33.9 % (32.0-36.0); Mean Corpuscular Hemoglobin 29.4 pg (27.0-34.0); Mean Corpuscular Volume 86.7 fL (80.0-100.0); Mean Platelet Volume 8.1 fL (7.0-11.0); Platelet Count 118 th/mm3 (150-450); Red Blood Count 3.72 mil/mm3 (4.50-5.90); Red Cell Distribution Width 12.7 % (11.6-17.2); White Blood Count 16.3 th/mm3 (4.0-11.0)
[2018-10-21 05:04] LABS: Calcium 7.6 mg/dL (8.5-10.1)
[2018-10-21 05:05] LABS: Carbon Dioxide 20.1 meq/L (21.0-32.0)
[2018-10-21 05:25] LABS: Lymphocytes 2 % (9-44); Monocytes 2 % (0-8); Platelet Morphology Normal (Normal); RBC Morphology Normal (Normal)
--- NOTE | 2018-10-21 06:07 | XR ---
EXAM DATE: 10/21/2018 5:51 AM EST AGE/SEX: 38 years / Male INDICATIONS: Shortness of breath. CLINICAL DATA: This is the patient's subsequent encounter. Patient reports that signs and symptoms h ave been present for 3 days and indicates a pain score of Nonresponsive. MEDICAL/SURGICAL HISTORY: Diabetes. None. COMPARISON: HPO, CHEST 1V SINGLE AP, 10/20/2018. . FINDINGS: A single AP view of the chest demonstrates no appreciable change. Patchy areas of diffuse groundglass opacities again noted involving both lungs. No effusions. Heart is normal in size. Bony structures a re unremarkable. CONCLUSION: Unchanged bilateral parenchymal consolidations. Electronically signed by: Zohaib Morgan MD Board Certified Radiologist 10/21/2018 6:05 AM EST
[2018-10-21] MEDS ORDERED: Labetalol HCl Inj 100 MG/20 ML Vial IV.PUSH PRN (06:26)
[2018-10-21] MEDS ORDERED: hydrALAZINE HCl Inj 20 MG/ML Vial IV.PUSH PRN (06:27)
[2018-10-21] MEDS ORDERED: hydrALAZINE 25 MG Tablet PO PRN (06:28)
--- NOTE | 2018-10-21 06:34 | P.PNCC ---
Subjective Subjective Remarks/Hospital Course: This is a 38-year-old male. Date of admission 10/18/2018. Past medical history includes diabetes mellitus. He has had multiple admissions for diabetic ketoacidosis. Presented to [facility] for evaluation of generalized weakness and excessive breathing. He has had abdominal pain/ nausea and vomiting in the past. Patient presented with shortness of breath and generalized malaise. He is noted to have a elevated white blood cell count , progressive since his chest x-ray. Received piperacillin/tazobactam ED. He started on insulin drip and received 6 units R insulin 4 units an hour. Elevated beta hydroxybutyrate 10/19: Anion gap is closed. Will transition to scheduled insulin detemir and sliding scale insulin at 9 AM with breakfast. Currently replacing potassium. Patient feels better without abdominal pain. Currently 2 L nasal cannula. 10/20: Critical care reconsulted by hospitalist service as patient remained on BiPAP. CTA chest showed bilateral infiltrates. I evaluated the patient this morning at which time he was on BiPAP maintaining O2 sats with settings of +12/+ 5 FiO2 was decreased from 80-55% at the time of my evaluation this morning and he was awake and alert and conversant. He did receive Lasix 40 mg IV with which he diuresed 2 L. I have discussed the case with Grayson HURST for hospitalist service earlier today. Critical care reconsulted due to worsening respiratory status. I did order Solu-Medrol 125 mg IV stat followed by 60 mg every 12 hourly in view of history of smoking in view of acute lung injury pattern with question of COPD. SUBJECTIVE: 10/21: T-max 99.8. Currently afebrile. Remains on insulin drip. We will transition to insulin detemir. Groundglass opacities on x-ray this a.m. FiO2 down to 40%. Objective Vital Signs / I&O: Vital Signs 10/20/18 07:55 10/20/18 08:00 10/20/18 10:10 Temperature 99.8 F H Pulse Rate 100 H 104 H Respiratory Rate 30 H 30 H Blood Pressure 158/87 H 152/83 H Pulse Oximetry 98 91 L 97 10/20/18 11:30 10/20/18 12:00 10/20/18 14:20 Temperature 98.6 F Pulse Rate 108 H Respiratory Rate 33 H Blood Pressure 152/83 H Pulse Oximetry 95 95 97 10/20/18 16:00 10/20/18 17:06 10/20/18 19:15 Temperature 98.9 F Pulse Rate 106 H 92 H Respiratory Rate 31 H 30 H Blood Pressure 139/75 Pulse Oximetry 94 L 95 93 L 10/20/18 20:00 10/20/18 22:50 10/21/18 00:00 Temperature 97.8 F 98.7 F Pulse Rate 98 H 79 Respiratory Rate 29 H 26 H Blood Pressure 160/73 H 147/64 H Pulse Oximetry 94 L 98 97 10/21/18 02:00 10/21/18 02:15 10/21/18 03:32 Temperature Pulse Rate 71 70 Respiratory Rate Blood Pressure Pulse Oximetry 94 L 10/21/18 04:00 10/21/18 05:00 Temperature 98.7 F Pulse Rate 72 Respiratory Rate 26 H Blood Pressure 169/71 H Pulse Oximetry 93 L 94 L Intake & Output 10/20/18 10/20/18 10/21/18 06:59 18:59 06:59 Intake Total 945 / 945 1050 / 1050 1300 / 1300 Output Total 1100 / 1100 Balance -155 / -155 1050 / 1050 1300 / 1300 Weight 66.8 kg Intake: IV 305 / 305 1050 / 1050 1300 / 1300 D5W/Normal Saline Inj 1,000 ML 1000 / 1000 @ 200 mls/hr IV.CONT .Q5H [facility] Rx#:[id number] NS Inj 1,000 ML @ 40 mls/hr IV. 250 / 250 CONT .Q24H [facility] Rx#:[id number] Azithromycin Inj 500 MG In NS 250 / 250 Inj 250 ML @ 250 mls/hr IV.SIG Q24H [facility] Rx#:[id number] Zosyn 4.5 GM Premix 4.5 gm In 100 / 100 200 / 200 100 ml @ 200 mls/hr IV.SIG Q6H [facility] Rx#:[id number] KCl 20 mEq Premix Inj 20 meq In 200 / 200 200 / 200 100 / 100 100 ml @ 50 mls/hr IV.SIG Q2H PRN Rx#:[id number] Vancomycin Inj 1,000 MG In NS 250 / 250 Inj 250 ML @ 250 mls/hr IV.SIG ONCE ONE Rx#:[id number] Oral 640 / 640 0 / 0 Output: Urine 1100 / 1100 Other: Date of Last Bowel Movement 10/19/18 10/20/18 10/21/18 # Bowel Movements 1 Result Diagrams: 10/21/18 04:25 10/21/18 04:25 Other Results: Microbiology 10/20/18 09:00 Stool Stool Occult Blood (DINO) - Final Hemoccult positive 10/18/18 12:00 Blood - Peripheral Aerobic Blood Culture - Preliminary No growth in 2 days 10/18/18 12:00 Blood - Peripheral Anaerobic Blood Culture - Preliminary No growth in 2 days 10/18/18 12:05 Blood - Peripheral Aerobic Blood Culture - Preliminary No growth in 2 days 10/18/18 12:05 Blood - Peripheral Anaerobic Blood Culture - Preliminary No growth in 2 days 10/19/18 15:40 Nasal Aspirate Influenza Types A,B Antigen - Final Negative for FLU A and B antigen Infection due to influenza A or B cannot be ruled out since the antigen present in the sample may be below the detection limit of the test. 10/18/18 15:22 Urine - Clean Catch Urine Streptococcus pneumoniae Antigen ( M - Final Presumptive negative for streptococcus pneumoniae antigen, suggesting no current or recent infection. Infection due to Streptococcus pneumoniae cannot be ruled out since the antigen present in the sample may be below the detection limit of the test. 10/18/18 15:22 Urine - Clean Catch Urine Legionella Antigen - Final Presumptive negative for Legionella pneumophila serogroup 1 antigen in urine, suggesting no recent or recurrent infection. Infection due to Legionella cannot be ruled out since other serogroups and species may cause disease, antigen may not be present in urine in early infection, and the level of antigen present in the urine may be below the detection limit of the test. Imaging: Chest X-Ray 10/18/18 09:42 CONCLUSION: Bilateral airspace process is highly suspicious for pneumonia. The appearance is however nonspecific. Chest CTA 10/20/18 00:00 CONCLUSION: Fairly extensive airspace process bilaterally could be inflammatory, however fairly extensive pneumonia should be entertained. The appearance is nonspecific. There are also coronary calcifications. Chest X-Ray 10/20/18 00:00 CONCLUSION: Interval development of diffuse haziness to the lungs obscuring previously seen pulmonary airspace process. Superimposed interstitial process and/or pulmonary edema should be entertained. Chest X-Ray 10/21/18 06:00 CONCLUSION: Unchanged bilateral parenchymal consolidations. Objective Remarks: GENERAL: 38-year-old male currently resting in bed in no acute distress HEENT: Head is normocephalic without any lesions or masses noted. Facial features are symmetric. Eyes: Extraocular muscles are intact. Conjunctivae were clear. Oropharyngeal was not examined due to patient wearing BiPAP NECK: Supple without any masses. Trachea midline no deviation. No JVD, CARDIAC: RRR 1. S1, S2 predose for without murmur LUNGS: Diminished breath sounds noted throughout with expiratory wheezes, not rhonchorous. ABDOMEN: Soft, nontender. Nondistended. Bowel sounds heard in all 4 quadrants. Hypoactive bowel sounds are appreciated EXTREMITIES: No edema, pulses are equal bilaterally. No cyanosis or clubbing NEUROLOGY: Mood and affect appear appropriate. Cranial nerves II through XII grossly intact. Moving all extremities, speech is clear Assessment and Plan - Problem List (1) Hyponatremia Code(s): E87.1 - Hypo-osmolality and hyponatremia Status: Acute (2) Hyperkalemia Code(s): E87.5 - Hyperkalemia Status: Acute (3) Acute kidney injury Code(s): N17.9 - Acute kidney failure, unspecified Status: Acute (4) Elevated lipase Code(s): R74.8 - Abnormal levels of other serum enzymes Status: Acute (5) Leukocytosis Code(s): D72.829 - Elevated white blood cell count, unspecified Status: Acute (6) Community acquired pneumonia Code(s): J18.9 - Pneumonia, unspecified organism Status: Acute (7) Hx of diabetes mellitus Code(s): Z86.39 - Personal history of other endocrine, nutritional and metabolic disease Status: Acute (8) DKA (diabetic ketoacidoses) Code(s): E13.10 - Other specified diabetes mellitus with ketoacidosis without coma Status: Acute - Assessment and Plan Plan: Neuro/Psych: Acetaminophen 650 mg p.o. every 6 hours as needed fever Hydrocodone/acetaminophen 5/325 1 tablet every 4 hours as needed pain 1 through 5 Morphine sulfate 2 mg IV every 2 hours as needed pain 6 or 10 CV: Essential hypertension Echocardiogram indicating normal ventricular size. Normal ventricular function with ejection fraction 55-60% As needed hydralazine, labetalol and Nitropaste for hypertension Resp: Acute hypoxic respiratory failure BiPAP support 26/02 with FiO2 at 40%., continue wean FiO2 to maintain O2 sats greater than 92% Attempt to wean the mass today if indicated Albuterol/ipratropium aerosols every 4 hours while awake with albuterol aerosols every 2 as needed dyspnea On methylprednisolone succinate 40 mg IV every 12 hours Follow-up chest x-ray in a.m. 10/22 CT pulmonary angiogram was performed which showed fairly extensive airspace process bilaterally which could be inflammatory, however fairly extensive pneumonia should be entertained. GI: Pantoprazole for GI prophylaxis Docusate serum/senna 1 tablet twice daily for bowel regimen Diabetic diet FEN/renal: Hypokalemia Hyperchloremia Electrolyte replacement protocol be resumed Discontinue IV fluids Endo: IDDM Insulin detemir 10 units twice daily with sliding scale insulin aspart q. before meals at bedtime Hemoglobin A1c 9.5 Home medication is NPH 15 units twice daily and sliding scale aspart IV R with meals] Discontinue DKA protocol. Patient is not in DKA. Heme: Leukocytosis Thrombocytopenia Normocytic anemia Extremely unlikely hit positive will order as only received 1 dose of heparin. Low risk via 4Ts categorization as platelet count fell 1 day without any recent heparin exposure, no thrombosis, there is definitely a cause of t pancytopenia secondary to sepsis. Noted currently platelets are above 100. No indication for transfusion of blood products at this time. ID: Community acquired pneumonia Received 1 dose of Pipracil/tazobactam the ED. Previously on ceftriaxone and azithromycin, now on piperacillin/tazobactam, vancomycin and azithromycin since 10/20 Blood cultures x2, sputum influenza A negative Viral respiratory panel ordered 10/18 is negative. Repeated 10/20 for unknown reasons MSK: PT evaluate and treat Access -Utilize peripheral IV. Central line if indicated Prophylaxis -GI -pantoprazole -DVT -sequential compression devices, fondaprinux for DVT prophylaxis. Level 2 follow-up. No critical care time involved (5) Leukocytosis Qualifiers: Leukocytosis type: unspecified Qualified Code(s): D72.829 - Elevated white blood cell count, unspecified (6) Community acquired pneumonia Qualifiers: Laterality: unspecified laterality Qualified Code(s): J18.9 - Pneumonia, unspecified organism (8) DKA (diabetic ketoacidoses) Qualifiers: Diabetes mellitus type: type 1 Diabetes mellitus complication detail: without coma Qualified Code(s): E10.10 - Type 1 diabetes mellitus with ketoacidosis without coma
[2018-10-21] MEDS ORDERED: Dextrose 50% in Water 50 ML Vial IV.PUSH PRN (06:35)
[2018-10-21] MEDS: Insulin Detemir Inj 1,000 UNIT/10 ML Vial SQ SCH ×2 (08:33→21:18)
[2018-10-21] MEDS: Insulin NovoLOG Aspart Correctional Sugar Inj SQ SCH ×7 (08:33→23:49)
[2018-10-21] MEDS: FONDAPARINUX 2.5 MG/0.5 ML SQ SCH (08:43)
[2018-10-21] MEDS: MethylPREDNISolone Sod Succinate Inj 40 MG/ML Vial IV.PUSH SCH ×2 (08:44→21:17)
[2018-10-21] MEDS: Pantoprazole Inj 40 MG Vial IV.PUSH SCH (08:45)
[2018-10-21] MEDS: Senna/Docusate Sodium 8.6/50 MG Tablet PO SCH ×2 (09:05→21:23)
[2018-10-21] MEDS: Azithromycin Inj 500 MG in Sodium Chlor 0.9% Inj 250 ML IV.SIG SCH (17:23)
--- NOTE | 2018-10-21 20:45 | P.PNPL ---
Subjective Interval history: 38 YOWM with DKA, hypoxic RF, bilat infilt Off Insulin drip Weaned to PRB Up in chair Feels much Better Physical Exam Vital signs: Vital Signs 10/20/18 22:50 10/21/18 00:00 10/21/18 02:00 Temperature 98.7 F Pulse Rate 79 71 Respiratory Rate 26 H Blood Pressure 147/64 H Pulse Oximetry 98 97 10/21/18 02:15 10/21/18 03:32 10/21/18 04:00 Temperature 98.7 F Pulse Rate 70 72 Respiratory Rate 26 H Blood Pressure 169/71 H Pulse Oximetry 94 L 93 L 10/21/18 05:00 10/21/18 06:00 10/21/18 08:00 Temperature Pulse Rate 74 74 Respiratory Rate 19 Blood Pressure 178/103 H Pulse Oximetry 94 L 97 10/21/18 08:05 10/21/18 08:31 10/21/18 09:00 Temperature Pulse Rate 76 70 Respiratory Rate 30 H 16 Blood Pressure 147/78 H 144/80 H Pulse Oximetry 98 100 100 10/21/18 09:30 10/21/18 10:00 10/21/18 11:00 Temperature Pulse Rate 75 94 H 82 Respiratory Rate 24 34 H 31 H Blood Pressure 108/61 142/71 H Pulse Oximetry 100 10/21/18 12:00 10/21/18 14:00 10/21/18 15:26 Temperature Pulse Rate 84 74 64 Respiratory Rate 28 H 26 H Blood Pressure 142/84 H Pulse Oximetry 93 L 10/21/18 15:45 10/21/18 16:00 10/21/18 17:00 Temperature Pulse Rate 78 72 Respiratory Rate 26 H 18 Blood Pressure 156/88 H 146/79 H Pulse Oximetry 98 99 100 10/21/18 17:41 10/21/18 18:00 10/21/18 18:49 Temperature Pulse Rate 80 76 Respiratory Rate 24 Blood Pressure Pulse Oximetry 97 10/21/18 19:09 10/21/18 19:54 Temperature Pulse Rate Respiratory Rate 6 L Blood Pressure Pulse Oximetry 96 Intake & Output 10/21/18 10/21/18 10/22/18 06:59 18:59 06:59 Intake Total 2050 / 2050 1210 / 1210 500 / 500 Output Total 1500 / 1500 1300 / 1300 Balance 550 / 550 -90 / -90 500 / 500 Intake: IV 1650 / 1650 250 / 250 500 / 500 D5W/Normal Saline Inj 1,000 ML 1000 / 1000 @ 200 mls/hr IV.CONT .Q5H [facility] Rx#:[id number] Azithromycin Inj 500 MG In NS 250 / 250 Inj 250 ML @ 250 mls/hr IV.SIG Q24H [facility] Rx#:[id number] Zosyn 4.5 GM Premix 4.5 gm In 200 / 200 200 / 200 100 ml @ 200 mls/hr IV.SIG Q6H [facility] Rx#:[id number] KCl 20 mEq Premix Inj 20 meq In 200 / 200 50 / 50 100 ml @ 50 mls/hr IV.SIG Q2H PRN Rx#:[id number] Vancomycin Inj 1,000 MG In NS 250 / 250 250 / 250 Inj 250 ML @ 250 mls/hr IV.SIG Q12H [facility] Rx#:[id number] Oral 400 / 400 960 / 960 Output: Urine 1500 / 1500 1300 / 1300 Other: Date of Last Bowel Movement 10/21/18 10/21/18 # Bowel Movements 2 GENERAL: MBMN Mild sob SKIN: Warm and dry. HEAD: Normocephalic. EYES: No scleral icterus. No injection or drainage. NECK: Supple, trachea midline. No JVD or lymphadenopathy. CARDIOVASCULAR: Regular rate and rhythm without murmurs, gallops, or rubs. RESPIRATORY: Breath sounds equal bilaterally. No accessory muscle use. GASTROINTESTINAL: Abdomen soft, non-tender, nondistended. MUSCULOSKELETAL: No cyanosis, or edema. BACK: Nontender without obvious deformity. No CVA tenderness. Assessment and Plan - Plan IMPRESSION: 1. Hypoxic respiratory failure. 2. Metabolic acidosis. 3. Diabetic ketoacidosis. 4. Bilateral extensive infiltrate, possible inflammatory process, ARDS, atypical pneumonia. 5. Electrolyte imbalance. PLAN: IV Solumedrol Supplement 02 Wean to keep sat >90% Monitor BS Monitor goldy CXR in AM
--- NOTE | 2018-10-21 21:06 | ECG ---
Date Performed: 10/21/2018 Time Performed: 03:03:15 PTAGE: 38 years EKG: Sinus rhythm PROLONGED QT INTERVAL ABNORMAL ECG PREVIOUS TRACING : 10/20/2018 21.45 Since the previous tracing, no significant change noted DOCTOR: Boni Hernandez Interpretating Date/Time 10/21/2018 21:04:50
--- NOTE | 2018-10-21 21:11 | ECG ---
Date Performed: 10/20/2018 Time Performed: 21:45:29 PTAGE: 38 years EKG: Sinus rhythm NORMAL ECG PREVIOUS TRACING : 10/20/2018 15.41 Since the previous tracing, no significant change noted DOCTOR: Boni Hernandez Interpretating Date/Time 10/21/2018 21:10:03
[2018-10-21] MEDS: Sod Chloride 0.9% Inj 1,000 ML IV.CONT SCH (21:19)
--- NOTE | 2018-10-21 21:21 | ECG ---
Date Performed: 10/20/2018 Time Performed: 15:41:27 PTAGE: 38 years EKG: SINUS TACHYCARDIA POSSIBLE LEFT ATRIAL ENLARGEMENT INCOMPLETE RIGHT BUNDLE BRANCH BLOCK NON SPECIFIC T-WAVE ABNORMALITY ABNORMAL RHYTHM ECG PREVIOUS TRACING : 08/04/2018 21.10 Since the previous tracing, no significant change noted DOCTOR: Boni Hernandez Interpretating Date/Time 10/21/2018 21:18:54
[2018-10-21] MEDS ORDERED: Insulin NovoLOG Aspart Correctional Sugar Inj SQ ONE (22:30)
[2018-10-22] MEDS: Insulin NovoLOG Aspart Correctional Sugar Inj SQ SCH ×5 (02:18→21:03)
[2018-10-22] MEDS ORDERED: Insulin NovoLOG Aspart Correctional Sugar Inj SQ SCH (03:00)
[2018-10-22] MEDS: Piperacil/Tazo 4.5 GM Premix 4.5 GM/100 ML BAG IV.SIG SCH ×5 (03:14→21:09)
[2018-10-22] MEDS: Morphine Inj 4 MG/ML Vial IV.PUSH PRN ×3 (03:20→19:56)
[2018-10-22] MEDS ORDERED: Pharmacy Ordered Lab Info OTHER ONE (03:45)
[2018-10-22] MEDS: Chlorhexidine Gluconate 2% 1 Pack (2 Cloths) TOPICAL SCH ×2 (04:35)
[2018-10-22] MEDS: Vancomycin Inj 1,000 MG in Sodium Chlor 0.9% Inj 250 ML IV.SIG SCH ×2 (04:35→16:32)
[2018-10-22 05:18] LABS: Baso # (Auto) 0.1 th/mm3 (0.0-0.2); Baso % (Auto) 0.4 % (0.0-2.0); Eos # (Auto) 0.2 th/mm3 (0.0-0.4); Eos % (Auto) 0.9 % (0.0-4.0); Hematocrit 31.1 % (39.0-51.0); Hemoglobin 10.4 gm/dL (13.0-17.0); Lymph # (Auto) 0.6 th/mm3 (1.0-4.8); Lymph % (Auto) 2.8 % (9.0-44.0); Mean Corpuscular HGB Conc 33.5 % (32.0-36.0); Mean Corpuscular Hemoglobin 29.3 pg (27.0-34.0); Mean Corpuscular Volume 87.3 fL (80.0-100.0); Mean Platelet Volume 9.4 fL (7.0-11.0); Mono # (Auto) 0.6 th/mm3 (0.0-0.9); Mono % (Auto) 2.9 % (0.0-8.0); Neut # (Auto) 18.2 th/mm3 (1.8-7.7); Platelet Count 176 th/mm3 (150-450); Red Blood Count 3.56 mil/mm3 (4.50-5.90); Red Cell Distribution Width 13.1 % (11.6-17.2); White Blood Count 19.7 th/mm3 (4.0-11.0)
[2018-10-22 05:25] LABS: Chloride 109 meq/L (98-107); Potassium 3.3 meq/L (3.5-5.1); Sodium 139 meq/L (136-145)
[2018-10-22 05:30] LABS: Calcium 8.2 mg/dL (8.5-10.1)
[2018-10-22 05:31] LABS: Albumin 2.2 g/dL (3.4-5.0); Anion Gap 7 meq/L (5-15); Blood Urea Nitrogen 18 mg/dL (7-18); Carbon Dioxide 23.3 meq/L (21.0-32.0); Glucose,Random 236 mg/dL (74-106)
[2018-10-22 05:36] LABS: Alanine Aminotransferase 71 U/L (12-78); Aspartate Aminotransferase 80 U/L (15-37); Glomerular Filtration Rate 76 mL/min (>89); Phosphorus 1.2 mg/dL (2.5-4.9)
[2018-10-22 05:37] LABS: Alkaline Phosphatase 238 U/L (45-117)
--- NOTE | 2018-10-22 07:38 | P.PNCC ---
Subjective Subjective Remarks/Hospital Course: This is a 38-year-old male. Date of admission 10/18/2018. Past medical history includes diabetes mellitus. He has had multiple admissions for diabetic ketoacidosis. Presented to [facility] for evaluation of generalized weakness and excessive breathing. He has had abdominal pain/ nausea and vomiting in the past. Patient presented with shortness of breath and generalized malaise. He is noted to have a elevated white blood cell count , progressive since his chest x-ray. Received piperacillin/tazobactam ED. He started on insulin drip and received 6 units R insulin 4 units an hour. Elevated beta hydroxybutyrate 10/19: Anion gap is closed. Will transition to scheduled insulin detemir and sliding scale insulin at 9 AM with breakfast. Currently replacing potassium. Patient feels better without abdominal pain. Currently 2 L nasal cannula. 10/20: Critical care reconsulted by hospitalist service as patient remained on BiPAP. CTA chest showed bilateral infiltrates. I evaluated the patient this morning at which time he was on BiPAP maintaining O2 sats with settings of +12/+ 5 FiO2 was decreased from 80-55% at the time of my evaluation this morning and he was awake and alert and conversant. He did receive Lasix 40 mg IV with which he diuresed 2 L. I have discussed the case with Grayson HURST for hospitalist service earlier today. Critical care reconsulted due to worsening respiratory status. I did order Solu-Medrol 125 mg IV stat followed by 60 mg every 12 hourly in view of history of smoking in view of acute lung injury pattern with question of COPD. SUBJECTIVE: 10/21: T-max 99.8. Currently afebrile. Remains on insulin drip. We will transition to insulin detemir. Groundglass opacities on x-ray this a.m. FiO2 down to 40%. 10/22: Resting comfortably on nasal cannula. Off BiPAP since yesterday afternoon. Sitting up in chair comfortably. Objective Vital Signs / I&O: Vital Signs 10/21/18 08:00 10/21/18 08:05 10/21/18 08:31 Temperature Pulse Rate 74 76 Respiratory Rate 19 30 H Blood Pressure 178/103 H 147/78 H Pulse Oximetry 97 98 100 10/21/18 09:00 10/21/18 09:30 10/21/18 10:00 Temperature Pulse Rate 70 75 94 H Respiratory Rate 16 24 34 H Blood Pressure 144/80 H 108/61 Pulse Oximetry 100 10/21/18 11:00 10/21/18 12:00 10/21/18 14:00 Temperature Pulse Rate 82 84 74 Respiratory Rate 31 H 28 H Blood Pressure 142/71 H 142/84 H Pulse Oximetry 100 93 L 10/21/18 15:26 10/21/18 15:45 10/21/18 16:00 Temperature Pulse Rate 64 78 Respiratory Rate 26 H 26 H Blood Pressure 156/88 H Pulse Oximetry 98 99 10/21/18 17:00 10/21/18 17:41 10/21/18 18:00 Temperature Pulse Rate 72 80 Respiratory Rate 18 Blood Pressure 146/79 H Pulse Oximetry 100 97 10/21/18 18:49 10/21/18 19:00 10/21/18 19:09 Temperature Pulse Rate 76 94 H Respiratory Rate 24 30 H Blood Pressure 143/89 H Pulse Oximetry 96 96 10/21/18 19:54 10/21/18 20:00 10/21/18 20:56 Temperature 98.3 F Pulse Rate 80 Respiratory Rate 6 L 20 Blood Pressure 140/70 Pulse Oximetry 95 96 10/21/18 21:00 10/21/18 22:00 10/21/18 23:00 Temperature Pulse Rate 72 74 76 Respiratory Rate 12 27 H Blood Pressure 148/93 H 159/82 H Pulse Oximetry 100 100 10/22/18 00:00 10/22/18 01:00 10/22/18 02:00 Temperature 98.8 F Pulse Rate 92 H 80 68 Respiratory Rate 32 H 24 25 H Blood Pressure 132/71 125/69 129/66 Pulse Oximetry 91 L 92 L 96 10/22/18 03:00 10/22/18 04:00 10/22/18 05:00 Temperature 97.1 F L Pulse Rate 68 72 68 Respiratory Rate 21 21 19 Blood Pressure 126/63 119/62 125/69 Pulse Oximetry 100 99 98 10/22/18 06:00 10/22/18 07:11 10/22/18 07:12 Temperature Pulse Rate 80 71 Respiratory Rate 18 Blood Pressure Pulse Oximetry 95 Intake & Output 10/21/18 10/22/18 10/22/18 18:59 06:59 18:59 Intake Total 1210 / 1210 1750 / 1750 Output Total 1300 / 1300 850 / 850 Balance -90 / -90 900 / 900 Weight 67.9 kg Intake: IV 250 / 250 950 / 950 Azithromycin Inj 500 MG In NS 250 / 250 Inj 250 ML @ 250 mls/hr IV.SIG Q24H [facility] Rx#:[id number] Zosyn 4.5 GM Premix 4.5 gm In 200 / 200 200 / 200 100 ml @ 200 mls/hr IV.SIG Q6H [facility] Rx#:[id number] KCl 20 mEq Premix Inj 20 meq In 50 / 50 100 ml @ 50 mls/hr IV.SIG Q2H PRN Rx#:[id number] Vancomycin Inj 1,000 MG In NS 500 / 500 Inj 250 ML @ 250 mls/hr IV.SIG Q12H [facility] Rx#:[id number] Oral 960 / 960 800 / 800 Output: Urine 1300 / 1300 850 / 850 Other: Date of Last Bowel Movement 10/21/18 10/21/18 # Bowel Movements 2 Result Diagrams: 10/22/18 04:25 10/22/18 04:25 Objective Remarks: GENERAL: 38-year-old male currently resting in bed in no acute distress HEENT: Head is normocephalic without any lesions or masses noted. Facial features are symmetric. Eyes: Extraocular muscles are intact. Conjunctivae were clear. Tongue moist NECK: Supple without any masses. Trachea midline no deviation. No JVD, CARDIAC: RRR 1. S1, S2 predose for without murmur LUNGS: Good air entry bilaterally, scattered rhonchi, no wheezing. ABDOMEN: Soft, nontender. Nondistended. Bowel sounds heard in all 4 quadrants. Hypoactive bowel sounds are appreciated EXTREMITIES: No edema, pulses are equal bilaterally. No cyanosis or clubbing NEUROLOGY: Mood and affect appear appropriate. Cranial nerves II through XII grossly intact. Moving all extremities, speech is clear Assessment and Plan - Problem List (1) Hyponatremia Code(s): E87.1 - Hypo-osmolality and hyponatremia Status: Acute (2) Hyperkalemia Code(s): E87.5 - Hyperkalemia Status: Acute (3) Acute kidney injury Code(s): N17.9 - Acute kidney failure, unspecified Status: Acute (4) Elevated lipase Code(s): R74.8 - Abnormal levels of other serum enzymes Status: Acute (5) Leukocytosis Code(s): D72.829 - Elevated white blood cell count, unspecified Status: Acute (6) Community acquired pneumonia Code(s): J18.9 - Pneumonia, unspecified organism Status: Acute (7) Hx of diabetes mellitus Code(s): Z86.39 - Personal history of other endocrine, nutritional and metabolic disease Status: Acute (8) DKA (diabetic ketoacidoses) Code(s): E13.10 - Other specified diabetes mellitus with ketoacidosis without coma Status: Acute - Assessment and Plan Plan: Neuro/Psych: Acetaminophen 650 mg p.o. every 6 hours as needed fever Hydrocodone/acetaminophen 5/325 1 tablet every 4 hours as needed pain 1 through 5 Morphine sulfate 2 mg IV every 2 hours as needed pain 6 or 10 CV: Essential hypertension Echocardiogram indicating normal ventricular size. Normal ventricular function with ejection fraction 55-60% As needed hydralazine, labetalol and Nitropaste for hypertension Resp: Acute hypoxic respiratory failure Off BiPAP, tolerating nasal cannula Albuterol/ipratropium aerosols every 4 hours while awake with albuterol aerosols every 2 as needed dyspnea On methylprednisolone succinate 40 mg IV every 12 hours Follow-up CXR as needed CT pulmonary angiogram was performed which showed fairly extensive airspace process bilaterally which could be inflammatory, however fairly extensive pneumonia should be entertained. GI: Pantoprazole for GI prophylaxis Docusate serum/senna 1 tablet twice daily for bowel regimen Diabetic diet FEN/renal: Hypokalemia Hyperchloremia Electrolyte replacement protocol be resumed Discontinue IV fluids Endo: IDDM Insulin detemir 10 units twice daily with sliding scale insulin aspart q. before meals at bedtime Hemoglobin A1c 9.5 Home medication is NPH 15 units twice daily and sliding scale aspart IV R with meals] Off DKA protocol Heme: Leukocytosis Thrombocytopenia Normocytic anemia Extremely unlikely hit positive will order as only received 1 dose of heparin. Low risk via 4Ts categorization as platelet count fell 1 day without any recent heparin exposure, no thrombosis, there is definitely a cause of t pancytopenia secondary to sepsis. Noted currently platelets are above 100. No indication for transfusion of blood products at this time. ID: Community acquired pneumonia Received 1 dose of Pipracil/tazobactam the ED. Previously on ceftriaxone and azithromycin, now on piperacillin/tazobactam, vancomycin and azithromycin since 10/20 Blood cultures x2, sputum influenza A negative Viral respiratory panel ordered 10/18 is negative. Repeated 10/20 for unknown reasons MSK: PT evaluate and treat Access -Utilize peripheral IV. Central line if indicated Prophylaxis -GI -pantoprazole -DVT -sequential compression devices, fondaprinux for DVT prophylaxis. Level 2 follow-up. Transfer to hospitalist service for further medical management, critical care signing off. (5) Leukocytosis Qualifiers: Leukocytosis type: unspecified Qualified Code(s): D72.829 - Elevated white blood cell count, unspecified (6) Community acquired pneumonia Qualifiers: Laterality: unspecified laterality Qualified Code(s): J18.9 - Pneumonia, unspecified organism (8) DKA (diabetic ketoacidoses) Qualifiers: Diabetes mellitus type: type 1 Diabetes mellitus complication detail: without coma Qualified Code(s): E10.10 - Type 1 diabetes mellitus with ketoacidosis without coma
[2018-10-22] MEDS: Pantoprazole Inj 40 MG Vial IV.PUSH SCH (08:40)
[2018-10-22] MEDS: FONDAPARINUX 2.5 MG/0.5 ML SQ SCH (08:40)
[2018-10-22] MEDS: MethylPREDNISolone Sod Succinate Inj 40 MG/ML Vial IV.PUSH SCH ×2 (08:40→21:05)
[2018-10-22] MEDS: Insulin Detemir Inj 1,000 UNIT/10 ML Vial SQ SCH ×2 (08:41→21:27)
[2018-10-22] MEDS: Senna/Docusate Sodium 8.6/50 MG Tablet PO SCH (08:43)
--- NOTE | 2018-10-22 10:17 | XR ---
EXAM DATE: 10/22/2018 10:14 AM EST AGE/SEX: 38 years / Male INDICATIONS: . Short of breath, chest pain. CLINICAL DATA: This is the patient's subsequent encounter. Patient reports that signs and symptoms h ave been present for 4 - 6 days and indicates a pain score of 4/10. MEDICAL/SURGICAL HISTORY: Diabetes mellitus type II. Inguinal hernia repair. COMPARISON: [facility], CHEST 1V SINGLE AP, 10/21/2018. . FINDINGS: Persistent bilateral parenchymal process or present, however overall improved since the josie or study from one day ago. The rest of the examination has not changed. CONCLUSION: There is mild improvement in bilateral infiltrates most likely improvement in pneumonia a nd residual infiltrates remain. Electronically signed by: Feliciano Regan MD Board Certified Radiologist 10/22/2018 10:16 AM EST
--- NOTE | 2018-10-22 11:33 | P.PNIM ---
Subjective Interval history: f/u; pneumonia/ DKA in no acute distress. sob improving. has occasional dry cough. no fever. says that overall he's feeling better. Physical Exam Vital signs: Last Vital Signs Temp 97.1 F L 10/22/18 04:00 Pulse 67 10/22/18 11:22 Resp 16 10/22/18 11:22 BP 125/69 10/22/18 05:00 Pulse Ox 95 10/22/18 07:11 Intake & Output 10/20/18 10/21/18 10/22/18 10/23/18 06:59 06:59 06:59 06:59 Intake Total 2663 / 2663 3100 / 3100 2960 / 2960 100 / 100 Output Total 1100 / 1100 1500 / 1500 2150 / 2150 Balance 1563 / 1563 1600 / 1600 810 / 810 100 / 100 Weight 66.8 kg 67.9 kg Constitutional no acute distress Routine Respiratory Exam Present CTA bilaterally Routine Cardiovascular Exam Present RRR Routine Abdominal Exam Present soft Routine Extremities Exam Comments: no pedal edema. Routine Neurological Exam Present alert and oriented X3 Results Labs CBC & Chem 7: 10/22/18 04:25 10/22/18 04:25 Labs: Microbiology 10/18/18 12:00 Blood - Peripheral Aerobic Blood Culture - Preliminary No growth in 4 days 10/18/18 12:00 Blood - Peripheral Anaerobic Blood Culture - Preliminary No growth in 4 days 10/18/18 12:05 Blood - Peripheral Aerobic Blood Culture - Preliminary No growth in 4 days 10/18/18 12:05 Blood - Peripheral Anaerobic Blood Culture - Preliminary No growth in 4 days Imaging Imaging: Impressions Chest X-Ray 10/22/18 07:45 CONCLUSION: There is mild improvement in bilateral infiltrates most likely improvement in pneumonia and residual infiltrates remain. Assessment and Plan (1) Hyponatremia: Code(s): E87.1 - Hypo-osmolality and hyponatremia Status: Acute (2) Hyperkalemia: Code(s): E87.5 - Hyperkalemia Status: Acute (3) Acute kidney injury: Code(s): N17.9 - Acute kidney failure, unspecified Status: Acute (4) Elevated lipase: Code(s): R74.8 - Abnormal levels of other serum enzymes Status: Acute (5) Leukocytosis: Code(s): D72.829 - Elevated white blood cell count, unspecified Status: Acute (6) Community acquired pneumonia: Code(s): J18.9 - Pneumonia, unspecified organism Status: Acute (7) Hx of diabetes mellitus: Code(s): Z86.39 - Personal history of other endocrine, nutritional and metabolic disease Status: Acute (8) DKA (diabetic ketoacidoses): Code(s): E13.10 - Other specified diabetes mellitus with ketoacidosis without coma Status: Acute Plan Essential hypertension Echocardiogram indicating normal ventricular size. Normal ventricular function with ejection fraction 55-60% As needed hydralazine, labetalol and Nitropaste for hypertension Acute hypoxic respiratory failure Off BiPAP, tolerating nasal cannula Albuterol/ipratropium aerosols every 4 hours while awake with albuterol aerosols every 2 as needed dyspnea On methylprednisolone succinate Follow-up CXR today with some improvement CT pulmonary angiogram was performed which showed fairly extensive airspace process bilaterally which could be inflammatory, however fairly extensive pneumonia should be entertained. Hypokalemia Hypophosphatemia Electrolyte replacement protocol be resumed IDDM DKA-has resolved. Insulin detemir 10 units twice daily with sliding scale insulin aspart q. before meals at bedtime Hemoglobin A1c 9.5 Home medication is NPH 15 units twice daily and sliding scale aspart IV R with meals] Leukocytosis Thrombocytopenia Normocytic anemia Community acquired pneumonia Previously on ceftriaxone and azithromycin, now on piperacillin/tazobactam, vancomycin and azithromycin since 10/20 Blood cultures x2, sputum influenza A negative Viral respiratory panel ordered 10/18 is negative. Repeated 10/20 for unknown reasons pulmonary following. MSK: PT evaluate and treat Prophylaxis -GI -pantoprazole -DVT -sequential compression devices, fondaprinux for DVT prophylaxis. will transfer to floor. d/w the RN. Progress Note: Quality VTE Deep Vein Thrombosis/Pulmonary Embolism Present on Admission: No _ (1) Leukocytosis Qualifiers: Leukocytosis type: unspecified Qualified Code(s): D72.829 - Elevated white blood cell count, unspecified (2) Community acquired pneumonia Qualifiers: Laterality: unspecified laterality Lung location: Qualified Code(s): J18.9 - Pneumonia, unspecified organism (3) DKA (diabetic ketoacidoses) Qualifiers: Diabetes mellitus complication detail: without coma Diabetes mellitus type: type 1 Qualified Code(s): E10.10 - Type 1 diabetes mellitus with ketoacidosis without coma
[2018-10-22] MEDS: Azithromycin Inj 500 MG in Sodium Chlor 0.9% Inj 250 ML IV.SIG SCH (16:31)
[2018-10-22] MEDS: Sod Chloride 0.9% Inj 1,000 ML IV.CONT SCH (16:33)
--- NOTE | 2018-10-22 19:50 | P.PNPL ---
Subjective Interval history: 38 YOWM with DKA, hypoxic RF, bilat infilt Off Insulin drip Weaned to NC Up in chair Feels much Better CXR improving lung infilt Physical Exam Vital signs: Vital Signs 10/21/18 19:54 10/21/18 20:00 10/21/18 20:56 Temperature 98.3 F Pulse Rate 80 Respiratory Rate 6 L 20 Blood Pressure 140/70 Pulse Oximetry 95 96 10/21/18 21:00 10/21/18 22:00 10/21/18 23:00 Temperature Pulse Rate 72 74 76 Respiratory Rate 12 27 H Blood Pressure 148/93 H 159/82 H Pulse Oximetry 100 100 10/22/18 00:00 10/22/18 01:00 10/22/18 02:00 Temperature 98.8 F Pulse Rate 92 H 80 68 Respiratory Rate 32 H 24 25 H Blood Pressure 132/71 125/69 129/66 Pulse Oximetry 91 L 92 L 96 10/22/18 03:00 10/22/18 04:00 10/22/18 05:00 Temperature 97.1 F L Pulse Rate 68 72 68 Respiratory Rate 21 21 19 Blood Pressure 126/63 119/62 125/69 Pulse Oximetry 100 99 98 10/22/18 06:00 10/22/18 07:00 10/22/18 07:11 Temperature 98.7 F Pulse Rate 80 72 Respiratory Rate 25 H Blood Pressure 136/77 Pulse Oximetry 97 95 10/22/18 07:12 10/22/18 08:00 10/22/18 08:11 Temperature Pulse Rate 71 72 86 Respiratory Rate 18 25 H 26 H Blood Pressure 142/67 H 132/68 Pulse Oximetry 97 89 L 10/22/18 09:00 10/22/18 10:00 10/22/18 11:22 Temperature Pulse Rate 80 73 67 Respiratory Rate 28 H 16 Blood Pressure 141/75 H Pulse Oximetry 97 10/22/18 11:50 10/22/18 12:00 10/22/18 14:00 Temperature 98.6 F Pulse Rate 73 70 74 Respiratory Rate 25 H 26 H Blood Pressure 132/66 Pulse Oximetry 99 10/22/18 15:00 10/22/18 15:35 10/22/18 15:50 Temperature Pulse Rate 78 65 93 H Respiratory Rate 22 20 Blood Pressure Pulse Oximetry 10/22/18 18:36 Temperature 98.4 F Pulse Rate 94 H Respiratory Rate 32 H Blood Pressure 114/55 L Pulse Oximetry Intake & Output 10/22/18 10/22/18 10/23/18 06:59 18:59 06:59 Intake Total 1750 / 1750 720 / 720 Output Total 850 / 850 Balance 900 / 900 720 / 720 Weight 67.9 kg Intake: IV 950 / 950 720 / 720 NS Inj 1,000 ML @ 40 mls/hr IV. 20 / 20 CONT .Q24H [facility] Rx#:[id number] Azithromycin Inj 500 MG In NS 250 / 250 250 / 250 Inj 250 ML @ 250 mls/hr IV.SIG Q24H [facility] Rx#:[id number] Zosyn 4.5 GM Premix 4.5 gm In 200 / 200 200 / 200 100 ml @ 200 mls/hr IV.SIG Q6H [facility] Rx#:[id number] Vancomycin Inj 1,000 MG In NS 500 / 500 250 / 250 Inj 250 ML @ 250 mls/hr IV.SIG Q12H [facility] Rx#:[id number] Oral 800 / 800 Output: Urine 850 / 850 Other: # Voids 5 Date of Last Bowel Movement 10/21/18 10/21/18 # Bowel Movements 2 GENERAL: MBMN NAD SKIN: Warm and dry. HEAD: Normocephalic. EYES: No scleral icterus. No injection or drainage. NECK: Supple, trachea midline. No JVD or lymphadenopathy. CARDIOVASCULAR: Regular rate and rhythm without murmurs, gallops, or rubs. RESPIRATORY: Breath sounds equal bilaterally. No accessory muscle use. GASTROINTESTINAL: Abdomen soft, non-tender, nondistended. MUSCULOSKELETAL: No cyanosis, or edema. BACK: Nontender without obvious deformity. No CVA tenderness. Assessment and Plan - Plan IMPRESSION: 1. Hypoxic respiratory failure. 2. Metabolic acidosis. 3. Diabetic ketoacidosis. 4. Bilateral extensive infiltrate, possible inflammatory process, ARDS, atypical pneumonia. 5. Electrolyte imbalance. PLAN: IV Solumedrol Supplement 02 Wean to keep sat >90% Monitor BS Monitor lytes
[2018-10-23] MEDS: Piperacil/Tazo 4.5 GM Premix 4.5 GM/100 ML BAG IV.SIG SCH ×2 (03:22→09:03)
[2018-10-23] MEDS: Chlorhexidine Gluconate 2% 1 Pack (2 Cloths) TOPICAL SCH ×2 (03:24)
[2018-10-23] MEDS: Insulin NovoLOG Aspart Correctional Sugar Inj SQ SCH ×2 (03:31→08:50)
[2018-10-23] MEDS: Vancomycin Inj 1,000 MG in Sodium Chlor 0.9% Inj 250 ML IV.SIG SCH (04:01)
[2018-10-23 04:52] LABS: Baso % (Auto) 0.2 % (0.0-2.0); Eos # (Auto) 0.2 th/mm3 (0.0-0.4); Eos % (Auto) 2.5 % (0.0-4.0); Hematocrit 32.2 % (39.0-51.0); Hemoglobin 10.8 gm/dL (13.0-17.0); Lymph # (Auto) 0.6 th/mm3 (1.0-4.8); Lymph % (Auto) 7.2 % (9.0-44.0); Mean Corpuscular HGB Conc 33.4 % (32.0-36.0); Mean Corpuscular Hemoglobin 29.1 pg (27.0-34.0); Mean Corpuscular Volume 87.1 fL (80.0-100.0); Mean Platelet Volume 8.7 fL (7.0-11.0); Mono # (Auto) 0.3 th/mm3 (0.0-0.9); Mono % (Auto) 3.1 % (0.0-8.0); Platelet Count 303 th/mm3 (150-450); Red Cell Distribution Width 13.4 % (11.6-17.2); White Blood Count 8.1 th/mm3 (4.0-11.0)
[2018-10-23 04:59] LABS: Potassium 3.1 meq/L (3.5-5.1)
[2018-10-23 05:02] LABS: Carbon Dioxide 25.5 meq/L (21.0-32.0)
[2018-10-23 05:09] LABS: Phosphorus 2.7 mg/dL (2.5-4.9)
--- NOTE | 2018-10-23 08:00 | P.PNIM ---
Subjective Interval history: f/u; DKA/pneumonia in no acute distress. stable on oxygen via [place]. no fever. has occasional cough. d/w the RN and no acute issues over night. Physical Exam Vital signs: Last Vital Signs Temp 98 F 10/23/18 04:09 Pulse 72 10/23/18 07:18 Resp 16 10/23/18 07:18 BP 138/80 10/23/18 04:09 Pulse Ox 96 10/23/18 07:18 Intake & Output 10/21/18 10/22/18 10/23/18 10/24/18 06:59 06:59 06:59 06:59 Intake Total 3100 / 3100 2960 / 2960 820 / 820 Output Total 1500 / 1500 2150 / 2150 Balance 1600 / 1600 810 / 810 820 / 820 Weight 67.9 kg Constitutional no acute distress Routine Respiratory Exam Present CTA bilaterally Routine Cardiovascular Exam Present RRR Routine Abdominal Exam Present soft Routine Extremities Exam Comments: no pedal edema. Routine Neurological Exam Present alert and oriented X3 Results Labs CBC & Chem 7: 10/23/18 04:22 10/23/18 04:22 Labs: Microbiology 10/18/18 12:00 Blood - Peripheral Aerobic Blood Culture - Preliminary No growth in 4 days 10/18/18 12:00 Blood - Peripheral Anaerobic Blood Culture - Preliminary No growth in 4 days 10/18/18 12:05 Blood - Peripheral Aerobic Blood Culture - Preliminary No growth in 4 days 10/18/18 12:05 Blood - Peripheral Anaerobic Blood Culture - Preliminary No growth in 4 days Imaging Imaging: Impressions Chest X-Ray 10/22/18 07:45 CONCLUSION: There is mild improvement in bilateral infiltrates most likely improvement in pneumonia and residual infiltrates remain. Assessment and Plan (1) Hyponatremia: Code(s): E87.1 - Hypo-osmolality and hyponatremia Status: Acute (2) Hyperkalemia: Code(s): E87.5 - Hyperkalemia Status: Acute (3) Acute kidney injury: Code(s): N17.9 - Acute kidney failure, unspecified Status: Acute (4) Elevated lipase: Code(s): R74.8 - Abnormal levels of other serum enzymes Status: Acute (5) Leukocytosis: Code(s): D72.829 - Elevated white blood cell count, unspecified Status: Acute (6) Community acquired pneumonia: Code(s): J18.9 - Pneumonia, unspecified organism Status: Acute (7) Hx of diabetes mellitus: Code(s): Z86.39 - Personal history of other endocrine, nutritional and metabolic disease Status: Acute (8) DKA (diabetic ketoacidoses): Code(s): E13.10 - Other specified diabetes mellitus with ketoacidosis without coma Status: Acute Plan Essential hypertension Echocardiogram indicating normal ventricular size. Normal ventricular function with ejection fraction 55-60% As needed hydralazine, labetalol and Nitropaste for hypertension Acute hypoxic respiratory failure-has resolved. Off BiPAP, tolerating nasal cannula Albuterol/ipratropium aerosols every 4 hours while awake with albuterol aerosols every 2 as needed dyspnea On methylprednisolone succinate Follow-up CXR with some improvement CT pulmonary angiogram was performed which showed fairly extensive airspace process bilaterally which could be inflammatory, however fairly extensive pneumonia should be entertained. Hypokalemia Hypophosphatemia Electrolyte replacement as needed IDDM DKA-has resolved. Insulin detemir 10 units twice daily with sliding scale insulin aspart q. before meals at bedtime Hemoglobin A1c 9.5 Home medication is NPH 15 units twice daily and sliding scale aspart IV R with meals] Leukocytosis-resolved. Thrombocytopenia Normocytic anemia Community acquired pneumonia Previously on ceftriaxone and azithromycin, now on piperacillin/tazobactam, vancomycin and azithromycin since 10/20 Blood cultures x2, sputum influenza A negative Viral respiratory panel ordered 10/18 is negative. Repeated 10/20 for unknown reasons pulmonary following. MSK: PT evaluate and treat Prophylaxis -GI -pantoprazole -DVT -sequential compression devices, fondaprinux for DVT prophylaxis. for transfer to floor. d/w the RN. Discharge Planning: home; within the next 24-48 hrs. Progress Note: Quality VTE Deep Vein Thrombosis/Pulmonary Embolism Present on Admission: No _ (1) Leukocytosis Qualifiers: Leukocytosis type: unspecified Qualified Code(s): D72.829 - Elevated white blood cell count, unspecified (2) Community acquired pneumonia Qualifiers: Laterality: unspecified laterality Lung location: Qualified Code(s): J18.9 - Pneumonia, unspecified organism (3) DKA (diabetic ketoacidoses) Qualifiers: Diabetes mellitus complication detail: without coma Diabetes mellitus type: type 1 Qualified Code(s): E10.10 - Type 1 diabetes mellitus with ketoacidosis without coma
[2018-10-23] MEDS: FONDAPARINUX 2.5 MG/0.5 ML SQ SCH (08:50)
[2018-10-23] MEDS: Insulin Detemir Inj 1,000 UNIT/10 ML Vial SQ SCH (08:51)
[2018-10-23] MEDS: MethylPREDNISolone Sod Succinate Inj 40 MG/ML Vial IV.PUSH SCH (08:51)
[2018-10-23] MEDS: Pantoprazole Inj 40 MG Vial IV.PUSH SCH (08:51)
[2018-10-23] MEDS: Morphine Inj 4 MG/ML Vial IV.PUSH PRN (09:03)
[2018-10-23 10:09] VITALS: BP 130/63; PULSE 90; RESP 18; TEMP 98.7; O2SAT 97
--- NOTE | 2018-10-23 12:26 | P.DS ---
DS: Providers Date of admission: 10/18/18 11:58 Primary care physician: No Primary Care Physician Consults: 10/19/18 07:33 Consult to Hospitalist Routine Consulting Provider: Ashley Ramos Reason for Consultation: [place] of care in a.m. 10/20. Admission with DKA. Notified:: Service Spoke with:: Lynn Date Notified:: 10/19/18 Time Notified:: 07:42 Ordering Provider: ZAY 10/20/18 14:36 Consult to Senior Geologist Stat Consulting Provider: Valdo Tabares For STAT consult, spoke directly to:: Dr Tabares Reason for Consultation: Respiratory failure, severe metabolic acidosis, ARDS Notified:: Service Date Notified:: 10/20/18 Time Notified:: 14:41 Comments:: DR TO DR MARK SPOKE Ordering Provider: MARY 10/21/18 06:12 Consult to Hospitalist Routine Consulting Provider: Ashley Ramos Reason for Consultation: [place] of care in a.m. 10/22. Simple DKA. Notified:: Service Spoke with:: Julianna Date Notified:: 10/21/18 Time Notified:: 06:17 Ordering Provider: ZAY 10/22/18 07:38 Consult to Hospitalist Routine Consulting Provider: Ashley Ramos Reason for Consultation: Consult and transfer to hospitalist service for medical management. Critical care will be signing off, please reconsult if needed Notified:: Service Spoke with:: Kamala Date Notified:: 10/22/18 Time Notified:: 07:45 Ordering Provider: NEIL Brief History from admission: a history of diabetes here for evaluation of generalized weakness and excessive breathing. He had DKA multiple times in the past, he says he has been using his insulin but has taken lower dose than usual because he is worried that he is going to run out. He has been feeling weak for the last 3 days, thirsty, has been drinking lots of water but has low urine output, he has no fever chills or night sweats no cough or runny nose or any other complaints. Related Data DS: Diagnosis Discharge Diagnosis (1) Hyponatremia: Status: Acute (2) Hyperkalemia: Status: Acute (3) Acute kidney injury: Status: Acute (4) Elevated lipase: Status: Acute (5) Leukocytosis: Status: Acute (6) Community acquired pneumonia: Status: Acute (7) Hx of diabetes mellitus: Status: Acute (8) DKA (diabetic ketoacidoses): Status: Acute DS: Summary Essential hypertension Echocardiogram indicating normal ventricular size. Normal ventricular function with ejection fraction 55-60% As needed hydralazine, labetalol and Nitropaste for hypertension Acute hypoxic respiratory failure-has resolved. Off BiPAP, tolerating nasal cannula Albuterol/ipratropium aerosols every 4 hours while awake with albuterol aerosols every 2 as needed dyspnea On methylprednisolone succinate Follow-up CXR with some improvement CT pulmonary angiogram was performed which showed fairly extensive airspace process bilaterally which could be inflammatory, however fairly extensive pneumonia should be entertained. Hypokalemia Hypophosphatemia Electrolyte replacement as needed IDDM DKA-has resolved. Insulin detemir 10 units twice daily with sliding scale insulin aspart q. before meals at bedtime Hemoglobin A1c 9.5 Home medication is NPH 15 units twice daily and sliding scale aspart IV R with meals] Leukocytosis-resolved. Thrombocytopenia Normocytic anemia Community acquired pneumonia Previously on ceftriaxone and azithromycin, now on piperacillin/tazobactam, vancomycin and azithromycin since 10/20 Blood cultures x2, sputum influenza A negative Viral respiratory panel ordered 10/18 is negative. Repeated 10/20 for unknown reasons pulmonary following. Time Spent with Patient Total time spent providing and/or coordinating discharge services:< 35 min. Quality: VTE Deep Vein Thrombosis/Pulmonary Embolism Present on Admission: No Exam Narrative Exam Narrative: patient in no acute distress. bilateral air entry present on lung exam. S1/S2 heard- abdomen is soft- no pedal edema. Results Labs on day of discharge: Labs from last 24 hours 10/23/18 10/23/18 10/23/18 08:47 04:22 04:22 CBC w Diff Auto diff final WBC 8.1 D RBC 3.70 L Hgb 10.8 L Hct 32.2 L MCV 87.1 MCH 29.1 MCHC 33.4 RDW 13.4 Plt Count 303 D MPV 8.7 Neut % (Auto) 87.0 H Lymph % (Auto) 7.2 L [place] % (Auto) 3.1 Eos % (Auto) 2.5 Baso % (Auto) 0.2 Neut # (Auto) 7.0 Lymph # (Auto) 0.6 L [place] # (Auto) 0.3 Eos # (Auto) 0.2 Baso # (Auto) 0.0 WBC Differential . Differential Comment . Yovanny Test Sodium 136 Potassium 3.1 L Chloride 103 Carbon Dioxide 25.5 Anion Gap 8 BUN 17 Creatinine 1.10 Estimated GFR 76 L POC Glucose 223 H Random Glucose 244 H Calcium 8.0 L Phosphorus 2.7 D 10/23/18 10/22/18 10/22/18 03:26 20:37 16:40 CBC w Diff WBC RBC Hgb Hct MCV MCH MCHC RDW Plt Count MPV Neut % (Auto) Lymph % (Auto) [place] % (Auto) Eos % (Auto) Baso % (Auto) Neut # (Auto) Lymph # (Auto) [place] # (Auto) Eos # (Auto) Baso # (Auto) WBC Differential Differential Comment Yovanny Test Sodium Potassium Chloride Carbon Dioxide Anion Gap BUN Creatinine Estimated GFR POC Glucose 268 H 370 H 334 H Random Glucose Calcium Phosphorus 10/22/18 10/20/18 12:23 09:10 CBC w Diff WBC RBC Hgb Hct MCV MCH MCHC RDW Plt Count MPV Neut % (Auto) Lymph % (Auto) [place] % (Auto) Eos % (Auto) Baso % (Auto) Neut # (Auto) Lymph # (Auto) [place] # (Auto) Eos # (Auto) Baso # (Auto) WBC Differential Differential Comment Yovanny Test Present Sodium Potassium Chloride Carbon Dioxide Anion Gap BUN Creatinine Estimated GFR POC Glucose 253 H Random Glucose Calcium Phosphorus Impressions ITS Impressions Chest CTA 10/20/18 00:00 CONCLUSION: Fairly extensive airspace process bilaterally could be inflammatory, however fairly extensive pneumonia should be entertained. The appearance is nonspecific. There are also coronary calcifications. Chest X-Ray 10/22/18 07:45 CONCLUSION: There is mild improvement in bilateral infiltrates most likely improvement in pneumonia and residual infiltrates remain. Discharge Plan Discharge Disposition Patient Disposition: Against Medical Advice Physicians Team Primary Care Provider: Primary Care Elleni,Cayla Attending Provider: Ashley Ramos Other Providers: Valdo Tabares ; Alden Solano ; Ashley Ramos Rxs /Orders / Referrals /Forms Prescriptions: No Action insulin NPH isoph U-100 human [Novolin N NPH U-100 Insulin] 100 unit/mL Suspension 15 unit SUBCUT BID Qty: 1 RF: 0 insulin regular human [Novolin R Regular U-100 Insuln] 100 unit/mL Solution 1 unit SUBCUT ACHS Qty: 1 RF: 0 Referrals: Primary Care Elleni,No [Primary Care Provider] - See Instructions Discharge Instructions Patient Printed Instructions: Diabetic Ketoacidosis (GEN), Foot Care for People with Diabetes (DC), Managing Diabetes During Sick Days (DC) Status ED Status: Left Department Discharge Information Discharge Date/Time: 10/23/18 11:14
[2018-10-24] MEDS ORDERED: Pharmacy Ordered Lab Info OTHER ONE (03:45)
== END 2018-10-23 11:14 | disposition left against medical advice (07) | DRG 637 ==
LOC: PHEFT 09:31 → PHEDA 11:58 → PHICU 13:54
PROVIDERS: ADMIT Internal Medicine; ATTEND Internal Medicine
DX: Z83.3 Family history of diabetes mellitus; Z79.4 Long term (current) use of insulin; J18.9 Pneumonia, unspecified organism; R74.8 Abnormal levels of other serum enzymes; J96.01 Acute respiratory failure with hypoxia; E87.5 Hyperkalemia; E86.0 Dehydration; D69.6 Thrombocytopenia, unspecified; D64.9 Anemia, unspecified; E83.39 Other disorders of phosphorus metabolism; N17.9 Acute kidney failure, unspecified; E87.1 Hypo-osmolality and hyponatremia; F17.210 Nicotine dependence, cigarettes, uncomplicated; E87.8 Other disorders of electrolyte and fluid balance, not elsewhere classified; E10.10 Type 1 diabetes mellitus with ketoacidosis without coma; I10 Essential (primary) hypertension; R00.0 Tachycardia, unspecified; E87.6 Hypokalemia
CPT/HCPCS: 36600; 71010; 71020; 71045; 71046; 71275; 76937; 80048; 80053; 80202; 80307; 81001; 82010; 82040; 82140; 82150; 82272; 82550; 82552; 82805; 82948; 82962; 83036; 83520; 83605; 83690; 83735; 83880; 84100; 84132; 84484; 85025; 85379; 86022; 87040; 87275; 87276; 87389; 87449; 87633; 87641; 87804; 90761; 90765; 90775; 93005; 93306; 94002; 94003; 94150; 94640; 94656; 94657; 94665; 96361; 96365; 96375; 97110; 97116; 97162; 97530; 99285; C9113; J0456; J0696; J1644; J1652; J1815; J1817; J1940; J2270; J2405; J2543; J2920; J2930; J3370; J3475; J3480; J7030; J7042; J7050; Q9967